=== PATIENT | female | born 1965 ===

== ENCOUNTER 2020-09-08 12:02 | Outpatient (REF) | payer OTHER, SELFPAY ==
[2020-09-08 13:57] LABS: MANUAL DIFF FLAG NO
[2020-09-08 14:14] LABS: Basophils Percent Auto 0.4 % (0-2); Eosinophils Absolute Auto 0.2 X10*3/uL (0.0-0.4); Eosinophils Percent Auto 2.6 % (0-4); Hematocrit 36.3 % (37-47); Hemoglobin 11.7 g/dl (12.0-16.0); Imm Gran Abs Auto 0.02 X10*3/uL (0.00-0.03); Imm Gran Pct Auto 0.2 % (0.0-0.4); Lymphocytes Absolute Auto 2.7 X10*3/uL (1.2-4.9); Mean Corpuscular HGB Conc 32.2 g/dl (31.0-35.0); Mean Corpuscular Hemoglobin 29.8 pg (27.0-33.0); Mean Corpuscular Volume 92.6 fL (80-98); Mean Platelet Volume 11.4 fL (9.4-12.3); Monocytes Absolute Auto 0.7 X10*3/uL (0.1-1.2); Neutrophils Absolute Auto 4.8 X10*3/uL (2.0-8.3); Neutrophils Percent Auto 56.8 % (45-73); Platelet Count 230 X10*3/uL (160-400); Red Blood Count 3.92 X10*6/uL (4.20-5.50); Red Cell Distribution Width 13.6 % (11.0-16.0); White Blood Count 8.5 X10*3/uL (4.8-10.8)
[2020-09-08 14:25] LABS: Alanine Aminotransferase 12 U/L (0-31); Albumin Level 3.9 g/dL (3.5-5.0); Alkaline Phosphatase 77 U/L (39-117); Anion Gap 10 (12-20); Aspartate Amino Transferase 12 U/L (5-31); Bilirubin Total 0.5 mg/dL (0.0-1.0); Blood Urea Nitrogen 15 mg/dL (9-16); Calcium 8.7 mg/dL (8.4-10.2); Carbon Dioxide 26 mmol/L (22-29); Chloride 110 mmol/L (96-108); Cholesterol 152 mg/dL; Estimated Glomerular Filt Rate > 60; Glucose Fasting 95 mg/dL (60-99); HDL Cholesterol 56 mg/dL; LDL Cholesterol Calculated 78 mg/dl; Potassium 4.5 mmol/L (3.3-5.1); Sodium 141 mmol/L (135-145); Total Protein 6.6 g/dL (6.5-8.0); Triglycerides 94 mg/dL
== END 2020-09-08 12:03 | disposition home or self-care (01) ==
LOC: HO.HMGCLDS 12:02
PROVIDERS: PCP Internal Medicine; Visit Provider Nurse Practitioner Family
DX: N39.0 Urinary tract infection, site not specified (principal); Z83.42 Family history of familial hypercholesterolemia
CPT/HCPCS: 36415; 80053; 80061; 85025

== ENCOUNTER 2020-09-13 13:07 | Outpatient (REF) | payer OTHER, SELFPAY ==
[2020-09-13 14:19] LABS: Glucose Urine UA NEG (NEG); Leukocyte Esterase Urine 2+ (NEG); Nitrite Urine POS (NEG); PH 5.5 (5.0-8.0); Specific Gravity - Urine >= 1.030 (1.005-1.025); UACC Culture Trigger YES; Urine Blood 1+ (NEG); Urine Ketones NEG (NEG); Urine Protein NEG (NEG-TRACE)
[2020-09-13 14:24] LABS: Appearance Urine CLOUDY; Color Urine YELLOW
[2020-09-13 14:54] LABS: Bacteria Urine 2+ /LPF; RBC Urine 0-2 /HPF (0); Squamous Epithelial Cell Urine TRACE /LPF; WBC Urine TNTC /HPF (0-4)
== END 2020-09-13 13:08 | disposition home or self-care (01) ==
LOC: HO.LAB 13:07
PROVIDERS: PCP Internal Medicine; Visit Provider Internal Medicine
DX: R30.0 Dysuria (principal)
CPT/HCPCS: 81001; 81003; 87086; 87088; 87186

== ENCOUNTER 2020-10-22 14:00 | Outpatient (REF) | payer OTHER, SELFPAY | END 2020-10-22 14:01 | disposition home or self-care (01) | LOC: HO.LNP 14:00 | PROVIDERS: Visit Provider Hospitalist | DX: R30.0 Dysuria (principal) | CPT/HCPCS: 87086; 87088; 87186 ==

== ENCOUNTER 2020-12-13 10:17 | Outpatient (REF) | payer OTHER, SELFPAY ==
--- NOTE | ~2020-12-13 | MM_ITS ---
EXAMINATION: MM SCREENING DIGITAL BREAST TOMOSYNTHESIS, BILATERAL CLINICAL INFORMATION: Screening. Asymptomatic. The lifetime risk of breast cancer based on the Tyrer-Cuzick Model is 7%. COMPARISON: Mammography: 11/22/2019, 06/15/2017, 10/20/2015 TECHNIQUE: Digital breast tomosynthesis is performed in both the craniocaudal and mediolateral oblique views along with computer-aided detection (CAD). Synthesized 2D images are generated from the tomosynthesis. FINDINGS: There are scattered areas of fibroglandular density (ACR BI-RADS breast composition Category b). There are no significant masses, abnormal calcifications, or other abnormalities. There is intramammary node mid outer left breast again noted as incidental finding. No developing density. The bilateral axilla and skin contours are unremarkable. MM/MM tomosynthesis screening BI IMPRESSION: No mammographic evidence of malignancy. ASSESSMENT: BI-RADS 2: Benign RECOMMENDATION: Routine annual mammography screening. This patient's information was entered into a reminder system with a target due date for their next mammogram.
== END 2020-12-13 10:18 | disposition home or self-care (01) ==
LOC: HO.MAMMO 10:17
PROVIDERS: Visit Provider Internal Medicine
DX: Z12.31 Encounter for screening mammogram for malignant neoplasm of breast (principal)
CPT/HCPCS: 77063; 77067

== ENCOUNTER 2020-12-28 13:49 | Emergency (ER) | payer OTHER, SELFPAY ==
[2020-12-28 15:02] VITALS: PULSE 74; RESP 18; TEMP 36.7; O2SAT 95; BMI 56.9
[2020-12-28 15:34] LABS: Glucose Urine UA NEG (NEG); Leukocyte Esterase Urine 1+ (NEG); Nitrite Urine POS (NEG); Specific Gravity - Urine >= 1.030 (1.005-1.025); UACC Culture Trigger YES; Urine Blood TRACE (NEG); Urine Ketones NEG (NEG); Urine Protein NEG (NEG-TRACE)
[2020-12-28 15:36] LABS: Appearance Urine HAZY; Color Urine YELLOW
[2020-12-28 15:49] LABS: Bacteria Urine 4+ /LPF; RBC Urine 0-2 /HPF (0); Squamous Epithelial Cell Urine 1+ /LPF
--- NOTE | 2020-12-28 18:01 | ED_ITS ---
HPI - Female Genitourinary General Chief complaint: Urogenital-Female Stated complaint: kidney stones Time Seen by Provider: 12/28/20 16:24 Source: patient Mode of arrival: ambulatory Limitations: no limitations History of Present Illness HPI Narrative: 55-year-old female came in for evaluation of possible UTI. Patient has a complain of frequency urination, dysuria, suprapubic pain, odor in the urine, patient had similar symptoms in the past and was diagnosed with UTI. Patient otherwise declined fever, chills, nausea, or vomiting. Related Data Previous Rx's Medication Instructions Recorded nitrofurantoin macrocrystal 100 mg 100 mg PO BID 7 Days #14 cap 09/13/20 capsule clotrimazole-betamethasone 1 1 appl TOPICAL BID 14 Days #15 g 09/20/20 %-0.05 % topical cream pantoprazole 40 mg tablet,delayed 40 mg PO DAILY 90 Days #90 tab 09/20/20 release ciprofloxacin HCl 500 mg tablet 500 mg PO BID #14 tab 10/22/20 (Cipro) ciprofloxacin HCl 500 mg tablet 500 mg PO BID #14 tab 12/28/20 (Cipro) Allergies Allergy/AdvReac Type Severity Reaction Status Date / Time No Known Allergies Allergy Verified 10/22/20 12:38 [No Known Allergies*] Review of Systems Review of Systems: All other systems are reviewed and are negative Constitutional: Reports as per HPI and Reports no additional constitutional complaints Eyes: Reports as per HPI and Reports no additional eye complaints Reports system reviewed and no additional complaints, except as documented Cardiovascular: Reports as per HPI and Reports no additional cardiovascular complaints Respiratory: Reports as per HPI and Reports no additional respiratory complaints Gastrointestinal: Reports as per HPI and Reports no additional gastrointestinal complaints Genitourinary: Reports no additional female genitourinary complaints Musculoskeletal: Reports no additional musculoskeletal complaints Skin/Breast: Reports system reviewed and no additional complaints, except as docu Psychiatric: Reports no additional psychiatric complaints Endocrine: Reports no additional endocrine complaints Hematologic/Lymphatic: Reports no additional hematologic/lymphatic complaints Allergic/Immunologic: Reports no additional allergic/immunologic complaints Reports system reviewed and no additional complaints, except as documented and Reports Abnormal speech present [facility] Past Medical History Medical History Depression Family history of high cholesterol GERD with apnea Morbid obesity UTI (urinary tract infection) Surgical History History of appendectomy History of bladder suspension procedure History of esophagogastroduodenoscopy (EGD) Hx of colonoscopy Family History Family History Mother Pulmonary edema Social History Social History Alcohol intake: never Advance Directives: No Advance Directives Information Provided: No Patient : No Physical Exam Vital Signs: Vital Signs: Last Vital Signs Temp 98.0 F 12/28/20 15:02 Pulse 74 12/28/20 15:02 Resp 18 12/28/20 15:02 Pulse Ox 95 12/28/20 15:02 Body Mass Index 56.9 Vital signs have been reviewed as appeared to be correct. Blood pressure normal. Heart rate normal. Respiration rate normal. Temperature normal. Oxygen saturation normal. Appearance: Alert. Oriented X3. No acute distress. Head: Normal external exam. Normocephalic. Atraumatic. No Lowe signs noted. No raccoon eyes noted Eyes: PERRLA. EOMI. Conjunctiva and sclera normal. Eyelids normal. ENT: TM's Normal. Pharynx normal. Uvula midline. Moist mucous membranes. No trismus noted. No drooling noted. No muffled voice noted. Neck: Normal inspection. Neck supple. FROM. No adenopathy. Thyroid Normal. No meningeal signs. No neck mass noted. CVS: Normal heart rate and rhythm. Heart sound normal. No murmurs noted. Pulses normal throughout. Respiratory: No respiratory distress. Painless inspiration. Breath sounds normal. No wheezes/rales/rhonchi noted. Chest nontender. No accessory muscle usage noted or decreased air movement noted. Abdomen: Soft and nontender. Bowel sounds normal in all 4 quadrants. No distention noted. No organomegaly noted. No visible injury noted. Back: No CVA tenderness. Full range of motion noted. Skin: Skin warm and dry. Normal skin color. Normal skin turgor. No rashes/lesions/lacerations noted. Extremities: No lower extremity edema. Extremities exhibit normal range of motion. Extremities nontender. Neuro: Oriented X 3. No motor deficit. No sensory deficit. Reflexes normal. Course Course Course Narrative: Assessment and plan. Symptoms for UTI, with history of UTI, no criteria for SIRS. Will treat empirically for UTI with Cipro (patient responded well to Cipro), culture not available now. MDM - Female Genitourinary Medical Records Attestation: I reviewed the patient's medical records. Lab Data Attestation: I reviewed the patient's lab results. Labs: Lab Results 12/28/20 Range/Units 15:22 Urine Color YELLOW Urine Appearance HAZY Urine pH 6.0 (5.0-8.0) Ur Specific Yoder >= 1.030 H (1.005-1.025) Urine Protein NEG (NEG-TRACE) MG/DL Urine Glucose (UA) NEG (NEG) MG/DL Urine Ketones NEG (NEG) MG/DL Urine Blood TRACE (NEG) Urine Nitrite POS H (NEG) Ur Leukocyte Esterase 1+ H (NEG) Urine RBC 0-2 (0) /HPF Urine WBC 15-29 H (0-4) /HPF Ur Squamous Epith Cells 1+ /LPF Urine Bacteria 4+ /LPF Discharge Plan Discharge Clinical Impression: UTI (urinary tract infection) Patient Disposition: Home, Self-Care Instructions: Urinary Tract Infection in Women (ED) Prescriptions: New ciprofloxacin HCl [Cipro] 500 mg tablet 500 mg PO BID Qty: 14 RF: 0 No Action nitrofurantoin macrocrystal 100 mg capsule 100 mg PO BID 7 Days Qty: 14 RF: 0 ciprofloxacin HCl [Cipro] 500 mg tablet 500 mg PO BID Qty: 14 RF: 0 pantoprazole 40 mg tablet,delayed release (DR/EC) 40 mg PO DAILY 90 Days Qty: 90 RF: 1 clotrimazole-betamethasone 1-0.05 % cream 1 appl topical BID 14 Days Qty: 15 RF: 1 Referrals: Maria Luisa Henderson MD [Primary Care Provider] - 2 days
== END 2020-12-28 18:19 | disposition home or self-care (01) ==
PROVIDERS: Emergency Provider Emergency Medicine; PCP Internal Medicine
DX: N39.0 Urinary tract infection, site not specified (principal); R35.0 Frequency of micturition; Z79.899 Other long term (current) drug therapy
CPT/HCPCS: 81001; 87086; 87088; 87186; 99283

== ENCOUNTER 2021-08-18 10:55 | Outpatient (REF) | payer OTHER, SELFPAY ==
[2021-08-18 13:12] LABS: Appearance Urine HAZY; Color Urine YELLOW; Glucose Urine UA NEG (NEG); Leukocyte Esterase Urine 1+ (NEG); Nitrite Urine POS (NEG); Specific Gravity - Urine >= 1.030 (1.005-1.025); UACC Culture Trigger YES; Urine Blood 1+ (NEG); Urine Ketones NEG (NEG); Urine Protein NEG (NEG-TRACE)
[2021-08-18 13:48] LABS: WBC Urine 30-49 /HPF (0-4)
[2021-08-18 13:49] LABS: Bacteria Urine 3+ /LPF; Squamous Epithelial Cell Urine 2+ /LPF
== END 2021-08-18 10:56 | disposition home or self-care (01) ==
LOC: HO.LAB 10:55
PROVIDERS: PCP Internal Medicine; Visit Provider Nurse Practitioner Family
DX: R82.90 Unspecified abnormal findings in urine (principal)
CPT/HCPCS: 81001; 81003; 87086; 87088; 87186

== ENCOUNTER 2021-09-16 14:08 | Outpatient (REF) | payer OTHER, SELFPAY ==
[2021-09-16 16:47] LABS: Appearance Urine CLOUDY; Color Urine YELLOW; Glucose Urine UA NEG (NEG); Leukocyte Esterase Urine NEG (NEG); Nitrite Urine POS (NEG); Specific Gravity - Urine 1.025 (1.005-1.025); UACC Culture Trigger YES; Urine Blood TRACE (NEG); Urine Ketones NEG (NEG); Urine Protein NEG (NEG-TRACE)
[2021-09-16 17:00] LABS: Bacteria Urine 4+ /LPF; Squamous Epithelial Cell Urine 1+ /LPF
== END 2021-09-16 14:09 | disposition home or self-care (01) ==
LOC: HO.LAB 14:08
PROVIDERS: PCP Internal Medicine; Visit Provider Internal Medicine
DX: R30.0 Dysuria (principal)
CPT/HCPCS: 81001; 87086; 87088; 87186

== ENCOUNTER 2022-01-11 13:50 | Outpatient (REF) | payer OTHER, SELFPAY ==
[2022-01-11 15:18] LABS: Appearance Urine Cloudy; Color Urine Yellow; Glucose Urine UA Negative (Negative); Leukocyte Esterase Urine Large (3+) (Negative); Nitrite Urine Positive (Negative); Urine Blood Trace (Negative); Urine Ketones Trace mg/dL (Negative); Urine Protein Negative (Neg-Trace)
[2022-01-11 16:18] LABS: Hyaline Casts Urine 0-2 /LPF (0-2); RBC Urine 0-2 /HPF (0-2); UACC Culture Trigger YES; WBC Urine >50 /HPF (0-5)
[2022-01-11 16:36] LABS: Bacteria Urine 4+ (None Seen)
== END 2022-01-11 13:51 | disposition home or self-care (01) ==
LOC: HO.LAB 13:50
PROVIDERS: PCP Internal Medicine; Visit Provider Physician Assistant
DX: R30.0 Dysuria (principal)
CPT/HCPCS: 81001; 87086; 87088; 87186

== ENCOUNTER 2022-03-02 12:11 | Outpatient (REF) | payer OTHER, SELFPAY ==
[2022-03-02 13:27] LABS: Appearance Urine Cloudy; Color Urine Yellow; Glucose Urine UA Negative (Negative); Leukocyte Esterase Urine Moderate (2+) (Negative); Nitrite Urine Positive (Negative); UMIC TRIGGER UACC YES; Urine Blood Negative (Negative); Urine Ketones Negative (Negative); Urine Protein Negative (Neg-Trace)
[2022-03-02 13:30] LABS: Bacteria Urine 4+ (None Seen); Hyaline Casts Urine 0-2 /LPF (0-2); RBC Urine 0-2 /HPF (0-2); Squamous Epithelial Cell Urine 0-2 /HPF (0-2); UACC Culture Trigger YES; WBC Urine >50 /HPF (0-5)
== END 2022-03-02 12:12 | disposition home or self-care (01) ==
LOC: HO.LAB 12:11
PROVIDERS: PCP Internal Medicine; Visit Provider Internal Medicine
DX: R30.0 Dysuria (principal); R82.90 Unspecified abnormal findings in urine
CPT/HCPCS: 81001; 87086; 87088; 87186

== ENCOUNTER 2022-05-30 09:11 | Outpatient (REF) | payer OTHER, SELFPAY ==
[2022-05-30 09:37] LABS: MANUAL DIFF FLAG NO
[2022-05-30 10:07] LABS: Basophils Percent Auto 0.4 % (0-2); Eosinophils Absolute Auto 0.2 X10*3/uL (0.0-0.4); Eosinophils Percent Auto 2.3 % (0-4); Hematocrit 37.5 % (37.0-47.0); Hemoglobin 12.2 g/dl (12.0-16.0); Imm Gran Abs Auto 0.03 X10*3/uL (0.00-0.03); Imm Gran Pct Auto 0.4 % (0.0-0.4); Lymphocytes Absolute Auto 2.2 X10*3/uL (1.2-4.9); Lymphocytes Percent Auto 26.7 % (20-40); Mean Corpuscular HGB Conc 32.5 g/dl (31.0-35.0); Mean Corpuscular Hemoglobin 30.1 pg (27.0-33.0); Mean Corpuscular Volume 92.6 fL (80.0-98.0); Monocytes Absolute Auto 0.6 X10*3/uL (0.1-1.2); Monocytes Percent Auto 7.2 % (2-11); Neutrophils Absolute Auto 5.2 x10*3/uL (2.0-8.3); Platelet Count 223 X10*3/uL (160-400); Red Blood Count 4.05 X10*6/uL (4.20-5.50); Red Cell Distribution Width 13.3 % (11.0-16.0); White Blood Count 8.3 X10*3/uL (4.8-10.8)
[2022-05-30 11:27] LABS: Alanine Aminotransferase 8 U/L (0-31); Alkaline Phosphatase 81 U/L (39-117); Anion Gap 9 (12-20); Aspartate Amino Transferase 12 U/L (5-31); Bilirubin Total 0.8 mg/dL (0.0-1.0); Blood Urea Nitrogen 14 mg/dL (9-16); Carbon Dioxide 28 mmol/L (22-29); Chloride 108 mmol/L (96-108); Cholesterol 175 mg/dL; Estimated Glomerular Filt Rate > 60; Glucose Fasting 89 mg/dL (60-99); HDL Cholesterol 59 mg/dL; LDL Cholesterol Calculated 103 mg/dl; Potassium 4.8 mmol/L (3.3-5.1); Sodium 140 mmol/L (135-145); Total Protein 6.9 g/dL (6.5-8.0); Triglycerides 69 mg/dL
[2022-05-30 11:46] LABS: Thyroid Stimulating Hormone 2.15 uIU/mL (0.32-4.0); Vitamin D 25-OH Total 14.3 ng/mL (>30)
[2022-05-30 12:02] LABS: Folate 14.4 ng/mL (> or = 4.0); Vitamin B12 339 pg/mL (200-900)
== END 2022-05-30 09:12 | disposition home or self-care (01) ==
LOC: HO.LAB 09:11
PROVIDERS: PCP Internal Medicine; Visit Provider Internal Medicine
DX: E66.01 Morbid (severe) obesity due to excess calories (principal); E53.8 Deficiency of other specified B group vitamins; E78.5 Hyperlipidemia, unspecified; E55.9 Vitamin D deficiency, unspecified; D64.9 Anemia, unspecified
CPT/HCPCS: 36415; 80053; 80061; 82306; 82607; 82746; 84443; 85025

== ENCOUNTER 2022-06-09 09:09 | Outpatient (REF) | payer OTHER, SELFPAY ==
--- NOTE | ~2022-06-09 | MM_ITS ---
EXAMINATION: BONE DENSITOMETRY CLINICAL INDICATION: Menopause. COMPARISON: This is the patient's baseline examination. TECHNIQUE: Using a [employer] DXA System (software version: 13.1) manufactured by [employer], dual-energy x-ray absorptiometry was performed of the lumbar spine and left hip. The images are of good technical quality. Summary results are attached. FINDINGS: AP SPINE L1-L4: BMD 0.984 g/cm2, Z-score -1.7, T-score -1.6, osteopenia. LEFT FEMUR, NECK: BMD 0.818 g/cm2, Z-score -1.1, T-score -1.6, osteopenia. LEFT FEMUR, TOTAL: BMD 1.084 g/cm2, Z-score 0.7, T-score 0.6, normal. IDENTIFIED RISK FACTORS: Menopause. HISTORY OF FRACTURE: None listed. MEDICATIONS: Vitamin D. MM/XR DEXA axial skeleton IMPRESSION: 1. DIAGNOSIS: Osteopenia based on the lowest T-score value of -1.6 in the lumbar spine and femur neck applying World Health Organization criteria. 2. 10-YEAR FRACTURE RISK PREDICTION, FRAX: Major osteoporotic fracture (clinical spine, forearm, hip or shoulder) 3.4%. Hip fracture 0.3%. 3. Treatment Recommendations: NOF guidelines recommend consideration for treatment in postmenopausal women and men age 50 and older presenting with the following: -A hip or vertebral (clinical or morphometric) fracture. -T-score less than or equal to -2.5 at the femoral neck or spine after appropriate evaluation to exclude secondary causes. -Low bone mass at the hip or spine and a 10-year fracture probability by FRAX of greater than or equal to 3% for hip fracture or greater than or equal to 20% for major osteoporotic fracture based on the [place] adapted WHO algorithm. 4. Other Recommendations: All treatment decisions require clinical judgment and consideration of individual patient factors, including patient preferences, comorbidities, previous drug use, risk factors not captured in the FRAX model (e.g. frailty, falls, vitamin D deficiency, increased bone turnover, interval significant decline in bone density) and possible under or overestimation of fracture risk by FRAX. Additional medical evaluation for secondary cause of low bone mineral density may be appropriate. FUTURE SCAN RECOMMENDATION: People with diagnosed cases of osteoporosis or at high risk for fracture should have regular bone mineral density tests. For patients eligible for Medicare, routine testing is allowed once every 2 years. The testing frequency can be increased to one year for patients who have rapidly progressing disease, those who are receiving or discontinuing medical therapy to restore bone mass, or have additional risk factors.
== END 2022-06-09 09:10 | disposition home or self-care (01) ==
LOC: HO.MAMMO 09:09
PROVIDERS: PCP Internal Medicine; Visit Provider Internal Medicine
DX: Z13.820 Encounter for screening for osteoporosis (principal); Z78.0 Asymptomatic menopausal state
CPT/HCPCS: 77080

== ENCOUNTER → 2022-06-20 08:58 | Outpatient (BNVA) | payer OTHER, SELFPAY | PROVIDERS: PCP Internal Medicine; Visit Provider Physician Assistant | DX: Z13.89 Encounter for screening for other disorder (principal) ==

== ENCOUNTER → 2022-06-29 10:37 | Outpatient (BNVA) | payer OTHER, SELFPAY | PROVIDERS: PCP Internal Medicine; Visit Provider Physician Assistant | DX: E66.01 Morbid (severe) obesity due to excess calories (principal) ==

== ENCOUNTER → 2022-07-03 13:39 | Outpatient (BNVA) | payer OTHER, SELFPAY | PROVIDERS: PCP Internal Medicine; Referring Provider Internal Medicine; Visit Provider Nurse Practitioner Family | DX: Z13.89 Encounter for screening for other disorder (principal) ==

== ENCOUNTER 2022-07-10 10:03 | Outpatient (REF) | payer OTHER, SELFPAY ==
--- NOTE | ~2022-07-10 | XR_ITS ---
EXAMINATION: XR CHEST CLINICAL INFORMATION: Morbid obesity COMPARISON: August 29, 2014 TECHNIQUE: 2 views of the chest were obtained. FINDINGS: No significant abnormality is noted involving the heart, lungs, mediastinum, bony thorax or soft tissues. XR/XR chest 2V IMPRESSION: No acute disease.
--- NOTE | 2022-07-10 10:09 | ECG_ITS ---
Test Reason : morbid obesity Blood Pressure : / mmHG Vent. Rate : 076 BPM Atrial Rate : 076 BPM P-R Int : 136 ms QRS Dur : 090 ms QT Int : 390 ms P-R-T Axes : 057 027 031 degrees QTc Int : 438 ms Normal sinus rhythm Normal ECG When compared to the previous EKG of No significant changes seen Referred By: Radha Vasquez Electronically Signed By:Андрей Baez
[2022-07-10 10:33] LABS: MANUAL DIFF FLAG NO
[2022-07-10 11:02] LABS: Basophils Percent Auto 0.2 % (0-2); Eosinophils Absolute Auto 0.3 X10*3/uL (0.0-0.4); Eosinophils Percent Auto 3.6 % (0-4); Hematocrit 38.7 % (37.0-47.0); Hemoglobin 12.9 g/dl (12.0-16.0); Imm Gran Abs Auto 0.02 X10*3/uL (0.00-0.03); Imm Gran Pct Auto 0.2 % (0.0-0.4); Lymphocytes Percent Auto 23.4 % (20-40); Mean Corpuscular HGB Conc 33.3 g/dl (31.0-35.0); Mean Corpuscular Hemoglobin 30.1 pg (27.0-33.0); Mean Corpuscular Volume 90.2 fL (80.0-98.0); Mean Platelet Volume 11.2 fL (9.4-12.3); Monocytes Absolute Auto 0.5 X10*3/uL (0.1-1.2); Monocytes Percent Auto 6.2 % (2-11); Neutrophils Absolute Auto 5.8 x10*3/uL (2.0-8.3); Neutrophils Percent Auto 66.4 % (45-73); Platelet Count 230 X10*3/uL (160-400); Red Blood Count 4.29 X10*6/uL (4.20-5.50); Red Cell Distribution Width 12.7 % (11.0-16.0); White Blood Count 8.7 X10*3/uL (4.8-10.8)
[2022-07-10 11:07] LABS: Estimated Average Glucose 88 mg/dL; Hemoglobin A1c % 4.7 %
[2022-07-10 11:43] LABS: Alanine Aminotransferase 12 U/L (0-31); Albumin Level 4.1 g/dL (3.5-5.0); Alkaline Phosphatase 63 U/L (39-117); Anion Gap 13 (12-20); Aspartate Amino Transferase 13 U/L (5-31); Bilirubin Total 0.9 mg/dL (0.0-1.0); Blood Urea Nitrogen 13 mg/dL (9-16); C Reactive Protein 0.64 mg/dL (< or = 0.50); Carbon Dioxide 23 mmol/L (22-29); Chloride 109 mmol/L (96-108); Cholesterol 158 mg/dL; Estimated Glomerular Filt Rate > 60; Glucose Random 90 mg/dL (60-115); HDL Cholesterol 52 mg/dL; Iron 78 mcg/dL (30-160); LDL Cholesterol Calculated 94 mg/dl; Percent Iron Saturation 25 % (15-50); Potassium 4.3 mmol/L (3.3-5.1); Sodium 141 mmol/L (135-145); Total Iron Binding Capacity 306 mcg/dL (228-428); Total Protein 6.8 g/dL (6.5-8.0); Triglycerides 60 mg/dL; Unsaturated Iron Binding 228 ug/dL
[2022-07-10 12:14] LABS: Appearance Urine Cloudy; Color Urine Yellow; Glucose Urine UA Negative (Negative); Leukocyte Esterase Urine Negative (Negative); Nitrite Urine Negative (Negative); PH 5.5 (5.0-9.0); Specific Gravity - Urine 1.025 (1.005-1.025); Urine Blood Negative (Negative); Urine Ketones Negative (Negative); Urine Protein Negative (Neg-Trace)
[2022-07-10 12:14] LABS: Ferritin 159 ng/mL (10-250); Folate 16.1 ng/mL (> or = 4.0); Insulin 5 uU/mL (2-29); TSH reflex Free T4 1.46 uIU/mL (0.32-4.0); Vitamin B12 289 pg/mL (200-900); Vitamin D 25-OH Total 18.7 ng/mL (>30)
[2022-07-11 13:39] LABS: Calcium (PTHI) 9.1 mg/dL (8.6-10.4); PTHI 95 pg/mL (16-77)
[2022-07-13 05:49] LABS: Zinc 64 mcg/dL (60-130)
[2022-07-13 17:29] LABS: Vitamin A 28 mcg/dL (38-98)
[2022-07-16 12:18] LABS: Vitamin B1 <6 nmol/L (8-30)
== END 2022-07-10 10:04 | disposition home or self-care (01) ==
LOC: HO.LAB 10:03
PROVIDERS: PCP Internal Medicine; Visit Provider Physician Assistant
DX: Z01.818 Encounter for other preprocedural examination (principal); E66.01 Morbid (severe) obesity due to excess calories; K21.9 Gastro-esophageal reflux disease without esophagitis; R06.81 Apnea, not elsewhere classified; I10 Essential (primary) hypertension; R30.0 Dysuria
CPT/HCPCS: 36415; 71046; 80053; 80061; 81003; 82306; 82607; 82728; 82746; 83036; 83525; 83540; 83970; 84425; 84443; 84590; 84630; 85025; 86140; 93005

== ENCOUNTER → 2022-07-24 15:21 | Outpatient (BNVA) | payer OTHER, SELFPAY | PROVIDERS: PCP Internal Medicine; Visit Provider Physician Assistant | DX: Z13.89 Encounter for screening for other disorder (principal) ==

== ENCOUNTER → 2022-07-27 13:49 | Outpatient (BNVA) | payer OTHER, SELFPAY | PROVIDERS: PCP Internal Medicine; Visit Provider Physician Assistant | DX: Z11.0 Encounter for screening for intestinal infectious diseases (principal); E66.01 Morbid (severe) obesity due to excess calories | CPT/HCPCS: 97802 ==

== ENCOUNTER 2022-07-27 17:41 | Outpatient (REF) | payer OTHER, SELFPAY ==
[2022-07-29 15:02] LABS: H Pylori Breath Test Negative (Negative)
== END 2022-07-27 17:42 | disposition home or self-care (01) ==
LOC: HO.LNP 17:41
PROVIDERS: Visit Provider Physician Assistant
DX: Z01.818 Encounter for other preprocedural examination (principal); E66.01 Morbid (severe) obesity due to excess calories; I10 Essential (primary) hypertension; K21.9 Gastro-esophageal reflux disease without esophagitis; R06.81 Apnea, not elsewhere classified; Z11.0 Encounter for screening for intestinal infectious diseases
CPT/HCPCS: 83013

== ENCOUNTER 2022-08-10 09:55 | Outpatient (REF) | payer OTHER, SELFPAY ==
[2022-08-10 18:39] LABS: CT PCR NOT DETECTED (Not Detect.); NG PCR NOT DETECTED (Not Detect.)
[2022-08-12 10:19] LABS: HPV mRNA E6/E7 rflx Not Detected (Not Detected)
== END 2022-08-10 09:56 | disposition home or self-care (01) ==
LOC: HO.LNP 09:55
PROVIDERS: PCP Internal Medicine; Visit Provider Advanced Practice Midwife
DX: Z01.419 Encounter for gynecological examination (general) (routine) without abnormal findings (principal); Z20.2 Contact with and (suspected) exposure to infections with a predominantly sexual mode of transmission
CPT/HCPCS: 0353U; 87624; 88142

== ENCOUNTER → 2022-08-15 13:21 | Outpatient (BNVA) | payer OTHER, SELFPAY | PROVIDERS: PCP Internal Medicine; Visit Provider Physician Assistant | DX: Z13.89 Encounter for screening for other disorder (principal) ==

== ENCOUNTER 2022-08-23 08:10 | Outpatient (REF) | payer OTHER, SELFPAY ==
--- NOTE | ~2022-08-23 | FL_ITS ---
EXAMINATION: FL UPPER GI SERIES CLINICAL INFORMATION: Bariatric service evaluation. E66.01. Patient notes history heartburn. No dysphagia. COMPARISON: None TECHNIQUE: Upper GI series is performed using fluoroscopic evaluation in addition to multiple fluoroscopic spot views. The patient is imaged both upright and prone and using both thick and thin barium sulfate along with effervescent granules. Barium pill challenge also performed. Fluoroscopy time: 1.9 minutes DAP: 28.01 Gycm2 Fluoroscopic spot images: 19 FINDINGS: There is normal esophageal motility. There is no obstruction, stricture, ulceration, or hernia. No gastroesophageal reflux is demonstrated. There is prompt passage of the barium pill from mouth to stomach without delay. The stomach shows no thickened folds or ulcer crater or outlet obstruction. The duodenal bulb is pliable and without ulcer crater or scarring. The post bulbar duodenum the jejunal mucosal pattern are unremarkable. FL/FL upper GI w air IMPRESSION: Normal study.
--- NOTE | ~2022-08-23 | US_ITS ---
EXAMINATION: US COMPLETE ABDOMEN WITH LIVER ELASTOGRAPHY CLINICAL INFORMATION: Obesity COMPARISON: None available. TECHNIQUE: Real-time imaging of the abdominal viscera. Noninvasive ultrasound liver fibrosis assessment is performed using Kg [employer]ast[employer] point quantification shear wave elastography (2D-SWE) with a C5-2 MHz transducer. Multiple elastography samples are obtained. FINDINGS: PANCREAS: Normal. ABDOMINAL AORTA: The proximal, middle, and distal aortic segments are normal in caliber. INFERIOR VENA CAVA: Visualized portions are normal. LIVER: The liver is slightly enlarged. The liver is normal in echotexture and contour. No focal lesion or intrahepatic biliary duct dilatation. The right lobe measures 18 cm in length. The left lobe measures 12 cm in length. Portal flow is normal/hepatopedal Shear wave liver elastography median stiffness is 2.7 m/s (reference: normal median stiffness is 1.3 m/s or less). IQR/median stiffness to assess sampling precision is 0.08 (reference: good quality data set is IQR/median stiffness of 0.15 or less). GALLBLADDER: Normal. The gallbladder is physiologically distended without evidence of stones, sludge, polyps, wall thickening or pericholecystic fluid. COMMON BILE DUCT: Normal in caliber measuring 0.4 cm in diameter. RIGHT KIDNEY: Normal. No hydronephrosis. No renal calculi or focal parenchymal lesions. The kidney measures 12.7 cm in maximum dimension. LEFT KIDNEY: Normal. No hydronephrosis. No renal calculi or focal parenchymal lesions. The kidney measures 11 cm in maximum dimension. SPLEEN: Normal. The spleen measures 10 cm in maximum dimension. FREE FLUID: None. US/US abdomen comp w elastography IMPRESSION: 1. Impression: Slightly enlarged liver. 2. Liver elastography: Adequate liver sampling. Increased liver stiffness suggestive of compensated advanced chronic liver disease but need further test for confirmation. REFERENCE: Society of Radiologists in Ultrasound Liver Stiffness Thresholds (2020): LIVER STIFFNESS THRESHOLDS: *Liver Stiffness equal or less than 1.3 m/s: High probability of being normal. *Liver Stiffness less than 1.7 m/s: In the absence of other known clinical signs, rules out compensated advanced chronic liver disease. *Liver Stiffness 1.7-2.1 m/s: Suggestive of compensated advanced chronic liver disease but need further test for confirmation. *Liver Stiffness over 2.1 m/s: Rules in compensated advanced chronic liver disease. *Liver Stiffness over 2.4 m/s: Suggestive of clinically significant portal hypertension. QUALITY OF DATA SET: *IQR/Median value equal or less than 0.15 implies a quality data set. *IQR/Median value over 0.15 implies a poor quality data set. SIGNIFICANT CHANGE FROM PRIOR EXAM: Significant change if liver stiffness measurement is 10% or greater from prior exam. OTHER CONSIDERATIONS: The stage of liver fibrosis may be overestimated in the setting of acute hepatitis, liver inflammation, elevated liver function tests, hepatic vascular congestion, obstructive cholestasis, non-fasting state, and infiltrative diseases such as amyloidosis and lymphoma. In some patients with NAFLD, the liver stiffness thresholds for compensated advanced chronic liver disease may be lower. In causes other than viral hepatitis and NAFLD, liver stiffness thresholds are not well established.
== END 2022-08-23 08:11 | disposition home or self-care (01) ==
LOC: HO.US 08:10
PROVIDERS: PCP Internal Medicine; Visit Provider Physician Assistant
DX: Z01.818 Encounter for other preprocedural examination (principal); E66.01 Morbid (severe) obesity due to excess calories; I10 Essential (primary) hypertension; K21.9 Gastro-esophageal reflux disease without esophagitis; R06.81 Apnea, not elsewhere classified
CPT/HCPCS: 74246; 76705; 76981

== ENCOUNTER → 2022-08-28 14:37 | Outpatient (BNVA) | payer OTHER, SELFPAY | PROVIDERS: PCP Internal Medicine; Visit Provider Dietitian, Registered | DX: E66.01 Morbid (severe) obesity due to excess calories (principal); Z71.3 Dietary counseling and surveillance | CPT/HCPCS: 97803 ==

== ENCOUNTER → 2022-09-06 15:00 | Outpatient (BNVA) | payer OTHER, SELFPAY | PROVIDERS: PCP Internal Medicine; Visit Provider Physician Assistant | DX: Z13.89 Encounter for screening for other disorder (principal) ==

== ENCOUNTER → 2022-09-08 14:53 | Outpatient (BNVA) | payer OTHER, SELFPAY | PROVIDERS: PCP Internal Medicine; Visit Provider Counselor Mental Health | DX: Z13.89 Encounter for screening for other disorder (principal) ==

== ENCOUNTER 2022-09-12 11:21 | Inpatient (IN) | payer OTHER, SELFPAY ==
--- NOTE | ~2022-09-12 | XR_ITS ---
Examination: Right ankle and right foot. CLINICAL INDICATION: Pain and swelling. COMPARISON: None. TECHNIQUE: 3 views right foot and 3 views right ankle. FINDINGS: Right ankle: There is bimalleolar soft tissue swelling. The ankle mortise and subtalar joints are normal. There is a small calcaneal heel and retrocalcaneal enthesophyte. The soft tissues are normal. Right foot: There is no visible acute fracture, dislocation or subluxation. The intertarsal, tarsometatarsal and interphalangeal joints are normal. The soft tissues are normal. XR/XR ankle RT min 3V IMPRESSION: Bimalleolar soft tissue swelling likely ligamentous contusion. No acute fracture or dislocation seen. There is a small calcaneal heal and retrocalcaneal enthesophytes.
--- NOTE | ~2022-09-12 | XR_ITS ---
Examination: Right ankle and right foot. CLINICAL INDICATION: Pain and swelling. COMPARISON: None. TECHNIQUE: 3 views right foot and 3 views right ankle. FINDINGS: Right ankle: There is bimalleolar soft tissue swelling. The ankle mortise and subtalar joints are normal. There is a small calcaneal heel and retrocalcaneal enthesophyte. The soft tissues are normal. Right foot: There is no visible acute fracture, dislocation or subluxation. The intertarsal, tarsometatarsal and interphalangeal joints are normal. The soft tissues are normal. XR/XR foot RT min 3V IMPRESSION: Bimalleolar soft tissue swelling likely ligamentous contusion. No acute fracture or dislocation seen. There is a small calcaneal heal and retrocalcaneal enthesophytes.
--- NOTE | ~2022-09-12 | US_ITS ---
EXAMINATION: US VENOUS ULTRASOUND WITH DOPPLER LOWER EXTREMITY, RIGHT CLINICAL INFORMATION: Right lower extremity swelling. COMPARISON: None available. TECHNIQUE: Ultrasound of the deep veins is performed from the hip to the calf with compression sonography and color and pulse Doppler assessment. Spectral analysis with color-flow imaging is performed. FINDINGS: There is normal venous compression and respiratory variation and augmented flow. The visualized common femoral vein, superficial femoral vein, profunda femoral vein, popliteal vein, and the trifurcation region shows no evidence of deep venous thrombosis. The peroneal vein is not seen. There is no significant popliteal fossa cyst. There are a few scattered lymph nodes seen in the right groin and proximal 5. The largest lymph node measures 5.0 x 1.5 x 4.9 cm. If the patient's symptoms persist, followup ultrasound in 5 days 7 days might be of value to exclude proximal propagation from a non-visualized calf vein. US/US venous duplex LE RT IMPRESSION: No DVT demonstrated in the right lower extremity. Small lymph nodes right groin.
--- NOTE | ~2022-09-12 | XR_ITS ---
EXAMINATION: XR CHEST CLINICAL INFORMATION: Question pulmonary edema COMPARISON: 07/10/2022 TECHNIQUE: Frontal view of the chest was obtained. FINDINGS: The lungs are well expanded. There is no focal consolidation, edema, or effusion. No pneumothorax. The cardiomediastinal silhouette is within normal limits. No acute osseous abnormality. XR/XR chest 1V IMPRESSION: No acute pulmonary disease.
--- NOTE | 2022-09-12 11:59 | ED_ITS ---
HPI - General Adult General Chief complaint: Extremity Problem <JEFF Estrada - Last Filed: 09/12/22 12:06> Stated complaint: Swollen R Foot No Injury Sore Throat <JEFF Estrada - Last Filed: 09/12/22 12:06> Time Seen by Provider: 09/12/22 16:24 <JEFF Estrada - Last Filed: 09/12/22 12:06> Source: patient <Kathleen Henry MD - Last Filed: 09/12/22 18:30> Mode of arrival: ambulatory <Kathleen Henry MD - Last Filed: 09/12/22 18:30> Limitations: no limitations <Kathleen Henry MD - Last Filed: 09/12/22 18:30> History of Present Illness HPI narrative: Patient comes to the emergency room complaining of right foot swelling and pain secondary to an injury. Patient states that approximately 4 days ago, patient was getting on the car, and while she was trying to get on, she injured the posterior aspect of her ankle. Since then, the right lower distal extremity has been becoming more painful, swollen, erythematous and warm to touch. Patient states that occasionally she sees post drainage from the back of her ankle . Also, patient has been complaining of a sore throat for last 4 days. Patient complaining of chills and subjective fever. <Kathleen Henry MD - Last Filed: 09/12/22 18:30> Related Data Home medications: Previous Rx's Medication Instructions Recorded clotrimazole-betamethasone 1 1 appl topical BID 2 weeks #15 05/13/ %-0.05 % topical cream grams calcium carbonate 600 mg calcium 600 mg PO BID 90 days #180 tabs 06/10/22 (1,500 mg) tablet cholecalciferol (vitamin D3) 50 50 mcg PO DAILY 90 days #90 caps 06/10/22 mcg (2,000 unit) capsule simethicone 125 mg capsule (Gas 125 mg PO TID-QID PRN abdominal 07/03/22 Relief (simethicone)) distention #120 caps cyanocobalamin (vitamin B-12) 250 250 mcg PO DAILY #30 tabs 07/10/22 mcg tablet thiamine HCl (vitamin B1) 100 mg 100 mg PO DAILY #30 tabs 07/18/22 tablet lisinopril 20 mg tablet 20 mg PO DAILY 90 days #90 tabs 07/24/22 <JEFF Estrada - Last Filed: 09/12/22 12:06> Allergies/adverse reactions: Allergies Allergy/AdvReac Type Severity Reaction Status Date / Time No Known Allergies Allergy Verified 09/06/22 15:04 [No Known Allergies*] <JEFF Estrada - Last Filed: 09/12/22 12:06> Review of Systems Review of Systems: Constitutional : No Weight loss, No Fever, No Chills, No Night Sweats, No Fatigue, No Malaise ENT/Mouth : No Hearing loss, No Ear Pain, No Nasal Congestion, No Sinus Pain, No Hoarseness, complaining of sore throat, No Rhinorrhea, No Swallowing Difficulty Eyes: No Eye Pain, No Swelling, No Redness, No Foreign Body, No Discharge, No Vision Changes Cardiovascular : No Chest Pain, No SOB, No Dyspnea on Exertion, No Orthopnea, No Edema, No Palpitations Respiratory : No Cough, No Sputum, No Wheezing, No Smoke Exposure, No Dyspnea Gastrointestinal : No Nausea, No Vomiting, No Diarrhea, No Constipation, No abdominal Pain, No Hematochezia, No Melena Genitourinary : no irregular bleeding, No Dysuria, No Urinary Frequency, No Hematuria, No Urinary Incontinence, No Urgency, No Flank Pain, No Urinary Flow Changes, No Hesitancy Musculoskeletal : No joint pain, No Myalgias, complaining of lower extremity edema warm and pain on the right side Skin : No Skin Lesions, No rash Neuro : No Weakness, No Numbness, No Paresthesias, No Loss of Consciousness, No Dizziness, No Headache Psych : No Anxiety/Panic, No Depression, No SI/HI/AH/VH, No Social Issues, Heme/Lymph: No Bruising, No Bleeding,No Lymphadenopathy Endocrine : No Polyuria, No Polydipsia, No Temperature Intolerance <Kathleen Henry MD - Last Filed: 09/12/22 18:30> [facility] Past Medical History Medical History: Medical History Depression Family history of high cholesterol GERD with apnea Morbid obesity Physical exam UTI (urinary tract infection) <JEFF Estrada - Last Filed: 09/12/22 12:06> Surgical History: Surgical History History of appendectomy History of bladder suspension procedure History of esophagogastroduodenoscopy (EGD) Hx of colonoscopy <JEFF Estrada - Last Filed: 09/12/22 12:06> Family History Family History: Family History Mother Pulmonary edema Father Diabetes HTN (hypertension) Heart disease <JEFF Estrada - Last Filed: 09/12/22 12:06> Social History Social History: Social History Household Members: Spouse Housing: House Alcohol intake: never Patient Tobacco Use Status: Never used Tobacco Smoked in Last 30 Days: No e-Cigarette/Vaping Use: Never Used Second Hand Smoke Exposure: No Use of substances other than those prescribed or required for medical reasons: No Advance Directives: No service: No Current occupational status: employed 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 Sexual orientation: Straight/Heterosexual Gender identity: Female Cognitive needs: No Hearing needs: No Vision needs: No <JEFF Estrada - Last Filed: 09/12/22 12:06> Physical Exam ED Vital Signs: Vital Signs - 24 hr 09/12/22 12:03 09/12/22 17:35 Temperature 103.1 F H Pulse Rate 104 H 100 Respiratory Rate 20 16 Blood Pressure 145/62 H 127/68 Pulse Oximetry 95 96 Oxygen Delivery Method Room Air Room Air BMI result Body Mass Index 51.7 <JEFF Estrada - Last Filed: 09/12/22 12:06> Vital Signs - 24 hr 09/12/22 12:03 09/12/22 17:35 Temperature 103.1 F H Pulse Rate 104 H 100 Respiratory Rate 20 16 Blood Pressure 145/62 H 127/68 Pulse Oximetry 95 96 Oxygen Delivery Method Room Air Room Air BMI result Body Mass Index 51.7 <Kathleen Henry MD - Last Filed: 09/12/22 18:30> Const Other: Appearance: Alert. Oriented X3. No acute distress. Eyes: Pupils equal, round and reactive to light. ENT: Pharynx erythematous, no visualized abscess that could be drained Neck: Normal inspection. Neck supple. No lymph nodes noted. No crepitus CVS: Normal heart rate and rhythm. Pulses normal. Normal S1 and S2 Respiratory: No respiratory distress. Breath sounds normal. No Wheezing. No rales Abdomen: Soft and nontender. No rigidity. No distention. Skin: Skin warm and dry. Normal skin color. Normal skin turgor. Extremities: Patient has bilaterally lower extremity edema, on the right ankle posteriorly, there are some small abrasions, small amount crusty secretions present. Scant amount of blood. Very tender to palpation, warm, swollen Neuro: Oriented X 3. No motor deficit. No sensory deficit. Moving all extremities. No slurred speech. CN 2 through 12 grossly intact Psych: calm, cooperative, normal affect <Kathleen Henry MD - Last Filed: 09/12/22 18:30> Course Course Course Narrative: This is an RME: Additional HPI, ROS, PE not included below will be deferred to primary provider. 57-year-old female history of depression, GERD, anxiety, venous insufficiency, osteopenia presenting to the emergency department complaints of atraumatic right-sided lower extremity swelling worse around the ankle since Sunday, patient also reports associated dizziness, shortness of breath and sore throat. Also started around the same time. This is never happened to her before. Not on anticoagulation. Physical exam with significantly swollen right lower extremity particularly around the ankle 2+ pitting edema with overlying warmth and painful range of motion. Normal sensation. Palpable pulses. Temp 103.1 F oral Plan at this time basic labs, x-ray, venous duplex of right lower extremity, blood cultures and lactic due to fever <JEFF Estrada - Last Filed: 09/12/22 12:06> Medications Administered Generic Name Dose Route Start Last Admin Trade Name Freq PRN Reason Stop Dose Admin Vancomycin HCl 2,000 mg in 500 mls @ 250 mls/hr 09/12/22 16:42 09/12/22 18:05 Vancomycin/Ns IV 09/12/22 18:41 250 mls/hr ONCE ONE Administration Discontinued Medications Generic Name Dose Route Start Last Admin Trade Name Freq PRN Reason Stop Dose Admin Acetaminophen 975 mg 09/12/22 12:06 09/12/22 12:11 Acetaminophen 325 Mg Tablet PO 09/12/22 12:07 975 mg ONCE ONE Administration Piperacillin Sod/Tazobactam 50 mls @ 100 mls/hr 09/12/22 16:42 09/12/22 17:57 Sod 3.375 gm/ Sodium Chloride IV 09/12/22 17:11 Infused ONCE ONE Infusion <JEFF Estrada - Last Filed: 09/12/22 12:06> Medications Administered Generic Name Dose Route Start Last Admin Trade Name Freq PRN Reason Stop Dose Admin Vancomycin HCl 2,000 mg in 500 mls @ 250 mls/hr 09/12/22 16:42 09/12/22 18:05 Vancomycin/Ns IV 09/12/22 18:41 250 mls/hr ONCE ONE Administration Discontinued Medications Generic Name Dose Route Start Last Admin Trade Name Freq PRN Reason Stop Dose Admin Acetaminophen 975 mg 09/12/22 12:06 09/12/22 12:11 Acetaminophen 325 Mg Tablet PO 09/12/22 12:07 975 mg ONCE ONE Administration Piperacillin Sod/Tazobactam 50 mls @ 100 mls/hr 09/12/22 16:42 09/12/22 17:57 Sod 3.375 gm/ Sodium Chloride IV 09/12/22 17:11 Infused ONCE ONE Infusion <Kathleen Henry MD - Last Filed: 09/12/22 18:30> Medical Decision Making Medical Decision Making MDM Narrative: -patient has lower extremity cellulitis in strep throat. -white blood cell count is 22.9, lactic acid within normal limits. Patient receiving IV fluids, vancomycin and Zosyn. Patient also given Tylenol and ibuprofen for the fever. Patient's blood pressure stable, sepsis not suspected -ultrasound of lower extremity negative for DVT -patient agrees with plan for admission. -I discussed the patient with Dr. Mccord, patient being admitted. <Kathleen Henry MD - Last Filed: 09/12/22 18:30> Differential Diagnosis Differential Diagnoses: The differential diagnosis associated with the presentation includes (Cellulitis, DVT, CHF) <Kathleen Henry MD - Last Filed: 09/12/22 18:30> Admission/Observation Consideration of admission/observation: Escalation of care including admission/observation considered <Kathleen Henry MD - Last Filed: 09/12/22 18:30> Consult Healthcare Provider Management of the patient was discussed with: Hospitalist <Kathleen Henry MD - Last Filed: 09/12/22 18:30> Lab Data MDM Lab Attestation statement: I reviewed the patient's lab results. <Kathleen Henry MD - Last Filed: 09/12/22 18:30> Result Diagrams: 09/12/22 14:30 09/12/22 14:30 <JEFF Estrada - Last Filed: 09/12/22 12:06> Labs: Lab Results 09/12/22 09/12/22 09/12/22 Range/Units 14:30 14:30 14:30 WBC (4.8-10.8) X10*3/uL RBC (4.20-5.50) X10*6/uL Hgb (12.0-16.0) g/dl Hct (37.0-47.0) % MCV (80.0-98.0) fL MCH (27.0-33.0) pg MCHC (31.0-35.0) g/dl RDW (11.0-16.0) % Plt Count (160-400) X10*3/uL MPV (9.4-12.3) fL Immature Gran % (Auto) (0.0-0.4) % Neut % (Auto) (45-73) % Lymph % (Auto) (20-40) % Robertson % (Auto) (2-11) % Eos % (Auto) (0-4) % Baso % (Auto) (0-2) % Lymph # (Auto) (1.2-4.9) X10*3/uL Robertson # (Auto) (0.1-1.2) X10*3/uL Eos # (Auto) (0.0-0.4) X10*3/uL Baso # (Auto) (0.0-0.2) X10*3/uL Abs Immat Gran (auto) (0.00-0.03) X10*3/uL Absolute Neuts (auto) (2.0-8.3) x10*3/uL Absolute Nucleated RBC (0.0-0.012) X10*3/uL Nucleated RBC % (auto) (0.0-0.2) /100WBC Smear Tech's Comments ESR (0-20) MM/HR PT 14.5 H (10.0-13.1) SEC INR 1.3 H (0.9-1.1) Sodium (135-145) mmol/L Potassium (3.3-5.1) mmol/L Chloride (96-108) mmol/L Carbon Dioxide (22-29) mmol/L Anion Gap (12-20) BUN (9-16) mg/dL Creatinine (0.5-1.4) mg/dL Estim Creat Clear Calc Estimated GFR Random Glucose (60-115) mg/dL Lactic Acid (0.5-2.0) mmol/L Calcium (8.4-10.2) mg/dL Magnesium (1.6-2.6) mg/dL Total Bilirubin (0.0-1.0) mg/dL AST (5-31) U/L ALT (0-31) U/L Alkaline Phosphatase (39-117) U/L Troponin I High Sens 12.0 (<3.5-17.0) ng/L C-Reactive Protein (< or = 0.50) mg/dL B-Natriuretic Peptide 187 H (<100) pg/mL Total Protein (6.5-8.0) g/dL Albumin (3.5-5.0) g/dL S. pyogenes GrpA JEFFERY (Negative) 09/12/22 09/12/22 09/12/22 Range/Units 14:30 14:30 14:30 WBC 22.9 H (4.8-10.8) X10*3/uL RBC 4.20 (4.20-5.50) X10*6/uL Hgb 12.8 (12.0-16.0) g/dl Hct 38.1 (37.0-47.0) % MCV 90.7 (80.0-98.0) fL MCH 30.5 (27.0-33.0) pg MCHC 33.6 (31.0-35.0) g/dl RDW 13.5 (11.0-16.0) % Plt Count 225 (160-400) X10*3/uL MPV 11.0 (9.4-12.3) fL Immature Gran % (Auto) 1.7 H (0.0-0.4) % Neut % (Auto) 90.2 H (45-73) % Lymph % (Auto) 4.2 L (20-40) % Robertson % (Auto) 3.8 (2-11) % Eos % (Auto) 0.0 (0-4) % Baso % (Auto) 0.1 (0-2) % Lymph # (Auto) 1.0 L (1.2-4.9) X10*3/uL Robertson # (Auto) 0.9 (0.1-1.2) X10*3/uL Eos # (Auto) 0.0 (0.0-0.4) X10*3/uL Baso # (Auto) 0.0 (0.0-0.2) X10*3/uL Abs Immat Gran (auto) 0.38 H (0.00-0.03) X10*3/uL Absolute Neuts (auto) 20.6 H (2.0-8.3) x10*3/uL Absolute Nucleated RBC 0.000 (0.0-0.012) X10*3/uL Nucleated RBC % (auto) 0.0 (0.0-0.2) /100WBC Smear Tech's Comments VERIFIED ESR (0-20) MM/HR PT (10.0-13.1) SEC INR (0.9-1.1) Sodium 137 (135-145) mmol/L Potassium 3.5 (3.3-5.1) mmol/L Chloride 106 (96-108) mmol/L Carbon Dioxide 21 L (22-29) mmol/L Anion Gap 14 (12-20) BUN 16 (9-16) mg/dL Creatinine 0.79 (0.5-1.4) mg/dL Estim Creat Clear Calc 109.7 Estimated GFR > 60 Random Glucose 111 (60-115) mg/dL Lactic Acid 1.0 (0.5-2.0) mmol/L Calcium 8.7 (8.4-10.2) mg/dL Magnesium 1.6 (1.6-2.6) mg/dL Total Bilirubin 1.0 (0.0-1.0) mg/dL AST 13 (5-31) U/L ALT 9 (0-31) U/L Alkaline Phosphatase 70 (39-117) U/L Troponin I High Sens (<3.5-17.0) ng/L C-Reactive Protein 6.49 H (< or = 0.50) mg/dL B-Natriuretic Peptide (<100) pg/mL Total Protein 6.7 (6.5-8.0) g/dL Albumin 4.0 (3.5-5.0) g/dL S. pyogenes GrpA JEFFERY (Negative) 09/12/22 09/12/22 Range/Units 14:30 Unknown WBC (4.8-10.8) X10*3/uL RBC (4.20-5.50) X10*6/uL Hgb (12.0-16.0) g/dl Hct (37.0-47.0) % MCV (80.0-98.0) fL MCH (27.0-33.0) pg MCHC (31.0-35.0) g/dl RDW (11.0-16.0) % Plt Count (160-400) X10*3/uL MPV (9.4-12.3) fL Immature Gran % (Auto) (0.0-0.4) % Neut % (Auto) (45-73) % Lymph % (Auto) (20-40) % Robertson % (Auto) (2-11) % Eos % (Auto) (0-4) % Baso % (Auto) (0-2) % Lymph # (Auto) (1.2-4.9) X10*3/uL Robertson # (Auto) (0.1-1.2) X10*3/uL Eos # (Auto) (0.0-0.4) X10*3/uL Baso # (Auto) (0.0-0.2) X10*3/uL Abs Immat Gran (auto) (0.00-0.03) X10*3/uL Absolute Neuts (auto) (2.0-8.3) x10*3/uL Absolute Nucleated RBC (0.0-0.012) X10*3/uL Nucleated RBC % (auto) (0.0-0.2) /100WBC Smear Tech's Comments ESR 23 H (0-20) MM/HR PT (10.0-13.1) SEC INR (0.9-1.1) Sodium (135-145) mmol/L Potassium (3.3-5.1) mmol/L Chloride (96-108) mmol/L Carbon Dioxide (22-29) mmol/L Anion Gap (12-20) BUN (9-16) mg/dL Creatinine (0.5-1.4) mg/dL Estim Creat Clear Calc Estimated GFR Random Glucose (60-115) mg/dL Lactic Acid (0.5-2.0) mmol/L Calcium (8.4-10.2) mg/dL Magnesium (1.6-2.6) mg/dL Total Bilirubin (0.0-1.0) mg/dL AST (5-31) U/L ALT (0-31) U/L Alkaline Phosphatase (39-117) U/L Troponin I High Sens (<3.5-17.0) ng/L C-Reactive Protein (< or = 0.50) mg/dL B-Natriuretic Peptide (<100) pg/mL Total Protein (6.5-8.0) g/dL Albumin (3.5-5.0) g/dL S. pyogenes GrpA JEFFERY Positive A (Negative) <JEFF Estrada - Last Filed: 09/12/22 12:06> Lab Results 09/12/22 09/12/22 09/12/22 Range/Units 14:30 14:30 14:30 WBC (4.8-10.8) X10*3/uL RBC (4.20-5.50) X10*6/uL Hgb (12.0-16.0) g/dl Hct (37.0-47.0) % MCV (80.0-98.0) fL MCH (27.0-33.0) pg MCHC (31.0-35.0) g/dl RDW (11.0-16.0) % Plt Count (160-400) X10*3/uL MPV (9.4-12.3) fL Immature Gran % (Auto) (0.0-0.4) % Neut % (Auto) (45-73) % Lymph % (Auto) (20-40) % Robertson % (Auto) (2-11) % Eos % (Auto) (0-4) % Baso % (Auto) (0-2) % Lymph # (Auto) (1.2-4.9) X10*3/uL Robertson # (Auto) (0.1-1.2) X10*3/uL Eos # (Auto) (0.0-0.4) X10*3/uL Baso # (Auto) (0.0-0.2) X10*3/uL Abs Immat Gran (auto) (0.00-0.03) X10*3/uL Absolute Neuts (auto) (2.0-8.3) x10*3/uL Absolute Nucleated RBC (0.0-0.012) X10*3/uL Nucleated RBC % (auto) (0.0-0.2) /100WBC Smear Tech's Comments ESR (0-20) MM/HR PT 14.5 H (10.0-13.1) SEC INR 1.3 H (0.9-1.1) Sodium (135-145) mmol/L Potassium (3.3-5.1) mmol/L Chloride (96-108) mmol/L Carbon Dioxide (22-29) mmol/L Anion Gap (12-20) BUN (9-16) mg/dL Creatinine (0.5-1.4) mg/dL Estim Creat Clear Calc Estimated GFR Random Glucose (60-115) mg/dL Lactic Acid (0.5-2.0) mmol/L Calcium (8.4-10.2) mg/dL Magnesium (1.6-2.6) mg/dL Total Bilirubin (0.0-1.0) mg/dL AST (5-31) U/L ALT (0-31) U/L Alkaline Phosphatase (39-117) U/L Troponin I High Sens 12.0 (<3.5-17.0) ng/L C-Reactive Protein (< or = 0.50) mg/dL B-Natriuretic Peptide 187 H (<100) pg/mL Total Protein (6.5-8.0) g/dL Albumin (3.5-5.0) g/dL S. pyogenes GrpA JEFFERY (Negative) 04/18/23 04/18/23 04/18/23 Range/Units 14:30 14:30 14:30 WBC 22.9 H (4.8-10.8) X10*3/uL RBC 4.20 (4.20-5.50) X10*6/uL Hgb 12.8 (12.0-16.0) g/dl Hct 38.1 (37.0-47.0) % MCV 90.7 (80.0-98.0) fL MCH 30.5 (27.0-33.0) pg MCHC 33.6 (31.0-35.0) g/dl RDW 13.5 (11.0-16.0) % Plt Count 225 (160-400) X10*3/uL MPV 11.0 (9.4-12.3) fL Immature Gran % (Auto) 1.7 H (0.0-0.4) % Neut % (Auto) 90.2 H (45-73) % Lymph % (Auto) 4.2 L (20-40) % Robertson % (Auto) 3.8 (2-11) % Eos % (Auto) 0.0 (0-4) % Baso % (Auto) 0.1 (0-2) % Lymph # (Auto) 1.0 L (1.2-4.9) X10*3/uL Robertson # (Auto) 0.9 (0.1-1.2) X10*3/uL Eos # (Auto) 0.0 (0.0-0.4) X10*3/uL Baso # (Auto) 0.0 (0.0-0.2) X10*3/uL Abs Immat Gran (auto) 0.38 H (0.00-0.03) X10*3/uL Absolute Neuts (auto) 20.6 H (2.0-8.3) x10*3/uL Absolute Nucleated RBC 0.000 (0.0-0.012) X10*3/uL Nucleated RBC % (auto) 0.0 (0.0-0.2) /100WBC Smear Tech's Comments VERIFIED ESR (0-20) MM/HR PT (10.0-13.1) SEC INR (0.9-1.1) Sodium 137 (135-145) mmol/L Potassium 3.5 (3.3-5.1) mmol/L Chloride 106 (96-108) mmol/L Carbon Dioxide 21 L (22-29) mmol/L Anion Gap 14 (12-20) BUN 16 (9-16) mg/dL Creatinine 0.79 (0.5-1.4) mg/dL Estim Creat Clear Calc 109.7 Estimated GFR > 60 Random Glucose 111 (60-115) mg/dL Lactic Acid 1.0 (0.5-2.0) mmol/L Calcium 8.7 (8.4-10.2) mg/dL Magnesium 1.6 (1.6-2.6) mg/dL Total Bilirubin 1.0 (0.0-1.0) mg/dL AST 13 (5-31) U/L ALT 9 (0-31) U/L Alkaline Phosphatase 70 (39-117) U/L Troponin I High Sens (<3.5-17.0) ng/L C-Reactive Protein 6.49 H (< or = 0.50) mg/dL B-Natriuretic Peptide (<100) pg/mL Total Protein 6.7 (6.5-8.0) g/dL Albumin 4.0 (3.5-5.0) g/dL S. pyogenes GrpA JEFFERY (Negative) 09/12/22 09/12/22 Range/Units 14:30 Unknown WBC (4.8-10.8) X10*3/uL RBC (4.20-5.50) X10*6/uL Hgb (12.0-16.0) g/dl Hct (37.0-47.0) % MCV (80.0-98.0) fL MCH (27.0-33.0) pg MCHC (31.0-35.0) g/dl RDW (11.0-16.0) % Plt Count (160-400) X10*3/uL MPV (9.4-12.3) fL Immature Gran % (Auto) (0.0-0.4) % Neut % (Auto) (45-73) % Lymph % (Auto) (20-40) % Robertson % (Auto) (2-11) % Eos % (Auto) (0-4) % Baso % (Auto) (0-2) % Lymph # (Auto) (1.2-4.9) X10*3/uL Robertson # (Auto) (0.1-1.2) X10*3/uL Eos # (Auto) (0.0-0.4) X10*3/uL Baso # (Auto) (0.0-0.2) X10*3/uL Abs Immat Gran (auto) (0.00-0.03) X10*3/uL Absolute Neuts (auto) (2.0-8.3) x10*3/uL Absolute Nucleated RBC (0.0-0.012) X10*3/uL Nucleated RBC % (auto) (0.0-0.2) /100WBC Smear Tech's Comments ESR 23 H (0-20) MM/HR PT (10.0-13.1) SEC INR (0.9-1.1) Sodium (135-145) mmol/L Potassium (3.3-5.1) mmol/L Chloride (96-108) mmol/L Carbon Dioxide (22-29) mmol/L Anion Gap (12-20) BUN (9-16) mg/dL Creatinine (0.5-1.4) mg/dL Estim Creat Clear Calc Estimated GFR Random Glucose (60-115) mg/dL Lactic Acid (0.5-2.0) mmol/L Calcium (8.4-10.2) mg/dL Magnesium (1.6-2.6) mg/dL Total Bilirubin (0.0-1.0) mg/dL AST (5-31) U/L ALT (0-31) U/L Alkaline Phosphatase (39-117) U/L Troponin I High Sens (<3.5-17.0) ng/L C-Reactive Protein (< or = 0.50) mg/dL B-Natriuretic Peptide (<100) pg/mL Total Protein (6.5-8.0) g/dL Albumin (3.5-5.0) g/dL S. pyogenes GrpA JEFFERY Positive A (Negative) <Kathleen Henry MD - Last Filed: 09/12/22 18:30> Radiology Impression Discussion of test interpretation with radiology: I have reviewed the radiologist's reading. <Kathleen Henry MD - Last F iled: 09/12/22 18:30> Radiologist Impression: FINDINGS: The lungs are well expanded. There is no focal consolidation, edema, or effusion. No pneumothorax. The cardiomediastinal silhouette is within normal limits. No acute osseous abnormality. XR/XR chest 1V IMPRESSION: No acute pulmonary disease. US/US venous duplex LE RT IMPRESSION: No DVT demonstrated in the right lower extremity. ? Small lymph nodes right groin. Right ankle: There is bimalleolar soft tissue swelling. The ankle mortise and subtalar joints are normal. There is a small calcaneal heel and retrocalcaneal enthesophyte. The soft tissues are normal. Right foot: There is no visible acute fracture, dislocation or subluxation. The intertarsal, tarsometatarsal and interphalangeal joints are normal. The soft tissues are normal. XR/XR foot RT min 3V IMPRESSION: Bimalleolar soft tissue swelling likely ligamentous contusion. No acute fracture or dislocation seen. ? There is a small calcaneal heal and retrocalcaneal enthesophytes. <Kathleen Henry MD - Last Filed: 09/12/22 18:30> Critical Care Time Critical Care Time Critical Care Time: Yes <Kathleen Henry MD - Last Filed: 09/12/22 18:30> Total Critical Care Time: 60 <Kathleen Henry MD - Last Filed: 09/12/22 18:30> Attestation: I have personally provided critical care time. Time includes review of lab data, radiology results, discussion with consultants, and monitoring for potential decompensation. Intervention performed as documented. <Kathleen Henry MD - Last Filed: 09/12/22 18:30> Discharge Plan Discharge Clinical Impression: Cellulitis, Acute streptococcal pharyngitis <JEFF Estrada - Last Filed: 09/12/22 12:06> Patient Disposition: Admitted As Inpatient <JEFF Estrada - Last Filed: 09/12/22 12:06> Prescriptions: No Action pantoprazole 40 mg tablet,delayed release (DR/EC) 40 mg PO DAILY 90 Days Qty: 90 1RF clotrimazole-betamethasone 1-0.05 % cream 1 appl topical BID 14 Days Qty: 15 1RF calcium carbonate 600 mg calcium (1,500 mg) tablet 600 mg PO BID 90 Days Qty: 180 1RF cholecalciferol (vitamin D3) 50 mcg (2,000 unit) capsule 50 mcg PO DAILY 90 Days Qty: 90 1RF cyanocobalamin (vitamin B-12) 250 mcg tablet 250 mcg PO DAILY Qty: 30 5RF vitamin A palmitate 10,000 unit tablet 20,000 unit PO DAILY 21 Days Qty: 42 0RF thiamine HCl (vitamin B1) 100 mg tablet 100 mg PO DAILY Qty: 30 5RF lisinopril 20 mg tablet 20 mg PO DAILY 90 Days Qty: 90 0RF simethicone [Gas Relief (simethicone)] 125 mg capsule 125 mg PO TID-QID PRN (Reason: abdominal distention) Qty: 120 2RF <JEFF Estrada - Last Filed: 09/12/22 12:06>
[2022-09-12 12:03] VITALS: BP 145/62; PULSE 104; RESP 20; TEMP 39.5; O2SAT 95; BMI 51.7
--- NOTE | 2022-09-12 12:03 | ECG_ITS ---
Test Reason : DIZZINESS Blood Pressure : / mmHG Vent. Rate : 087 BPM Atrial Rate : 087 BPM P-R Int : 142 ms QRS Dur : 084 ms QT Int : 386 ms P-R-T Axes : 043 003 021 degrees QTc Int : 464 ms Normal sinus rhythm Minimal voltage criteria for LVH, may be normal variant ( R in aVL ) Borderline ECG When compared with ECG of 10-JUL-2022 10:13, T wave amplitude has decreased in Anterior leads Referred By: Gladys Fernández Electronically Signed By:SUE WALLACE
[2022-09-12] MEDS: Acetaminophen 325 MG TABLET 975 MG PO (12:11)
[2022-09-12 14:44] LABS: Basophils Percent Auto 0.1 % (0-2); Hematocrit 38.1 % (37.0-47.0); Hemoglobin 12.8 g/dl (12.0-16.0); Imm Gran Abs Auto 0.38 X10*3/uL (0.00-0.03); Imm Gran Pct Auto 1.7 % (0.0-0.4); Lymphocytes Percent Auto 4.2 % (20-40); MANUAL DIFF FLAG SCAN; Mean Corpuscular HGB Conc 33.6 g/dl (31.0-35.0); Mean Corpuscular Hemoglobin 30.5 pg (27.0-33.0); Mean Corpuscular Volume 90.7 fL (80.0-98.0); Monocytes Absolute Auto 0.9 X10*3/uL (0.1-1.2); Monocytes Percent Auto 3.8 % (2-11); Neutrophils Absolute Auto 20.6 x10*3/uL (2.0-8.3); Neutrophils Percent Auto 90.2 % (45-73); Platelet Count 225 X10*3/uL (160-400); Red Cell Distribution Width 13.5 % (11.0-16.0); SCAN SMEAR FLAG 1; White Blood Count 22.9 X10*3/uL (4.8-10.8)
[2022-09-12 14:48] LABS: IDNOW Serial# 08D9AD1C; Strep A Nucleic Acid Positive (Negative)
[2022-09-12 14:49] LABS: INTERNATIONAL NORM RATIO 1.3 (0.9-1.1); Prothrombin Time 14.5 SEC (10.0-13.1)
[2022-09-12 15:02] LABS: Alanine Aminotransferase 9 U/L (0-31); Alkaline Phosphatase 70 U/L (39-117); Anion Gap 14 (12-20); Aspartate Amino Transferase 13 U/L (5-31); Blood Urea Nitrogen 16 mg/dL (9-16); C Reactive Protein 6.49 mg/dL (< or = 0.50); Calcium 8.7 mg/dL (8.4-10.2); Carbon Dioxide 21 mmol/L (22-29); Chloride 106 mmol/L (96-108); Creatinine Clr Calc Pharmacy 109.7; Estimated Glomerular Filt Rate > 60; Glucose Random 111 mg/dL (60-115); Magnesium 1.6 mg/dL (1.6-2.6); Potassium 3.5 mmol/L (3.3-5.1); Sodium 137 mmol/L (135-145); Total Protein 6.7 g/dL (6.5-8.0)
[2022-09-12 15:22] LABS: Erythrocyte Sedimentation Rate 23 MM/HR (0-20)
[2022-09-12 15:26] LABS: B Type Natriuretic Peptide 187 pg/mL (<100)
[2022-09-12 15:43] LABS: SLIDE REVIEW VERIFIED
[2022-09-12] MEDS: Piperacillin Sodium/Tazobactam 3.375 GM in 0.9 % Sodium Chloride 50 ML IV (17:26)
[2022-09-12 17:35] VITALS: BP 127/68; PULSE 100; RESP 16; O2SAT 96
--- NOTE | 2022-09-12 17:57 | PC.NURSE ---
20g IV inserted RAC. antibiotic started.
[2022-09-12] MEDS: vancomycin/NS 2,000 MG/500 ML PLAST..BAG 250 MG IV (18:05)
--- NOTE | 2022-09-12 18:08 | PC.NURSE ---
pt AOx3, right foot swelling noted. vanco started per JUL. cardiac montitor applied - NSR on monitor. DBP low 124/39. pt febrile 102.1 will cont to monitor
[2022-09-12] MEDS: Ibuprofen 600 MG TABLET PO (18:30)
[2022-09-12] MEDS: Enoxaparin Sodium 40 MG/0.4 ML SYRINGE SUBCUT (19:10)
--- NOTE | 2022-09-12 19:11 | PHA.MEDREC ---
Pharmacy Consult ? Medication Reconciliation Pharmacy has completed the medication reconciliation.
--- NOTE | 2022-09-12 19:19 | PM.IMHP ---
History of Present Illness Date of Service: 09/12/22 Attending physician on admission: Christal Mccord Chief Complaint: swelling RLE 57-year-old female with history of GERD, obstructive sleep apnea compliant with CPAP, and hypertension presents to the ED earlier today for evaluation of pain and swelling of the right foot/ankle. She states approximately 4 days ago while getting into a car, she lost her footing and injured the posterior aspect of the ankle. She sustained lacerations over the Achilles tendon and states since then has developed increased swelling, erythema, warmth, and pain. There is occasionally purulent drainage from the skin breaks. She has also had a sore throat for the last 4 days. Denies any fevers, chills, congestion, abdominal pain, cough, headache, lightheadedness, shortness of breath, or chest pain. She also endorses a single episode of vomiting earlier today but denies ongoing nausea. She denies any known sick contacts. On arrival, patient febrile to 103.1 with coinciding tachycardia to 104. There is a leukocytosis of 22.9 with left shift. ESR 23, CRP 6.45. Renal function and electrolyte levels normal positive for strep pyogenes group A. X-ray of the right foot and ankle showing by malleolar soft tissue swelling likely ligamentous contusion but no acute fracture dislocation. Venous duplex the right lower extremity negative for DVT. CXR negative for acute pulmonary disease. In the ED, treated with IV Zosyn and vancomycin as well as Tylenol for fever. Review of Systems Review of Systems: General: No fevers, malaise, unintentional weight loss HEENT: +sore throat. No blurred vision, diplopia. No nasal congestion, rhinorrhea, sinus pain, ear pain Cardiovascular: No chest pain, palpitations, or leg edema Respiratory: No shortness of breath, wheezing, cough GI: +vomiting. No abdominal pain, nausea, diarrhea, constipation, melena, hematochezia : No dysuria, hematuria, increased urinary frequency, decreased urinary output MSK: No myalgia, back pain Neuro: No headaches, weakness, paresthesias Skin: +pain, redness, warmth RLE [facility] Medical History Depression Essential hypertension Family history of high cholesterol GERD with apnea Morbid obesity Obstructive sleep apnea Physical exam UTI (urinary tract infection) Family History Mother Pulmonary edema Father Diabetes HTN (hypertension) Heart disease Surgical History History of appendectomy History of bladder suspension procedure History of esophagogastroduodenoscopy (EGD) Hx of colonoscopy Social History Household Members: Spouse Housing: House Alcohol intake: never Patient Tobacco Use Status: Never used Tobacco Smoked in Last 30 Days: No e-Cigarette/Vaping Use: Never Used Second Hand Smoke Exposure: No Use of substances other than those prescribed or required for medical reasons: No Advance Directives: No service: No Current occupational status: employed 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 Sexual orientation: Straight/Heterosexual Gender identity: Female Cognitive needs: No Hearing needs: No Vision needs: No Meds Allergies Allergy/AdvReac Type Severity Reaction Status Date / Time No Known Allergies Allergy Verified 09/06/22 15:04 [No Known Allergies*] Active Medications: Current Medications Acetaminophen (Acetaminophen 325 Mg Tablet) 650 mg PO Q6H PRN PRN Reason: Pain, Mild, fever Docusate Sodium (Docusate Sodium 100 Mg Capsule) 100 mg PO DAILY PRN PRN Reason: Constipation Enoxaparin Sodium (Enoxaparin Sodium 40 Mg/0.4 Ml Syringe) 40 mg SUBCUT Q24H [facility] Last Admin: 09/12/22 19:10 Dose: 40 mg Cefazolin Sodium/Dextrose (Ancef) 2 gm in 50 mls @ 100 mls/hr IV Q8H [facility] Ketorolac Tromethamine (Ketorolac Tromethamine 30 Mg/Ml Vial) 15 mg IVPUSH Q6H PRN PRN Reason: throat pain Stop: 09/17/22 18:49 Nystatin (Nystatin Oral Susp 500,000 Unit/5 Ml Oral.Susp) 400,000 unit BUCCAL QID [facility]; Protocol Ondansetron HCl (Ondansetron Hcl 4 Mg/2 Ml Vial) 4 mg IVPUSH Q8H PRN PRN Reason: Nausea and Vomiting Pharmacy Consult (Consult Rx Perform Med Rec) 1 each MISCELLANE ONCE PRN PRN Reason: Consult order Sodium Chloride (0.9 % Sodium Chloride Flush 3 Ml Syringe) 3 ml IVFLUSH QSHIFT [facility] Home Medications Medication Instructions Recorded Confirmed Last Taken Type pantoprazole 40 mg tablet,delayed 40 mg PO DAILY 09/12/22 09/12/22 Unknown History release vitamin A palmitate 3,000 mcg 20,000 unit PO DAILY 09/12/22 09/12/22 Unknown History (10,000 unit) capsule Physical Exam Vital Signs and Narrative: Vital Signs: Last Vital Signs Temp 103.1 F H 09/12/22 12:03 Pulse 100 09/12/22 17:35 Resp 16 09/12/22 17:35 BP 127/68 09/12/22 17:35 Pulse Ox 96 09/12/22 17:35 O2 Del Method Room Air 09/12/22 17:35 BMI result Body Mass Index 51.7 Constitutional - Awake and Alert, No apparent distress Eyes - PERRLA, EOMI Mouth/throat-tongue with thick white coating, 2+ tonsillar edema without appreciable abscess but with erythema and scattered exudates of the posterior oropharynx Neck-positive anterior cervical adenopathy Cardiovascular - S1S2, RRR, No edema Respiratory - Normal lung expansion, Normal respiratory effort, No respiratory distress, CTA bilaterally Gastrointestinal - NT / ND; +BS; No rebound or guarding - No CVA tenderness Extremities - no calf tenderness bilaterally. erythema, warmth, and swelling of the distal half of the right lower leg with small lacerations to the Achilles tendon without purulent drainage but with scabbing Skin - Warm/Dry Neurological - Alert & oriented x3 Psychological - Appropriate affect. Results Labs 09/12/22 14:30 09/12/22 14:30 Labs: Laboratory Results - last 24 hr 09/12/22 09/12/22 09/12/22 14:30 14:30 14:30 MCV MCH MCHC RDW Plt Count MPV Immature Gran % (Auto) Neut % (Auto) Lymph % (Auto) [place] % (Auto) Eos % (Auto) Baso % (Auto) Lymph # (Auto) [place] # (Auto) Eos # (Auto) Baso # (Auto) Abs Immat Gran (auto) Absolute Neuts (auto) Absolute Nucleated RBC Nucleated RBC % (auto) Smear Tech's Comments ESR PT 14.5 H INR 1.3 H Anion Gap Estim Creat Clear Calc Estimated GFR Random Glucose Lactic Acid Calcium Magnesium Total Bilirubin AST ALT Alkaline Phosphatase Troponin I High Sens 12.0 C-Reactive Protein B-Natriuretic Peptide 187 H Total Protein Albumin S. pyogenes GrpA JEFFERY 09/12/22 09/12/22 09/12/22 14:30 14:30 14:30 MCV 90.7 MCH 30.5 MCHC 33.6 RDW 13.5 Plt Count 225 MPV 11.0 Immature Gran % (Auto) 1.7 H Neut % (Auto) 90.2 H Lymph % (Auto) 4.2 L [place] % (Auto) 3.8 Eos % (Auto) 0.0 Baso % (Auto) 0.1 Lymph # (Auto) 1.0 L [place] # (Auto) 0.9 Eos # (Auto) 0.0 Baso # (Auto) 0.0 Abs Immat Gran (auto) 0.38 H Absolute Neuts (auto) 20.6 H Absolute Nucleated RBC 0.000 Nucleated RBC % (auto) 0.0 Smear Tech's Comments VERIFIED ESR PT INR Anion Gap 14 Estim Creat Clear Calc 109.7 Estimated GFR > 60 Random Glucose 111 Lactic Acid 1.0 Calcium 8.7 Magnesium 1.6 Total Bilirubin 1.0 AST 13 ALT 9 Alkaline Phosphatase 70 Troponin I High Sens C-Reactive Protein 6.49 H B-Natriuretic Peptide Total Protein 6.7 Albumin 4.0 S. pyogenes GrpA JEFFERY 09/12/22 09/12/22 14:30 Unknown MCV MCH MCHC RDW Plt Count MPV Immature Gran % (Auto) Neut % (Auto) Lymph % (Auto) [place] % (Auto) Eos % (Auto) Baso % (Auto) Lymph # (Auto) [place] # (Auto) Eos # (Auto) Baso # (Auto) Abs Immat Gran (auto) Absolute Neuts (auto) Absolute Nucleated RBC Nucleated RBC % (auto) Smear Tech's Comments ESR 23 H PT INR Anion Gap Estim Creat Clear Calc Estimated GFR Random Glucose Lactic Acid Calcium Magnesium Total Bilirubin AST ALT Alkaline Phosphatase Troponin I High Sens C-Reactive Protein B-Natriuretic Peptide Total Protein Albumin S. pyogenes GrpA JEFFERY Positive A Imaging Radiologist's Impressions: Impressions Ankle X-Ray 09/12/22 12:33 IMPRESSION: Bimalleolar soft tissue swelling likely ligamentous contusion. No acute fracture or dislocation seen. There is a small calcaneal heal and retrocalcaneal enthesophytes. Foot X-Ray 09/12/22 12:33 IMPRESSION: Bimalleolar soft tissue swelling likely ligamentous contusion. No acute fracture or dislocation seen. There is a small calcaneal heal and retrocalcaneal enthesophytes. Venous Duplex 09/12/22 13:13 IMPRESSION: No DVT demonstrated in the right lower extremity. Small lymph nodes right groin. Chest X-Ray 09/12/22 16:47 IMPRESSION: No acute pulmonary disease. Assessment and Plan (1) Cellulitis: Status: Acute (2) Acute streptococcal pharyngitis: Status: Acute Plan 57-year-old female with history of GERD, obstructive sleep apnea compliant with CPAP, and hypertension admitted for acute cellulitis RLE. #Acute cellulitis RLE -Leukocytosis 23 with left shift. Fever is more likely related to strep pharyngitis and tachycardia is related to fever. No sepsis -IV cefazolin 2 g q.8h (initiated 09/12) -ESR 23, CRP 6, x-rays of ankle/foot negative for any focal consolidation or osteomyelitis -pain management -follow CBC and cultures # acute strep pharyngitis -will be effectively treated by cefazolin as above -ketorolac p.r.n. for pain/inflammation -Tylenol for fever -saltwater gargles # oral candidiasis -nystatin swish and swallow # hypertension-reasonably controlled -continue home meds # GERD -continue PPI and simethicone # obstructive sleep apnea -CPAP at bedtime DVT prophylaxis-Lovenox Full code Patient requires inpatient stay of at least 2 midnights for management of acute cellulitis of the right lower extremity with left shift with significant swelling and pain limiting ambulation requiring IV antibiotic therapy Time Spent With Patient Time: Total time managing care of this patient today ____ minutes. Quality Stroke Does the patient have a stroke diagnosis?: No VTE Prior VTE?: No VTE Risk Level:: Medical - moderate - high VTE Device Contraindication: Treatment Not Indicated VTE Drug Contraindication: N/A - Med Ordered
--- NOTE | 2022-09-12 19:47 | PC.NURSE ---
Report to Jaida RASMUSSEN.
[2022-09-12 20:27] VITALS: BP 113/62; PULSE 82; RESP 18; TEMP 36.7; O2SAT 94
[2022-09-12] MEDS: ceFAZolin Sodium/Dextrose,Iso 2 GM/50 ML PIGGYBACK IV (21:17)
[2022-09-12] MEDS: Nystatin Oral Susp 500,000 UNIT/5 ML ORAL.SUSP 400000 UNIT BUCCAL (21:17)
--- NOTE | 2022-09-12 22:11 | PC.NURSE ---
pt stated she uses cpap[ at home and her family is brining tomorrow am, she refused hospital one tonight
--- NOTE | 2022-09-12 22:53 | PC.RT ---
Spoke with patient about CPAP. Patient does not like hospital units, unwilling to attempt ours. She has arranged for her home unit to be brought in tomorrow and will call if she decides she wishes to use hospital unit.Spoke with RN, she is aware and will call if patient has any respiratory issues or concerns overnight. Will continue to monitor.
[2022-09-13] MEDS: ceFAZolin Sodium/Dextrose,Iso 2 GM/50 ML PIGGYBACK IV ×3 (02:58→18:13)
[2022-09-13] MEDS: 0.9 % Sodium Chloride Flush 3 ML SYRINGE IVFLUSH ×2 (02:58→09:53)
[2022-09-13 03:21] VITALS: BP 109/58; PULSE 78; RESP 18; TEMP 36.6; O2SAT 96
[2022-09-13] MEDS: Omeprazole 20 MG CAPSULE.DR PO (05:33)
[2022-09-13 07:05] LABS: MANUAL DIFF FLAG NO
[2022-09-13 07:08] LABS: Basophils Percent Auto 0.2 % (0-2); Eosinophils Percent Auto 0.1 % (0-4); Hematocrit 36.2 % (37.0-47.0); Hemoglobin 12.1 g/dl (12.0-16.0); Imm Gran Abs Auto 0.14 X10*3/uL (0.00-0.03); Imm Gran Pct Auto 0.9 % (0.0-0.4); Lymphocytes Absolute Auto 0.9 X10*3/uL (1.2-4.9); Lymphocytes Percent Auto 5.9 % (20-40); Mean Corpuscular HGB Conc 33.4 g/dl (31.0-35.0); Mean Corpuscular Hemoglobin 30.6 pg (27.0-33.0); Mean Corpuscular Volume 91.4 fL (80.0-98.0); Mean Platelet Volume 11.3 fL (9.4-12.3); Monocytes Absolute Auto 0.9 X10*3/uL (0.1-1.2); Monocytes Percent Auto 5.9 % (2-11); Neutrophils Absolute Auto 13.9 x10*3/uL (2.0-8.3); Platelet Count 191 X10*3/uL (160-400); Red Blood Count 3.96 X10*6/uL (4.20-5.50); Red Cell Distribution Width 13.7 % (11.0-16.0)
[2022-09-13 07:21] VITALS: BP 128/60; PULSE 76; RESP 20; TEMP 36.7; O2SAT 95
[2022-09-13 07:29] LABS: Anion Gap 16 (12-20); Blood Urea Nitrogen 24 mg/dL (9-16); Calcium 8.6 mg/dL (8.4-10.2); Carbon Dioxide 24 mmol/L (22-29); Chloride 105 mmol/L (96-108); Glucose Random 109 mg/dL (60-115); Potassium 3.8 mmol/L (3.3-5.1); Sodium 141 mmol/L (135-145)
[2022-09-13 07:42] LABS: Creatinine Clr Calc Pharmacy 39.4; Estimated Glomerular Filt Rate 23
--- NOTE | 2022-09-13 09:19 | MHC.CM.PN ---
CM met with Patient and her Sister at bedside with the assist of a Bronze Chaser. 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 Home/self care is the goal and CM has initiated and will follow for dc planning; Patient's Daughter will provide transportation to home. Patient has received Moderna/Covid vax x2 and her PCP is Dr. Maria Luisa Perez.
[2022-09-13] MEDS: Lactated Ringers 1,000 ML 125 ML IVCONT ×2 (09:53→17:06)
[2022-09-13] MEDS: Nystatin Oral Susp 500,000 UNIT/5 ML ORAL.SUSP 400000 UNIT BUCCAL ×4 (09:53→21:19)
[2022-09-13] MEDS: Cholecalciferol (Vitamin D3) 25 MCG TABLET 50 MCG PO (09:53)
[2022-09-13] MEDS: lisinopriL 20 MG TABLET PO (09:53)
[2022-09-13] MEDS: Thiamine HCL 100 MG TABLET PO (09:53)
[2022-09-13] MEDS: Cyanocobalamin (Vitamin B-12) 500 MCG TABLET 250 MCG PO (09:54)
[2022-09-13] MEDS: Acetaminophen 325 MG TABLET 650 MG PO (09:57)
[2022-09-13 15:28] VITALS: BP 111/60; PULSE 89; RESP 18; TEMP 37; O2SAT 98
--- NOTE | 2022-09-13 17:35 | HO.PM.IMPN ---
Subjective Subjective Date of Service: 09/13/22 Interval History: Seen in follow up for cellulitis RLE, strep pharyngitis interval history: Reports improvement in sore throat. Improvement in pain, swelling, erythema right lower extremity. New ALYSSA Review of Systems Review of Systems: Yes all other systems are reviewed and are negative Physical Exam Vital Signs: Vital Signs: Last Vital Signs Temp 98.6 F 09/13/22 15:28 Pulse 89 09/13/22 15:28 Resp 18 09/13/22 15:28 BP 111/60 09/13/22 15:28 Pulse Ox 98 09/13/22 15:28 O2 Del Method Room Air 09/13/22 15:28 BMI result Body Mass Index 51.7 Constitutional - Awake and Alert, No apparent distress Eyes - PERRLA, EOMI Neck-positive anterior cervical adenopathy Cardiovascular - S1S2, RRR, No edema Respiratory - Normal lung expansion, Normal respiratory effort, No respiratory distress, CTA bilaterally Extremities - no calf tenderness bilaterally.? Improvement in erythema, warmth, and swelling of the distal half of the right lower leg with small lacerations to the Achilles tendon without purulent drainage but with scabbing Skin - Warm/Dry Neurological - Alert & oriented x3 Psychological - Appropriate affect. Objective Data Active Medications Acetaminophen (Acetaminophen 325 Mg Tablet) 650 mg PO Q6H PRN PRN Reason: Pain, Mild, fever Last Admin: 09/13/22 09:57 Dose: 650 mg Documented By: JOHNSON Calcium Carbonate (Calcium Carbonate 500 Mg Tablet) 500 mg PO BID [facility] Last Admin: 09/13/22 09:53 Dose: 500 mg Documented By: JOHNSON Cyanocobalamin (Cyanocobalamin (Vitamin B-12) 500 Mcg Tablet) 250 mcg PO DAILY [facility] Last Admin: 09/13/22 09:54 Dose: 250 mcg Documented By: JOHNSON Docusate Sodium (Docusate Sodium 100 Mg Capsule) 100 mg PO DAILY PRN PRN Reason: Constipation Enoxaparin Sodium (Enoxaparin Sodium 40 Mg/0.4 Ml Syringe) 40 mg SUBCUT Q24H [facility] Last Admin: 09/12/22 19:10 Dose: 40 mg Documented By: PRADIP Cefazolin Sodium/Dextrose (Ancef) 2 gm in 50 mls @ 100 mls/hr IV Q8H [facility] Last Infusion: 09/13/22 11:15 Dose: 0 mls/hr Documented By: JOHNSON Lactated Ringer's (Lr) 1,000 mls @ 125 mls/hr IVCONT .Q8H [facility] Last Admin: 09/13/22 17:06 Dose: 125 mls/hr Documented By: JOHNSON Nystatin (Nystatin Oral Susp 500,000 Unit/5 Ml Oral.Susp) 400,000 unit BUCCAL QID [facility]; Protocol Last Admin: 09/13/22 17:05 Dose: 400,000 unit Documented By: JOHNSON Omeprazole (Omeprazole 20 Mg Capsule.Dr) 20 mg PO DAILY@0630 [facility] Last Admin: 09/13/22 05:33 Dose: 20 mg Documented By: ASUNCION Ondansetron HCl (Ondansetron Hcl 4 Mg/2 Ml Vial) 4 mg IVPUSH Q8H PRN PRN Reason: Nausea and Vomiting Pharmacy Consult (Consult Rx Perform Med Rec) 1 each MISCELLANE ONCE PRN PRN Reason: Consult order Simethicone (Simethicone 80 Mg Tab.Chew) 80 mg PO QID PRN PRN Reason: abdominal distention Sodium Chloride (0.9 % Sodium Chloride Flush 3 Ml Syringe) 3 ml IVFLUSH QSHIFT [facility] Last Admin: 09/13/22 15:54 Dose: Not Given Documented By: JOHNSON Non-Admin Reason: IV Running Thiamine HCl (Thiamine Hcl 100 Mg Tablet) 100 mg PO DAILY [facility] Last Admin: 09/13/22 09:53 Dose: 100 mg Documented By: JOHNSON Vitamin D (Cholecalciferol (Vitamin D3) 25 Mcg Tablet) 50 mcg PO DAILY [facility] Last Admin: 09/13/22 09:53 Dose: 50 mcg Documented By: JOHNSON Labs 09/13/22 06:26 09/13/22 06:26 Labs: Laboratory Results - last 24 hr 09/13/22 09/13/22 09/13/22 06:26 06:26 08:45 MCV 91.4 MCH 30.6 MCHC 33.4 RDW 13.7 Plt Count 191 MPV 11.3 Immature Gran % (Auto) 0.9 H Neut % (Auto) 87.0 H Lymph % (Auto) 5.9 L [place] % (Auto) 5.9 Eos % (Auto) 0.1 Baso % (Auto) 0.2 Lymph # (Auto) 0.9 L [place] # (Auto) 0.9 Eos # (Auto) 0.0 Baso # (Auto) 0.0 Abs Immat Gran (auto) 0.14 H Absolute Neuts (auto) 13.9 H Absolute Nucleated RBC 0.000 Nucleated RBC % (auto) 0.0 Anion Gap 16 Estim Creat Clear Calc 39.4 Estimated GFR 23 Random Glucose 109 Calcium 8.6 Ur Random Sodium 62.0 Urine Creatinine 101.20 Microbiology Microbiology Results: Microbiology 09/12/22 14:48 Blood Culture - Preliminary Blood - Venous No growth after 24 hours. 09/12/22 14:30 Blood Culture - Preliminary Blood - Venous No growth after 24 hours. Assessment and Plan (1) Cellulitis: Status: Acute (2) Acute streptococcal pharyngitis: Status: Acute (3) ALYSSA (acute kidney injury): Status: Acute Plan 57-year-old female with history of GERD, obstructive sleep apnea compliant with CPAP, and hypertension admitted for acute cellulitis RLE. #Acute cellulitis RLE- improving -Leukocytosis 23 with left shift. Fever is more likely related to strep pharyngitis and tachycardia is related to fever. No sepsis -IV cefazolin 2 g q.8h (initiated 09/12) -ESR 23, CRP 6, x-rays of ankle/foot negative for any focal consolidation or osteomyelitis -pain management -follow CBC and cultures # acute kidney injury- FeNa 1.0 suggesting prerenal etiology, however question iatrogenic etiology from vancomycin and Zosyn use - continue IVF - follow BMP -Avoid nephrotoxins # acute strep pharyngitis -will be effectively treated by cefazolin as above -Avoid NSAIDS given ALYSSA -Tylenol for fever -saltwater gargles # oral candidiasis -nystatin swish and swallow # hypertension-reasonably controlled - hold lisinopril in the setting of ALYSSA # GERD -continue PPI and simethicone # obstructive sleep apnea -CPAP at bedtime DVT prophylaxis-Lovenox Full code Patient requires ongoing inpt stay for management of acute cellulitis of the right lower extremity requiring IV antibiotics, now with acute kidney injury requiring IVF and close monitoring of renal function Time Spent With Patient Time: Total time managing care of this patient today ____ minutes. Quality Stroke Does the patient have a stroke diagnosis?: No VTE Prior VTE?: No VTE Risk Level:: Medical - moderate - high VTE Device Contraindication: Treatment Not Indicated VTE Drug Contraindication: N/A - Med Ordered
[2022-09-13] MEDS: Enoxaparin Sodium 40 MG/0.4 ML SYRINGE SUBCUT (18:10)
[2022-09-13 19:32] VITALS: BP 110/52; PULSE 89; RESP 18; TEMP 37; O2SAT 98
[2022-09-14] MEDS: Lactated Ringers 1,000 ML 125 ML IVCONT (01:18)
[2022-09-14] MEDS: Acetaminophen 325 MG TABLET 650 MG PO (01:51)
[2022-09-14] MEDS: ceFAZolin Sodium/Dextrose,Iso 2 GM/50 ML PIGGYBACK IV ×3 (02:32→19:08)
[2022-09-14 03:56] VITALS: BP 135/62; PULSE 82; RESP 18; TEMP 37.1; O2SAT 96
[2022-09-14] MEDS: Omeprazole 20 MG CAPSULE.DR PO (05:12)
[2022-09-14 07:25] VITALS: BP 131/61; PULSE 62; RESP 20; TEMP 36.5; O2SAT 95
[2022-09-14] MEDS: Cholecalciferol (Vitamin D3) 25 MCG TABLET 50 MCG PO (09:21)
[2022-09-14] MEDS: ondansetron HCL 4 MG/2 ML VIAL IVPUSH (09:21)
[2022-09-14] MEDS: Nystatin Oral Susp 500,000 UNIT/5 ML ORAL.SUSP 400000 UNIT BUCCAL ×4 (09:21→19:55)
[2022-09-14] MEDS: Thiamine HCL 100 MG TABLET PO (09:21)
[2022-09-14] MEDS: Cyanocobalamin (Vitamin B-12) 500 MCG TABLET 250 MCG PO (09:21)
[2022-09-14 09:22] LABS: Anion Gap 15 (12-20); Blood Urea Nitrogen 38 mg/dL (9-16); Calcium 8.5 mg/dL (8.4-10.2); Carbon Dioxide 23 mmol/L (22-29); Chloride 106 mmol/L (96-108); Glucose Random 111 mg/dL (60-115); Potassium 3.5 mmol/L (3.3-5.1); Sodium 140 mmol/L (135-145)
[2022-09-14 09:44] LABS: Creatinine Clr Calc Pharmacy 22.9; Estimated Glomerular Filt Rate 12
--- NOTE | 2022-09-14 11:07 | PM.CNNEP ---
History of Present Illness Reason for Consult Consult date: 09/14/22 Reason for consult: ALYSSA Chief Complaint Chief complaint: cellulitis RLE History of Present Illness Narrative: 57-year-old female with history of GERD, obstructive sleep apnea compliant with CPAP, and hypertension presents to the ED earlier today for evaluation of pain and swelling of the right foot/ankle.? She states approximately 4 days ago while getting into a car, she lost her footing and injured the posterior aspect of the ankle.? She sustained lacerations over the Achilles tendon and states since then has developed increased swelling, erythema, warmth, and pain.? There is occasionally purulent drainage from the skin breaks.? She has also had a sore throat for the last 4 days.? Denies any fevers, chills, congestion, abdominal pain, cough, headache, lightheadedness, shortness of breath, or chest pain.? She also endorses a single episode of vomiting earlier today but denies ongoing nausea.? She denies any known sick contacts.? On arrival, patient febrile to 103.1 with coinciding tachycardia to 104.? There is a leukocytosis of 22.9 with left shift.? ESR 23, CRP 6.45.? Renal function and electrolyte levels normal positive for strep pyogenes group A.? X-ray of the right foot and ankle showing by malleolar soft tissue swelling likely ligamentous contusion but no acute fracture dislocation.? Venous duplex the right lower extremity negative for DVT.? CXR negative for acute pulmonary disease.? In the ED, treated with IV Zosyn and vancomycin as well as Tylenol for fever. Baseline creatinine was 0.8 on admission Bumped to 2.2 on 09/13 and 3.7 on 09/14 IV Vanco was ordered on admission but unclear if she received it. Currently not on Vanco Imaging shows no obstruction Documented drop in BP during admission Review of Systems Review of Systems General: No fevers, malaise, unintentional weight loss HEENT: +sore throat. No blurred vision, diplopia. No nasal congestion, rhinorrhea, sinus pain, ear pain Cardiovascular: No chest pain, palpitations, or leg edema Respiratory: No shortness of breath, wheezing, cough GI: +vomiting. No abdominal pain, nausea, diarrhea, constipation, melena, hematochezia : No dysuria, hematuria, increased urinary frequency, decreased urinary output MSK: No myalgia, back pain Neuro: No headaches, weakness, paresthesias Skin: +pain, redness, warmth RLE [facility] Past Medical History Medical History Depression Essential hypertension Family history of high cholesterol GERD with apnea Morbid obesity Obstructive sleep apnea Physical exam UTI (urinary tract infection) Family History Family History Mother Pulmonary edema Father Diabetes HTN (hypertension) Heart disease Surgical History Surgical History History of appendectomy History of bladder suspension procedure History of esophagogastroduodenoscopy (EGD) Hx of colonoscopy Social History Social History Household Members: Spouse Housing: Apartment Do you presently have visiting nurse or other home services: No Alcohol intake: never Patient Tobacco Use Status: Never used Tobacco Smoked in Last 30 Days: No e-Cigarette/Vaping Use: Never Used Second Hand Smoke Exposure: No Use of substances other than those prescribed or required for medical reasons: No Currently Displaying Signs/Symptoms of Drug Intoxication Withdrawal: No Have you been hit, kicked, punched, or otherwise hurt by someone within the past year? If so, by whom?: No Do you feel safe in your current relationship?: Yes Is there a partner from a previous relationship who is making you feel unsafe now?: No Are you made to feel afraid or neglected: No Advance Directives: No Do you have thoughts of harming others: None Do you have a plan to hurt others: No Plan Recently lost weight without trying: No Eating poorly because of decreased appetite: No Nutrition Risks: No Nutritional Risk Patient : No : No Poor oral hygiene: No service: No Current occupational status: employed Current occupation: [employer] Sexual orientation: Straight/Heterosexual Gender identity: Female Cognitive needs: No Hearing needs: No Vision needs: No Meds Allergies Allergy/AdvReac Type Severity Reaction Status Date / Time No Known Allergies Allergy Verified 09/06/22 15:04 [No Known Allergies*] Active Medications: Current Medications Acetaminophen (Acetaminophen 325 Mg Tablet) 650 mg PO Q6H PRN PRN Reason: Pain, Mild, fever Last Admin: 09/14/22 01:51 Dose: 650 mg Calcium Carbonate (Calcium Carbonate 500 Mg Tablet) 500 mg PO BID [facility] Last Admin: 09/14/22 09:21 Dose: 500 mg Cyanocobalamin (Cyanocobalamin (Vitamin B-12) 500 Mcg Tablet) 250 mcg PO DAILY [facility] Last Admin: 09/14/22 09:21 Dose: 250 mcg Docusate Sodium (Docusate Sodium 100 Mg Capsule) 100 mg PO DAILY PRN PRN Reason: Constipation Enoxaparin Sodium (Enoxaparin Sodium 40 Mg/0.4 Ml Syringe) 40 mg SUBCUT Q24H [facility] Last Admin: 09/13/22 18:10 Dose: 40 mg Cefazolin Sodium/Dextrose (Ancef) 2 gm in 50 mls @ 100 mls/hr IV Q8H [facility] Last Admin: 09/14/22 10:49 Dose: 100 mls/hr Lactated Ringer's (Lr) 1,000 mls @ 125 mls/hr IVCONT .Q8H [facility] Last Admin: 09/14/22 01:18 Dose: 125 mls/hr Nystatin (Nystatin Oral Susp 500,000 Unit/5 Ml Oral.Susp) 400,000 unit BUCCAL QID [facility]; Protocol Last Admin: 09/14/22 09:21 Dose: 400,000 unit Omeprazole (Omeprazole 20 Mg Capsule.Dr) 20 mg PO DAILY@0630 [facility] Last Admin: 09/14/22 05:12 Dose: 20 mg Ondansetron HCl (Ondansetron Hcl 4 Mg/2 Ml Vial) 4 mg IVPUSH Q8H PRN PRN Reason: Nausea and Vomiting Last Admin: 09/14/22 09:21 Dose: 4 mg Pharmacy Consult (Consult Rx Perform Med Rec) 1 each MISCELLANE ONCE PRN PRN Reason: Consult order Simethicone (Simethicone 80 Mg Tab.Chew) 80 mg PO QID PRN PRN Reason: abdominal distention Sodium Chloride (0.9 % Sodium Chloride Flush 3 Ml Syringe) 3 ml IVFLUSH QSHIFT [facility] Last Admin: 09/14/22 08:56 Dose: Not Given Thiamine HCl (Thiamine Hcl 100 Mg Tablet) 100 mg PO DAILY [facility] Last Admin: 09/14/22 09:21 Dose: 100 mg Vitamin D (Cholecalciferol (Vitamin D3) 25 Mcg Tablet) 50 mcg PO DAILY [facility] Last Admin: 09/14/22 09:21 Dose: 50 mcg Home Medications Medication Instructions Recorded Confirmed Last Taken Type pantoprazole 40 mg tablet,delayed 40 mg PO DAILY 09/12/22 09/12/22 Unknown History release vitamin A palmitate 3,000 mcg 20,000 unit PO DAILY 09/12/22 09/12/22 Unknown History (10,000 unit) capsule Physical Exam Vital Signs: Last Vital Signs Temp 97.7 F 09/14/22 07:25 Pulse 62 09/14/22 07:25 Resp 20 09/14/22 07:25 BP 131/61 09/14/22 07:25 Pulse Ox 95 09/14/22 07:25 O2 Del Method Room Air 09/14/22 07:25 BMI result Body Mass Index 51.7 Constitutional - Awake and Alert, No apparent distress Eyes - PERRLA, EOMI Mouth/throat-tongue with thick white coating, 2+ tonsillar edema without appreciable abscess but with erythema and scattered exudates of the posterior oropharynx Neck-positive anterior cervical adenopathy Cardiovascular - S1S2, RRR, No edema Respiratory - Normal lung expansion, Normal respiratory effort, No respiratory distress, CTA bilaterally Gastrointestinal - NT / ND; +BS; No rebound or guarding - No CVA tenderness Extremities - no calf tenderness bilaterally.? erythema, warmth, and swelling of the distal half of the right lower leg with small lacerations to the Achilles tendon without purulent drainage but with scabbing Skin - Warm/Dry Neurological - Alert & oriented x3 Skin General skin exam: no petechiae and no purpura Nails: no clubbing and no splinter hemorrhages Results Lab Results 09/13/22 06:26 09/14/22 08:46 Lab results: Chemistry 09/12/22 09/13/22 09/14/22 14:30 06:26 08:46 Sodium 137 141 140 Potassium 3.5 3.8 3.5 Carbon Dioxide 21 L 24 23 BUN 16 24 H 38 H Creatinine 0.79 2.20 H 3.78 H Calcium 8.7 8.6 8.5 Hematology 09/12/22 09/13/22 14:30 06:26 WBC 22.9 H 16.0 H Hgb 12.8 12.1 Plt Count 225 191 Urine Studies 09/13/22 08:45 Urine Creatinine 101.20 No anemia No thrombocytopenia Assessment and Plan (1) ALYSSA (acute kidney injury): Status: Acute Plan AI DDx: ATN from ISchemia/Hypoperfusion /infectious process No obstruction by imaging Need to r/o AGN / AiN Suggest Urine Na/Cr and Protein UA Capps Avoid Hypotension Agree with stopping Lisinopril Change LR to Ns at 100 cc/hr Avoid nephrotoxins including Vanco/NSAIDs/Ketoralac etc Watch UO No indication for dialysis Further work up based on above results and clinical progress Time Spent With Patient Time: Total time managing care of this patient today ____ minutes. Procedures Date of Service Date of Service: 09/14/22
--- NOTE | 2022-09-14 11:27 | P.PNIM_ITS ---
Subjective Subjective Date of Service: 09/14/22 Interval History: seen and examined this morning follow up for RLE cellulitis, strep pharyngitis, ALYSSA patient denies sore throat, fever, chills Review of Systems Review of Systems: Yes all other systems are reviewed and are negative Constitutional Constitutional: Denies chills and Denies fever(s) ENT Ears, Nose, Mouth, and Throat: Denies sore throat Physical Exam Vital Signs: Vital Signs: Last Vital Signs Temp 97.7 F 09/14/22 07:25 Pulse 62 09/14/22 07:25 Resp 20 09/14/22 07:25 BP 131/61 09/14/22 07:25 Pulse Ox 95 09/14/22 07:25 O2 Del Method Room Air 09/14/22 07:25 BMI result Body Mass Index 51.7 Const: General: cooperative, comfortable, alert and awake Nutritional Appearance: obese Orientation/consciousness: patient oriented x3 Resp: Effort & Inspection: normal respiratory effort and able to speak in complete sentences Cardio: Rate: regular rate Heart sounds: S1 normal heart sound present and S2 normal heart sound present GI: Inspection: No distended Palpation (GI): Soft to palpation and nontender Skin: Other: b/l legs with chronic skin changes; right leg with erythema as above. dry skin at ankle Neuro: General: patient oriented x3 and CN's II-XI intact bilaterally Extrem: Other: able to move all 4 extremities spontaneously Objective Data Active Medications Acetaminophen (Acetaminophen 325 Mg Tablet) 650 mg PO Q6H PRN PRN Reason: Pain, Mild, fever Last Admin: 09/14/22 01:51 Dose: 650 mg Documented By: DEONDRE Calcium Carbonate (Calcium Carbonate 500 Mg Tablet) 500 mg PO BID [facility] Last Admin: 09/14/22 09:21 Dose: 500 mg Documented By: SHITAL Cyanocobalamin (Cyanocobalamin (Vitamin B-12) 500 Mcg Tablet) 250 mcg PO DAILY [facility] Last Admin: 09/14/22 09:21 Dose: 250 mcg Documented By: SHITAL Docusate Sodium (Docusate Sodium 100 Mg Capsule) 100 mg PO DAILY PRN PRN Reason: Constipation Enoxaparin Sodium (Enoxaparin Sodium 40 Mg/0.4 Ml Syringe) 40 mg SUBCUT Q24H [facility] Last Admin: 09/13/22 18:10 Dose: 40 mg Documented By: JOHNSON Cefazolin Sodium/Dextrose (Ancef) 2 gm in 50 mls @ 100 mls/hr IV Q8H [facility] Last Admin: 09/14/22 10:49 Dose: 100 mls/hr Documented By: SHITAL Lactated Ringer's (Lr) 1,000 mls @ 125 mls/hr IVCONT .Q8H [facility] Last Admin: 09/14/22 01:18 Dose: 125 mls/hr Documented By: DEONDRE Nystatin (Nystatin Oral Susp 500,000 Unit/5 Ml Oral.Susp) 400,000 unit BUCCAL QID [facility]; Protocol Last Admin: 09/14/22 09:21 Dose: 400,000 unit Documented By: SHITAL Omeprazole (Omeprazole 20 Mg Capsule.Dr) 20 mg PO DAILY@0630 [facility] Last Admin: 09/14/22 05:12 Dose: 20 mg Documented By: DEONDRE Ondansetron HCl (Ondansetron Hcl 4 Mg/2 Ml Vial) 4 mg IVPUSH Q8H PRN PRN Reason: Nausea and Vomiting Last Admin: 09/14/22 09:21 Dose: 4 mg Documented By: SHITAL Pharmacy Consult (Consult Rx Perform Med Rec) 1 each MISCELLANE ONCE PRN PRN Reason: Consult order Simethicone (Simethicone 80 Mg Tab.Chew) 80 mg PO QID PRN PRN Reason: abdominal distention Sodium Chloride (0.9 % Sodium Chloride Flush 3 Ml Syringe) 3 ml IVFLUSH QSHIFT [facility] Last Admin: 09/14/22 08:56 Dose: Not Given Documented By: SHITAL Non-Admin Reason: IV Running Thiamine HCl (Thiamine Hcl 100 Mg Tablet) 100 mg PO DAILY [facility] Last Admin: 09/14/22 09:21 Dose: 100 mg Documented By: SHITAL Vitamin D (Cholecalciferol (Vitamin D3) 25 Mcg Tablet) 50 mcg PO DAILY [facility] Last Admin: 09/14/22 09:21 Dose: 50 mcg Documented By: SHITAL Labs 09/13/22 06:26 09/14/22 08:46 Labs: Laboratory Results - last 24 hr 09/14/22 08:46 Anion Gap 15 Estim Creat Clear Calc 22.9 Estimated GFR 12 Random Glucose 111 Calcium 8.5 Microbiology Microbiology Results: Microbiology 09/12/22 14:48 Blood Culture - Preliminary Blood - Venous No growth after 24 hours. 09/12/22 14:30 Blood Culture - Preliminary Blood - Venous No growth after 24 hours. Assessment and Plan (1) ALYSSA (acute kidney injury): Status: Acute (2) Cellulitis: Status: Acute (3) Acute streptococcal pharyngitis: Status: Acute Plan This is a 57-year-old female with history of GERD, obstructive sleep apnea compliant with CPAP, and hypertension admitted for acute cellulitis RLE. #Acute cellulitis RLE- improving -Leukocytosis trending down. Fever is more likely related to strep pharyngitis and tachycardia is related to fever. No sepsis. no fever since 09/12 -continue IV cefazolin 2 g q.8h (initiated 09/12) -ESR 23, CRP 6, x-rays of ankle/foot negative for any focal consolidation or osteomyelitis -blood cultures negative to date # acute kidney injury- FeNa 1.0 suggesting prerenal etiology, however question iatrogenic etiology from vancomycin and Zosyn use SCr continues to trend up - nephrology consultation - continue IVF - follow BMP daily - Avoid nephrotoxins - lisinopril on hold # acute strep pharyngitis -will be effectively treated by cefazolin as above -Avoid NSAIDS given ALYSSA -Tylenol for fever -saltwater gargles # oral candidiasis -nystatin swish and swallow # hypertension-reasonably controlled - hold lisinopril in the setting of ALYSSA # GERD -continue PPI and simethicone # obstructive sleep apnea -CPAP at bedtime DVT prophylaxis-Lovenox - will change to renal dose Full code Attending - Dr. Cedillo Patient requires ongoing inpt stay for management of acute cellulitis of the right lower extremity requiring IV antibiotics, now with acute kidney injury requiring IVF and close monitoring of renal function Time Spent With Patient Time: Total time managing care of this patient today ____ minutes. Quality Stroke Does the patient have a stroke diagnosis?: No VTE Prior VTE?: No VTE Risk Level:: Medical - moderate - high VTE Device Contraindication: Treatment Not Indicated VTE Drug Contraindication: N/A - Med Ordered
[2022-09-14 12:23] LABS: Appearance Urine Hazy; Color Urine Yellow; Glucose Urine UA Negative (Negative); Leukocyte Esterase Urine Small (1+) (Negative); Nitrite Urine Negative (Negative); PH 5.5 (5.0-9.0); Specific Gravity - Urine <= 1.005 (1.005-1.025); UMIC TRIGGER UA YES; Urine Blood Large (3+) (Negative); Urine Ketones Negative (Negative); Urine Protein Trace mg/dL (Neg-Trace)
[2022-09-14] MEDS: 0.9 % Sodium Chloride 1,000 ML 100 ML IVCONT ×2 (12:26→22:14)
[2022-09-14 12:27] LABS: Bacteria Urine None Seen (None Seen); Hyaline Casts Urine 0-2 /LPF (0-2); Squamous Epithelial Cell Urine 0-2 /HPF (0-2)
[2022-09-14] MEDS: Enoxaparin Sodium 30 MG/0.3 ML SYRINGE SUBCUT (12:27)
--- NOTE | 2022-09-14 12:32 | PC.NURSE ---
harden placed ; 16 Stateless at 11:30 for fluid management per JEFF Vasquez. pt tolerated well. output of 400ml, clear pale yellow.
[2022-09-14 12:37] LABS: Sodium Urine Random < 20.0 mmol/L; Total Protein Urine Random 37 mg/dL (<12)
[2022-09-14 15:12] VITALS: BP 133/62; PULSE 63; RESP 17; TEMP 36.8; O2SAT 99
[2022-09-14 19:25] VITALS: BP 114/57; PULSE 63; RESP 18; TEMP 37.1; O2SAT 99
--- NOTE | 2022-09-14 21:00 | PC.RT ---
Patient refuses hospital CPAP unit. This therapist, again, urged patient to have home CPAP unit brought in while she is inpatient as reason cited for refusal is discomfort of hospital unit.
[2022-09-15] MEDS: ceFAZolin Sodium/Dextrose,Iso 2 GM/50 ML PIGGYBACK IV (03:17)
[2022-09-15 03:56] VITALS: BP 124/60; PULSE 66; RESP 20; TEMP 36.6; O2SAT 96
[2022-09-15] MEDS: Omeprazole 20 MG CAPSULE.DR PO (05:48)
[2022-09-15 07:18] VITALS: BP 141/67; PULSE 60; RESP 20; TEMP 36.4; O2SAT 99
[2022-09-15 07:40] LABS: Anion Gap 13 (12-20); Blood Urea Nitrogen 42 mg/dL (9-16); Calcium 8.1 mg/dL (8.4-10.2); Carbon Dioxide 23 mmol/L (22-29); Chloride 110 mmol/L (96-108); Creatinine Clr Calc Pharmacy 21.2; Estimated Glomerular Filt Rate 11; Glucose Random 92 mg/dL (60-115); Potassium 3.8 mmol/L (3.3-5.1); Sodium 142 mmol/L (135-145)
[2022-09-15] MEDS: Thiamine HCL 100 MG TABLET PO (08:24)
[2022-09-15] MEDS: Nystatin Oral Susp 500,000 UNIT/5 ML ORAL.SUSP 400000 UNIT BUCCAL ×4 (08:24→20:53)
[2022-09-15] MEDS: Cholecalciferol (Vitamin D3) 25 MCG TABLET 50 MCG PO (08:24)
[2022-09-15] MEDS: Cyanocobalamin (Vitamin B-12) 500 MCG TABLET 250 MCG PO (08:24)
--- NOTE | 2022-09-15 10:25 | MHC.CM.PN ---
PER MD ROUNDS, PT WILL NOT BE READY TO DC TODAY DC PLAN REMAINS HOME WITH NO SERVICES FAMILY TO TRANSPORT
[2022-09-15] MEDS: 0.9 % Sodium Chloride 1,000 ML 100 ML IVCONT ×2 (11:19→21:28)
[2022-09-15] MEDS: Enoxaparin Sodium 30 MG/0.3 ML SYRINGE SUBCUT (11:19)
--- NOTE | 2022-09-15 14:09 | P.PNIM_ITS ---
Subjective Subjective Date of Service: 09/15/22 Interval History: seen and examined this morning follow up for RLE cellulitis, strep throat, ALYSSA pain improving right leg, no sore throat. no fever, chills Review of Systems Review of Systems: Yes all other systems are reviewed and are negative Constitutional Constitutional: Denies chills and Denies fever(s) Cardiovascular Cardiovascular: Denies chest pain, Denies palpitations and Denies dyspnea Respiratory Respiratory: Denies cough and Denies dyspnea Gastrointestinal Gastrointestinal: Denies abdominal pain, Denies nausea and Denies vomiting Endocrine Endocrine: Denies palpitations Physical Exam Vital Signs: Vital Signs: Last Vital Signs Temp 97.6 F 09/15/22 07:18 Pulse 60 09/15/22 07:18 Resp 20 09/15/22 07:18 BP 141/67 H 09/15/22 07:18 Pulse Ox 99 09/15/22 07:18 O2 Del Method Room Air 09/15/22 07:18 BMI result Body Mass Index 51.7 Const: General: cooperative and comfortable Nutritional Appearance: obese Orientation/consciousness: patient oriented x3 Resp: Effort & Inspection: normal respiratory effort and able to speak in complete sentences Cardio: Rate: regular rate Heart sounds: S1 normal heart sound present and S2 normal heart sound present GI: Inspection: No distended Palpation (GI): Soft to palpation and nontender Neuro: General: patient oriented x3 and CN's II-XI intact bilaterally Extrem: Other: able to move all 4 extremities spontaneously Objective Data Active Medications Acetaminophen (Acetaminophen 325 Mg Tablet) 650 mg PO Q6H PRN PRN Reason: Pain, Mild, fever Last Admin: 09/14/22 01:51 Dose: 650 mg Documented By: DEONDRE Calcium Carbonate (Calcium Carbonate 500 Mg Tablet) 500 mg PO BID [facility] Last Admin: 09/15/22 08:25 Dose: 500 mg Documented By: SHITAL Cyanocobalamin (Cyanocobalamin (Vitamin B-12) 500 Mcg Tablet) 250 mcg PO DAILY [facility] Last Admin: 09/15/22 08:24 Dose: 250 mcg Documented By: SHITAL Docusate Sodium (Docusate Sodium 100 Mg Capsule) 100 mg PO DAILY PRN PRN Reason: Constipation Enoxaparin Sodium (Enoxaparin Sodium 30 Mg/0.3 Ml Syringe) 30 mg SUBCUT Q24H [facility] Last Admin: 09/15/22 11:19 Dose: 30 mg Documented By: SHITAL Cefazolin Sodium/Dextrose (Ancef) 2 gm in 50 mls @ 100 mls/hr IV Q8H [facility] Last Infusion: 09/15/22 03:52 Dose: 0 mls/hr Documented By: MANDO Sodium Chloride (Ns) 1,000 mls @ 100 mls/hr IVCONT .Q10H [facility] Last Admin: 09/15/22 11:19 Dose: 100 mls/hr Documented By: SHITAL Nystatin (Nystatin Oral Susp 500,000 Unit/5 Ml Oral.Susp) 400,000 unit BUCCAL QID [facility]; Protocol Last Admin: 09/15/22 13:19 Dose: 400,000 unit Documented By: SHITAL Omeprazole (Omeprazole 20 Mg Capsule.Dr) 20 mg PO DAILY@0630 [facility] Last Admin: 09/15/22 05:48 Dose: 20 mg Documented By: MANDO Ondansetron HCl (Ondansetron Hcl 4 Mg/2 Ml Vial) 4 mg IVPUSH Q8H PRN PRN Reason: Nausea and Vomiting Last Admin: 09/14/22 09:21 Dose: 4 mg Documented By: SHITAL Pharmacy Consult (Consult Rx Perform Med Rec) 1 each MISCELLANE ONCE PRN PRN Reason: Consult order Simethicone (Simethicone 80 Mg Tab.Chew) 80 mg PO QID PRN PRN Reason: abdominal distention Sodium Chloride (0.9 % Sodium Chloride Flush 3 Ml Syringe) 3 ml IVFLUSH QSHIFT [facility] Last Admin: 09/15/22 08:21 Dose: Not Given Documented By: SHITAL Non-Admin Reason: IV Running Thiamine HCl (Thiamine Hcl 100 Mg Tablet) 100 mg PO DAILY [facility] Last Admin: 09/15/22 08:24 Dose: 100 mg Documented By: SHITAL Vitamin D (Cholecalciferol (Vitamin D3) 25 Mcg Tablet) 50 mcg PO DAILY [facility] Last Admin: 09/15/22 08:24 Dose: 50 mcg Documented By: SHITAL Labs 09/13/22 06:26 09/15/22 06:22 Labs: Laboratory Results - last 24 hr 09/15/22 06:22 Anion Gap 13 Estim Creat Clear Calc 21.2 Estimated GFR 11 Random Glucose 92 Calcium 8.1 L Microbiology Microbiology Results: Microbiology 09/12/22 14:30 Blood Culture - Preliminary Blood - Venous No growth after 48 hours. 09/12/22 14:48 Blood Culture - Preliminary Blood - Venous No growth after 48 hours. Assessment and Plan (1) ALYSSA (acute kidney injury): Status: Acute (2) Cellulitis: Status: Acute (3) Acute streptococcal pharyngitis: Status: Acute Plan This is a 57-year-old female with history of GERD, obstructive sleep apnea compliant with CPAP, and hypertension admitted for acute cellulitis RLE. #Acute cellulitis RLE- improving Leukocytosis trending down. Fever is more likely related to strep pharyngitis and tachycardia is related to fever. No sepsis. no fever since 09/12 ESR 23, CRP 6, x-rays of ankle/foot negative for any focal consolidation or osteomyelitis blood cultures negative to date initially treated with cefazlin, but given ALYSSA, will change to clindamycin # acute kidney injury SCr continues to trend up to 4.08 nephrology following - continue IVF - follow BMP daily - Avoid nephrotoxins - lisinopril on hold # acute strep pharyngitis continue abx, initially treated with IV cefazolin, will transition to clindamycin as above -Avoid NSAIDS given ALYSSA -Tylenol for fever -saltwater gargles # oral candidiasis -nystatin swish and swallow # hypertension- BP under adequate control - hold lisinopril in the setting of ALYSSA # GERD -continue PPI and simethicone # obstructive sleep apnea -CPAP at bedtime # morbid obesity bmi 21.8 weight loss encouraged DVT prophylaxis-Lovenox - will change to renal dose Full code Attending - Dr. Cedillo Patient requires ongoing inpt stay for management of acute cellulitis of the right lower extremity requiring IV antibiotics, now with acute kidney injury requiring IVF and close monitoring of renal function Time Spent With Patient Time: Total time managing care of this patient today ____ minutes. Quality Stroke Does the patient have a stroke diagnosis?: No VTE Prior VTE?: No VTE Risk Level:: Medical - moderate - high VTE Device Contraindication: Treatment Not Indicated VTE Drug Contraindication: N/A - Med Ordered
--- NOTE | 2022-09-15 14:40 | P.PNNP_ITS ---
Subjective Subjective Date of Service: 09/15/22 Interval history: seen and examined; All recent data reviewed; UO good pain improving right leg, no sore throat. no fever, chills Physical Exam Vital Signs: Vital Signs: Last Vital Signs Temp 97.6 F 09/15/22 07:18 Pulse 60 09/15/22 07:18 Resp 20 09/15/22 07:18 BP 141/67 H 09/15/22 07:18 Pulse Ox 99 09/15/22 07:18 O2 Del Method Room Air 09/15/22 07:18 BMI result Body Mass Index 51.7 Const: General: no acute distress Orientation/consciousness: patient orien stevie x3 Eyes: EOM: EOMs intact bilaterally Resp: Auscultation: diminished lung sounds Cardio: Rate: regular rate GI: Palpation (GI): Soft to palpation Neuro: General: patient oriented x3 and moves all extremities Objective Data Labs 09/13/22 06:26 09/15/22 06:22 Labs: Laboratory Results - last 24 hr 09/15/22 06:22 Sodium 142 Potassium 3.8 Chloride 110 H Carbon Dioxide 23 Anion Gap 13 BUN 42 H Creatinine 4.08 H* Estim Creat Clear Calc 21.2 Estimated GFR 11 Random Glucose 92 Calcium 8.1 L Microbiology Microbiology Results: Microbiology 09/12/22 14:30 Blood - Venous Blood Culture - Preliminary No growth after 48 hours. 09/12/22 14:48 Blood - Venous Blood Culture - Preliminary No growth after 48 hours. Procedures Date of Service Date of Service: 09/15/22 Assessment & Plan Assessment and plan (1) ALYSSA (acute kidney injury): Status: Acute Assessment and Plan: ALYSSA likely due to tubular injury UO good; Serum creatinine worse Complement levels pending No indication for renal biopsy/HD yet Antibiotics changed to Clindamycin Continue with rest of current management Labs AM. Zane cody follow up Progress Note: Quality Stroke Does the patient have a stroke diagnosis?: No
[2022-09-15] MEDS: Clindamycin HCL 300 MG CAPSULE PO ×2 (15:31→20:54)
--- NOTE | 2022-09-15 15:32 | P.CNID_ITS ---
History of Present Illness Data of Consult Service Date: 09/15/22 Requesting physician: Berna Zabala Primary Care Provider: Maria Luisa Perez MD HPI Reason for consult: cellulitis right leg,strep throat She presents with sore throat as well as right ankle swelling for two days. Throat was positive for strep. She also has GERD and sleep apnea. She had no fever or chills Review of Systems Review of Systems: Yes all other systems are reviewed and are negative [facility] Past Medical History Medical History Depression Essential hypertension Family history of high cholesterol GERD with apnea Morbid obesity Obstructive sleep apnea Physical exam UTI (urinary tract infection) Family History Family History Mother Pulmonary edema Father Diabetes HTN (hypertension) Heart disease Surgical History Surgical History History of appendectomy History of bladder suspension procedure History of esophagogastroduodenoscopy (EGD) Hx of colonoscopy Social History Social History Household Members: Spouse Housing: Apartment Do you presently have visiting nurse or other home services: No Alcohol intake: never Patient Tobacco Use Status: Never used Tobacco Smoked in Last 30 Days: No e-Cigarette/Vaping Use: Never Used Second Hand Smoke Exposure: No Use of substances other than those prescribed or required for medical reasons: No Currently Displaying Signs/Symptoms of Drug Intoxication Withdrawal: No Have you been hit, kicked, punched, or otherwise hurt by someone within the past year? If so, by whom?: No Do you feel safe in your current relationship?: Yes Is there a partner from a previous relationship who is making you feel unsafe now?: No Are you made to feel afraid or neglected: No Advance Directives: No Do you have thoughts of harming others: None Do you have a plan to hurt others: No Plan Recently lost weight without trying: No Eating poorly because of decreased appetite: No Nutrition Risks: No Nutritional Risk Patient : No : No Poor oral hygiene: No service: No Current occupational status: employed Current occupation: [employer] Sexual orientation: Straight/Heterosexual Gender identity: Female Cognitive needs: No Hearing needs: No Vision needs: No Meds Allergies Allergy/AdvReac Type Severity Reaction Status Date / Time No Known Allergies Allergy Verified 09/06/22 15:04 [No Known Allergies*] Active Medications: Current Medications Acetaminophen (Acetaminophen 325 Mg Tablet) 650 mg PO Q6H PRN PRN Reason: Pain, Mild, fever Last Admin: 09/14/22 01:51 Dose: 650 mg Calcium Carbonate (Calcium Carbonate 500 Mg Tablet) 500 mg PO BID [facility] Last Admin: 09/15/22 08:25 Dose: 500 mg Clindamycin HCl (Clindamycin Hcl 300 Mg Capsule) 300 mg PO QID [facility] Last Admin: 09/15/22 15:31 Dose: 300 mg Cyanocobalamin (Cyanocobalamin (Vitamin B-12) 500 Mcg Tablet) 250 mcg PO DAILY [facility] Last Admin: 09/15/22 08:24 Dose: 250 mcg Docusate Sodium (Docusate Sodium 100 Mg Capsule) 100 mg PO DAILY PRN PRN Reason: Constipation Enoxaparin Sodium (Enoxaparin Sodium 30 Mg/0.3 Ml Syringe) 30 mg SUBCUT Q24H [facility] Last Admin: 09/15/22 11:19 Dose: 30 mg Sodium Chloride (Ns) 1,000 mls @ 100 mls/hr IVCONT .Q10H [facility] Last Admin: 09/15/22 11:19 Dose: 100 mls/hr Nystatin (Nystatin Oral Susp 500,000 Unit/5 Ml Oral.Susp) 400,000 unit BUCCAL QID [facility]; Protocol Last Admin: 09/15/22 13:19 Dose: 400,000 unit Omeprazole (Omeprazole 20 Mg Capsule.Dr) 20 mg PO DAILY@0630 [facility] Last Admin: 09/15/22 05:48 Dose: 20 mg Ondansetron HCl (Ondansetron Hcl 4 Mg/2 Ml Vial) 4 mg IVPUSH Q8H PRN PRN Reason: Nausea and Vomiting Last Admin: 09/14/22 09:21 Dose: 4 mg Pharmacy Consult (Consult Rx Perform Med Rec) 1 each MISCELLANE ONCE PRN PRN Reason: Consult order Simethicone (Simethicone 80 Mg Tab.Chew) 80 mg PO QID PRN PRN Reason: abdominal distention Sodium Chloride (0.9 % Sodium Chloride Flush 3 Ml Syringe) 3 ml IVFLUSH QSHIFT [facility] Last Admin: 09/15/22 08:21 Dose: Not Given Thiamine HCl (Thiamine Hcl 100 Mg Tablet) 100 mg PO DAILY [facility] Last Admin: 09/15/22 08:24 Dose: 100 mg Vitamin D (Cholecalciferol (Vitamin D3) 25 Mcg Tablet) 50 mcg PO DAILY [facility] Last Admin: 09/15/22 08:24 Dose: 50 mcg Home Medications Medication Instructions Recorded Confirmed Last Taken Type pantoprazole 40 mg tablet,delayed 40 mg PO DAILY 09/12/22 09/12/22 Unknown History release vitamin A palmitate 3,000 mcg 20,000 unit PO DAILY 09/12/22 09/12/22 Unknown History (10,000 unit) capsule Physical Exam Vital Signs: Vital Signs: Last Vital Signs Temp 97.6 F 09/15/22 07:18 Pulse 60 09/15/22 07:18 Resp 20 09/15/22 07:18 BP 141/67 H 09/15/22 07:18 Pulse Ox 99 09/15/22 07:18 O2 Del Method Room Air 09/15/22 07:18 BMI result Body Mass Index 51.7 Const: General: cooperative HEENT: Head: Yes normal to inspection Face and sinus: Yes normal facial exam Mouth: Normal oral and palatal mucosa present Teeth and gingiva: dentition normal Eyes: General: appearance normal, both eyes and all related structures Pupils: Equal, round and reactive pupils present Resp: Effort & Inspection: normal respiratory effort Cardio: Rate: regular rate Rhythm: regular rhythm GI: Palpation (GI): Soft to palpation and nontender : General: Yes no CVA tenderness Back/Spine/Pelvis: Back: no CVA tenderness Skin: General skin exam: no rashes or lesions noted Neuro: General: moves all extremities Cranial nerves: Yes Equal, round and reactive pupils present Extrem: Other: hot red RLE Psych: Appearance: grossly normal Results Labs 09/13/22 06:26 09/15/22 06:22 Labs: BMP 09/15/22 06:22 Sodium 142 Potassium 3.8 Chloride 110 H Carbon Dioxide 23 BUN 42 H Creatinine 4.08 H* Calcium 8.1 L Microbiology Microbiology Results: Microbiology 09/12/22 14:30 Blood - Venous Blood Culture - Preliminary No growth after 48 hours. 09/12/22 14:48 Blood - Venous Blood Culture - Preliminary No growth after 48 hours. Assessment and Plan (1) ALYSSA (acute kidney injury): Status: Acute (2) Cellulitis: Status: Acute She has strep likely leg and throat ,Group A but doesnt seem to have bacteremia unless it wasnt captured. She may have strep toxin production and renal failure with this. It seems early for post strep GN. She also may have renal failure from cefazolin?acute allergic interstitial nephritis. Plan Switch to Clindamycin 600 mg IV every 8 hours to help with reduction of toxin and bacterial burden via [place] effect. She may need 3-5 days IV and continue until improving and then po 300 mg tid po one week likely Continue follow renal function per Renal consult. Azithromycin 500 mg strep prophylaxis for household members. Time Spent With Patient Time: Total time managing care of this patient today ____ minutes.
--- NOTE | 2022-09-15 15:41 | PM.EVENT ---
Event Note Date of Service: 09/15/22 Event Note: could also start po now Time Spent With Patient Time: Total time managing care of this patient today ____ minutes.
[2022-09-15 16:00] VITALS: BP 134/59; PULSE 59; RESP 18; TEMP 36.6; O2SAT 95
[2022-09-15 19:23] VITALS: BP 170/71; PULSE 68; RESP 20; TEMP 37.6; O2SAT 99
[2022-09-15] MEDS: Acetaminophen 325 MG TABLET 650 MG PO (19:38)
[2022-09-15 19:42] VITALS: BP 144/63; PULSE 75; O2SAT 100
[2022-09-15] MEDS: 0.9 % Sodium Chloride Flush 3 ML SYRINGE IVFLUSH (21:27)
[2022-09-16 03:24] VITALS: BP 146/68; PULSE 66; RESP 18; TEMP 37; O2SAT 97
[2022-09-16] MEDS: 0.9 % Sodium Chloride 1,000 ML 100 ML IVCONT (05:31)
[2022-09-16] MEDS: Omeprazole 20 MG CAPSULE.DR PO (05:31)
[2022-09-16 05:52] LABS: Anion Gap 13 (12-20); Blood Urea Nitrogen 43 mg/dL (9-16); Calcium 7.8 mg/dL (8.4-10.2); Carbon Dioxide 21 mmol/L (22-29); Chloride 114 mmol/L (96-108); Creatinine Clr Calc Pharmacy 23.3; Estimated Glomerular Filt Rate 12; Glucose Random 97 mg/dL (60-115); Potassium 3.7 mmol/L (3.3-5.1); Sodium 144 mmol/L (135-145)
[2022-09-16 07:40] VITALS: BP 140/62; PULSE 63; RESP 20; TEMP 37.2; O2SAT 100
[2022-09-16] MEDS: Cholecalciferol (Vitamin D3) 25 MCG TABLET 50 MCG PO (08:46)
[2022-09-16] MEDS: Clindamycin HCL 300 MG CAPSULE PO ×3 (08:46→21:36)
[2022-09-16] MEDS: Cyanocobalamin (Vitamin B-12) 500 MCG TABLET 250 MCG PO (08:47)
[2022-09-16] MEDS: Thiamine HCL 100 MG TABLET PO (08:47)
[2022-09-16] MEDS: Nystatin Oral Susp 500,000 UNIT/5 ML ORAL.SUSP 400000 UNIT BUCCAL ×4 (08:48→21:36)
[2022-09-16] MEDS: 0.9 % Sodium Chloride Flush 3 ML SYRINGE IVFLUSH ×3 (08:49→21:37)
[2022-09-16] MEDS: Lactated Ringers 1,000 ML 100 ML IVCONT ×2 (08:49→17:39)
--- NOTE | 2022-09-16 11:30 | P.PNIM_ITS ---
Subjective Subjective Date of Service: 09/16/22 Interval History: seen and examined this morning Follow-up for right lower extremity cellulitis, strep pharyngitis, AYLSSA Patient denies any shortness of breath, abdominal pain, fever, chills. Sore throat resolved Review of Systems Review of Systems: Yes all other systems are reviewed and are negative Constitutional Constitutional: Denies chills and Denies fever(s) Cardiovascular Cardiovascular: Denies chest pain, Denies palpitations and Denies dyspnea Respiratory Respiratory: Denies cough and Denies dyspnea Gastrointestinal Gastrointestinal: Denies abdominal pain Endocrine Endocrine: Denies palpitations Physical Exam Vital Signs: Vital Signs: Last Vital Signs Temp 99.0 F 09/16/22 07:40 Pulse 63 09/16/22 07:40 Resp 20 09/16/22 07:40 BP 140/62 H 09/16/22 07:40 Pulse Ox 100 09/16/22 07:40 O2 Del Method Room Air 09/16/22 07:40 BMI result Body Mass Index 51.7 Const: General: cooperative, comfortable, alert and awake Nutritional Appearance: obese Orientation/consciousness: patient oriented x3 Resp: Effort & Inspection: normal respiratory effort and able to speak in complete sentences Cardio: Rate: regular rate Heart sounds: S1 normal heart sound present and S2 normal heart sound present GI: Inspection: No distended Palpation (GI): Soft to palpation and nontender Skin: Other: right lower extremity with erythema, swelling, similar to yesterday. No significant tenderness for Neuro: General: patient oriented x3 and CN's II-XI intact bilaterally Extrem: Other: able to move all 4 extremities spontaneously Objective Data Active Medications Acetaminophen (Acetaminophen 325 Mg Tablet) 650 mg PO Q6H PRN PRN Reason: Pain, Mild, fever Last Admin: 09/15/22 19:38 Dose: 650 mg Documented By: CRUZ Calcium Carbonate (Calcium Carbonate 500 Mg Tablet) 500 mg PO BID [facility] Last Admin: 09/16/22 08:48 Dose: 500 mg Documented By: JOAQUIN Clindamycin HCl (Clindamycin Hcl 300 Mg Capsule) 300 mg PO TID [facility] Last Admin: 09/16/22 08:46 Dose: 300 mg Documented By: JOAQUIN Cyanocobalamin (Cyanocobalamin (Vitamin B-12) 500 Mcg Tablet) 250 mcg PO DAILY [facility] Last Admin: 09/16/22 08:47 Dose: 250 mcg Documented By: JOAQUIN Docusate Sodium (Docusate Sodium 100 Mg Capsule) 100 mg PO DAILY PRN PRN Reason: Constipation Enoxaparin Sodium (Enoxaparin Sodium 30 Mg/0.3 Ml Syringe) 30 mg SUBCUT Q24H [facility] Last Admin: 09/15/22 11:19 Dose: 30 mg Documented By: SHITAL Lactated Ringer's (Lr) 1,000 mls @ 100 mls/hr IVCONT .Q10H [facility] Last Admin: 09/16/22 08:49 Dose: 100 mls/hr Documented By: JOAQUIN Nystatin (Nystatin Oral Susp 500,000 Unit/5 Ml Oral.Susp) 400,000 unit BUCCAL QID [facility]; Protocol Last Admin: 09/16/22 08:48 Dose: 400,000 unit Documented By: JOAQUIN Omeprazole (Omeprazole 20 Mg Capsule.Dr) 20 mg PO DAILY@0630 [facility] Last Admin: 09/16/22 05:31 Dose: 20 mg Documented By: CRUZ Ondansetron HCl (Ondansetron Hcl 4 Mg/2 Ml Vial) 4 mg IVPUSH Q8H PRN PRN Reason: Nausea and Vomiting Last Admin: 09/14/22 09:21 Dose: 4 mg Documented By: SHITAL Pharmacy Consult (Consult Rx Perform Med Rec) 1 each MISCELLANE ONCE PRN PRN Reason: Consult order Simethicone (Simethicone 80 Mg Tab.Chew) 80 mg PO QID PRN PRN Reason: abdominal distention Sodium Chloride (0.9 % Sodium Chloride Flush 3 Ml Syringe) 3 ml IVFLUSH QSHIFT [facility] Last Admin: 09/16/22 08:49 Dose: 3 ml Documented By: JOAQUIN Thiamine HCl (Thiamine Hcl 100 Mg Tablet) 100 mg PO DAILY [facility] Last Admin: 09/16/22 08:47 Dose: 100 mg Documented By: JOAQUIN Vitamin D (Cholecalciferol (Vitamin D3) 25 Mcg Tablet) 50 mcg PO DAILY [facility] Last Admin: 09/16/22 08:46 Dose: 50 mcg Documented By: JOAQUIN Labs 09/13/22 06:26 09/16/22 05:21 Labs: Laboratory Results - last 24 hr 09/16/22 05:21 Anion Gap 13 Estim Creat Clear Calc 23.3 Estimated GFR 12 Random Glucose 97 Calcium 7.8 L Assessment and Plan (1) ALYSSA (acute kidney injury): Status: Acute (2) Cellulitis: Status: Acute Plan This is a 57-year-old female with history of GERD, obstructive sleep apnea compliant with CPAP, and hypertension admitted for acute cellulitis RLE. #Acute cellulitis RLE- improving Leukocytosis trending down. Fever is more likely related to strep pharyngitis an d tachycardia is related to fever. No sepsis. no fever since 09/12 ESR 23, CRP 6, x-rays of ankle/foot negative for any focal consolidation or osteomyelitis blood cultures negative to date initially treated with cefazlin, but given ALYSSA, will change to clindamycin. seen by ID rec 7 days po abx # acute kidney injury SCr beginning to trend down this morning nephrology following - continue IVF - follow BMP daily - Avoid nephrotoxins - lisinopril on hold # acute strep pharyngitis continue abx, initially treated with IV cefazolin, will transition to clindamycin as above -Avoid NSAIDS given ALYSSA -Tylenol for fever -saltwater gargles # oral candidiasis -nystatin swish and swallow # hypertension- BP under adequate control - hold lisinopril in the setting of ALYSSA # GERD -continue PPI and simethicone # obstructive sleep apnea -CPAP at bedtime # morbid obesity bmi 51.8 weight loss encouraged DVT prophylaxis-Lovenox - will change to renal dose Full code Attending - Dr. Caro Patient requires ongoing inpt stay for management of acute cellulitis of the right lower extremity requiring IV antibiotics, now with acute kidney injury requiring IVF and close monitoring of renal function Time Spent With Patient Time: Total time managing care of this patient today ____ minutes. Quality Stroke Does the patient have a stroke diagnosis?: No VTE Prior VTE?: No VTE Risk Level:: Medical - moderate - high VTE Device Contraindication: Treatment Not Indicated VTE Drug Contraindication: N/A - Med Ordered
[2022-09-16] MEDS: ondansetron HCL 4 MG/2 ML VIAL IVPUSH (12:03)
[2022-09-16] MEDS: Enoxaparin Sodium 30 MG/0.3 ML SYRINGE SUBCUT (13:24)
--- NOTE | 2022-09-16 13:32 | PM.PNNEP ---
Subjective Subjective Date of Service: 09/16/22 Interval history: seen and examined this morning Feels better. Renal function improved Physical Exam Vital Signs: Vital Signs: Last Vital Signs Temp 99.0 F 09/16/22 07:40 Pulse 63 09/16/22 07:40 Resp 20 09/16/22 07:40 BP 140/62 H 09/16/22 07:40 Pulse Ox 100 09/16/22 07:40 O2 Del Method Room Air 09/16/22 07:40 BMI result Body Mass Index 51.7 Const: General: no acute distress Eyes: EOM: EOMs intact bilaterally Neck: Neck: Yes supple Resp: Auscultation: diminished lung sounds Cardio: Rate: regular rate GI: Palpation (GI): Soft to palpation Neuro: General: moves all extremities Objective Data Labs 09/13/22 06:26 09/16/22 05:21 Labs: Laboratory Results - last 24 hr 09/16/22 05:21 Sodium 144 Potassium 3.7 Chloride 114 H Carbon Dioxide 21 L Anion Gap 13 BUN 43 H Creatinine 3.71 H Estim Creat Clear Calc 23.3 Estimated GFR 12 Random Glucose 97 Calcium 7.8 L Microbiology Microbiology Results: Microbiology 09/12/22 14:30 Blood - Venous Blood Culture - Preliminary No growth after 48 hours. 09/12/22 14:48 Blood - Venous Blood Culture - Preliminary No growth after 48 hours. Procedures Date of Service Date of Service: 09/16/22 Assessment & Plan Assessment and plan (1) ALYSSA (acute kidney injury): Status: Acute Assessment and Plan: ALYSSA likely due to tubular injury UO good; Serum creatinine improving Complement levels pending No indication for renal biopsy/HD Antibiotics changed to Clindamycin Continue with rest of current management Labs AM. Shall closely follow up Progress Note: Quality Stroke Does the patient have a stroke diagnosis?: No
[2022-09-16 16:00] VITALS: BP 151/77; PULSE 89; RESP 18; TEMP 36.8; O2SAT 98
[2022-09-16] MEDS: Mineral Oil/Petrolatum,White 106 GM Tube 1 APPL TOPICAL (17:00)
[2022-09-16 19:44] VITALS: BP 136/72; PULSE 66; RESP 17; TEMP 36.7; O2SAT 98
[2022-09-17 03:21] VITALS: BP 137/64; PULSE 64; RESP 12; TEMP 36.7; O2SAT 96
[2022-09-17] MEDS: Lactated Ringers 1,000 ML 100 ML IVCONT ×2 (05:00→12:58)
[2022-09-17] MEDS: Omeprazole 20 MG CAPSULE.DR PO (06:14)
[2022-09-17 06:47] LABS: Anion Gap 15 (12-20); Blood Urea Nitrogen 39 mg/dL (9-16); Calcium 8.1 mg/dL (8.4-10.2); Carbon Dioxide 20 mmol/L (22-29); Chloride 113 mmol/L (96-108); Creatinine Clr Calc Pharmacy 25.2; Estimated Glomerular Filt Rate 14; Glucose Random 92 mg/dL (60-115); Potassium 3.8 mmol/L (3.3-5.1); Sodium 144 mmol/L (135-145)
[2022-09-17 07:15] VITALS: BP 148/64; PULSE 65; RESP 20; TEMP 36.1; O2SAT 97
[2022-09-17] MEDS: Cholecalciferol (Vitamin D3) 25 MCG TABLET 50 MCG PO (08:10)
[2022-09-17] MEDS: Clindamycin HCL 300 MG CAPSULE PO ×3 (08:11→20:46)
[2022-09-17] MEDS: Cyanocobalamin (Vitamin B-12) 500 MCG TABLET 250 MCG PO (08:11)
[2022-09-17] MEDS: Thiamine HCL 100 MG TABLET PO (08:11)
[2022-09-17] MEDS: Nystatin Oral Susp 500,000 UNIT/5 ML ORAL.SUSP 400000 UNIT BUCCAL ×4 (08:12→20:46)
[2022-09-17] MEDS: Mineral Oil/Petrolatum,White 106 GM Tube 1 APPL TOPICAL (08:14)
--- NOTE | 2022-09-17 11:18 | P.PNIM_ITS ---
Subjective Subjective Date of Service: 09/17/22 Interval History: seen and examined this morning follow up for cellulitis, strep throat, ALYSSA no overnight events feeling well, no throat pain, fever, chills, shortness of breath Review of Systems Review of Systems: Yes all other systems are reviewed and are negative Constitutional Constitutional: Denies chills and Denies fever(s) Cardiovascular Cardiovascular: Denies chest pain, Denies palpitations and Denies dyspnea Respiratory Respiratory: Denies cough and Denies dyspnea Gastrointestinal Gastrointestinal: Denies abdominal pain, Denies nausea and Denies vomiting Endocrine Endocrine: Denies palpitations Physical Exam Vital Signs: Vital Signs: Last Vital Signs Temp 96.9 F 09/17/22 07:15 Pulse 65 09/17/22 07:15 Resp 20 09/17/22 07:15 BP 148/64 H 09/17/22 07:15 Pulse Ox 97 09/17/22 07:15 O2 Del Method Room Air 09/17/22 07:15 BMI result Body Mass Index 51.7 Const: General: cooperative, comfortable, alert and awake Nutritional Appearance: obese Orientation/consciousness: patient oriented x3 Resp: Effort & Inspection: normal respiratory effort and able to speak in complete sentences Cardio: Rate: regular rate Heart sounds: S1 normal heart sound present and S2 normal heart sound present GI: Inspection: No distended Palpation (GI): Soft to palpation and nontender Skin: Other: b/l LE edema R>L, improving. b/l chronic venous stasis changes. right lower extremity with mild erythema compared to left, no warmth/tenderness Neuro: General: patient oriented x3 and CN's II-XI intact bilaterally Extrem: Other: able to move all 4 extremities spontaneously Objective Data Active Medications Acetaminophen (Acetaminophen 325 Mg Tablet) 650 mg PO Q6H PRN PRN Reason: Pain, Mild, fever Last Admin: 09/15/22 19:38 Dose: 650 mg Documented By: CRUZ Calcium Carbonate (Calcium Carbonate 500 Mg Tablet) 500 mg PO BID [facility] Last Admin: 09/17/22 08:14 Dose: 500 mg Documented By: JOAQUIN Clindamycin HCl (Clindamycin Hcl 300 Mg Capsule) 300 mg PO TID [facility] Last Admin: 09/17/22 08:11 Dose: 300 mg Documented By: JOAQUIN Cyanocobalamin (Cyanocobalamin (Vitamin B-12) 500 Mcg Tablet) 250 mcg PO DAILY [facility] Last Admin: 09/17/22 08:11 Dose: 250 mcg Documented By: JOAQUIN Docusate Sodium (Docusate Sodium 100 Mg Capsule) 100 mg PO DAILY PRN PRN Reason: Constipation Enoxaparin Sodium (Enoxaparin Sodium 30 Mg/0.3 Ml Syringe) 30 mg SUBCUT Q24H [facility] Last Admin: 09/16/22 13:24 Dose: 30 mg Documented By: JOAQUIN Lactated Ringer's (Lr) 1,000 mls @ 100 mls/hr IVCONT .Q10H [facility] Last Admin: 09/17/22 05:00 Dose: 100 mls/hr Documented By: KACY Multi-Ingred Cream/Lotion/Oil/Oint (Mineral Oil/Petrolatum,White 106 Gm Tube) 1 appl TOPICAL DAILY [facility]; Protocol Last Admin: 09/17/22 08:14 Dose: 1 appl Documented By: JOAQUIN Nystatin (Nystatin Oral Susp 500,000 Unit/5 Ml Oral.Susp) 400,000 unit BUCCAL QID [facility]; Protocol Last Admin: 09/17/22 08:12 Dose: 400,000 unit Documented By: JOAQUIN Omeprazole (Omeprazole 20 Mg Capsule.Dr) 20 mg PO DAILY@0630 [facility] Last Admin: 09/17/22 06:14 Dose: 20 mg Documented By: KACY Ondansetron HCl (Ondansetron Hcl 4 Mg/2 Ml Vial) 4 mg IVPUSH Q8H PRN PRN Reason: Nausea and Vomiting Last Admin: 09/16/22 12:03 Dose: 4 mg Documented By: JOAQUIN Pharmacy Consult (Consult Rx Perform Med Rec) 1 each MISCELLANE ONCE PRN PRN Reason: Consult order Simethicone (Simethicone 80 Mg Tab.Chew) 80 mg PO QID PRN PRN Reason: abdominal distention Sodium Chloride (0.9 % Sodium Chloride Flush 3 Ml Syringe) 3 ml IVFLUSH QSHIFT [facility] Last Admin: 09/17/22 08:12 Dose: Not Given Documented By: JOAQUIN Non-Admin Reason: IV Running Thiamine HCl (Thiamine Hcl 100 Mg Tablet) 100 mg PO DAILY [facility] Last Admin: 09/17/22 08:11 Dose: 100 mg Documented By: JOAQUIN Vitamin D (Cholecalciferol (Vitamin D3) 25 Mcg Tablet) 50 mcg PO DAILY [facility] Last Admin: 09/17/22 08:10 Dose: 50 mcg Documented By: JOAQUIN Labs 09/13/22 06:26 09/17/22 06:07 Labs: Laboratory Results - last 24 hr 09/17/22 06:07 Anion Gap 15 Estim Creat Clear Calc 25.2 Estimated GFR 14 Random Glucose 92 Calcium 8.1 L Assessment and Plan (1) ALYSSA (acute kidney injury): Status: Acute Plan This is a 57-year-old female with history of GERD, obstructive sleep apnea compliant with CPAP, and hypertension admitted for acute cellulitis RLE. #Acute cellulitis RLE- improving Leukocytosis trending down. Fever is more likely related to strep pharyngitis and tachycardia is related to fever. No sepsis. no fever since 09/12 ESR 23, CRP 6, x-rays of ankle/foot negative for any focal consolidation or osteomyelitis blood cultures negative to date initially treated with cefazlin, but given ALYSSA, will change to clindamycin per ID rec # acute kidney injury SCr continues to trend down nephrology following - continue IVF - follow BMP daily - Avoid nephrotoxins - lisinopril on hold # acute strep pharyngitis continue abx, initially treated with IV cefazolin, will transition to clindamycin as above -Avoid NSAIDS given ALYSSA -Tylenol for fever -saltwater gargles # oral candidiasis -nystatin swish and swallow # hypertension- BP under adequate control - hold lisinopril in the setting of ALYSSA # GERD -continue PPI and simethicone # obstructive sleep apnea -CPAP at bedtime # morbid obesity bmi 51.8 weight loss encouraged DVT prophylaxis-Lovenox - renally dosed Full code Attending - Dr. Reyes Patient requires ongoing inpt stay for management of acute kidney injury requiring IVF and close monitoring of renal function Time Spent With Patient Time: Total time managing care of this patient today ____ minutes. Quality Stroke Does the patient have a stroke diagnosis?: No VTE Prior VTE?: No VTE Risk Level:: Medical - moderate - high VTE Device Contraindication: Treatment Not Indicated VTE Drug Contraindication: N/A - Med Ordered
[2022-09-17 11:27] VITALS: BP 138/65; PULSE 67; RESP 20; TEMP 37.2; O2SAT 97
[2022-09-17] MEDS: Enoxaparin Sodium 30 MG/0.3 ML SYRINGE SUBCUT (12:56)
--- NOTE | 2022-09-17 15:23 | PM.PNNEP ---
Subjective Subjective Date of Service: 09/17/22 Interval history: seen and examined this morning; No overnight events; feeling well Physical Exam Vital Signs: Vital Signs: Last Vital Signs Temp 98.9 F 09/17/22 11:27 Pulse 67 09/17/22 11:27 Resp 20 09/17/22 11:27 BP 138/65 09/17/22 11:27 Pulse Ox 97 09/17/22 11:27 O2 Del Method Room Air 09/17/22 11:27 BMI result Body Mass Index 51.7 Const: General: no acute distress Orientation/consciousness: patient oriented x3 Eyes: EOM: EOMs intact bilaterally Neck: Neck: Yes supple Resp: Auscultation: diminished lung sounds Cardio: Rate: regular rate GI: Palpation (GI): Soft to palpation Neuro: General: patient oriented x3 and moves all extremities Objective Data Labs 09/13/22 06:26 09/17/22 06:07 Labs: Laboratory Results - last 24 hr 09/17/22 06:07 Sodium 144 Potassium 3.8 Chloride 113 H Carbon Dioxide 20 L Anion Gap 15 BUN 39 H Creatinine 3.43 H Estim Creat Clear Calc 25.2 Estimated GFR 14 Random Glucose 92 Calcium 8.1 L Microbiology Microbiology Results: Microbiology 09/12/22 14:30 Blood - Venous Blood Culture - Preliminary No growth after 48 hours. 09/12/22 14:48 Blood - Venous Blood Culture - Preliminary No growth after 48 hours. Procedures Date of Service Date of Service: 09/17/22 Assessment & Plan Assessment and plan (1) ALYSSA (acute kidney injury): Status: Acute Assessment and Plan: ALYSSA likely due to tubular injury UO good; Serum creatinine improving No indication for renal biopsy/HD Antibiotics changed to Clindamycin Continue with rest of current management Labs AM. Shall closely follow up Progress Note: Quality Stroke Does the patient have a stroke diagnosis?: No
[2022-09-17 15:58] VITALS: BP 146/65; PULSE 63; RESP 18; TEMP 36.7; O2SAT 98
[2022-09-17] MEDS: 0.9 % Sodium Chloride Flush 3 ML SYRINGE IVFLUSH ×2 (16:25→20:50)
[2022-09-17 19:45] VITALS: BP 152/72; PULSE 75; RESP 18; TEMP 36.8; O2SAT 98
[2022-09-18 03:53] VITALS: BP 140/65; PULSE 68; RESP 20; TEMP 37.1; O2SAT 97
[2022-09-18] MEDS: Omeprazole 20 MG CAPSULE.DR PO (05:17)
[2022-09-18 07:26] LABS: Anion Gap 13 (12-20); Blood Urea Nitrogen 35 mg/dL (9-16); Calcium 8.4 mg/dL (8.4-10.2); Carbon Dioxide 22 mmol/L (22-29); Chloride 115 mmol/L (96-108); Creatinine Clr Calc Pharmacy 29.7; Estimated Glomerular Filt Rate 16; Glucose Random 89 mg/dL (60-115); Potassium 4.3 mmol/L (3.3-5.1); Sodium 146 mmol/L (135-145)
[2022-09-18 07:37] VITALS: BP 163/74; PULSE 62; RESP 18; TEMP 36.3; O2SAT 96
[2022-09-18] MEDS: Thiamine HCL 100 MG TABLET PO (08:17)
[2022-09-18] MEDS: Clindamycin HCL 300 MG CAPSULE PO ×2 (08:17→14:24)
[2022-09-18] MEDS: Cyanocobalamin (Vitamin B-12) 500 MCG TABLET 250 MCG PO (08:17)
[2022-09-18] MEDS: Nystatin Oral Susp 500,000 UNIT/5 ML ORAL.SUSP 400000 UNIT BUCCAL ×2 (08:17→12:13)
[2022-09-18] MEDS: Cholecalciferol (Vitamin D3) 25 MCG TABLET 50 MCG PO (08:17)
[2022-09-18] MEDS: 0.9 % Sodium Chloride Flush 3 ML SYRINGE IVFLUSH (08:17)
[2022-09-18] MEDS: Mineral Oil/Petrolatum,White 106 GM Tube 1 APPL TOPICAL (08:20)
--- NOTE | 2022-09-18 09:51 | PC.NURSE ---
Addendum entered by Jennifer Campbell RN 09/18/22 12:16: pt has voided twice since harden removal in the bathroom. no issues. Original Note: Harden removed today (09/18/22) @ 0940am. Pt tolerated well. Pt due to void between 1540 -1740. Pt out of bed to chair. Will continue to monitor.
--- NOTE | 2022-09-18 11:05 | P.PNNP_ITS ---
Subjective Subjective Date of Service: 09/18/22 Interval history: seen and examined this morning; No overnight events; feeling well; wants to go home Physical Exam Vital Signs: Vital Signs: Last Vital Signs Temp 97.4 F 09/18/22 07:37 Pulse 62 09/18/22 07:37 Resp 18 09/18/22 07:37 BP 163/74 H 09/18/22 07:37 Pulse Ox 96 09/18/22 07:37 O2 Del Method Room Air 09/18/22 07:37 BMI result Body Mass Index 51.7 Const: General: no acute distress Orientation/consciousness: patient oriented x3 Eyes: EOM: EOMs intact bilaterally Neck: Neck: Yes supple Resp: Auscultation: diminished lung sounds Cardio: Rate: regular rate GI: Palpation (GI): Soft to palpation Skin: General skin exam: no rashes or lesions noted Neuro: General: patient oriented x3 and moves all extremities Objective Data Labs 09/13/22 06:26 09/18/22 06:33 Labs: Laboratory Results - last 24 hr 09/18/22 06:33 Sodium 146 H Potassium 4.3 Chloride 115 H Carbon Dioxide 22 Anion Gap 13 BUN 35 H Creatinine 2.92 H Estim Creat Clear Calc 29.7 Estimated GFR 16 Random Glucose 89 Calcium 8.4 Microbiology Microbiology Results: Microbiology 09/12/22 14:30 Blood - Venous Blood Culture - Final No growth after 5 days. 09/12/22 14:48 Blood - Venous Blood Culture - Final No growth after 5 days. Procedures Date of Service Date of Service: 09/18/22 Assessment & Plan Assessment and plan (1) ALYSSA (acute kidney injury): Status: Acute Assessment and Plan: ALYSSA likely due to tubular injury UO good; Serum creatinine improving No indication for renal biopsy/HD Antibiotics changed to Clindamycin Continue with rest of current management Needs close follow up with me in [place] office in 3-4 weeks if D/Oscar Progress Note: Quality Stroke Does the patient have a stroke diagnosis?: No
[2022-09-18] MEDS: Enoxaparin Sodium 30 MG/0.3 ML SYRINGE SUBCUT (12:13)
[2022-09-18 12:59] LABS: Myeloperoxidase Antibody <1.0 AI; Proteinase 3 PR3 Antibodies <1.0 AI
--- NOTE | 2022-09-18 13:14 | P.DS_ITS ---
DS: Providers Provider Date of Service: 09/18/22 Date of admission: 09/12/22 18:50 Primary care physician: Maria Luisa Perez MD Consults: 09/14/22 11:03 Consult to Nephrology Routine Consulting Provider: Deonte Ding Reason for consultation: alyssa Has provider been notified: Yes 09/15/22 07:55 Consult to Infectious Diseases Routine Consulting Provider: [facility] [place] Infectious Disease Reason for consultation: cellulitis, strep pharyngitis; renal failure Has provider been notified: No DS: Diagnosis Discharge Diagnosis (1) ALYSSA (acute kidney injury): Status: Acute DS: Summary Hospital Course Hospital Course: 57-year-old female with history of GERD, obstructive sleep apnea compliant with CPAP, and hypertension presents to the ED earlier today for evaluation of pain and swelling of the right foot/ankle.? She states approximately 4 days ago while getting into a car, she lost her footing and injured the posterior aspect of the ankle.? She sustained lacerations over the Achilles tendon and states since then has developed increased swelling, erythema, warmth, and pain.? There is oc casionally purulent drainage from the skin breaks.? She has also had a sore throat for the last 4 days.? Denies any fevers, chills, congestion, abdominal pain, cough, headache, lightheadedness, shortness of breath, or chest pain.? She also endorses a single episode of vomiting earlier today but denies ongoing nausea.? She denies any known sick contacts.? On arrival, patient febrile to 103.1 with coinciding tachycardia to 104.? There is a leukocytosis of 22.9 with left shift.? ESR 23, CRP 6.45.? Renal function and electrolyte levels normal positive for strep pyogenes group A.? X-ray of the right foot and ankle showing by malleolar soft tissue swelling likely ligamentous contusion but no acute fracture dislocation.? Venous duplex the right lower extremity negative for DVT.? CXR negative for acute pulmonary disease.? In the ED, treated with IV Zosyn and vancomycin as well as Tylenol for fever. #Acute cellulitis RLE- improving, along with stasis dermatitis. Negative blood cultures. Initially treated with IV cefazolin, plan to discharge with 7 days of clindamycin t.i.d. # acute kidney injury. Seen evaluated by Nephrology, creatinine trended down significantly with IV fluids. Follow up with Nephrology outpatient # oral candidiasis. One more day of nystatin # hypertension- BP under adequate control hold lisinopril in the setting of ALYSSA # GERD continue PPI and simethicone # obstructive sleep apnea CPAP at bedtime # morbid obesity bmi 51.8 weight loss encouraged Time Spent with Patient Time attestation: Total time managing care of this patient today ____ minutes. Discharge coordination time: Greater than 30 minutes Quality: Safe Use of Opioids Does Pt have an Active Cancer Diagnosis on the Problem List?: No Quality: Stroke Does the patient have a stroke diagnosis?: No Physical Exam Vital Signs: Vital Signs: Last Vital Signs Temp 97.4 F 09/18/22 07:37 Pulse 62 09/18/22 07:37 Resp 18 09/18/22 07:37 BP 163/74 H 09/18/22 07:37 Pulse Ox 96 09/18/22 07:37 O2 Del Method Room Air 09/18/22 07:37 BMI result Body Mass Index 51.7 Appearing in no acute distress head is normocephalic atraumatic eyes pupils are PERRLA sclera is anicteric mouth throat mucous membranes are intact and moist neck is supple no lymphadenopathy, no JVD noted lung sounds are clear to auscultation heart regular rate rhythm, clear S1, S2 positive bowel sounds, abdomen is soft, nontender neuro patient is alert x3, no focal deficits DS: Data Data Completed and Pending Labs on day of discharge: Laboratory Results - last 24 hr 09/14/22 09/18/22 12:06 06:33 Sodium 146 H Potassium 4.3 Chloride 115 H Carbon Dioxide 22 Anion Gap 13 BUN 35 H Creatinine 2.92 H Estim Creat Clear Calc 29.7 Estimated GFR 16 Random Glucose 89 Calcium 8.4 Proteinase 3 (PR3) Ab <1.0 Myeloperoxidase Ab <1.0 Discharge Plan Discharge Anticipated Discharge Date/Time: 09/18/22 13:05 Patient Disposition: Home, Self-Care Discharge Diagnosis: ALYSSA Cellulitis Strep pharyngitis Oral candidiasis Referrals: Maria Luisa Henderson MD [Primary Care Provider] - 1 Week Discharge Medications: New nystatin 100,000 unit/mL Suspension 400,000 unit buccal QID 2 Days Qty: 32 0RF clindamycin HCl 300 mg Capsule 300 mg PO TID Qty: 21 0RF Continued clotrimazole-betamethasone 1-0.05 % cream 1 appl topical BID 14 Days Qty: 15 1RF calcium carbonate 600 mg calcium (1,500 mg) tablet 600 mg PO BID 90 Days Qty: 180 1RF cholecalciferol (vitamin D3) 50 mcg (2,000 unit) capsule 50 mcg PO DAILY 90 Days Qty: 90 1RF cyanocobalamin (vitamin B-12) 250 mcg tablet 250 mcg PO DAILY Qty: 30 5RF thiamine HCl (vitamin B1) 100 mg tablet 100 mg PO DAILY Qty: 30 5RF lisinopril 20 mg tablet 20 mg PO DAILY 90 Days Qty: 90 0RF pantoprazole 40 mg Tablet,Delayed Release (Dr/Ec) 40 mg PO DAILY vitamin A palmitate 3,000 mcg (10,000 unit) Capsule 20,000 unit PO DAILY simethicone [Gas Relief (simethicone)] 125 mg capsule 125 mg PO TID-QID PRN (Reason: abdominal distention) Qty: 120 2RF Discharge Orders: Discharge Order (Routine); Ordered 09/18/22 Ordered By: Anna Marie Sharp Diet: Advance to usual diet Activity on Discharge: As tolerated Stand Alone Forms: Patient Portal Discharge page Care Plan Goals: Elevate right lower extremity swelling Health Concerns: ALYSSA Cellulitis Strep pharyngitis Oral candidiasis Plan of Treatment: Follow-up with primary care provider as needed Take all medications as prescribed Assessment: see discharge summary
--- NOTE | 2022-09-18 13:44 | MHC.CM.PN ---
PT WILL DC HOME TODAY WITH NO SERVICES PT TO ARRANGE TRANSPORT
[2022-09-18 22:48] LABS: Complement C3 127 mg/dL (83-193)
== END 2022-09-18 15:24 | disposition home or self-care (01) | DRG 383 ==
LOC: HO.ED 18:30 → HO.EDOVER 19:17 → HO.IMC 19:21
PROVIDERS: Internal Medicine Hypertension Specialist; Physician Assistant; Physician Assistant Medical; Admitting Provider Physician Assistant; Emergency Provider Emergency Medicine; PCP Internal Medicine; Visit Provider Nurse Practitioner Acute Care
DX: L03.115 Cellulitis of right lower limb (principal); N17.0 Acute kidney failure with tubular necrosis; Z68.43 Body mass index [BMI] 50.0-59.9, adult; B37.0 Candidal stomatitis; J02.0 Streptococcal pharyngitis; E66.01 Morbid (severe) obesity due to excess calories; G47.33 Obstructive sleep apnea (adult) (pediatric); I10 Essential (primary) hypertension; K21.9 Gastro-esophageal reflux disease without esophagitis; Z79.899 Other long term (current) drug therapy
CPT/HCPCS: 36415; 71045; 73610; 73630; 80048; 80053; 81001; 83605; 83735; 83880; 84156; 84300; 84484; 85025; 85610; 85652; 86021; 86140; 86160; 87040; 87651; 93005; 93971; 99285; C1758; J0690; J1650; J2405; J2543; J3370

== ENCOUNTER 2022-09-21 09:05 | Outpatient (REF) | payer OTHER, SELFPAY ==
--- NOTE | ~2022-09-21 | MM_ITS ---
EXAMINATION: MM SCREENING DIGITAL BREAST TOMOSYNTHESIS, BILATERAL CLINICAL INFORMATION: Screening. Asymptomatic. The lifetime risk of breast cancer based on the Tyrer-Cuzick Model is 9%. COMPARISON: Mammography: December 13, 2020 and studies dating back to October 20, 2015 TECHNIQUE: Digital breast tomosynthesis is performed in both the craniocaudal and mediolateral oblique views along with computer-aided detection (CAD). Synthesized 2D images are generated from the tomosynthesis. FINDINGS: There are scattered areas of fibroglandular density (ACR BI-RADS breast composition Category b). There are no significant masses, abnormal calcifications, or other abnormalities. MM/MM tomosynthesis screening BI IMPRESSION: No significant changes ASSESSMENT: BI-RADS 1: Negative RECOMMENDATION: Routine annual mammography screening. This patient's information was entered into a reminder system with a target due date for their next mammogram.
== END 2022-09-21 09:06 | disposition home or self-care (01) ==
LOC: HO.MAMMO 09:05
PROVIDERS: PCP Internal Medicine; Visit Provider Advanced Practice Midwife
DX: Z12.31 Encounter for screening mammogram for malignant neoplasm of breast (principal)
CPT/HCPCS: 77063; 77067

== ENCOUNTER 2022-09-25 10:40 | Outpatient (REF) | payer OTHER, SELFPAY ==
[2022-09-25 11:01] LABS: MANUAL DIFF FLAG NO
[2022-09-25 12:29] LABS: Basophils Percent Auto 0.3 % (0-2); Eosinophils Absolute Auto 0.2 X10*3/uL (0.0-0.4); Eosinophils Percent Auto 2.2 % (0-4); Hemoglobin 10.5 g/dl (12.0-16.0); Imm Gran Abs Auto 0.04 X10*3/uL (0.00-0.03); Imm Gran Pct Auto 0.4 % (0.0-0.4); Lymphocytes Absolute Auto 2.6 X10*3/uL (1.2-4.9); Lymphocytes Percent Auto 24.3 % (20-40); Mean Corpuscular HGB Conc 31.8 g/dl (31.0-35.0); Mean Corpuscular Hemoglobin 30.4 pg (27.0-33.0); Mean Corpuscular Volume 95.7 fL (80.0-98.0); Mean Platelet Volume 11.7 fL (9.4-12.3); Monocytes Absolute Auto 0.7 X10*3/uL (0.1-1.2); Monocytes Percent Auto 6.8 % (2-11); Neutrophils Absolute Auto 7.1 x10*3/uL (2.0-8.3); Platelet Count 344 X10*3/uL (160-400); Red Blood Count 3.45 X10*6/uL (4.20-5.50); Red Cell Distribution Width 13.8 % (11.0-16.0); White Blood Count 10.8 X10*3/uL (4.8-10.8)
[2022-09-25 13:16] LABS: Alanine Aminotransferase 13 U/L (0-31); Albumin Level 3.7 g/dL (3.5-5.0); Alkaline Phosphatase 71 U/L (39-117); Anion Gap 15 (12-20); Aspartate Amino Transferase 15 U/L (5-31); Bilirubin Total 0.7 mg/dL (0.0-1.0); Blood Urea Nitrogen 19 mg/dL (9-16); Calcium 8.7 mg/dL (8.4-10.2); Carbon Dioxide 26 mmol/L (22-29); Chloride 110 mmol/L (96-108); Estimated Glomerular Filt Rate > 60; Glucose Random 82 mg/dL (60-115); Potassium 4.2 mmol/L (3.3-5.1); Sodium 147 mmol/L (135-145); Total Protein 7.2 g/dL (6.5-8.0)
== END 2022-09-25 10:41 | disposition home or self-care (01) ==
LOC: HO.LAB 10:40
PROVIDERS: PCP Internal Medicine; Visit Provider Nurse Practitioner Family
DX: L03.90 Cellulitis, unspecified (principal); N17.9 Acute kidney failure, unspecified
CPT/HCPCS: 36415; 80053; 85025

== ENCOUNTER → 2022-09-27 15:01 | Outpatient (BNVA) | payer OTHER, SELFPAY | PROVIDERS: PCP Internal Medicine; Visit Provider Physician Assistant | DX: Z13.89 Encounter for screening for other disorder (principal) ==

== ENCOUNTER 2022-09-27 15:20 | Emergency (ER) | payer OTHER, SELFPAY ==
[2022-09-27 15:28] VITALS: BP 185/60; PULSE 75; RESP 18; TEMP 36.6; O2SAT 98; BMI 51.4
--- NOTE | 2022-09-27 15:32 | ECG_ITS ---
Test Reason : HTN Blood Pressure : / mmHG Vent. Rate : 066 BPM Atrial Rate : 066 BPM P-R Int : 156 ms QRS Dur : 078 ms QT Int : 448 ms P-R-T Axes : 039 009 019 degrees QTc Int : 469 ms Normal sinus rhythm Normal ECG When compared with ECG of 12-SEP-2022 14:10, No significant change was found Referred By: Generic ED Physician Electronically Signed By:ALCIRA FROST MD
[2022-09-27 16:24] LABS: MANUAL DIFF FLAG NO
--- NOTE | 2022-09-27 16:24 | ED.GENADULT ---
HPI - General Adult General Chief complaint: General Medical <JEFF Estrada - Last Filed: 09/27/22 16:26> Stated complaint: dizzy,high bp,blurry vision ,unsteady gait <JEFF Estrada - Last Filed: 09/27/22 16:26> Time Seen by Provider: 09/27/22 20:41 <JEFF Estrada - Last Filed: 09/27/22 16:26> Source: patient, RN notes reviewed and old records reviewed <Lyle Bey - Last Filed: 09/27/22 21:11> Mode of arrival: ambulatory <Lyle Bey - Last Filed: 09/27/22 21:11> Limitations: language barrier <Lyle Bey - Last Filed: 09/27/22 21:11> History of Present Illness HPI narrative: 57-year-old female with past medical history significant for hypertension, obesity, anxiety, GERD, depression presents for evaluation of dizziness and high blood pressure. Patient had a recent lengthy hospital stay for cellulitis and ALYSSA where her creatinine was over 4. She states that due to this her primary doctor stopped her lisinopril ?until my kidneys were back to normal. ? Patient states that she had dizziness earlier today when she was told her blood pressure was high She was at a weight loss program at the time referred to the ED due to her elevated blood pressure Currently she denies any headaches, blurry vision, dizziness and feels back to her baseline No other complaints or concerns at this time. <Lyle Bey - Last Filed: 09/27/22 21:11> Related Data Home medications: Home Medications Medication Instructions Recorded Confirmed pantoprazole 40 mg tablet,delayed 40 mg PO DAILY 09/12/22 09/21/22 release vitamin A palmitate 3,000 mcg 20,000 unit PO DAILY 09/12/22 09/21/22 (10,000 unit) capsule Previous Rx's Medication Instructions Recorded clotrimazole-betamethasone 1 1 appl topical BID 2 weeks #15 05/13/ %-0.05 % topical cream grams calcium carbonate 600 mg calcium 600 mg PO BID 90 days #180 tabs 06/10/22 (1,500 mg) tablet cholecalciferol (vitamin D3) 50 50 mcg PO DAILY 90 days #90 caps 06/10/22 mcg (2,000 unit) capsule simethicone 125 mg capsule (Gas 125 mg PO TID-QID PRN abdominal 07/03/22 Relief (simethicone)) distention #120 caps cyanocobalamin (vitamin B-12) 250 250 mcg PO DAILY #30 tabs 07/10/22 mcg tablet thiamine HCl (vitamin B1) 100 mg 100 mg PO DAILY #30 tabs 07/18/22 tablet lisinopril 20 mg tablet 20 mg PO DAILY 90 days #90 tabs 07/24/22 clindamycin HCl 300 mg capsule 300 mg PO TID #21 caps 09/18/22 nystatin 100,000 unit/mL oral 400,000 unit (4 mL) buccal QID 2 09/18/22 suspension days #32 mL blood pressure kit-extra large #1 ea 09/21/22 <JEFF Estrada - Last Filed: 09/27/22 16:26> Allergies/adverse reactions: Allergies Allergy/AdvReac Type Severity Reaction Status Date / Time No Known Allergies Allergy Verified 09/27/22 15:08 [No Known Allergies*] <JEFF Estrada - Last Filed: 09/27/22 16:26> Review of Systems Constitutional: Constitutional: Reports as per HPI, Denies chills, Denies fatigue, Denies fever(s) and Denies headache(s) <Lyle Bey - Last Filed: 09/27/22 21:11> ENT: Denies headache(s) <Lyle Bey - Last Filed: 09/27/22 21:11> Cardiovascular: Cardiovascular: Denies chest pain and Denies dyspnea <Lyle Bey - Last Filed: 09/27/22 21:11> Respiratory: Respiratory: Denies cough and Denies dyspnea <Lyle Bey - Last Filed: 09/27/22 21:11> Gastrointestinal: Gastrointestinal: Denies abdominal pain, Denies constipation and Denies vomiting <Lyle Bey - Last Filed: 09/27/22 21:11> Genitourinary: Genitourinary: Denies dysuria <Lyle Bey - Last Filed: 09/27/22 21:11> Neurologic: Denies headache(s) and Denies focal weakness <Lyle Bey - Last Filed: 09/27/22 21:11> Endocrine: Endocrine: Denies fatigue <Lyle Bey - Last Filed: 09/27/22 21:11> [facility] Past Medical History Medical History: Medical History Depression Essential hypertension Family history of high cholesterol GERD with apnea Morbid obesity Obstructive sleep apnea Physical exam UTI (urinary tract infection) <JEFF Estrada - Last Filed: 09/27/22 16:26> Surgical History: Surgical History History of appendectomy History of bladder suspension procedure History of esophagogastroduodenoscopy (EGD) Hx of colonoscopy <JEFF Estrada - Last Filed: 09/27/22 16:26> Family History Family History: Family History Mother Pulmonary edema Father Diabetes HTN (hypertension) Heart disease <JEFF Estrada - Last Filed: 09/27/22 16:26> Social History Social History: Social History Household Members: Spouse Housing: Apartment Do you presently have visiting nurse or other home services: No Alcohol intake: never Patient Tobacco Use Status: Never used Tobacco Smoked in Last 30 Days: No e-Cigarette/Vaping Use: Never Used Second Hand Smoke Exposure: No Use of substances other than those prescribed or required for medical reasons: No Advance Directives: No Advance Directives Information Provided: Yes Patient : No service: No Current occupational status: employed Current occupation: [employer] Sexual orientation: Straight/Heterosexual Gender identity: Female Cognitive needs: No Hearing needs: No Vision needs: No <JEFF Estrada - Last Filed: 09/27/22 16:26> Physical Exam ED Vital Signs: Vital Signs - 24 hr 09/27/22 15:28 09/27/22 20:55 Temperature 98 F 98.7 F Pulse Rate 75 71 Respiratory Rate 18 18 Blood Pressure 185/60 H 180/71 H Pulse Oximetry 98 97 Oxygen Delivery Method Room Air Room Air BMI result Body Mass Index 51.4 <JEFF Estrada - Last Filed: 09/27/22 16:26> Vital Signs - 24 hr 09/27/22 15:28 09/27/22 20:55 Temperature 98 F 98.7 F Pulse Rate 75 71 Respiratory Rate 18 18 Blood Pressure 185/60 H 180/71 H Pulse Oximetry 98 97 Oxygen Delivery Method Room Air Room Air BMI result Body Mass Index 51.4 <Lyle Bey - Last Filed: 09/27/22 21:11> Const General: healthy appearing, comfortable, no acute distress, alert and awake <Lyle GuadalupeRapides - Last Filed: 09/27/22 21:11> Nutritional Appearance: well nourished <Lyle ORapides - Last Filed: 09/27/22 21:11> Orientation/consciousness: patient oriented x3 <Lyle GuadalupeRah - Last Filed: 09/27/22 21:11> HENMT Head: Yes normocephalic and Yes atraumatic <Lyle ORapides - Last Filed: 09/27/22 21:11> Eyes Eyelids: Yes eyelids normal <Lyle ORapides - Last Filed: 09/27/22 21:11> Conjunctivae: conjunctivae normal <Lyle Rah - Last Filed: 09/27/22 21:11> Sclerae: sclerae normal <Lyle Guadalupe Last Filed: 09/27/22 21:11> Corneas: corneas normal <Lyle GuadalupeRapides - Last Filed: 09/27/22 21:11> Pupils: Equal, round and reactive pupils present <Lylerene Rhodes Last Filed: 09/27/22 21:11> EOM: EOMs intact bilaterally <Lyle ORah - Last Filed: 09/27/22 21:11> Neck Neck: Yes full ROM <Lyle ORapides - Last Filed: 09/27/22 21:11> Resp Effort & Inspection: normal respiratory effort, able to speak in complete sentences, no audible wheezes and not labored <Lyle Rhodes Last Filed: 09/27/22 21:11> Auscultation: clear to auscultation bilaterally <Lyle Bey Last Filed: 09/27/22 21:11> Cardio Rate: regular rate <Lyle Bey Last Filed: 09/27/22 21:11> Rhythm: regular rhythm <Lylerene Rhodes Last Filed: 09/27/22 21:11> Skin General skin exam: no rashes or lesions noted and elasticity normal <Lylerene Rhodesy - Last Filed: 09/27/22 21:11> Neuro General: patient oriented x3 <Lylerene Rhodes Last Filed: 09/27/22 21:11> Cranial nerves: Yes CN's II-XII intact bilaterally, Yes Equal, round and reactive pupils present and Yes Bilaterally intact EOM present <Lylerene Rhodes Last Filed: 09/27/22 21:11> Cognition (Neuro): normal cognition <Lyle Rhodes Last Filed: 09/27/22 21:11> Motor exam (neuro): 5/5 motor strength present throughout <Lylerene Bey Last Filed: 09/27/22 21:11> Coordination: [id number] test normal and Romberg test negative <Lyle Bey Last Filed: 09/27/22 21:11> Extrem Other: Moving all extremities well without any obvious deformities <Lyle Bey Last Filed: 09/27/22 21:11> Course Course Course Narrative: This is an RME: Additional HPI, ROS, PE not included below will be deferred to primary provider. 57-year-old female history of hypertension, obesity presents with high blood pressure, dizziness and blurred vision that started this morning, patient reports uncontrolled blood pressures at however reports her doctors recently stopped her blood pressure medications. She reports the room spinning. Physical exam benign. NIH stroke scale 0. Normal cerebellar intact. Neuro nonfocal. Ambulating with steady gait normal coordination plan basic labs , EKG <JEFF Estrada - Last Filed: 09/27/22 16:26> Medications Administered Discontinued Medications Generic Name Dose Route Start Last Admin Trade Name Freq PRN Reason Stop Dose Admin Lisinopril 10 mg 09/27/22 20:50 09/27/22 20:58 Lisinopril 10 Mg Tablet PO 09/27/22 20:51 10 mg ONCE ONE Administration Protocol <JEFF Estrada - Last Filed: 09/27/22 16:26> Medications Administered Discontinued Medications Generic Name Dose Route Start Last Admin Trade Name Donavon PRN Reason Stop Dose Admin Lisinopril 10 mg 09/27/22 20:50 09/27/22 20:58 Lisinopril 10 Mg Tablet PO 09/27/22 20:51 10 mg ONCE ONE Administration Protocol <Lyle Bey - Last Filed: 09/27/22 21:11> Medical Decision Making Medical Decision Making [facility] Narrative: 57-year-old female presents for evaluation of dizziness and high blood pressure. Her blood pressure is elevated to 180/71. She has not had her lisinopril due to recent kidney issues. Her kidney function is back to baseline. Will give her dose of her lisinopril and she reports that she has a bottle at home to continue taking her medication. Her neuro exam is reassuring, she is currently asymptomatic with a negative workup. <Lyle Bey - Last Filed: 09/27/22 21:11> Differential Diagnosis Hypertension Vertigo Dizziness Orthostasis ALYSSA <Lyle Bey - Last Filed: 09/27/22 21:11> Lab Data [facility] Lab Attestation statement: I reviewed the patient's lab results. <Lyle Bey - Last Filed: 09/27/22 21:11> Result Diagrams: 09/27/22 16:14 09/27/22 16:14 <JEFF Estrada - Last Filed: 09/27/22 16:26> Labs: Lab Results 09/27/22 09/27/22 09/27/22 Range/Units 16:14 16:14 16:18 WBC 9.6 (4.8-10.8) X10*3/uL RBC 3.43 L (4.20-5.50) X10*6/uL Hgb 10.5 L (12.0-16.0) g/dl Hct 31.9 L (37.0-47.0) % MCV 93.0 (80.0-98.0) fL MCH 30.6 (27.0-33.0) pg MCHC 32.9 (31.0-35.0) g/dl RDW 13.5 (11.0-16.0) % Plt Count 349 (160-400) X10*3/uL MPV 10.9 (9.4-12.3) fL Immature Gran % (Auto) 0.3 (0.0-0.4) % Neut % (Auto) 57.5 (45-73) % Lymph % (Auto) 31.0 (20-40) % [place] % (Auto) 8.0 (2-11) % Eos % (Auto) 2.9 (0-4) % Baso % (Auto) 0.3 (0-2) % Lymph # (Auto) 3.0 (1.2-4.9) X10*3/uL [place] # (Auto) 0.8 (0.1-1.2) X10*3/uL Eos # (Auto) 0.3 (0.0-0.4) X10*3/uL Baso # (Auto) 0.0 (0.0-0.2) X10*3/uL Abs Immat Gran (auto) 0.03 (0.00-0.03) X10*3/uL Absolute Neuts (auto) 5.5 (2.0-8.3) x10*3/uL Absolute Nucleated RBC 0.000 (0.0-0.012) X10*3/uL Nucleated RBC % (auto) 0.0 (0.0-0.2) /100WBC Sodium 146 H (135-145) mmol/L Potassium 4.3 (3.3-5.1) mmol/L Chloride 110 H (96-108) mmol/L Carbon Dioxide 27 (22-29) mmol/L Anion Gap 13 (12-20) BUN 20 H (9-16) mg/dL Creatinine 0.89 (0.5-1.4) mg/dL Estim Creat Clear Calc 96.9 Estimated GFR > 60 Random Glucose 91 (60-115) mg/dL Calcium 9.0 (8.4-10.2) mg/dL Urine Color Yellow Urine Appearance Clear Urine pH 5.5 (5.0-9.0) Ur Specific [place] 1.010 (1.005-1.025) Urine Protein Negative (Neg-Trace) mg/dL Urine Glucose (UA) Negative (Negative) mg/dL Urine Ketones Negative (Negative) mg/dL Urine Blood Negative (Negative) Urine Nitrite Negative (Negative) Ur Leukocyte Esterase Negative (Negative) <JEFF Estrada - Last Filed: 09/27/22 16:26> Lab Results 09/27/22 09/27/22 09/27/22 Range/Units 16:14 16:14 16:18 WBC 9.6 (4.8-10.8) X10*3/uL RBC 3.43 L (4.20-5.50) X10*6/uL Hgb 10.5 L (12.0-16.0) g/dl Hct 31.9 L (37.0-47.0) % MCV 93.0 (80.0-98.0) fL MCH 30.6 (27.0-33.0) pg MCHC 32.9 (31.0-35.0) g/dl RDW 13.5 (11.0-16.0) % Plt Count 349 (160-400) X10*3/uL MPV 10.9 (9.4-12.3) fL Immature Gran % (Auto) 0.3 (0.0-0.4) % Neut % (Auto) 57.5 (45-73) % Lymph % (Auto) 31.0 (20-40) % [place] % (Auto) 8.0 (2-11) % Eos % (Auto) 2.9 (0-4) % Baso % (Auto) 0.3 (0-2) % Lymph # (Auto) 3.0 (1.2-4.9) X10*3/uL [place] # (Auto) 0.8 (0.1-1.2) X10*3/uL Eos # (Auto) 0.3 (0.0-0.4) X10*3/uL Baso # (Auto) 0.0 (0.0-0.2) X10*3/uL Abs Immat Gran (auto) 0.03 (0.00-0.03) X10*3/uL Absolute Neuts (auto) 5.5 (2.0-8.3) x10*3/uL Absolute Nucleated RBC 0.000 (0.0-0.012) X10*3/uL Nucleated RBC % (auto) 0.0 (0.0-0.2) /100WBC Sodium 146 H (135-145) mmol/L Potassium 4.3 (3.3-5.1) mmol/L Chloride 110 H (96-108) mmol/L Carbon Dioxide 27 (22-29) mmol/L Anion Gap 13 (12-20) BUN 20 H (9-16) mg/dL Creatinine 0.89 (0.5-1.4) mg/dL Estim Creat Clear Calc 96.9 Estimated GFR > 60 Random Glucose 91 (60-115) mg/dL Calcium 9.0 (8.4-10.2) mg/dL Urine Color Yellow Urine Appearance Clear Urine pH 5.5 (5.0-9.0) Ur Specific [place] 1.010 (1.005-1.025) Urine Protein Negative (Neg-Trace) mg/dL Urine Glucose (UA) Negative (Negative) mg/dL Urine Ketones Negative (Negative) mg/dL Urine Blood Negative (Negative) Urine Nitrite Negative (Negative) Ur Leukocyte Esterase Negative (Negative) <Lyle Bey - Last Filed: 09/27/22 21:11> Independent Interpretation I performed an independent interpretation of an: EKG (Sinus rhythm with a rate of 66 beats per minute. No ectopy or ischemia) <Lyle Bey - Last Filed: 09/27/22 21:11> Discharge Plan Discharge Clinical Impression: Hypertension <JEFF Estrada - Last Filed: 09/27/22 16:26> Patient Disposition: Home, Self-Care <JEFF Estrada - Last Filed: 09/27/22 16:26> Instructions: Hypertension (ED) <JEFF Estrada Last Filed: 09/27/22 16:26> Additional Instructions: Your workup in the emergency room today was reassuring. Your kidney function is back to her baseline You were given a dose of lisinopril in the emergency department tonight. Continue your home dose as scheduled tomorrow morning Follow-up with your primary doctor <JEFF Estrada - Last Filed: 09/27/22 16:26> Prescriptions: No Action clotrimazole-betamethasone 1-0.05 % cream 1 appl topical BID 14 Days Qty: 15 1RF calcium carbonate 600 mg calcium (1,500 mg) tablet 600 mg PO BID 90 Days Qty: 180 1RF cholecalciferol (vitamin D3) 50 mcg (2,000 unit) capsule 50 mcg PO DAILY 90 Days Qty: 90 1RF cyanocobalamin (vitamin B-12) 250 mcg tablet 250 mcg PO DAILY Qty: 30 5RF thiamine HCl (vitamin B1) 100 mg tablet 100 mg PO DAILY Qty: 30 5RF lisinopril 20 mg tablet 20 mg PO DAILY 90 Days Qty: 90 0RF pantoprazole 40 mg Tablet,Delayed Release (Dr/Ec) 40 mg PO DAILY vitamin A palmitate 3,000 mcg (10,000 unit) Capsule 20,000 unit PO DAILY nystatin 100,000 unit/mL Suspension 400,000 unit buccal QID 2 Days Qty: 32 0RF clindamycin HCl 300 mg Capsule 300 mg PO TID Qty: 21 0RF (DME) blood pressure kit-extra large Kit See Rx Instructions .Route Qty: 1 0RF Rx Instructions: As directed simethicone [Gas Relief (simethicone)] 125 mg capsule 125 mg PO TID-QID PRN (Reason: abdominal distention) Qty: 120 2RF <JEFF Estrada - Last Filed: 09/27/22 16:26>
[2022-09-27 16:25] LABS: Basophils Percent Auto 0.3 % (0-2); Eosinophils Absolute Auto 0.3 X10*3/uL (0.0-0.4); Eosinophils Percent Auto 2.9 % (0-4); Hematocrit 31.9 % (37.0-47.0); Hemoglobin 10.5 g/dl (12.0-16.0); Imm Gran Abs Auto 0.03 X10*3/uL (0.00-0.03); Imm Gran Pct Auto 0.3 % (0.0-0.4); Mean Corpuscular HGB Conc 32.9 g/dl (31.0-35.0); Mean Corpuscular Hemoglobin 30.6 pg (27.0-33.0); Mean Platelet Volume 10.9 fL (9.4-12.3); Monocytes Absolute Auto 0.8 X10*3/uL (0.1-1.2); Neutrophils Absolute Auto 5.5 x10*3/uL (2.0-8.3); Neutrophils Percent Auto 57.5 % (45-73); Platelet Count 349 X10*3/uL (160-400); Red Blood Count 3.43 X10*6/uL (4.20-5.50); Red Cell Distribution Width 13.5 % (11.0-16.0); White Blood Count 9.6 X10*3/uL (4.8-10.8)
[2022-09-27 16:26] LABS: Appearance Urine Clear; Color Urine Yellow; Glucose Urine UA Negative (Negative); Leukocyte Esterase Urine Negative (Negative); Nitrite Urine Negative (Negative); PH 5.5 (5.0-9.0); Urine Blood Negative (Negative); Urine Ketones Negative (Negative); Urine Protein Negative (Neg-Trace)
[2022-09-27 16:38] LABS: Anion Gap 13 (12-20); Blood Urea Nitrogen 20 mg/dL (9-16); Carbon Dioxide 27 mmol/L (22-29); Chloride 110 mmol/L (96-108); Creatinine Clr Calc Pharmacy 96.9; Estimated Glomerular Filt Rate > 60; Glucose Random 91 mg/dL (60-115); Potassium 4.3 mmol/L (3.3-5.1); Sodium 146 mmol/L (135-145)
[2022-09-27 20:55] VITALS: BP 180/71; PULSE 71; RESP 18; TEMP 37.1; O2SAT 97
[2022-09-27] MEDS: lisinopriL 10 MG TABLET PO (20:58)
--- NOTE | 2022-09-27 21:00 | MHC.EDTECH ---
Troponin ordered at 1626 this selling underwriter indra labs at 2040. Charge nurse aware.
[2022-09-27 21:11] LABS: Troponin-I High Sensitivity 3.2 ng/L (<3.5-17.0)
== END 2022-09-27 21:22 | disposition home or self-care (01) ==
PROVIDERS: Physician Assistant; Emergency Provider Internal Medicine; PCP Internal Medicine
DX: I10 Essential (primary) hypertension (principal); R42 Dizziness and giddiness
CPT/HCPCS: 36415; 80048; 81003; 84484; 85025; 93005; 99283; 99284

== ENCOUNTER → 2022-10-16 12:43 | Outpatient (REF) | payer OTHER, SELFPAY ==
--- NOTE | 2022-10-16 12:48 | HM_ITS ---
* Total monitoring time 2 days. * Underlying rhythm is sinus. Average ventricular rate 80/Min. Range 53 to 128/Min. * Rare supraventricular ectopy. Minimal burden. * Rare ventricular ectopy. Minimal burden. One triplet. One run of 3 beats. Another short run of possible idioventricular rhythm but could also be artifactual. * No significant pauses or AV blocks. * No patient markers. No events in diary. MTDD
[2022-10-16 12:51] LABS: MANUAL DIFF FLAG NO
[2022-10-16 13:18] LABS: Basophils Percent Auto 0.2 % (0-2); Eosinophils Absolute Auto 0.3 X10*3/uL (0.0-0.4); Eosinophils Percent Auto 2.5 % (0-4); Hematocrit 31.9 % (37.0-47.0); Hemoglobin 10.5 g/dl (12.0-16.0); Imm Gran Abs Auto 0.07 X10*3/uL (0.00-0.03); Imm Gran Pct Auto 0.7 % (0.0-0.4); Lymphocytes Absolute Auto 3.4 X10*3/uL (1.2-4.9); Lymphocytes Percent Auto 32.4 % (20-40); Mean Corpuscular HGB Conc 32.9 g/dl (31.0-35.0); Mean Corpuscular Hemoglobin 30.5 pg (27.0-33.0); Mean Corpuscular Volume 92.7 fL (80.0-98.0); Mean Platelet Volume 10.8 fL (9.4-12.3); Monocytes Absolute Auto 0.6 X10*3/uL (0.1-1.2); Monocytes Percent Auto 5.3 % (2-11); Neutrophils Absolute Auto 6.1 x10*3/uL (2.0-8.3); Neutrophils Percent Auto 58.9 % (45-73); Platelet Count 212 X10*3/uL (160-400); Red Blood Count 3.44 X10*6/uL (4.20-5.50); White Blood Count 10.4 X10*3/uL (4.8-10.8)
[2022-10-16 13:46] LABS: Alanine Aminotransferase 5 U/L (0-31); Albumin Level 3.7 g/dL (3.5-5.0); Alkaline Phosphatase 76 U/L (39-117); Anion Gap 11 (12-20); Aspartate Amino Transferase 10 U/L (5-31); Bilirubin Total 0.5 mg/dL (0.0-1.0); Blood Urea Nitrogen 16 mg/dL (9-16); Calcium 8.8 mg/dL (8.4-10.2); Carbon Dioxide 28 mmol/L (22-29); Chloride 108 mmol/L (96-108); Estimated Glomerular Filt Rate > 60; Glucose Random 90 mg/dL (60-115); Iron 69 mcg/dL (30-160); Percent Iron Saturation 24 % (15-50); Sodium 143 mmol/L (135-145); Total Iron Binding Capacity 284 mcg/dL (228-428); Total Protein 6.9 g/dL (6.5-8.0); Unsaturated Iron Binding 215 ug/dL
[2022-10-16 14:17] LABS: Folate 11.7 ng/mL (> or = 4.0); Thyroid Stimulating Hormone 2.15 uIU/mL (0.32-4.0); Vitamin B12 483 pg/mL (200-900); Vitamin D 25-OH Total 25.3 ng/mL (>30)
== END ==
LOC: HO.CARD 12:43
PROVIDERS: PCP Internal Medicine; Visit Provider Internal Medicine
DX: R00.0 Tachycardia, unspecified (principal); E55.9 Vitamin D deficiency, unspecified; E53.8 Deficiency of other specified B group vitamins; D64.9 Anemia, unspecified; E87.0 Hyperosmolality and hypernatremia; I49.3 Ventricular premature depolarization
CPT/HCPCS: 36415; 80053; 82306; 82607; 82746; 83540; 84443; 85025; 85027; 93225

== ENCOUNTER → 2022-10-19 15:57 | Outpatient (BNVA) | payer OTHER, SELFPAY | PROVIDERS: PCP Internal Medicine; Visit Provider Physician Assistant ==

== ENCOUNTER → 2022-11-16 15:51 | Outpatient (BNVA) | payer OTHER, SELFPAY | PROVIDERS: Visit Provider Physician Assistant ==

== ENCOUNTER 2022-12-09 17:56 | Emergency (ER) | payer OTHER, SELFPAY ==
--- NOTE | ~2022-12-09 | US_ITS ---
EXAMINATION: US VENOUS ULTRASOUND WITH DOPPLER LOWER EXTREMITY, BILATERAL CLINICAL INFORMATION: Swelling, redness and pain COMPARISON: Left DVT study 09/12/2012, right DVT study 01/12/2020 TECHNIQUE: Ultrasound of the deep veins is performed from the hip to the calf with compression sonography and color and pulse Doppler assessment. Spectral analysis with color-flow imaging is performed. FINDINGS: RIGHT: There is normal venous compression and respiratory variation and augmented flow. The visualized common femoral vein, superficial femoral vein, profunda femoral vein, popliteal vein, and the trifurcation region shows no evidence of deep venous thrombosis. There is no significant popliteal fossa cyst. A 3.5 cm x 1.1 right inguinal lymph node is present LEFT: There is normal venous compression and respiratory variation and augmented flow. The visualized common femoral vein, superficial femoral vein, profunda femoral vein, popliteal vein, and the trifurcation region shows no evidence of deep venous thrombosis. There is a 3.9 x 0.6 x 2.3 cm Vergara's cyst present If the patient's symptoms persist, followup ultrasound in 5 days 7 days might be of value to exclude proximal propagation from a non-visualized calf vein. US/US venous duplex LE BI IMPRESSION: No DVT demonstrated in either lower extremity.
--- NOTE | ~2022-12-09 | XR_ITS ---
EXAMINATION: XR ANKLE, RIGHT CLINICAL INFORMATION: Ankle pain COMPARISON: None available. TECHNIQUE: AP, lateral, and mortise views of the right ankle. FINDINGS: Marked bilateral soft tissue swelling. No fractures or dislocations. A plantar calcaneal spur is present. XR/XR ankle RT 2V IMPRESSION: Soft tissue swelling without fracture.
--- NOTE | ~2022-12-09 | XR_ITS ---
EXAMINATION: XR ANKLE, LEFT CLINICAL INFORMATION: Pain COMPARISON: None available. TECHNIQUE: AP, lateral, and mortise views of the left ankle. FINDINGS: Osseous alignment is anatomic. No acute fracture is seen. There is mild degenerative change at the ankle. Diffuse soft tissue swelling is noted. Plantar calcaneal spur is present, and degenerative changes with spurring are noted in the midfoot. XR/XR ankle LT 2V IMPRESSION: No acute fracture identified. Diffuse soft tissue swelling.
--- NOTE | 2022-12-09 18:24 | ED_ITS ---
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 Exam with bilateral weeping wounds, erythema and warmth to the lower legs, left worse than right. No SOB, chest pain or fevers. Related Data Home Medications Medication Instructions Recorded Confirmed pantoprazole 40 mg tablet,delayed 40 mg PO DAILY 09/12/22 11/16/22 release vitamin A palmitate 3,000 mcg 20,000 unit PO DAILY 09/12/22 11/16/22 (10,000 unit) capsule Previous Rx's Medication Instructions Recorded clotrimazole-betamethasone 1 1 appl topical BID 2 weeks #15 05/13/22 %-0.05 % topical cream grams calcium carbonate 600 mg calcium 600 mg PO BID 90 days #180 tabs 06/10/22 (1,500 mg) tablet simethicone 125 mg capsule (Gas 125 mg PO TID-QID PRN abdominal 07/03/22 Relief (simethicone)) distention #120 caps cyanocobalamin (vitamin B-12) 250 250 mcg PO DAILY #30 tabs 07/10/22 mcg tablet thiamine HCl (vitamin B1) 100 mg 100 mg PO DAILY #30 tabs 07/18/22 tablet blood pressure kit-extra large #1 ea 09/21/22 cholecalciferol (vitamin D3) 50 50 mcg PO DAILY 90 days #90 caps 10/17/22 mcg (2,000 unit) capsule iron,carbonyl 65 mg-vitamin C 125 1 tab PO BEDTIME #30 tabs 10/19/22 mg tablet,delayed release (Vitron-C) lisinopril 20 mg tablet 20 mg PO DAILY 90 days #90 tabs 10/24/22 doxycycline hyclate 100 mg tablet 100 mg PO BID #14 tabs 12/10/22 furosemide 20 mg tablet (Lasix) 20 mg PO DAILY #7 tabs 12/10/22 oxycodone 5 mg tablet 5 mg PO BID PRN pain #5 tabs 12/10/22 Allergies Allergy/AdvReac Type Severity Reaction Status Date / Time No Known Allergies Allergy Verified 12/09/22 18:27 [No Known Allergies*] Review of Systems Review of Systems: All other systems are reviewed and are negative Constitutional: Reports as per HPI and Reports no additional constitutional complaints Eyes: Reports as per HPI and Reports no additional eye complaints Reports system reviewed and no additional complaints, except as documented Cardiovascular: Reports as per HPI and Reports no additional cardiovascular complaints Respiratory: Reports as per HPI and Reports no additional respiratory complaints Gastrointestinal: Reports as per HPI and Reports no additional gastrointestinal complaints Genitourinary: Reports no additional female genitourinary complaints Musculoskeletal: Reports no additional musculoskeletal complaints Skin/Breast: Reports system reviewed and no additional complaints, except as docu Psychiatric: Reports no additional psychiatric complaints Endocrine: Reports no additional endocrine complaints Hematologic/Lymphatic: Reports no additional hematologic/lymphatic complaints Allergic/Immunologic: Reports no additional allergic/immunologic complaints Reports system reviewed and no additional complaints, except as documented and Reports Abnormal speech present FOR[facility]LY [facility] Past Medical History Medical History Depression Essential hypertension Family history of high cholesterol GERD with apnea Morbid exogenous obesity Morbid obesity Obstructive sleep apnea Physical exam UTI (urinary tract infection) Surgical History History of appendectomy History of bladder suspension procedure History of esophagogastroduodenoscopy (EGD) Hx of colonoscopy Family History Family History Mother Pulmonary edema Father Diabetes HTN (hypertension) Heart disease Social History Social History Household Members: Spouse Housing: Apartment Do you presently have visiting nurse or other home services: No Alcohol intake: never Patient Tobacco Use Status: Never used Tobacco e-Cigarette/Vaping Use: Never Used Second Hand Smoke Exposure: No Advance Directives: No Advance Directives Information Provided: No service: No Current occupational status: employed 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 Blood pressure normal. Heart rate normal. Respiration rate normal. Temperature normal. O xygen saturation normal. Appearance: Alert. Oriented X3. No acute distress. Head: Normal external exam. Normocephalic. Atraumatic. No Lowe signs noted. No raccoon eyes noted Eyes: PERRLA. EOMI. Conjunctiva and sclera normal. Eyelids normal. ENT: TM's Normal. Pharynx normal. Uvula midline. Moist mucous membranes. No trismus noted. No drooling noted. No muffled voice noted. Neck: Normal inspection. Neck supple. FROM. No adenopathy. Thyroid Normal. No meningeal signs. No neck mass noted. CVS: Normal heart rate and rhythm. Heart sound normal. No murmurs noted. Pulses normal throughout. Respiratory: No respiratory distress. Painless inspiration. Breath sounds normal. No wheezes/rales/rhonchi noted. Chest nontender. No accessory muscle usage noted or decreased air movement noted. Abdomen: Soft and nontender. Bowel sounds normal in all 4 quadrants. No d istention noted. No organomegaly noted. No visible injury noted. Back: No CVA tenderness. Full range of motion noted. Skin: Skin warm and dry. Normal skin color. Normal skin turgor. No rashes/l esions/lacerations noted. Extremities:+2 bilateral lower extremity edema. bilateral weeping wounds, erythema and warmth to the lower legs, left worse than right, neurovascularly intact with no ischemic change in either foot. Neuro: Oriented X 3. Cranial nerve exam: II-XII are grossly intact No motor deficit. No sensory deficit. Reflexes normal. Course Course Course Narrative: RME - 57 yo Thai speaking female with history of morbid obesity, anemia, HTN, venous insufficiency, anxiety, GERD, hx LE cellulitis & ALYSSA requiring admission in August who presents to the ER for evaluation of 3 days of worsening bilateral LE edema redness and wounds to the insides of her ankles which are new. Exam with bilateral weeping wounds, erythema and warmth to the lower legs, left worse than right. No SOB, chest pain or fevers. Plan: US LE r/o DVT, lab workup Reevaluation(s) Reevaluation #1: Bilateral ankle edema with pain, no trauma or injury to the ankle, exam is not consistent with CHF, questionable subtle infection will start the patient on oxycodone to control pain/1 week of doxycycline/1 week of diuresis for the s welling and edema and follow-up with PCP. Time: 01:13 Medications Administered Discontinued Medications Generic Name Dose Route Start Last Admin Trade Name Freq PRN Reason Stop Dose Admin Doxycycline Monohydrate 100 mg 12/09/22 21:37 12/09/22 22:17 Doxycycline Monohydrate 100 Mg Capsule PO 12/09/22 21:38 100 mg ONCE ONE Administration Furosemide 40 mg 12/09/22 21:37 12/09/22 22:17 Furosemide 40 Mg Tablet PO 12/09/22 21:38 40 mg ONCE ONE Administration Protocol Oxycodone HCl 5 mg 12/09/22 21:37 12/09/22 22:16 Oxycodone Hcl Immed Release 5 Mg Tablet PO 12/09/22 21:38 5 mg ONCE ONE Administration Medical Decision Making Differential Diagnosis Differential Diagnoses: The differential diagnosis associated with the presentation includes (CHF, DVT, cellulitis, bilateral ankle injuries, electrolyte abnormality, severe anemia.) Admission/Observation Consideration of admission/observation: Escalation of care including admission/observation considered Lab Data MDM Lab Attestation statement: I reviewed the patient's lab results. 12/09/22 19:33 12/09/22 19:33 Labs: Lab Results 12/09/22 12/09/22 12/09/22 Range/Units 19:33 19:33 19:33 WBC 9.1 (4.8-10.8) X10*3/uL RBC 3.62 L (4.20-5.50) X10*6/uL Hgb 11.3 L (12.0-16.0) g/dl Hct 34.4 L (37.0-47.0) % MCV 95.0 (80.0-98.0) fL MCH 31.2 (27.0-33.0) pg MCHC 32.8 (31.0-35.0) g/dl RDW 13.4 (11.0-16.0) % Plt Count 222 (160-400) X10*3/uL MPV 10.3 (9.4-12.3) fL Immature Gran % (Auto) 0.7 H (0.0-0.4) % Neut % (Auto) 60.3 (45-73) % Lymph % (Auto) 28.4 (20-40) % [place] % (Auto) 6.6 (2-11) % Eos % (Auto) 3.7 (0-4) % Baso % (Auto) 0.3 (0-2) % Lymph # (Auto) 2.6 (1.2-4.9) X10*3/uL [place] # (Auto) 0.6 (0.1-1.2) X10*3/uL Eos # (Auto) 0.3 (0.0-0.4) X10*3/uL Baso # (Auto) 0.0 (0.0-0.2) X10*3/uL Abs Immat Gran (auto) 0.06 H (0.00-0.03) X10*3/uL Absolute Neuts (auto) 5.5 (2.0-8.3) x10*3/uL Absolute Nucleated RBC 0.000 (0.0-0.012) X10*3/uL Nucleated RBC % (auto) 0.0 (0.0-0.2) /100WBC ESR 17 (0-20) MM/HR Sodium 143 (135-145) mmol/L Potassium 4.0 (3.3-5.1) mmol/L Chloride 112 H (96-108) mmol/L Carbon Dioxide 25 (22-29) mmol/L Anion Gap 10 L (12-20) BUN 15 (9-16) mg/dL Creatinine 0.94 (0.5-1.4) mg/dL Estim Creat Clear Calc 94.0 Estimated GFR > 60 Random Glucose 95 (60-115) mg/dL Calcium 9.4 D (8.4-10.2) mg/dL Magnesium 1.8 (1.6-2.6) mg/dL Total Bilirubin 0.3 (0.0-1.0) mg/dL Direct Bilirubin 0.1 (0.0-0.5) mg/dL AST 11 (5-31) U/L ALT 6 (0-31) U/L Alkaline Phosphatase 66 (39-117) U/L C-Reactive Protein 0.63 H (< or = 0.50) mg/dL B-Natriuretic Peptide (<100) pg/mL Total Protein 6.9 (6.5-8.0) g/dL Albumin 3.8 (3.5-5.0) g/dL 12/09/22 Range/Units 19:33 WBC (4.8-10.8) X10*3/uL RBC (4.20-5.50) X10*6/uL Hgb (12.0-16.0) g/dl Hct (37.0-47.0) % MCV (80.0-98.0) fL MCH (27.0-33.0) pg MCHC (31.0-35.0) g/dl RDW (11.0-16.0) % Plt Count (160-400) X10*3/uL MPV (9.4-12.3) fL Immature Gran % (Auto) (0.0-0.4) % Neut % (Auto) (45-73) % Lymph % (Auto) (20-40) % [place] % (Auto) (2-11) % Eos % (Auto) (0-4) % Baso % (Auto) (0-2) % Lymph # (Auto) (1.2-4.9) X10*3/uL [place] # (Auto) (0.1-1.2) X10*3/uL Eos # (Auto) (0.0-0.4) X10*3/uL Baso # (Auto) (0.0-0.2) X10*3/uL Abs Immat Gran (auto) (0.00-0.03) X10*3/uL Absolute Neuts (auto) (2.0-8.3) x10*3/uL Absolute Nucleated RBC (0.0-0.012) X10*3/uL Nucleated RBC % (auto) (0.0-0.2) /100WBC ESR (0-20) MM/HR Sodium (135-145) mmol/L Potassium (3.3-5.1) mmol/L Chloride (96-108) mmol/L Carbon Dioxide (22-29) mmol/L Anion Gap (12-20) BUN (9-16) mg/dL Creatinine (0.5-1.4) mg/dL Estim Creat Clear Calc Estimated GFR Random Glucose (60-115) mg/dL Calcium (8.4-10.2) mg/dL Magnesium (1.6-2.6) mg/dL Total Bilirubin (0.0-1.0) mg/dL Direct Bilirubin (0.0-0.5) mg/dL AST (5-31) U/L ALT (0-31) U/L Alkaline Phosphatase (39-117) U/L C-Reactive Protein (< or = 0.50) mg/dL B-Natriuretic Peptide 54 (<100) pg/mL Total Protein (6.5-8.0) g/dL Albumin (3.5-5.0) g/dL Independent Interpretation I performed an independent interpretation of an: Plain X-Ray (Bilateral ankle x- ray: no acute fracture or dislocation.) and Ultrasound (Venous: No DVT in either lower extremity.) Radiology Impression Discussion of test interpretation with radiology: I have reviewed the radiologist's reading. Discharge Plan Discharge Clinical Impression: Cellulitis, Edema Patient Disposition: Home, Self-Care Instructions: Cellulitis (ED), Edema (ED) Additional Instructions: Please follow-up with your primary care physician tomorrow. If you have any worsening or new symptoms, please return to the emergency room or call 911 Prescriptions: New oxycodone 5 mg tablet 5 mg PO BID PRN (Reason: pain) Qty: 5 0RF Rx Instructions: Partial Fill upon patient request. doxycycline hyclate 100 mg tablet 100 mg PO BID Qty: 14 0RF furosemide [Lasix] 20 mg tablet 20 mg PO DAILY Qty: 7 0RF No Action clotrimazole-betamethasone 1-0.05 % cream 1 appl topical BID 14 Days Qty: 15 1RF calcium carbonate 600 mg calcium (1,500 mg) tablet 600 mg PO BID 90 Days Qty: 180 1RF cyanocobalamin (vitamin B-12) 250 mcg tablet 250 mcg PO DAILY Qty: 30 5RF thiamine HCl (vitamin B1) 100 mg tablet 100 mg PO DAILY Qty: 30 5RF cholecalciferol (vitamin D3) 50 mcg (2,000 unit) capsule 50 mcg PO DAILY 90 Days Qty: 90 1RF lisinopril 20 mg tablet 20 mg PO DAILY 90 Days Qty: 90 0RF pantoprazole 40 mg Tablet,Delayed Release (Dr/Ec) 40 mg PO DAILY vitamin A palmitate 3,000 mcg (10,000 unit) Capsule 20,000 unit PO DAILY (DME) blood pressure kit-extra large Kit See Rx Instructions .Route Qty: 1 0RF Rx Instructions: As directed simethicone [Gas Relief (simethicone)] 125 mg capsule 125 mg PO TID-QID PRN (Reason: abdominal distention) Qty: 120 2RF Vitron-C 65 mg iron- 125 mg tablet,delayed release (DR/EC) 1 tab PO BEDTIME Qty: 30 5RF Referrals: Maria Luisa Henderson MD [Primary Care Provider] -
[2022-12-09 18:27] VITALS: BP 188/74; PULSE 89; RESP 20; TEMP 36.6; O2SAT 97; BMI 53.1
[2022-12-09 19:38] LABS: MANUAL DIFF FLAG NO
[2022-12-09 19:43] LABS: Basophils Percent Auto 0.3 % (0-2); Eosinophils Absolute Auto 0.3 X10*3/uL (0.0-0.4); Eosinophils Percent Auto 3.7 % (0-4); Hematocrit 34.4 % (37.0-47.0); Hemoglobin 11.3 g/dl (12.0-16.0); Imm Gran Abs Auto 0.06 X10*3/uL (0.00-0.03); Imm Gran Pct Auto 0.7 % (0.0-0.4); Lymphocytes Absolute Auto 2.6 X10*3/uL (1.2-4.9); Lymphocytes Percent Auto 28.4 % (20-40); Mean Corpuscular HGB Conc 32.8 g/dl (31.0-35.0); Mean Corpuscular Hemoglobin 31.2 pg (27.0-33.0); Mean Platelet Volume 10.3 fL (9.4-12.3); Monocytes Absolute Auto 0.6 X10*3/uL (0.1-1.2); Monocytes Percent Auto 6.6 % (2-11); Neutrophils Absolute Auto 5.5 x10*3/uL (2.0-8.3); Neutrophils Percent Auto 60.3 % (45-73); Platelet Count 222 X10*3/uL (160-400); Red Blood Count 3.62 X10*6/uL (4.20-5.50); Red Cell Distribution Width 13.4 % (11.0-16.0); White Blood Count 9.1 X10*3/uL (4.8-10.8)
[2022-12-09 19:58] LABS: Alanine Aminotransferase 6 U/L (0-31); Albumin Level 3.8 g/dL (3.5-5.0); Alkaline Phosphatase 66 U/L (39-117); Anion Gap 10 (12-20); Aspartate Amino Transferase 11 U/L (5-31); Bilirubin Direct 0.1 mg/dL (0.0-0.5); Bilirubin Total 0.3 mg/dL (0.0-1.0); Blood Urea Nitrogen 15 mg/dL (9-16); C Reactive Protein 0.63 mg/dL (< or = 0.50); Calcium 9.4 mg/dL (8.4-10.2); Carbon Dioxide 25 mmol/L (22-29); Chloride 112 mmol/L (96-108); Estimated Glomerular Filt Rate > 60; Glucose Random 95 mg/dL (60-115); Magnesium 1.8 mg/dL (1.6-2.6); Sodium 143 mmol/L (135-145); Total Protein 6.9 g/dL (6.5-8.0)
[2022-12-09 20:04] LABS: B Type Natriuretic Peptide 54 pg/mL (<100)
[2022-12-09 20:43] LABS: Erythrocyte Sedimentation Rate 17 MM/HR (0-20)
[2022-12-09 20:57] VITALS: BP 148/66; PULSE 65; RESP 18; TEMP 36.7; O2SAT 99
[2022-12-09] MEDS: oxyCODONE HCl Immed Release 5 MG TABLET PO (22:16)
[2022-12-09] MEDS: Furosemide 40 MG TABLET PO (22:17)
[2022-12-09] MEDS: Doxycycline Monohydrate 100 MG CAPSULE PO (22:17)
[2022-12-09 22:19] VITALS: BP 149/64; PULSE 61; RESP 18; TEMP 36.5; O2SAT 100
[2022-12-10 00:44] VITALS: BP 140/60; PULSE 58; RESP 16; TEMP 36.5; O2SAT 96
[2022-12-10 03:14] VITALS: BP 134/43; PULSE 67; RESP 16; O2SAT 98
== END 2022-12-10 03:20 | disposition home or self-care (01) ==
PROVIDERS: Physician Assistant; Emergency Provider Emergency Medicine; PCP Internal Medicine
DX: R60.0 Localized edema (principal); L03.116 Cellulitis of left lower limb; L03.115 Cellulitis of right lower limb; M79.605 Pain in left leg; M79.604 Pain in right leg; I10 Essential (primary) hypertension; E66.01 Morbid (severe) obesity due to excess calories; Z68.43 Body mass index [BMI] 50.0-59.9, adult; Z79.899 Other long term (current) drug therapy
CPT/HCPCS: 36415; 73600; 80048; 80076; 83735; 83880; 85025; 85652; 86140; 93970; 99284

== ENCOUNTER 2022-12-13 11:56 | Outpatient (AMB) | payer OTHER, SELFPAY ==
--- NOTE | 2022-12-13 13:00 | AM.OFFWIN_ITS ---
Intake Vital Signs 12/13/22 13:04 BP 124/70 Blood Pressure Location Rt brachial Position Sitting Pulse 61 Pulse Source Pulse Oximeter Temp 97.7 F Temp Source Temporal Artery Scan Pulse Oximetry (%) 95 Oxygen Delivery Method Room Air Intake Visit Reasons: EP rash on face, feet infected? (conrad) Intake Note: Patient here because she was seen at the ED over the weekend for infection of the lower legs and a small rash on the face was present at the time of that visit she was treated with meds but she has noticed any difference and has more of a rash all over body. Patient Tobacco Use Status: Never used Tobacco Allergies No Known Allergies [No Known Allergies*] Allergy (Verified 12/13/22 13:03) Do you need a note to return to daycare/school/sports/work: Yes HPI EP rash on face, feet infected? (conrad) HPI Details 57 yo [place] speaking female with history of morbid obesity, anemia, HTN, venous insufficiency, anxiety, GERD, hx LE cellulitis & ALYSSA. She presented to the ED several days ago with worsening bilateral LE edema, redness and wounds to the insides of her ankles. She was given furosemide and 7 day rx of doxycycline. She reports wounds do not seem to be improving. She still has 4 days of abx remaining. She also reports using a new body lotion and developing a new/itchy rash. [facility] Medical History Depression Essential hypertension Family history of high cholesterol GERD with apnea Morbid exogenous obesity Morbid obesity Obstructive sleep apnea Physical exam UTI (urinary tract infection) Surgical History History of appendectomy History of bladder suspension procedure History of esophagogastroduodenoscopy (EGD) Hx of colonoscopy Family History Mother Pulmonary edema Father Diabetes HTN (hypertension) Heart disease Social History Household Members: Spouse Housing: Apartment Do you presently have visiting nurse or other home services: No Alcohol intake: never Patient Tobacco Use Status: Never used Tobacco e-Cigarette/Vaping Use: Never Used Second Hand Smoke Exposure: No service: No Current occupational status: employed 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 Sexual orientation: Straight/Heterosexual Gender identity: Female Cognitive needs: No Hearing needs: No Vision needs: No Review of Systems Const All systems reviewed & are unremarkable except as noted in HPI and below Physical Exam Vital Signs: Last Vital Signs Temp 97.7 F 12/13/22 13:04 Pulse 61 12/13/22 13:04 BP 124/70 12/13/22 13:04 Pulse Ox 95 12/13/22 13:04 Oxygen Delivery Method Room Air 12/13/22 13:04 Const General: cooperative, healthy appearing, comfortable and no acute distress Nutritional Appearance: obese HEENT Head: Yes normal to inspection Ears: hearing grossly normal bilaterally Neck Neck: Yes no lymphadenopathy Resp Effort & Inspection: normal respiratory effort and able to speak in complete sentences Auscultation: clear to auscultation bilaterally Cardio Jugular venous distension: no JVD Palpation: normal PMI Rate: regular rate Rhythm: regular rhythm Skin Other: Generalized erythematous rash, most predominantly over patient's chest and back, mild erythema and small vesicles - consistent with contact dermatitis Extrem Other: 2+ bilateral lower extremity edema, medial aspect of bilateral ankles with weeping wounds, erythema, and mild warmth, left greater than right. Neurovascular exam intact. No ischemic changes. Positive pedal pulses bilaterally General: Yes capillary refill normal Psych Appearance: grossly normal Mental Status: mental status grossly normal Speech and movement: Normal speech and movement present Assessment & Plan Assessment & Plan (1) Cellulitis: Code(s): L03.90 - Cellulitis, unspecified Qualifiers: Site of cellulitis: other site Qualified Code(s): L03.818 - Cellulitis of other sites Plan: Patient was seen for this in the emergency department several days ago, and still has 4 days left of doxycycline course to take. I advised she continue to take this as well as furosemide, for the ongoing infection and edema in her bilateral lower extremities. I would like her to follow-up with her PCP as soon as possible. She has an appointment coming up in December, however will call for a sooner appointment if possible. In the meantime, should her infection not improve with treatment, or if it worsens, or new symptoms develop such as fever, or chills, she should return to the emergency department for further evaluation. She is going to discuss with Dr. Arizmendi, her PCP, possible referral to wound clinic if needed. (2) Contact dermatitis: Code(s): L25.9 - Unspecified contact dermatitis, unspecified cause Qualifiers: Contact dermatitis type: allergic Contact dermatitis trigger: cosmetics Qualified Code(s): L23.2 - Allergic contact dermatitis due to cosmetics Plan: I planned to start patient on a short course of prednisone for contact derm. Upon ordering, I can see that her PCP Dr. Arizmendi prescribed a prednisone taper on 12/11. Patient should take this regimen as prescribed. I advised she stop using the new lotion. We reviewed indications, use, possible side effects of medication. If this worsens, she should return to clinic or go to ED. patient and her daughter present at visit both agree to this plan. Coding Level of Care Code Est Pt Level 3 (25522) Diagnoses Cellulitis L03.818 Site of cellulitis: other site Contact dermatitis L23.2 Contact dermatitis type: allergic Contact dermatitis trigger: cosmetics
[2022-12-13 13:04] VITALS: BP 124/70; PULSE 61; TEMP 36.5; O2SAT 95
== END 2022-12-13 13:51 | disposition home or self-care (01) ==
PROVIDERS: PCP Internal Medicine; Visit Provider Nurse Practitioner Family
DX: L03.818 Cellulitis of other sites (principal); L23.2 Allergic contact dermatitis due to cosmetics
CPT/HCPCS: 99213

== ENCOUNTER 2022-12-14 10:04 | Emergency (ER) | payer OTHER, SELFPAY ==
[2022-12-14 10:08] VITALS: BP 158/89; PULSE 94; RESP 18; TEMP 36.4; O2SAT 97; BMI 52.7
--- NOTE | 2022-12-14 10:50 | ED_ITS ---
HPI - General Adult General Chief complaint: General Medical Stated complaint: SOB, swollen face Time Seen by Provider: 12/14/22 10:38 Source: patient Mode of arrival: ambulatory Limitations: no limitations History of Present Illness HPI narrative: This is a pedro luis 57 years old female with history of chronic venous disease, hypertension, she was seen on December 09 in the ED and she was given a prescription for doxycycline for possible cellulitis of the lower extremity. She returned today because she has a rash in the face a chest. Denies any fever chills vomiting. Onset (ago): day(s) (3) Location: face Radiation: non-radiation Severity: moderate Quality: burning Pain Consistency: constant Relieving factors: none Exacerbating factors: none Related Data Home Medications Medication Instructions Recorded Confirmed pantoprazole 40 mg tablet,delayed 40 mg PO DAILY 09/12/22 11/16/22 release vitamin A palmitate 3,000 mcg 20,000 unit PO DAILY 09/12/22 11/16/22 (10,000 unit) capsule Previous Rx's Medication Instructions Recorded clotrimazole-betamethasone 1 1 appl topical BID 2 weeks #15 05/13/22 %-0.05 % topical cream grams calcium carbonate 600 mg calcium 600 mg PO BID 90 days #180 tabs 06/10/22 (1,500 mg) tablet simethicone 125 mg capsule (Gas 125 mg PO TID-QID PRN abdominal 07/03/22 Relief (simethicone)) distention #120 caps cyanocobalamin (vitamin B-12) 250 250 mcg PO DAILY #30 tabs 07/10/22 mcg tablet thiamine HCl (vitamin B1) 100 mg 100 mg PO DAILY #30 tabs 07/18/22 tablet blood pressure kit-extra large #1 ea 09/21/22 cholecalciferol (vitamin D3) 50 50 mcg PO DAILY 90 days #90 caps 10/17/22 mcg (2,000 unit) capsule iron,carbonyl 65 mg-vitamin C 125 1 tab PO BEDTIME #30 tabs 10/19/22 mg tablet,delayed release (Vitron-C) lisinopril 20 mg tablet 20 mg PO DAILY 90 days #90 tabs 10/24/22 doxycycline hyclate 100 mg tablet 100 mg PO BID #14 tabs 12/10/22 furosemide 20 mg tablet (Lasix) 20 mg PO DAILY #7 tabs 12/10/22 oxycodone 5 mg tablet 5 mg PO BID PRN pain #5 tabs 12/10/22 prednisone 10 mg tablet 10 mg PO DIRECTED 6 days #12 12/11/22 tabs cephalexin 500 mg tablet 500 mg PO BID 7 days #14 tabs 12/14/22 loratadine 10 mg tablet (Claritin) 10 mg PO DAILY #10 tabs 12/14/22 Allergies Allergy/AdvReac Type Severity Reaction Status Date / Time No Known Allergies Allergy Verified 12/14/22 10:08 [No Known Allergies*] Review of Systems Constitutional: Constitutional: Reports no additional constitutional complaints ENT: Reports system reviewed and no additional complaints, except as documented Cardiovascular: Cardiovascular: Reports no additional cardiovascular complaints Respiratory: Respiratory: Reports no additional respiratory complaints Gastrointestinal: Gastrointestinal: Reports no additional gastrointestinal complaints [facility] Past Medical History Medical History Depression Essential hypertension Family history of high cholesterol GERD with apnea Morbid exogenous obesity Morbid obesity Obstructive sleep apnea Physical exam UTI (urinary tract infection) Surgical History History of appendectomy History of bladder suspension procedure History of esophagogastroduodenoscopy (EGD) Hx of colonoscopy Family History Family History Mother Pulmonary edema Father Diabetes HTN (hypertension) Heart disease Social History Social History Household Members: Spouse Housing: Apartment Do you presently have visiting nurse or other home services: No Alcohol intake: never Patient Tobacco Use Status: Never used Tobacco Smoked in Last 30 Days: No e-Cigarette/Vaping Use: Never Used Second Hand Smoke Exposure: No Use of substances other than those prescribed or required for medical reasons: No Advance Directives: No Advance Directives Information Provided: Yes service: No Current occupational status: employed Current occupation: [employer] Sexual orientation: Straight/Heterosexual Gender identity: Female Cognitive needs: No Hearing needs: No Vision needs: No Physical Exam ED Vital Signs: Vital Signs - 24 hr 12/14/22 10:08 12/14/22 12:47 12/14/22 15:15 Temperature 97.6 F 98.1 F 97.5 F Pulse Rate 94 66 70 Respiratory Rate 18 16 16 Blood Pressure 158/89 H 140/62 H 140/65 H Pulse Oximetry 97 95 95 Oxygen Delivery Method Room Air Room Air Room Air BMI result Body Mass Index 52.7 Const General: cooperative Nutritional Appearance: well nourished Orientation/consciousness: patient oriented x3 Limitations: no limitations HENMT Head: Yes normal to inspection General nose exam: Normal external nose present Face and sinus: Yes other (There is a facial rash) Mouth: Normal oral and palatal mucosa present Teeth and gingiva: dentition normal Throat: Yes posterior oropharynx normal Neck Neck: Yes normal visual inspection and Yes full ROM Chest Chest palpation & inspection: normal inspection of the chest Resp Effort & Inspection: normal respiratory effort Auscultation: clear to auscultation bilaterally Cardio Jugular venous distension: no JVD Rate: regular rate Rhythm: regular rhythm GI Inspection: Yes normal to inspection Palpation (GI): Soft to palpation Auscultation: normal bowel sounds Skin General skin exam: other (Facial rash present macular no hives noted no petechiae no bullae) Neuro General: patient oriented x3 Extrem Other: Chronic venous stasis present Course Reevaluation(s) Reevaluation #1: Re-examination 15:20 she is feeling much better, facial rash is gone, plan dis charge Time: 15:20 Medications Administered Discontinued Medications Generic Name Dose Route Start Last Admin Trade Name Freq PRN Reason Stop Dose Admin Dexamethasone Sodium Phosphate 10 mg 12/14/22 10:50 12/14/22 11:22 Dexamethasone Sod Phosphate 10 Mg/Ml Vial IVPUSH 12/14/22 10:51 10 mg ONCE ONE Administration Diphenhydramine HCl 50 mg 12/14/22 10:49 12/14/22 11:22 Diphenhydramine Hcl 50 Mg/Ml Vial IVPUSH 12/14/22 10:50 50 mg ONCE ONE Administration Medical Decision Making Medical Decision Making MDM Narrative: Patient was likely has an reaction to doxycycline, we will give her some IV Benadryl and Decadron will probably recommend to discontinue the doxycycline. 15:20 she is feeling much better plan discharge on claritine , I do not think this patient need antibiotic for the lower extremity I think this is a chronic venous stasis, she has no fever she has a normal white count I will tell her to discontinue the doxycycline prescribed to her 12/09. Patient is very comfortable with the plan of care Differential Diagnosis Differential Diagnoses: The differential diagnosis associated with the pre sentation includes Allergic reaction/photosensitivity/cellulitis face Admission/Observation Consideration of admission/observation: Escalation of care including admission/observation considered Lab Data 12/14/22 11:46 12/14/22 11:21 Labs: Lab Results 12/14/22 12/14/22 Range/Units 11:21 11:46 WBC 9.8 (4.8-10.8) X10*3/uL RBC 4.02 L (4.20-5.50) X10*6/uL Hgb 12.3 (12.0-16.0) g/dl Hct 37.6 (37.0-47.0) % MCV 93.5 (80.0-98.0) fL MCH 30.6 (27.0-33.0) pg MCHC 32.7 (31.0-35.0) g/dl RDW 13.2 (11.0-16.0) % Plt Count 224 (160-400) X10*3/uL MPV 10.8 (9.4-12.3) fL Immature Gran % (Auto) 0.3 (0.0-0.4) % Neut % (Auto) 66.1 (45-73) % Lymph % (Auto) 22.2 (20-40) % Lyman % (Auto) 6.5 (2-11) % Eos % (Auto) 4.6 H (0-4) % Baso % (Auto) 0.3 (0-2) % Lymph # (Auto) 2.2 (1.2-4.9) X10*3/uL Lyman # (Auto) 0.6 (0.1-1.2) X10*3/uL Eos # (Auto) 0.5 H (0.0-0.4) X10*3/uL Baso # (Auto) 0.0 (0.0-0.2) X10*3/uL Abs Immat Gran (auto) 0.03 (0.00-0.03) X10*3/uL Absolute Neuts (auto) 6.5 (2.0-8.3) x10*3/uL Absolute Nucleated RBC 0.000 (0.0-0.012) X10*3/uL Nucleated RBC % (auto) 0.0 (0.0-0.2) /100WBC Sodium 140 (135-145) mmol/L Potassium 4.2 (3.3-5.1) mmol/L Chloride 108 (96-108) mmol/L Carbon Dioxide 24 (22-29) mmol/L Anion Gap 12 (12-20) BUN 22 H (9-16) mg/dL Creatinine 0.77 (0.5-1.4) mg/dL Estim Creat Clear Calc 113.7 Estimated GFR > 60 Random Glucose 87 (60-115) mg/dL Calcium 9.7 (8.4-10.2) mg/dL Total Bilirubin 0.4 (0.0-1.0) mg/dL AST 12 (5-31) U/L ALT 7 (0-31) U/L Alkaline Phosphatase 67 (39-117) U/L Total Protein 7.5 (6.5-8.0) g/dL Albumin 4.0 (3.5-5.0) g/dL External Record Review External record reviewed: Inpatient record Prescription Management I considered prescription management with: Antibiotic Discharge Plan Discharge Clinical Impression: Medication adverse effect, Venous stasis dermatitis Patient Disposition: Home, Self-Care Instructions: Anaphylaxis (ED) Additional Instructions: Follow-up with your primary care physician return to emergency department if you are worse any concern. Stop the doxycicline Prescriptions: New loratadine [Claritin] 10 mg tablet 10 mg PO DAILY Qty: 10 0RF No Action clotrimazole-betamethasone 1-0.05 % cream 1 appl topical BID 14 Days Qty: 15 1RF calcium carbonate 600 mg calcium (1,500 mg) tablet 600 mg PO BID 90 Days Qty: 180 1RF cyanocobalamin (vitamin B-12) 250 mcg tablet 250 mcg PO DAILY Qty: 30 5RF thiamine HCl (vitamin B1) 100 mg tablet 100 mg PO DAILY Qty: 30 5RF cholecalciferol (vitamin D3) 50 mcg (2,000 unit) capsule 50 mcg PO DAILY 90 Days Qty: 90 1RF lisinopril 20 mg tablet 20 mg PO DAILY 90 Days Qty: 90 0RF prednisone 10 mg tablet 10 mg PO DIRECTED 6 Days Qty: 12 0RF Rx Instructions: Take 3 tabs the first 2 days, then 2 tabs for 2 days, then 1 tab for 2 days cephalexin 500 mg tablet 500 mg PO BID 7 Days Qty: 14 0RF pantoprazole 40 mg Tablet,Delayed Release (Dr/Ec) 40 mg PO DAILY vitamin A palmitate 3,000 mcg (10,000 unit) Capsule 20,000 unit PO DAILY oxycodone 5 mg tablet 5 mg PO BID PRN (Reason: pain) Qty: 5 0RF Rx Instructions: Partial Fill upon patient request. doxycycline hyclate 100 mg tablet 100 mg PO BID Qty: 14 0RF furosemide [Lasix] 20 mg tablet 20 mg PO DAILY Qty: 7 0RF (DME) blood pressure kit-extra large Kit See Rx Instructions .Route Qty: 1 0RF Rx Instructions: As directed simethicone [Gas Relief (simethicone)] 125 mg capsule 125 mg PO TID-QID PRN (Reason: abdominal distention) Qty: 120 2RF Vitron-C 65 mg iron- 125 mg tablet,delayed release (DR/EC) 1 tab PO BEDTIME Qty: 30 5RF Referrals: Maria Luisa Henderson MD [Primary Care Provider] - 1 day
[2022-12-14] MEDS: dexAMETHasone sod phosphate 10 MG/ML VIAL IVPUSH (11:22)
[2022-12-14] MEDS: diphenhydrAMINE HCL 50 MG/ML VIAL IVPUSH (11:22)
--- NOTE | 2022-12-14 11:37 | PC.NURSE ---
meds given per order. pt reports no pain at this time.
[2022-12-14 11:56] LABS: Basophils Percent Auto 0.3 % (0-2); Eosinophils Absolute Auto 0.5 X10*3/uL (0.0-0.4); Eosinophils Percent Auto 4.6 % (0-4); Hematocrit 37.6 % (37.0-47.0); Hemoglobin 12.3 g/dl (12.0-16.0); Imm Gran Abs Auto 0.03 X10*3/uL (0.00-0.03); Imm Gran Pct Auto 0.3 % (0.0-0.4); Lymphocytes Absolute Auto 2.2 X10*3/uL (1.2-4.9); Lymphocytes Percent Auto 22.2 % (20-40); Mean Corpuscular HGB Conc 32.7 g/dl (31.0-35.0); Mean Corpuscular Hemoglobin 30.6 pg (27.0-33.0); Mean Corpuscular Volume 93.5 fL (80.0-98.0); Mean Platelet Volume 10.8 fL (9.4-12.3); Monocytes Absolute Auto 0.6 X10*3/uL (0.1-1.2); Monocytes Percent Auto 6.5 % (2-11); Neutrophils Absolute Auto 6.5 x10*3/uL (2.0-8.3); Neutrophils Percent Auto 66.1 % (45-73); Platelet Count 224 X10*3/uL (160-400); Red Blood Count 4.02 X10*6/uL (4.20-5.50); Red Cell Distribution Width 13.2 % (11.0-16.0); White Blood Count 9.8 X10*3/uL (4.8-10.8)
[2022-12-14 12:47] VITALS: BP 140/62; PULSE 66; RESP 16; TEMP 36.7; O2SAT 95
[2022-12-14 13:49] LABS: Alanine Aminotransferase 7 U/L (0-31); Alkaline Phosphatase 67 U/L (39-117); Anion Gap 12 (12-20); Aspartate Amino Transferase 12 U/L (5-31); Bilirubin Total 0.4 mg/dL (0.0-1.0); Blood Urea Nitrogen 22 mg/dL (9-16); Calcium 9.7 mg/dL (8.4-10.2); Carbon Dioxide 24 mmol/L (22-29); Chloride 108 mmol/L (96-108); Creatinine Clr Calc Pharmacy 113.7; Estimated Glomerular Filt Rate > 60; Glucose Random 87 mg/dL (60-115); Potassium 4.2 mmol/L (3.3-5.1); Sodium 140 mmol/L (135-145); Total Protein 7.5 g/dL (6.5-8.0)
[2022-12-14 15:15] VITALS: BP 140/65; PULSE 70; RESP 16; TEMP 36.4; O2SAT 95
--- NOTE | 2022-12-14 15:34 | PC.NURSE ---
reviewed discharge instructions with pt. pt had no questions. removed IV.
== END 2022-12-14 15:36 | disposition home or self-care (01) ==
PROVIDERS: Emergency Provider Emergency Medicine; PCP Internal Medicine
DX: L27.0 Generalized skin eruption due to drugs and medicaments taken internally (principal); T36.4X5A Adverse effect of tetracyclines, initial encounter; Y92.9 Unspecified place or not applicable; I87.8 Other specified disorders of veins; I10 Essential (primary) hypertension; Z79.899 Other long term (current) drug therapy
CPT/HCPCS: 36415; 80053; 85025; 96374; 96375; 99284; J1100; J1200

== ENCOUNTER 2022-12-26 08:30 | Outpatient (AMB) | payer OTHER, SELFPAY ==
--- NOTE | 2022-12-26 08:39 | MHC.OFFVISWM ---
Intake VS Expanded 12/26/22 08:51 Height 5 ft 5 in Weight 314 lb 4 oz BMI 52.3 Intake Visit Reasons: VIDEO F/U SWL Allergies No Known Allergies [No Known Allergies*] Allergy (Verified 12/14/22 10:08) HPI HPI Comments History of Present Illness Details SWL follow up. 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 All pre operative work up has been completed, and progress has slowed due to acute exacerbations of lower leg cellulitis and BP control. took antibiotics and then had subsequent allergic reaction to doxycline. Exercise - unable to walk much and not exercising due to cellulitis. States she is doing home sitting videos 5 d/week - not sure which ones. Meal plan - 2 shakes, 1 meal (chicken and vegetables) and 1 yogurt or bar per day. Pre op work up completed as follows: SWL classes - 01/02 BH appts? - Tanja appt 08/14, saw Sona on 09/08 and [address] RD appts - follow up on 08/28, cleared H pylori - negative Labs -done CXR and ECG - both normal ULS -slightly enlarged liver UGI - normal study PFSH Medical History Depression Essential hypertension Family history of high cholesterol GERD with apnea Morbid exogenous obesity Morbid obesity Obstructive sleep apnea Physical exam UTI (urinary tract infection) Surgical History History of appendectomy History of bladder suspension procedure History of esophagogastroduodenoscopy (EGD) Hx of colonoscopy Family History Mother Pulmonary edema Father Diabetes HTN (hypertension) Heart disease Social History Household Members: Spouse Housing: Apartment Do you presently have visiting nurse or other home services: No Alcohol intake: never Patient Tobacco Use Status: Never used Tobacco e-Cigarette/Vaping Use: Never Used Second Hand Smoke Exposure: No service: No Current occupational status: employed Current occupation: [employer] Sexual orientation: Straight/Heterosexual Gender identity: Female Cognitive needs: No Hearing needs: No Vision needs: No Assessment & Plan Assessment & Plan (1) Morbid obesity: Code(s): E66.01 - Morbid (severe) obesity due to excess calories Plan: Pt started our program in Jun 2022 at 338.4 lbs and has 7% TBWL so far, all pre operative work up completed. Her LE cellulitis is resolving and hopefully she can restart adequate exercise for further wegiht loss. She does not need any changes to her meal plan. Exercise - daily - ISAAC or Dragan Carlson sitting exercises until she can stand to exercise LS again. I have encouraged her to send me weekly texts with her weight so we can make these changes when she is ready. Next appt with me in 3 weeks. Patient is still morbidly obese and is not considered stable at this time. I spent 23 minutes in total speaking with the patient via teelephone counseling , reviewing records and charting in patients chart. . Quality Reporting (2019) Adult ([facility] 138/07/19/68) Smoking risk assessment performed?: Yes Patient Tobacco Use Status: Never used Tobacco Telehealth Telehealth Location of provider rendering services: practice address Location of patient: address on file Patient Identification confirmed using: Name, : Yes Telehealth method: voice only Patient verbally consented to treatment: Yes Patient verbally consented to billing insurance company: Yes Patient informed of any privacy concerns related to visit: Yes Coding Level of Care Code Tele Est Pt Level 4 (06229) Diagnoses Morbid obesity E66.01
[2022-12-26 08:51] VITALS: BMI 52.3
== END 2022-12-26 09:00 | disposition home or self-care (01) ==
LOC: HO.HBS 09:17
PROVIDERS: PCP Internal Medicine; Visit Provider Physician Assistant
DX: E66.01 Morbid (severe) obesity due to excess calories (principal); Z68.43 Body mass index [BMI] 50.0-59.9, adult
CPT/HCPCS: 99213

== ENCOUNTER → 2022-12-26 08:30 | Outpatient (BNVA) | payer OTHER, SELFPAY | PROVIDERS: PCP Internal Medicine; Visit Provider Physician Assistant | DX: E66.01 Morbid (severe) obesity due to excess calories (principal) ==

== ENCOUNTER 2022-12-26 14:13 | Outpatient (AMB) | payer OTHER, SELFPAY ==
--- NOTE | 2022-12-26 14:18 | MHC.PC.OV ---
Vital Signs 12/26/22 14:19 Height 5 ft 5 in Weight 316 lb 2 oz BMI 52.6 BP 126/78 Blood Pressure Location Lt brachial Position Sitting Pulse 77 Pulse Source Pulse Oximeter Pulse Oximetry (%) 98 Oxygen Delivery Method Room Air Intake Visit Reasons: Ear complaints Intake Note: Patient is here today for possible outer ear infection, and bilateral leg infection. Clinical Social Work Aide Required: No Clinical Social Work Aide Name: [id number] Naga Information Interpreted: non-clinical & clinical Parts Counterman: Not Required per policy Accompanied by: Self / Same As Patient Allergies doxycycline Allergy (Intermediate, Verified 12/26/22 14:42) Rash Medication List - Last Reconciled 12/26/22 by JAI Young blood pressure kit-extra large As directed calcium carbonate 600 mg PO BID 90 days cholecalciferol (vitamin D3) 50 mcg PO DAILY 90 days clotrimazole-betamethasone 1-0.05 % 1 appl topical BID 2 weeks cyanocobalamin (vitamin B-12) 250 mcg PO DAILY iron,carbonyl-vitamin C 65 mg iron- 125 mg (Vitron-C) 1 tab PO BEDTIME lisinopril 20 mg PO DAILY 90 days pantoprazole 40 mg PO DAILY thiamine HCl (vitamin B1) 100 mg PO DAILY vitamin A palmitate 20,000 units PO DAILY Tobacco use date assessed: 12/26/22 Dental Screening Dental Screen Date: 12/26/22 Did you have a dental visit in the last 12 months?: Yes Did you have a dental problem in the last 6 months where you did not have access to dental care?: No Was dental information given to patient?: Patient has dentist HPI HPI Comments History of Present Illness Details 57-year-old female past medical history significant for anemia, hypertension, osteopenia, venous insufficiency, generalized anxiety disorder, depression, GERD. Patient of Dr. Arizmendi presents today bilateral ear pain x 3 days. Denies any fever, chills, cough. Bilateral earlobe skin dry and flaking with right ear lobe erythema. Review of the notes patient was in the ER for lower extremity cellulitis and was treated with doxycycline however patient reports that this did not help and she ended up having a reaction to this medication resulting in full body rash. Bilateral venous dopplers negative for DVT, bilateral ankle xrays showed soft tissue swelling. Dry flaking skin likely related to reaction. Patient reports it is itchy, will send hydroxyzine as needed for itchiness. Bilateral extremities remain swollen with erythema and weeping serous drainage. Will start patient on cephalexin for treatment of cellulitis and patient advised to apply unscented lotion to dry skin. [facility] Medical History Depression Essential hypertension Family history of high cholesterol GERD with apnea Morbid exogenous obesity Morbid obesity Obstructive sleep apnea Physical exam UTI (urinary tract infection) Surgical History History of appendectomy History of bladder suspension procedure History of esophagogastroduodenoscopy (EGD) Hx of colonoscopy Family History Mother Pulmonary edema Father Diabetes HTN (hypertension) Heart disease Social History Household Members: Spouse Housing: Apartment Do you presently have visiting nurse or other home services: No Alcohol intake: never Patient Tobacco Use Status: Never used Tobacco e-Cigarette/Vaping Use: Never Used Second Hand Smoke Exposure: No service: No Current occupational status: employed Current occupation: [employer] Sexual orientation: Straight/Heterosexual Gender identity: Female Cognitive needs: No Hearing needs: No Vision needs: Yes (glasses) Questionnaire Thrive Questionnaire Date Thrive assessed: 05/30/22 LOBITO-7 AMB Questionnaire LOBITO-7 Date LOBITO - 7 assessed: 05/30/22 Source: Developed by Drs. Agus Herbert, Mera Loving, Vernon Carmona and colleagues, with an educational santino from [employer]. Review of Systems Const Denies chills, Denies fatigue, Denies fever(s) and Denies poor appetite Eyes Denies no additional complaints ENT Reports Normal hearing present and Reports otalgia Card Denies chest pain, Denies syncope, Denies rapid heart rate and Denies dyspnea Resp Denies cough and Denies dyspnea GI Denies change in stool character, Denies constipation, Denies diarrhea, Denies nausea and Denies vomiting Denies urinary frequency, Denies dysuria and Denies urinary urgency Skin/Breast Details: dry flaking skin all over body and bilateral ear lobes. Neuro Reports Normal hearing present, Denies confusion and Denies syncope Psych Denies confusion Endo Denies fatigue Physical exam (Primary Care) Vital Signs: Last Vital Signs Pulse 77 12/26/22 14:19 BP 126/78 12/26/22 14:19 Pulse Ox 98 12/26/22 14:19 Oxygen Delivery Method Room Air 12/26/22 14:19 BMI result Body Mass Index 52.6 Tobacco/Smoking Status: Tobacco use Status Tobacco use date assessed 12/26/22 12/26/22 14:26 Patient Tobacco Use Status Never used Tobacco 12/26/22 14:26 Tobacco use type 05/30/22 08:59 e-Cigarette/Vaping Use Never Used 12/26/22 14:26 Thrive Assessment: Date of Thrive Assessment Date Thrive assessed 05/30/22 12/26/22 14:26 Const General: No confusion Orientation/consciousness: No confusion HENMT Head: Yes normocephalic and Yes atraumatic Ears: external ears normal and TM's normal bilaterally Eyes Conjunctivae: conjunctivae normal Chest Chest palpation & inspection: normal inspection of the chest Resp Effort & Inspection: normal respiratory effort Auscultation: clear to auscultation bilaterally, no crackles, no rhonchi and no wheezes Cardio Rate: regular rate Rhythm: regular rhythm Heart sounds: S1 normal heart sound present and S2 normal heart sound present GI Inspection: Yes normal to inspection Skin General skin exam: dry skin Neuro General: No confusion Cranial nerves: Yes Normal hearing present Extrem General: No no calf tenderness, Yes edema (bilateral SIMEON, wheaping serous drainage ) and Yes venous stasis dermatitis Assessment and Plan Assessment & Plan (1) Cellulitis: Code(s): L03.90 - Cellulitis, unspecified Qualifiers: Site of cellulitis: other site Qualified Code(s): L03.818 - Cellulitis of other sites Plan: Given patient had reaction to doxycycline and is on JULIA-inhibitor so cannot treat with Bactrim will send cephalexin b.i.d. x7 days. Plan Patient advised to keep scheduled follow-up with PCP in 2 weeks Medications: New cephalexin 500 mg PO BID 14 caps 0RF L03.90 - Cellulitis, unspecified hydroxyzine HCl 25 mg PO BID PRN 7 tabs 0RF itching Coding Level of Care Code Est Pt Level 3 (16977) Diagnoses Cellulitis L03.818 Site of cellulitis: other site
[2022-12-26 14:19] VITALS: BP 126/78; PULSE 77; O2SAT 98; BMI 52.6
== END 2022-12-26 14:46 | disposition home or self-care (01) ==
PROVIDERS: PCP Internal Medicine; Visit Provider Nurse Practitioner Family
DX: L03.818 Cellulitis of other sites (principal)
CPT/HCPCS: 99213

== ENCOUNTER 2023-01-08 10:35 | Outpatient (AMB) | payer OTHER, SELFPAY ==
[2023-01-08 10:39] VITALS: BP 148/90; PULSE 78; O2SAT 96; BMI 51.7
--- NOTE | 2023-01-08 10:39 | MHC.PC.OV ---
Vital Signs 01/08/23 10:39 01/08/23 11:08 Height 5 ft 5 in Weight 311 lb BMI 51.7 BP 148/90 H 150/90 H Blood Pressure Location Lt brachial Lt brachial Position Sitting Sitting Pulse 78 Pulse Source Pulse Oximeter Pulse Oximetry (%) 96 Oxygen Delivery Method Room Air Intake Visit Reasons: infection on legs Intake Note: Pt is here for B/L leg infection for 2 Month. Radio Station Manager Required: No Accompanied by: Self / Same As Patient Allergies doxycycline Allergy (Intermediate, Verified 01/08/23 10:49) Rash Medication List - Last Reconciled 01/08/23 by Maria Luisa Perez MD blood pressure kit-extra large As directed calcium carbonate 600 mg PO BID 90 days cholecalciferol (vitamin D3) 50 mcg PO DAILY 90 days clotrimazole-betamethasone 1-0.05 % 1 appl topical BID 2 weeks cyanocobalamin (vitamin B-12) 250 mcg PO DAILY hydroxyzine HCl 25 mg PO BID PRN iron,carbonyl-vitamin C 65 mg iron- 125 mg (Vitron-C) 1 tab PO BEDTIME lisinopril 20 mg PO DAILY 90 days pantoprazole 40 mg PO DAILY thiamine HCl (vitamin B1) 100 mg PO DAILY vitamin A palmitate 20,000 units PO DAILY Tobacco use date assessed: 12/26/22 Dental Screening Dental Screen Date: 01/08/23 Did you have a dental visit in the last 12 months?: No Did you have a dental problem in the last 6 months where you did not have access to dental care?: No Was dental information given to patient?: Yes HPI HPI Comments History of Present Illness Details This is a 58-year-old female with hypertension and super super obesity that complains of hyperpigmentation associated with crusting, weeping and oozing liquid from both lower legs that started few months ago but aggravated about a month ago in which she had to go to ER. Ultrasound duplex rule out DVT. Compression stockings were advised as well as exercise and to lose weight. She has super super obese with a BMI of 51.8 and declines weight loss surgery. Blood pressure slightly elevated today. She also has psoriasis and acanthosis nigricans most likely due to weight and will be referred to dermatology. I order arterial ultrasound to rule out any arterial abnormality. The legs are so swollen I cannot detect a pulse. [facility] Medical History Depression Essential hypertension Family history of high cholesterol GERD with apnea Morbid exogenous obesity Morbid obesity Obstructive sleep apnea Physical exam UTI (urinary tract infection) Surgical History History of appendectomy History of bladder suspension procedure History of esophagogastroduodenoscopy (EGD) Hx of colonoscopy Family History Mother Pulmonary edema Father Diabetes HTN (hypertension) Heart disease Social History Household Members: Spouse Housing: Apartment Do you presently have visiting nurse or other home services: No Alcohol intake: never Patient Tobacco Use Status: Never used Tobacco e-Cigarette/Vaping Use: Never Used Second Hand Smoke Exposure: No service: No Current occupational status: employed 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 Agus Herbert, Mera Loving, Vernon Carmona and colleagues, with an educational santino from [employer] (now [employer]). Review of Systems Const All systems reviewed & are unremarkable except as noted in HPI and below Eyes Reports no additional complaints, Denies change in vision and Denies other visual disturbances Card Denies chest pain at rest, Denies chest pain with activity, Denies edema, Denies irregular heart rhythm, Denies claudication, Denies dyspnea, Denies dyspnea on exertion, Denies orthopnea, Denies paroxysmal nocturnal dyspnea and Denies slow heart rate Resp Denies cough, Denies dyspnea and Denies dyspnea on exertion GI Denies abdominal pain, Denies change in bowel habits, Denies excessive flatus, Denies nausea and Denies vomiting Denies urinary incontinence, Denies urinary hesitancy and Denies urinary urgency Musc Denies abnormal gait, Denies atrophy, Denies deformity and Denies limited range of motion Skin/Breast Denies bleeding lesions, Reports lesions, Reports erythema and Denies rash Neuro Denies abnormal gait and Denies lack of coordination Physical exam (Primary Care) Vital Signs: Last Vital Signs Pulse 78 01/08/23 10:39 BP 148/90 H 01/08/23 10:39 Pulse Ox 96 01/08/23 10:39 Oxygen Delivery Method Room Air 01/08/23 10:39 BMI result Body Mass Index 51.7 Tobacco/Smoking Status: Tobacco use Status Tobacco use date assessed 12/26/22 01/08/23 10:39 Patient Tobacco Use Status Never used Tobacco 01/08/23 10:39 Tobacco use type 05/30/22 08:59 e-Cigarette/Vaping Use Never Used 01/08/23 10:39 Thrive Assessment: Date of Thrive Assessment Date Thrive assessed 05/30/22 01/08/23 10:39 Const Limitations: ambulation with cane Eyes General: appearance normal, both eyes and all related structures Eyelids: Yes eyelids normal Conjunctivae: conjunctivae normal Neck Neck: Yes normal visual inspection and Yes supple Resp Effort & Inspection: normal respiratory effort Auscultation: clear to auscultation bilaterally Cardio Jugular venous distension: no JVD Rate: regular rate Rhythm: regular rhythm Heart sounds: S1 normal heart sound present and S2 normal heart sound present Skin Other: lower legs with hyperpigmentaion, crust, weeping and oozing, silvery scale patches and darker patches around elbows and behind the knees. Extrem General: Yes full ROM Assessment and Plan Assessment & Plan (1) Stasis dermatitis of both legs: Code(s): I87.2 - Venous insufficiency (chronic) (peripheral) Plan: Continue compressions. Start topical steroid. Referred to wound clinic. (2) Essential hypertension: Code(s): I10 - Essential (primary) hypertension Plan: Continue lisinopril. Blood pressure goal is equal or less than 130/80. Recheck blood pressure with nurse navigator in 3 weeks. (3) Super-super obese: Code(s): E66.01 - Morbid (severe) obesity due to excess calories Plan: Advised to do diet and exercise since she declines weight loss surgery. BMI goal is less than 30. (4) Psoriasis: Code(s): L40.9 - Psoriasis, unspecified Plan: Referred to dermatology. Start topical steroids. Orders: Orders US arterial duplex LE Today I73.9 - Peripheral vascular disease, unspecified, I87.2 - Venous insufficiency (chronic) (peripheral) Referrals Wound Care Referral I87.2 - Venous insufficiency (chronic) (peripheral) Dermatology Referral I87.2 - Venous insufficiency (chronic) (peripheral), L40.9 - Psoriasis, unspecified Medications: New furosemide 20 mg PO DAILY 30 days 30 tabs 1RF triamcinolone acetonide 0.5% 1 appl topical BID 2 weeks 15 grams 0RF I87.2 - Venous insufficiency (chronic) (peripheral) Discontinued clotrimazole-betamethasone 1-0.05 % Discontinued Reason: Patient Completed Course 1 appl topical BID 2 weeks 15 grams 1RF Coding Level of Care Code Est Pt Level 4 (90932) Diagnoses Stasis dermatitis of both legs I87.2 Essential hypertension I10 Super-super obese E66.01 Psoriasis L40.9 Time Spent (min) 24
[2023-01-08 11:08] VITALS: BP 150/90
== END 2023-01-08 11:01 | disposition home or self-care (01) ==
PROVIDERS: PCP Internal Medicine; Visit Provider Internal Medicine
DX: I10 Essential (primary) hypertension (principal); E66.01 Morbid (severe) obesity due to excess calories; Z68.43 Body mass index [BMI] 50.0-59.9, adult; I87.2 Venous insufficiency (chronic) (peripheral); L40.9 Psoriasis, unspecified
CPT/HCPCS: 99214

== ENCOUNTER 2023-01-25 09:19 | Outpatient (REF) | payer OTHER, SELFPAY ==
[2023-01-25 10:41] LABS: HBc Num1 0.09 S/CO (0.00-0.79); HIV AB/AG Nonreactive (Nonreactive); HIV Num 1 0.06 S/CO (0.00-0.99); Hepatitis B Core Antibody Nonreactive (Nonreactive); ~HepC Num1 0.09 S/CO (0.00-0.79); ~Hepatitis C Antibody Nonreactive (Nonreactive)
[2023-01-25 11:30] LABS: Appearance Urine Cloudy; Color Urine Yellow; Glucose Urine UA Negative (Negative); Leukocyte Esterase Urine Moderate (2+) (Negative); Nitrite Urine Positive (Negative); UMIC TRIGGER UACC YES; Urine Blood Trace (Negative); Urine Ketones Negative (Negative); Urine Protein Negative (Neg-Trace)
[2023-01-25 11:39] LABS: Bacteria Urine 4+ (None Seen); Hyaline Casts Urine 0-2 /LPF (0-2); RBC Urine 0-2 /HPF (0-2); UACC Culture Trigger YES; WBC Urine >50 /HPF (0-5)
[2023-01-26 08:29] LABS: Syphilis Screen Nonreactive (Nonreactive)
== END 2023-01-25 09:20 | disposition home or self-care (01) ==
LOC: HO.LAB 09:19
PROVIDERS: Advanced Practice Midwife; PCP Internal Medicine; Visit Provider Internal Medicine
DX: Z11.4 Encounter for screening for human immunodeficiency virus [HIV] (principal); Z20.2 Contact with and (suspected) exposure to infections with a predominantly sexual mode of transmission; R30.0 Dysuria
CPT/HCPCS: 36415; 81001; 81003; 86704; 86780; 86803; 87086; 87088; 87186; 87389

== ENCOUNTER 2023-02-08 11:58 | Outpatient (REF) | payer OTHER, SELFPAY ==
[2023-02-08 13:38] LABS: Appearance Urine Cloudy; Color Urine Yellow; Glucose Urine UA Negative (Negative); Leukocyte Esterase Urine Large (3+) (Negative); Nitrite Urine Positive (Negative); UMIC TRIGGER UACC YES; Urine Blood Trace (Negative); Urine Ketones Negative (Negative); Urine Protein Negative (Neg-Trace)
[2023-02-08 13:44] LABS: Bacteria Urine 4+ (None Seen); Hyaline Casts Urine 0-2 /LPF (0-2); RBC Urine 0-2 /HPF (0-2); UACC Culture Trigger YES; WBC Urine >50 /HPF (0-5)
== END 2023-02-08 11:59 | disposition home or self-care (01) ==
LOC: HO.LAB 11:58
PROVIDERS: PCP Internal Medicine; Visit Provider Internal Medicine
DX: R39.9 Unspecified symptoms and signs involving the genitourinary system (principal)
CPT/HCPCS: 81001; 87086; 87088; 87186

== ENCOUNTER 2023-02-12 09:00 | Outpatient (AMB) | payer OTHER, SELFPAY ==
--- NOTE | 2023-02-12 09:14 | MHC.OFFVISWM ---
Intake Intake Visit Reasons: VIDEO F/U SWL Allergies doxycycline Allergy (Intermediate, Verified 01/08/23 10:49) Rash Medication List - Last Reconciled 02/12/23 by Radha Vasquez PA-C blood pressure kit-extra large As directed calcium carbonate 600 mg PO BID 90 days cholecalciferol (vitamin D3) 50 mcg PO DAILY 90 days cyanocobalamin (vitamin B-12) 250 mcg PO DAILY furosemide 20 mg PO DAILY 30 days hydroxyzine HCl 25 mg PO BID PRN iron,carbonyl-vitamin C 65 mg iron- 125 mg (Vitron-C) 1 tab PO BEDTIME lisinopril 20 mg PO DAILY 90 days nitrofurantoin macrocrystal 100 mg PO BID 7 days pantoprazole 40 mg PO DAILY thiamine HCl (vitamin B1) 100 mg PO DAILY triamcinolone acetonide 0.5% 1 appl topical BID 2 weeks vitamin A palmitate 20,000 units PO DAILY HPI HPI Comments History of Present Illness Details SWL follow up, ADHESIVE PRIMER weight of 338.4 lbs, TBWL is 38.4 lbs or 11.3%. Exercise - leg is much better now and she can exercise. PE videos for up to 60 minutes 4 d/week. LS 2 miles videos 3 d/week. Meal plan - 9am - 2 eggs hb. Sometimes coffee, 1% milk 12 pm - shake 4pm - 6 forks broccoli/carrots and mostly 8 forks chicken in air fryer, not measuring. An apple 8pm - shake or yogurt Pre op work up completed as follows: SWL classes - 01/02 appts? - Tanja appt 08/14, saw Sona on 09/08 and was cleared[address] RD appts - follow up on 08/28, cleared H pylori - negative Labs -done CXR and ECG - both normal ULS -slightly enlarged liver UGI - normal study PFSH Medical History Obstructive sleep apnea Essential hypertension Morbid exogenous obesity Physical exam Morbid obesity GERD with apnea Depression Family history of high cholesterol UTI (urinary tract infection) Surgical History History of esophagogastroduodenoscopy (EGD) Hx of colonoscopy History of bladder suspension procedure History of appendectomy Family History Mother Pulmonary edema Father Diabetes HTN (hypertension) Heart disease Social History Household Members: Spouse Housing: Apartment Do you presently have visiting nurse or other home services: No Alcohol intake: never Patient Tobacco Use Status: Never used Tobacco e-Cigarette/Vaping Use: Never Used Second Hand Smoke Exposure: No service: No Current occupational status: employed 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 No changes made to meal or exercise plans. Will have next appt with Dr Esteban for surgical consultation. Patient is still morbidly obese and is not considered stable at this time. I spent 30 minutes in total speaking with the patient via video conference counseling , reviewing records and charting in patients chart. . (2) HTN (hypertension) with goal to be determined: Code(s): I10 - Essential (primary) hypertension (3) GERD with apnea: Code(s): K21.9 - Gastro-esophageal reflux disease without esophagitis; R06.81 - Apnea, not elsewhere classified Quality Reporting (2019) Adult ([facility] 138/07/19/68) Smoking risk assessment performed?: Yes Patient Tobacco Use Status: Never used Tobacco Telehealth Telehealth Location of provider rendering services: practice address Location of patient: address on file Patient Identification confirmed using: Name, : Yes Telehealth method: video Patient verbally consented to treatment: Yes Patient verbally consented to billing insurance company: Yes Patient informed of any privacy concerns related to visit: Yes Coding Level of Care Code Tele Est Pt Level 4 (33209) Diagnoses Morbid obesity E66.01 HTN (hypertension) with goal to be determined I10 GERD with apnea K21.9; R06.81
== END 2023-02-12 09:33 | disposition home or self-care (01) ==
LOC: HO.HBS 09:27
PROVIDERS: PCP Internal Medicine; Visit Provider Physician Assistant
DX: E66.01 Morbid (severe) obesity due to excess calories (principal); Z68.43 Body mass index [BMI] 50.0-59.9, adult; I10 Essential (primary) hypertension; K21.9 Gastro-esophageal reflux disease without esophagitis; R06.81 Apnea, not elsewhere classified
CPT/HCPCS: 99214

== ENCOUNTER → 2023-02-12 09:00 | Outpatient (BNVA) | payer OTHER, SELFPAY | PROVIDERS: PCP Internal Medicine; Visit Provider Physician Assistant ==

== ENCOUNTER 2023-02-19 12:58 | Outpatient (AMB) | payer OTHER, SELFPAY ==
--- NOTE | 2023-02-19 13:01 | A.OFFVIS_ITS ---
Intake VS Expanded 02/19/23 13:11 Height 5 ft 5 in Weight 310 lb BMI 51.6 BP 140/66 H Blood Pressure Location Rt brachial Blood Pressure Position Sitting Pulse 70 Pulse Source Pulse Oximeter Temp 97.3 F Temperature Source Tympanic Pulse Oximetry 98 Oxygen Delivery Method Room Air Body Fat 141.6 Body Fat Percentage 45.7 Free Fat Mass 168.4 Muscle Mass 160.0 Visceral Mass 18.0 Water Mass 119.8 BMR 2,388 Intake Visit Reasons: (OV) F/U SWL Billet Assembler Required: Yes Billet Assembler Language: Cath Laboratory Technician Name: kirstin CORONA Information Interpreted: non-clinical & clinical Communications Professional: Communications Professional Present Accompanied by: Self / Same As Patient Allergies doxycycline Allergy (Intermediate, Verified 01/08/23 10:49) Rash HPI HPI Comments History of Present Illness Details The patient is a 58-year-old Portuguese-speaking woman with a lifelong struggle with obesity who entered the surgical weight loss program 06/29/2022 with a weight of 338.4 lb/BMI 56.2. She has hypertension, lower extremity edema with venous insufficiency and obstructive sleep apnea. She has had issues with urinary incontinence all related to her obesity. She is seen in discussion of surgical weight loss options given her commitment to healthy lifestyle choices/changes and is congratulated on losing weight to today's weight of 310.0 lb/BMI 51.6. Patient reports a prior abdominal operation for an umbilical hernia but is not sure whether not mesh was used. She reports either an appendectomy or cholecystectomy and notes a bladder sling. Patient denies any personal or family history of deep vein thrombosis. She notes that her GERD has markedly improved with weight loss and has lost 28 lbs since entering the SWL program 06/29/22 at a weight of 338.4 lbs. Exercise - leg is much better now and she can exercise. PE videos for up to 60 minutes 4 d/week. LS 2 miles videos 3 d/week. JULIA 0 GERD 25 ESS 9 QOL 125 Meal plan - 9am - 2 eggs hb. Sometimes coffee, 1% mi lk 12 pm - shake 4pm - 6 forks broccoli/carrots and mostl y 8 forks chicken in air fryer, not measuring. An apple 8pm - shake or yogurt Pre op work up completed as follows: SWL classes - 01/02 BH appts? - Tanja appt 08/14, saw Sona on 09/08 and was cleared.? RD appts - follow up on 08/28, cleared H pylori - negative Labs -done CXR and ECG - both normal ULS -slightly enlarged liver UGI - normal study [facility] Medical History (Updated 02/19/23 @ 13:39 by Tommie Esteban MD) Obstructive sleep apnea Essential hypertension Morbid exogenous obesity Physical exam Morbid obesity GERD with apnea Depression Family history of high cholesterol UTI (urinary tract infection) Surgical History History of esophagogastroduodenoscopy (EGD) Hx of colonoscopy History of bladder suspension procedure History of appendectomy Family History Mother Pulmonary edema Father Diabetes HTN (hypertension) Heart disease Social History Household Members: Spouse Housing: Apartment Do you presently have visiting nurse or other home services: No Alcohol intake: never Patient Tobacco Use Status: Never used Tobacco e-Cigarette/Vaping Use: Never Used Second Hand Smoke Exposure: No service: No Current occupational status: employed 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 Sexual orientation: Straight/Heterosexual Gender identity: Female Cognitive needs: No Hearing needs: No Vision needs: Yes (glasses) Review of Systems Const All systems reviewed & are unremarkable except as noted in HPI and below Reports as per HPI Physical Exam Vital Signs: Last Vital Signs Temp 97.3 F 02/19/23 13:11 Pulse 70 02/19/23 13:11 BP 140/66 H 02/19/23 13:11 BMI result Body Mass Index 51.6 The patient is non-toxic & in good spirits NC/AT, PERRLA, EOMI Mood, affect & judgment all appear appropriate Sclera anicteric conjunctiva pink and moist Oropharynx is clear with no aphthous ulcers, Mallampati class 4, mucous membranes moist Neck is supple with no masses, adenopathy or bruits Thyroid is nontender and free of dominant masses Heart is regular, normal S1-S2 no rubs or murmurs Lungs are clear and equal anteriorly with no audible wheezing, rubs or dullness to percussion Abdomen is obese with no demonstrable hernias. No HSM, rebound, rigidity, guarding, masses or bruits are present. Rectal exam is deferred Skin has good turgor and is free of rashes Lower extremities have bilateral lower extremity psoriatic changes verses venous stasis changes. 1-2 +edema is noted. Results Reviewed Results Reviewed: Diagnostic imaging 09/12/22 CXR NAD Venous duplex imaging 12/09/2022 show no evidence of DVT 08/23/22 UGI No HH 08/23/22 Abd U/S liver elastography: stiff liver/fibrosis with shear of 2.3; NAFLD, hepatomegaly Labs 12/14/22 INR is elevated at 1.3 Hemoglobin 12.3 with normal indices, white blood cell count 9.8, platelet count 224 K BUN 22, Cr 0.77, lytes WNL LFTs WNL Lipids & MVI need to be done Assessment & Plan Assessment & Plan (1) Morbid obesity: Code(s): E66.01 - Morbid (severe) obesity due to excess calories (2) Elevated protime: Code(s): R79.1 - Abnormal coagulation profile (3) Hepatomegaly: Code(s): R16.0 - Hepatomegaly, not elsewhere classified (4) NAFLD (nonalcoholic fatty liver disease): Code(s): K76.0 - Fatty (change of) liver, not elsewhere classified (5) Stasis dermatitis of both legs: Code(s): I87.2 - Venous insufficiency (chronic) (peripheral) (6) HTN (hypertension) with goal to be determined: Code(s): I10 - Essential (primary) hypertension (7) Obstructive sleep apnea: Code(s): G47.33 - Obstructive sleep apnea (adult) (pediatric) Plan Using a teaching product representative, I explained normal anatomy and physiology/digestion and reviewed the importance of a high-protein/high-fiber, low-carbohydrate and low- fat diet to augment surgical weight loss. I also reviewed the options of laparoscopic gastric bypass and laparoscopic sleeve gastrectomy and recommended the patient consider laparoscopic sleeve gastrectomy. I also explained there is a possible need to repair a hiatal hernia if 1 is encountered intraoperatively, but her upper GI does not demonstrate a definite hiatal hernia. The patient is congratulated on her 28 lb weight loss, and I reviewed the need for 33 lb weight loss; given the patient's prior weight loss, I expect her to reach this goal by our follow-up visit at the end of February. She is encouraged to bring her or a family member to the next appointment and encouraged her to write down any questions. I reviewed the fact the patient has an enlarged fatty liver and her protime/INR was elevated for unclear reasons. Since this can be indicative of hepatocellular dysfunction, I have ordered a repeat abdominal ultrasound/elastography and nonfasting labs including PT/PTT. We briefly reviewed the inherent risks to surgery including bleeding, infection, weight regain, risk of DVT that can cause fatal PE. Typical overnight hospital course was reviewed in the patient's questions seemed to be satisfactorily answered. She is interested in proceeding with sleeve gastrectomy and will see me at the end of February. She will follow up with Radha Vasquez PA-C in the meantime and no changes were made to her diet. The importance of increased activity/exercise were reviewed. Orders: Orders Comprehensive Met. Panel Today G47.33 - Obstructive sleep apnea (adult) (pediatric), I10 - Essential (primary) hypertension, I87.2 - Venous insufficiency (chronic) (peripheral), K76.0 - Fatty (change of) liver, not elsewhere classified, R16.0 - Hepatomegaly, not elsewhere classified, R79.1 - Abnormal coagulation profile US abdomen comp w elastography Today G47.33 - Obstructive sleep apnea (adult) (pediatric), I10 - Essential (primary) hypertension, I87.2 - Venous insufficiency (chronic) (peripheral), K76.0 - Fatty (change of) liver, not elsewhere classified, R16.0 - Hepatomegaly, not elsewhere classified, R79.1 - Abnormal coagulation profile Prothrombin Time INR Today G47.33 - Obstructive sleep apnea (adult) (pediatric), I10 - Essential (primary) hypertension, I87.2 - Venous insufficiency (chronic) (peripheral), K76.0 - Fatty (change of) liver, not elsewhere classified, R16.0 - Hepatomegaly, not elsewhere classified, R79.1 - Abnormal coagulation profile Complete Blood Count Auto Diff Today G47.33 - Obstructive sleep apnea (adult) (pediatric), I10 - Essential (primary) hypertension, I87.2 - Venous insufficiency (chronic) (peripheral), K76.0 - Fatty (change of) liver, not elsewhere classified, R16.0 - Hepatomegaly, not elsewhere classified, R79.1 - Abnormal coagulation profile Partial Thromboplastin Time Today B20 - Human immunodeficiency virus [HIV] disease, G47.33 - Obstructive sleep apnea (adult) (pediatric), I10 - Essential (primary) hypertension, I87.2 - Venous insufficiency (chronic) (peripheral), K76.0 - Fatty (change of) liver, not elsewhere classified, R16.0 - Hepatomegaly, not elsewhere classified, R79.1 - Abnormal coagulation profile Quality Reporting (2019) Adult ([facility] 13807/19/68) Smoking risk assessment performed?: Yes Patient Tobacco Use Status: Never used Tobacco Coding Level of Care Code Est Pt Level 4 (72944) Diagnoses Morbid obesity E66.01 Elevated protime R79.1 Hepatomegaly R16.0 NAFLD (nonalcoholic fatty liver disease) K76.0 Stasis dermatitis of both legs I87.2 HTN (hypertension) with goal to be determined I10 Obstructive sleep apnea G47.33
[2023-02-19 13:11] VITALS: BP 140/66; PULSE 70; TEMP 36.3; O2SAT 98; BMI 51.6
== END 2023-02-19 13:43 | disposition home or self-care (01) ==
PROVIDERS: PCP Internal Medicine; Visit Provider Surgery
DX: E66.01 Morbid (severe) obesity due to excess calories (principal); Z68.43 Body mass index [BMI] 50.0-59.9, adult; R16.0 Hepatomegaly, not elsewhere classified; K76.0 Fatty (change of) liver, not elsewhere classified; I87.2 Venous insufficiency (chronic) (peripheral); I10 Essential (primary) hypertension; G47.33 Obstructive sleep apnea (adult) (pediatric)
CPT/HCPCS: 99214

== ENCOUNTER 2023-02-19 12:58 | Outpatient (REF) | payer OTHER, SELFPAY ==
[2023-02-19 14:05] LABS: MANUAL DIFF FLAG NO
[2023-02-19 14:21] LABS: Basophils Percent Auto 0.3 % (0-2); Eosinophils Absolute Auto 0.3 X10*3/uL (0.0-0.4); Eosinophils Percent Auto 3.1 % (0-4); Hematocrit 36.2 % (37.0-47.0); Hemoglobin 11.9 g/dl (12.0-16.0); Imm Gran Abs Auto 0.02 X10*3/uL (0.00-0.03); Imm Gran Pct Auto 0.2 % (0.0-0.4); Lymphocytes Absolute Auto 2.9 X10*3/uL (1.2-4.9); Lymphocytes Percent Auto 32.4 % (20-40); Mean Corpuscular HGB Conc 32.9 g/dl (31.0-35.0); Mean Corpuscular Hemoglobin 30.8 pg (27.0-33.0); Mean Corpuscular Volume 93.8 fL (80.0-98.0); Mean Platelet Volume 10.8 fL (9.4-12.3); Monocytes Absolute Auto 0.6 X10*3/uL (0.1-1.2); Monocytes Percent Auto 6.4 % (2-11); Neutrophils Absolute Auto 5.1 x10*3/uL (2.0-8.3); Neutrophils Percent Auto 57.6 % (45-73); Platelet Count 252 X10*3/uL (160-400); Red Blood Count 3.86 X10*6/uL (4.20-5.50); Red Cell Distribution Width 13.2 % (11.0-16.0); White Blood Count 8.8 X10*3/uL (4.8-10.8)
[2023-02-19 14:32] LABS: Prothrombin Time 12.2 SEC (11.1-13.3)
[2023-02-19 14:34] LABS: Partial Thromboplastin Time 29.7 SEC (26.0-36.4)
[2023-02-19 14:54] LABS: Alanine Aminotransferase 7 U/L (0-31); Alkaline Phosphatase 62 U/L (39-117); Anion Gap 10 (12-20); Aspartate Amino Transferase 13 U/L (5-31); Bilirubin Total 0.6 mg/dL (0.0-1.0); Blood Urea Nitrogen 14 mg/dL (9-16); Calcium 9.3 mg/dL (8.4-10.2); Carbon Dioxide 24 mmol/L (22-29); Chloride 110 mmol/L (96-108); Estimated Glomerular Filt Rate > 60; Glucose Random 85 mg/dL (60-115); Potassium 4.2 mmol/L (3.3-5.1); Sodium 140 mmol/L (135-145); Total Protein 7.6 g/dL (6.5-8.0)
== END 2023-02-19 12:59 | disposition home or self-care (01) ==
LOC: HO.LAB 12:58
PROVIDERS: PCP Internal Medicine; Visit Provider Surgery
DX: K76.0 Fatty (change of) liver, not elsewhere classified (principal); R16.0 Hepatomegaly, not elsewhere classified; R79.1 Abnormal coagulation profile; I87.2 Venous insufficiency (chronic) (peripheral); I10 Essential (primary) hypertension; G47.33 Obstructive sleep apnea (adult) (pediatric); B20 Human immunodeficiency virus [HIV] disease; K21.9 Gastro-esophageal reflux disease without esophagitis; E66.01 Morbid (severe) obesity due to excess calories; Z68.43 Body mass index [BMI] 50.0-59.9, adult
CPT/HCPCS: 36415; 80053; 85025; 85610; 85730

== ENCOUNTER 2023-02-28 16:12 | Outpatient (AMB) | payer OTHER, SELFPAY ==
[2023-02-28 16:15] VITALS: BP 170/98; PULSE 70; BMI 51.4
--- NOTE | 2023-02-28 16:15 | A.OFFPC_ITS ---
Vital Signs 02/28/23 16:15 Height 5 ft 5 in Weight 309 lb BMI 51.4 BP 170/98 H Blood Pressure Location Lt brachial Position Sitting Pulse 70 Pulse Source Auscultation Intake Visit Reasons: bp Intake Note: Patient here for a follow up BP Test Tech Required: No Accompanied by: Self / Same As Patient Allergies doxycycline Allergy (Intermediate, Verified 02/28/23 16:26) Rash Medication List - Last Reconciled 02/28/23 by Maria Luisa Perez MD blood pressure kit-extra large As directed calcium carbonate 600 mg PO BID 90 days cholecalciferol (vitamin D3) 50 mcg PO DAILY 90 days cyanocobalamin (vitamin B-12) 250 mcg PO DAILY furosemide 20 mg PO DAILY 30 days hydroxyzine HCl 25 mg PO BID PRN iron,carbonyl-vitamin C 65 mg iron- 125 mg (Vitron-C) 1 tab PO BEDTIME lisinopril 20 mg PO DAILY 90 days pantoprazole 40 mg PO DAILY thiamine HCl (vitamin B1) 100 mg PO DAILY triamcinolone acetonide 0.5% 1 appl topical BID 2 weeks vitamin A palmitate 20,000 units PO DAILY Tobacco use date assessed: 12/26/22 Dental Screening Dental Screen Date: 02/28/23 Did you have a dental visit in the last 12 months?: No Did you have a dental problem in the last 6 months where you did not have access to dental care?: No Was dental information given to patient?: Patient has dentist HPI HPI Comments History of Present Illness Details This is a 58-year-old female with hypertension, GERD, osteopenia, super super obese that complains of urinary urgency that has been present for about a week. Last urinalysis had nitrite positive but was on antibiotics. She cannot be today and I will restart her on neutral for entering. Walks with a cane for gait stability due to bilateral leg weakness. Blood pressure elevated today and will be recheck in 3 weeks by nurse navigator. GERD stable with PPIs. Has osteopenia and is on calcium with vitamin-D. Has a BMI of 51.4 and declines weight loss surgery but was advised to diet and exercise as tolerated. [facility] Medical History (Updated 02/28/23 @ 16:37 by Maria Luisa Perez MD) Obstructive sleep apnea Essential hypertension Morbid exogenous obesity Physical exam Morbid obesity GERD with apnea Depression Family history of high cholesterol UTI (urinary tract infection) Surgical History History of esophagogastroduodenoscopy (EGD) Hx of colonoscopy History of bladder suspension procedure History of appendectomy Family History Mother Pulmonary edema Father Diabetes HTN (hypertension) Heart disease Social History Household Members: Spouse Housing: Apartment Do you presently have visiting nurse or other home services: No Alcohol intake: never Patient Tobacco Use Status: Never used Tobacco e-Cigarette/Vaping Use: Never Used Second Hand Smoke Exposure: No service: No Current occupational status: employed 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 Agus Herbert, Mera Loving, Vernon Carmona and colleagues, with an educational santino from [employer]. Review of Systems Const All systems reviewed & are unremarkable except as noted in HPI and below Eyes Reports no additional complaints, Denies change in vision and Denies other visual disturbances Card Denies chest pain at rest, Denies chest pain with activity, Denies edema, Denies irregular heart rhythm, Denies claudication, Denies dyspnea, Denies dyspnea on exertion, Denies orthopnea, Denies paroxysmal nocturnal dyspnea and Denies slow heart rate Resp Denies cough, Denies dyspnea and Denies dyspnea on exertion GI Denies abdominal pain, Denies change in bowel habits, Denies excessive flatus, Denies nausea and Denies vomiting Denies urinary incontinence, Denies urinary hesitancy and Reports urinary urgency Musc Denies abnormal gait, Denies atrophy, Denies deformity and Denies limited range of motion Skin/Breast Denies bleeding lesions, Denies changing lesions and Denies rash Neuro Denies abnormal gait and Denies lack of coordination Physical exam (Primary Care) Vital Signs: Last Vital Signs BP 170/98 H 02/28/23 16:15 BMI result Body Mass Index 51.4 Tobacco/Smoking Status: Tobacco use Status Tobacco use date assessed 12/26/22 02/28/23 16:18 Patient Tobacco Use Status Never used Tobacco 02/28/23 16:18 Tobacco use type 05/30/22 08:59 e-Cigarette/Vaping Use Never Used 02/28/23 16:18 Thrive Assessment: Date of Thrive Assessment Date Thrive assessed 05/30/22 02/28/23 16:18 Const Limitations: ambulation with cane Eyes General: appearance normal, both eyes and all related structures Eyelids: Yes eyelids normal Conjunctivae: conjunctivae normal Neck Neck: Yes normal visual inspection and Yes supple Resp Effort & Inspection: normal respiratory effort Auscultation: clear to auscultation bilaterally Cardio Jugular venous distension: no JVD Rate: regular rate Rhythm: regular rhythm Heart sounds: S1 normal heart sound present and S2 normal heart sound present Extrem General: Yes full ROM Office Procedures Flu Questionnaire Does the patient have a severe egg allergy?: No Immunizations flu vacc [id number] 6mos up(PF) 60 mcg(15 mcgx4)/0.5 mL IM syringe Performing Provider: Maria Luisa Perez MD [facility] Documented (not given) by: CHLOE Dee on 02/28/23 16:28 Reason Not Given: Patient Refused Assessment and Plan Assessment & Plan (1) UTI (urinary tract infection): Code(s): N39.0 - Urinary tract infection, site not specified Plan: Restart nitrofurantoin. (2) Essential hypertension: Code(s): I10 - Essential (primary) hypertension Plan: Continue lisinopril. Recheck blood pressure with nurse navigator in 3 weeks. Blood pressure goal is equal or less than 130/80. (3) Super-super obese: Code(s): E66.01 - Morbid (severe) obesity due to excess calories Plan: Start diet and exercise. BMI goal is less than 30. Declines weight loss surgery. (4) Osteopenia: Code(s): M85.80 - Other specified disorders of bone density and structure, unspecified site Plan: Continue calcium with vitamin-D. (5) Chronic GERD: Code(s): K21.9 - Gastro-esophageal reflux disease without esophagitis Plan: Continue PPIs as needed. Orders: Orders Influenza [id number] Immunization Today Z23 - Encounter for immunization Medications: New nitrofurantoin macrocrystal must administer with a meal/food 100 mg PO BID 7 days 14 caps 0RF Coding Level of Care Code Est Pt Level 4 (66572) Diagnoses Urinary tract infection without hematuria, site unspecified N39.0 Essential hypertension I10 Super-super obese E66.01 Osteopenia M85.80 Chronic GERD K21.9 Time Spent (min) 23
== END 2023-02-28 16:32 | disposition home or self-care (01) ==
PROVIDERS: PCP Internal Medicine; Visit Provider Internal Medicine
DX: N39.0 Urinary tract infection, site not specified (principal); I10 Essential (primary) hypertension; E66.01 Morbid (severe) obesity due to excess calories; Z68.43 Body mass index [BMI] 50.0-59.9, adult; M85.80 Other specified disorders of bone density and structure, unspecified site; K21.9 Gastro-esophageal reflux disease without esophagitis
CPT/HCPCS: 99214

== ENCOUNTER 2023-03-19 13:40 | Outpatient (REF) | payer OTHER, SELFPAY ==
--- NOTE | ~2023-03-19 | US_ITS ---
EXAMINATION: BILATERAL LOWER EXTREMITY DUPLEX. CLINICAL INFORMATION: Peripheral vascular disease COMPARISON: None TECHNIQUE: Duplex Doppler techniques with wave form analysis and measurement of velocities in the common femoral, profunda femoral, superficial femoral, popliteal, tibial and peroneal arteries was performed at rest. FINDINGS: RIGHT LEG: DIRECT DUPLEX: Common femoral artery: 178 cm/s, Multiphasic Profunda femoris artery: 136 cm/s, Multiphasic Superficial femoral artery (proximal): 110 cm/s, Multiphasic Superficial femoral artery (mid): 122 cm/s, Multiphasic Superficial femoral artery (distal): 1:15 cm/s, Multiphasic Popliteal artery: 73 cm/s, Multiphasic Posterior tibial artery: 134 cm/s, biphasic LEFT LEG: DIRECT DUPLEX: Common femoral artery: 167 cm/s, Multiphasic Profunda femoris artery: 104 cm/s, biphasic Superficial femoral artery (proximal): 150 cm/s, biphasic Superficial femoral artery (mid): 148 cm/s, multiphasic Superficial femoral artery (distal): 140 cm/s, multiphasic Popliteal artery: 95 cm/s, multiphasic Posterior tibial artery: 133 cm/s, biphasic US/US arterial duplex LE BI IMPRESSION: 1. Mild left lower extremity peripheral vascular disease near the distal SFA, where there is a prominent intramuscular collateral. 2. No significant peripheral vascular disease of the right lower extremity.
== END 2023-03-19 13:41 | disposition home or self-care (01) ==
LOC: HO.US 13:40
PROVIDERS: Visit Provider Internal Medicine
DX: I87.2 Venous insufficiency (chronic) (peripheral) (principal); I73.9 Peripheral vascular disease, unspecified
CPT/HCPCS: 93925

== ENCOUNTER 2023-03-27 09:23 | Outpatient (REF) | payer OTHER, SELFPAY | END 2023-03-27 09:24 | disposition home or self-care (01) | LOC: HO.US 09:23 | PROVIDERS: Visit Provider Surgery | DX: Z13.89 Encounter for screening for other disorder (principal) ==

== ENCOUNTER 2023-04-04 15:25 | Outpatient (AMB) | payer OTHER, SELFPAY ==
--- NOTE | 2023-04-04 15:26 | A.OFFVIS_ITS ---
Intake VS Expanded 04/04/23 15:36 BP 148/67 H Blood Pressure Location Rt brachial Blood Pressure Position Sitting Pulse 69 Pulse Source Pulse Oximeter Temp 97.5 F Temperature Source Tympanic Pulse Oximetry 97 Oxygen Delivery Method Room Air Height 5 ft 5 in Weight 309 lb 12.8 oz BMI 51.5 Body Fat % 46.5 Body Fat Mass 144.0 Fat Free Mass 165.8 Visceral Fat Rating 19.0 Body Water % 38.1 Body Water Mass 118.0 Muscle Mass/Score 157.4 Basal Metabolic Rate/Score 2,355 Intake Visit Reasons: (OV) F/U SWL Plaster Applicator Required: Yes Plaster Applicator Name: Temitope Information Interpreted: clinical only Blood Bank Calendar Control Clerk: Blood Bank Calendar Control Clerk Present Allergies doxycycline Allergy (Intermediate, Verified 02/28/23 16:26) Rash Medication List - Last Reconciled 04/04/23 by Tommie Esteban MD, FACS, [facility] blood pressure kit-extra large As directed calcium carbonate 600 mg PO BID 90 days cholecalciferol (vitamin D3) 50 mcg PO DAILY 90 days cyanocobalamin (vitamin B-12) 250 mcg PO DAILY furosemide 20 mg PO DAILY 30 days hydroxyzine HCl 25 mg PO BID PRN iron,carbonyl-vitamin C 65 mg iron- 125 mg (Vitron-C) 1 tab PO BEDTIME lisinopril 20 mg PO DAILY 90 days pantoprazole 40 mg PO DAILY thiamine HCl (vitamin B1) 100 mg PO DAILY triamcinolone acetonide 0.5% 1 appl topical BID 2 weeks vitamin A palmitate 20,000 units PO DAILY HPI HPI Comments History of Present Illness Details The patient is a 58-year-old R[place]andan-speaking woman with a lifelong struggle with obesity who entered the surgical weight loss program 06/29/2022 with a weight of 338.4 lb/BMI 56.2. She has hypertension, lower extremity edema with venous insufficiency and obstructive sleep apnea. She has had issues with urinary incontinence all related to her obesity. She is seen in discussion of surgical weight loss options given her commitment to healthy lifestyle choices/changes and is congratulated on losing weight to today's weight of 309.80 lb/BMI 51.5. The patient notes that she return to [place] for the past week and was off of her meal plan. Patient reports a prior abdominal operation for an umbilical hernia but is not sure whether not mesh was used. She reports either an appendectomy or cholecystectomy and notes a bladder sling. Patient denies any personal or family history of deep vein thrombosis. She notes that her GERD has markedly improved with weight loss and has lost 28 lbs since entering the SWL program 06/29/22 at a weight of 338.4 lbs. Exercise - leg is much better now and she can exercise. PE videos for up to 60 minutes 4 d/week. LS 2 miles videos 3 d/week. JULIA 0 GERD 25 ESS 9 QOL 125 Meal plan - 9am - 2 eggs hb. Sometimes coffee, 1% mi lk 12 pm - Premier shake (using powder & pr emade) 4pm - 6 forks broccoli/carrots and mostl y 8 forks chicken in air fryer, not measuring. An apple 8pm - Premier shake (powdered & premade) or yogurt Pre op work up completed as follows: SWL classes - 01/02 BH appts? - Tanja appt 08/14, saw Sona on 09/08 and was cleared[address] RD appts - follow up on 08/28, cleared H pylori - negative Labs -done CXR and ECG - both normal ULS -slightly enlarged liver & shear elevated at 2.7, L 18cm/R 12cm UGI - normal study PFSH Medical History Obstructive sleep apnea Essential hypertension Morbid exogenous obesity Physical exam Morbid obesity GERD with apnea Depression Family history of high cholesterol UTI (urinary tract infection) Surgical History History of esophagogastroduodenoscopy (EGD) Hx of colonoscopy History of bladder suspension procedure History of appendectomy Family History Mother Pulmonary edema Father Diabetes HTN (hypertension) Heart disease Social History Household Members: Spouse Housing: Apartment Do you presently have visiting nurse or other home services: No Alcohol intake: never Patient Tobacco Use Status: Never used Tobacco e-Cigarette/Vaping Use: Never Used Second Hand Smoke Exposure: No service: No Current occupational status: employed 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 Sexual orientation: Straight/Heterosexual Gender identity: Female Cognitive needs: No Hearing needs: No Vision needs: Yes (glasses) Review of Systems Const All systems reviewed & are unremarkable except as noted in HPI and below Reports as per HPI Physical Exam On exam, the patient is anicteric and nontoxic She is having no respiratory difficulty Abdomen is obese Bilateral lower extremities had gaiter distribution dry skin but no ulcerations are present Results Reviewed Results Reviewed: Diagnostic imaging 09/12/22 CXR NAD Venous duplex imaging 12/09/2022 show no evidence of DVT 08/23/22 UGI No HH 08/23/22 Abd U/S liver elastography: stiff liver/fibrosis with shear of 2.3; NAFLD, hepatomegaly Labs 02/19/23 Hb 11.9, wbc 8.8, Plts 252K BUN 14, Cr 0.75 Labs 12/14/22 INR is elevated at 1.3 Hemoglobin 12.3 with normal indices, white blood cell count 9.8, platelet count 224 K BUN 22, Cr 0.77, lytes WNL LFTs WNL Vit D low (replaced) Assessment & Plan Assessment & Plan (1) BMI 50.0-59.9, adult: Code(s): Z68.43 - Body mass index [BMI] 50.0-59.9, adult (2) Hepatomegaly: Code(s): R16.0 - Hepatomegaly, not elsewhere classified (3) NAFLD (nonalcoholic fatty liver disease): Code(s): K76.0 - Fatty (change of) liver, not elsewhere classified (4) Chronic GERD: Code(s): K21.9 - Gastro-esophageal reflux disease without esophagitis (5) Obstructive sleep apnea: Code(s): G47.33 - Obstructive sleep apnea (adult) (pediatric) (6) Elevated protime: Code(s): R79.1 - Abnormal coagulation profile (7) Stasis dermatitis of both legs: Code(s): I87.2 - Venous insufficiency (chronic) (peripheral) (8) Essential hypertension: Code(s): I10 - Essential (primary) hypertension (9) Venous insufficiency: Code(s): I87.2 - Venous insufficiency (chronic) (peripheral) (10) LOBITO (generalized anxiety disorder): Code(s): F41.1 - Generalized anxiety disorder Plan The importance of diet and increased activity to augment surgical weight loss was reviewed and apparently understood. Patient notes she has resumed her meal plan affective yesterday and will follow-up with me in the beginning of April after a repeat abdominal ultrasound to assess her hepatomegaly and hepatic fibrosis is performed. Patient is in agreement for cancellation regarding abdominal ultrasound. No changes are made to her meal plan and she will continue to work on seated exercises. Quality Reporting (2019) Adult ([facility] 13807/19/68) Smoking risk assessment performed?: Yes Patient Tobacco Use Status: Never used Tobacco Coding Level of Care Code Est Pt Level 4 (98230) Diagnoses BMI 50.0-59.9, adult Z68.43 Hepatomegaly R16.0 NAFLD (nonalcoholic fatty liver disease) K76.0 Chronic GERD K21.9 Obstructive sleep apnea G47.33 Elevated protime R79.1 Stasis dermatitis of both legs I87.2 Essential hypertension I10 Venous insufficiency I87.2 LOBITO (generalized anxiety disorder) F41.1
[2023-04-04 15:36] VITALS: BP 148/67; PULSE 69; TEMP 36.4; O2SAT 97; BMI 51.5
== END 2023-04-04 15:54 | disposition home or self-care (01) ==
PROVIDERS: PCP Internal Medicine; Visit Provider Surgery
DX: E66.01 Morbid (severe) obesity due to excess calories (principal); Z68.43 Body mass index [BMI] 50.0-59.9, adult; R16.0 Hepatomegaly, not elsewhere classified; K76.0 Fatty (change of) liver, not elsewhere classified; K21.9 Gastro-esophageal reflux disease without esophagitis; G47.33 Obstructive sleep apnea (adult) (pediatric); R79.1 Abnormal coagulation profile; I87.2 Venous insufficiency (chronic) (peripheral); I10 Essential (primary) hypertension; F41.1 Generalized anxiety disorder
CPT/HCPCS: 99213

== ENCOUNTER → 2023-04-04 15:25 | Outpatient (BNVA) | payer OTHER, SELFPAY | PROVIDERS: PCP Internal Medicine; Visit Provider Surgery ==

== ENCOUNTER 2023-04-26 10:09 | Outpatient (REF) | payer OTHER, SELFPAY ==
--- NOTE | ~2023-04-26 | US_ITS ---
EXAMINATION: US COMPLETE ABDOMEN WITH LIVER ELASTOGRAPHY CLINICAL INFORMATION: Fatty change of liver. COMPARISON: Ultrasound abdomen 08/23/2022. TECHNIQUE: Real-time imaging of the abdominal viscera. Noninvasive ultrasound liver fibrosis assessment is performed using Kg ElastPQ point quantification shear wave elastography (2D-SWE) with a C5-2 MHz transducer. Multiple elastography samples are obtained. FINDINGS: PANCREAS: . The visualized pancreatic head and body are normal in appearance. The remainder of the pancreas is obscured from visualization by the overlying bowel gas. ABDOMINAL AORTA: The proximal, middle, and distal aortic segments are normal in caliber. INFERIOR VENA CAVA: Visualized portions are normal. LIVER: The liver demonstrates normal size and contour but demonstrates increased echogenicity consistent with hepatic steatosis. No focal lesion or intrahepatic biliary duct dilatation. The right lobe measures 17.3 cm in length. The left lobe measures 10.1 cm in length. Portal flow is towards the liver (hepatopetal). Shear wave liver elastography median stiffness is 2.6 m/s (reference: normal median stiffness is 1.3 m/s or less). IQR/median stiffness to assess sampling precision is 0.16 (reference: good quality data set is IQR/median stiffness of 0.15 or less). GALLBLADDER: Normal. The gallbladder is physiologically distended without evidence of stones, sludge, polyps, wall thickening or pericholecystic fluid. COMMON BILE DUCT: Normal in caliber measuring 0.3 cm in diameter. RIGHT KIDNEY: Normal. No hydronephrosis. No renal calculi or focal parenchymal lesions. The kidney measures 11.3 cm in maximum dimension. LEFT KIDNEY: Normal. No hydronephrosis. No renal calculi or focal parenchymal lesions. The kidney measures 10.1 cm in maximum dimension. SPLEEN: Normal. The spleen measures 8.6 cm in maximum dimension. FREE FLUID: None. US/US abdomen comp w elastography IMPRESSION: 1. Echogenic liver consistent with hepatic steatosis. 2. Liver elastography: Although measurements are suggestive of compensated advanced chronic liver disease, there is statistical variability of the sampling which decreases accuracy. 3. Liver stiffness measurement is without significant change from prior exam (change under 10%) although sampling on the current study was not adequate. REFERENCE: Society of Radiologists in Ultrasound Liver Stiffness Thresholds (2020): LIVER STIFFNESS THRESHOLDS: *Liver Stiffness equal or less than 1.3 m/s: High probability of being normal. *Liver Stiffness less than 1.7 m/s: In the absence of other known clinical signs, rules out compensated advanced chronic liver disease. *Liver Stiffness 1.7-2.1 m/s: Suggestive of compensated advanced chronic liver disease but need further test for confirmation. *Liver Stiffness over 2.1 m/s: Rules in compensated advanced chronic liver disease. *Liver Stiffness over 2.4 m/s: Suggestive of clinically significant portal hypertension. QUALITY OF DATA SET: *IQR/Median value equal or less than 0.15 implies a quality data set. *IQR/Median value over 0.15 implies a poor quality data set. SIGNIFICANT CHANGE FROM PRIOR EXAM: Significant change if liver stiffness measurement is 10% or greater from prior exam. OTHER CONSIDERATIONS: The stage of liver fibrosis may be overestimated in the setting of acute hepatitis, liver inflammation, elevated liver function tests, hepatic vascular congestion, obstructive cholestasis, non-fasting state, and infiltrative diseases such as amyloidosis and lymphoma. In some patients with NAFLD, the liver stiffness thresholds for compensated advanced chronic liver disease may be lower. In causes other than viral hepatitis and NAFLD, liver stiffness thresholds are not well established.
== END 2023-04-26 10:10 | disposition home or self-care (01) ==
LOC: HO.US 10:09
PROVIDERS: PCP Internal Medicine; Visit Provider Surgery
DX: K76.0 Fatty (change of) liver, not elsewhere classified (principal); R16.0 Hepatomegaly, not elsewhere classified; R79.1 Abnormal coagulation profile; I87.2 Venous insufficiency (chronic) (peripheral); I10 Essential (primary) hypertension
CPT/HCPCS: 76705; 76981

== ENCOUNTER 2023-04-30 14:41 | Outpatient (AMB) | payer OTHER, SELFPAY ==
--- NOTE | 2023-04-30 14:43 | MHC.OFFVISWM ---
Intake VS Expanded 04/30/23 14:51 BP 146/65 H Blood Pressure Location Rt brachial Blood Pressure Position Sitting Pulse 80 Pulse Source Pulse Oximeter Temp 97.3 F Temperature Source Tympanic Pulse Oximetry 96 Oxygen Delivery Method Room Air Height 5 ft 5 in Weight 309 lb 3.2 oz BMI 51.4 Body Fat % 47.8 Body Fat Mass 147.8 Fat Free Mass 161.4 Visceral Fat Rating 19.0 Body Water % 37.1 Body Water Mass 114.6 Muscle Mass/Score 153.2 Basal Metabolic Rate/Score 2,300 Intake Visit Reasons: (OV) F/U SWL Electric Motor Mechanic Required: Yes Electric Motor Mechanic Name: Olga Respiratory Therapist Assistant: Respiratory Therapist Assistant Present Allergies doxycycline Allergy (Intermediate, Verified 02/28/23 16:26) Rash Medication List - Last Reconciled 04/30/23 by Tommie Esteban MD, FACS, [facility] blood pressure kit-extra large As directed calcium carbonate 600 mg PO BID 90 days cholecalciferol (vitamin D3) 50 mcg PO DAILY 90 days cyanocobalamin (vitamin B-12) 250 mcg PO DAILY furosemide 20 mg PO DAILY 30 days hydroxyzine HCl 25 mg PO BID PRN iron,carbonyl-vitamin C 65 mg iron- 125 mg (Vitron-C) 1 tab PO BEDTIME lisinopril 20 mg PO DAILY 90 days pantoprazole 40 mg PO DAILY thiamine HCl (vitamin B1) 100 mg PO DAILY triamcinolone acetonide 0.5% 1 appl topical BID 2 weeks vitamin A palmitate 20,000 units PO DAILY HPI HPI Comments History of Present Illness Details The patient is a 58-year-old Ukrainian-speaking woman with a lifelong struggle with obesity who entered the surgical weight loss program 06/29/2022 with a weight of 338.4 lb/BMI 56.2. She has hypertension, lower extremity edema with venous insufficiency and obstructive sleep apnea. She has had issues with urinary incontinence all related to her obesity. She is seen in discussion of surgical weight loss options given her commitment to healthy lifestyle choices/changes and is congratulated on losing weight to today's weight of 309.2 lb/BMI 51.4. She notes that she is doing seated exercises slightly less and believes this is why her weight is unchanged since last visit. Patient reports a prior abdominal operation for an umbilical hernia but is not sure whether not mesh was used. She reports either an appendectomy or cholecystectomy and notes a bladder sling. Patient denies any personal or family history of deep vein thrombosis. She notes that her GERD has markedly improved with weight loss and has lost 28 lbs since entering the SWL program 06/29/22 at a weight of 338.4 lbs. Exercise - leg is much better now and she can exercise. PE videos for up to 60 minutes 4 d/week. LS 2 miles videos 3 d/week. JULIA 0 GERD 25 ESS 9 QOL 125 Meal plan - 9am - 2 eggs hb. Sometimes coffee, 1% milk 12 pm - Premier shake (using powder & premade) 4pm - 6 forks broccoli/carrots and mostly 8 forks chicken in air fryer, not measuring. An apple 8pm - Premier shake (powdered & premade) or yogurt Pre op work up completed as follows: SWL classes - 01/02 BH appts? - Tanja appt 08/14, saw Sona on 09/08 and was cleared[address] RD appts - follow up on 08/28, cleared H pylori - negative Labs -done CXR and ECG - both normal ULS -slightly enlarged liver & shear elevated at 2.7, L 18cm/R 12cm UGI - normal study PFSH Medical History Obstructive sleep apnea Essential hypertension Morbid exogenous obesity Physical exam Morbid obesity GERD with apnea Depression Family history of high cholesterol UTI (urinary tract infection) Surgical History History of esophagogastroduodenoscopy (EGD) Hx of colonoscopy History of bladder suspension procedure History of appendectomy Family History Mother Pulmonary edema Father Diabetes HTN (hypertension) Heart disease Social History Household Members: Spouse Housing: Apartment Do you presently have visiting nurse or other home services: No Alcohol intake: never Patient Tobacco Use Status: Never used Tobacco e-Cigarette/Vaping Use: Never Used Second Hand Smoke Exposure: No service: No Current occupational status: employed 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 Sexual orientation: Straight/Heterosexual Gender identity: Female Cognitive needs: No Hearing needs: No Vision needs: Yes (glasses) Review of Systems Const All systems reviewed & are unremarkable except as noted in HPI and below Reports as per HPI Physical Exam Vital Signs: Last Vital Signs Temp 97.3 F 04/30/23 14:51 Pulse 80 04/30/23 14:51 BP 146/65 H 04/30/23 14:51 Pulse Ox 96 04/30/23 14:51 Oxygen Delivery Method Room Air 04/30/23 14:51 BMI result Body Mass Index 51.4 On exam, the patient is anicteric and nontoxic She is having no respiratory difficulty Abdomen is obese Bilateral lower extremities had gaiter distribution dry skin but no ulcerations are present Results Reviewed Results Reviewed: Diagnostic imaging 09/12/22 CXR NAD Venous duplex imaging 12/09/2022 show no evidence of DVT 08/23/22 UGI No HH 08/23/22 Abd U/S liver elastography: stiff liver/fibrosis with shear of 2.3; NAFLD, hepatomegaly 04/26/23 repeat elastography, NAFLD, left lobe 10.1cm, right 17.3; shear wave unchanged at 2.3 Labs 02/19/23 Hb 11.9, wbc 8.8, Plts 252K BUN 14, Cr 0.75 Labs 12/14/22 INR is elevated at 1.3 Hemoglobin 12.3 with normal indices, white blood cell count 9.8, platelet count 224 K BUN 22, Cr 0.77, lytes WNL LFTs WNL Vit D low (replaced) Assessment & Plan Assessment & Plan (1) BMI 50.0-59.9, adult: Code(s): Z68.43 - Body mass index [BMI] 50.0-59.9, adult (2) PVD (peripheral vascular disease): Code(s): I73.9 - Peripheral vascular disease, unspecified (3) Chronic GERD: Code(s): K21.9 - Gastro-esophageal reflux disease without esophagitis (4) NAFLD (nonalcoholic fatty liver disease): Code(s): K76.0 - Fatty (change of) liver, not elsewhere classified (5) Hepatomegaly: Code(s): R16.0 - Hepatomegaly, not elsewhere classified (6) Obstructive sleep apnea: Code(s): G47.33 - Obstructive sleep apnea (adult) (pediatric) (7) Peripheral arterial disease: Code(s): I73.9 - Peripheral vascular disease, unspecified (8) Stasis dermatitis of both legs: Code(s): I87.2 - Venous insufficiency (chronic) (peripheral) (9) Essential hypertension: Code(s): I10 - Essential (primary) hypertension (10) Venous insufficiency: Code(s): I87.2 - Venous insufficiency (chronic) (peripheral) Plan No changes are made to the meal plan. The importance of working towards increasing her activity was reviewed and apparently understood. Will discuss follow-up and plan in my absence with Radha Vasquez and Dr. Lino Quality Reporting (2019) Adult ([facility] 138/07/19/68) Smoking risk assessment performed?: Yes Patient Tobacco Use Status: Never used Tobacco Coding Level of Care Code Est Pt Level 4 (69794) Diagnoses BMI 50.0-59.9, adult Z68.43 PVD (peripheral vascular disease) I73.9 Chronic GERD K21.9 NAFLD (nonalcoholic fatty liver disease) K76.0 Hepatomegaly R16.0 Obstructive sleep apnea G47.33 Peripheral arterial disease I73.9 Stasis dermatitis of both legs I87.2 Essential hypertension I10 Venous insufficiency I87.2
[2023-04-30 14:51] VITALS: BP 146/65; PULSE 80; TEMP 36.3; O2SAT 96; BMI 51.4
== END 2023-04-30 15:11 | disposition home or self-care (01) ==
PROVIDERS: PCP Internal Medicine; Visit Provider Surgery
DX: E66.01 Morbid (severe) obesity due to excess calories (principal); Z68.43 Body mass index [BMI] 50.0-59.9, adult; I73.9 Peripheral vascular disease, unspecified; K21.9 Gastro-esophageal reflux disease without esophagitis; K76.0 Fatty (change of) liver, not elsewhere classified; R16.0 Hepatomegaly, not elsewhere classified; G47.33 Obstructive sleep apnea (adult) (pediatric); I87.2 Venous insufficiency (chronic) (peripheral); I10 Essential (primary) hypertension
CPT/HCPCS: 99213

== ENCOUNTER → 2023-04-30 14:41 | Outpatient (BNVA) | payer OTHER, SELFPAY | PROVIDERS: PCP Internal Medicine; Visit Provider Surgery ==

== ENCOUNTER 2023-05-30 08:44 | Outpatient (AMB) | payer OTHER, SELFPAY ==
--- NOTE | 2023-05-30 08:47 | A.OFFPC_ITS ---
Vital Signs 05/30/23 08:48 Height 5 ft 5 in Weight 309 lb BMI 51.4 BP 136/82 Blood Pressure Location Lt brachial Position Sitting Intake Visit Reasons: PE Intake Note: Patient here for a physical exam Stock Worker Required: No Accompanied by: Self / Same As Patient Allergies doxycycline Allergy (Intermediate, Verified 05/30/23 09:07) Rash Medication List - Last Reconciled 05/30/23 by Maria Luisa Perez MD blood pressure kit-extra large As directed calcium carbonate 600 mg PO BID 90 days cholecalciferol (vitamin D3) 50 mcg PO DAILY 90 days cyanocobalamin (vitamin B-12) 250 mcg PO DAILY furosemide 20 mg PO DAILY 30 days hydroxyzine HCl 25 mg PO BID PRN iron,carbonyl-vitamin C 65 mg iron- 125 mg (Vitron-C) 1 tab PO BEDTIME lisinopril 20 mg PO DAILY 90 days pantoprazole 40 mg PO DAILY thiamine HCl (vitamin B1) 100 mg PO DAILY triamcinolone acetonide 0.5% 1 appl topical BID 2 weeks vitamin A palmitate 20,000 units PO DAILY Tobacco use date assessed: 05/30/23 Dental Screening Dental Screen Date: 05/30/23 Did you have a dental visit in the last 12 months?: No Did you have a dental problem in the last 6 months where you did not have access to dental care?: No Was dental information given to patient?: Patient has dentist HPI HPI Comments History of Present Illness Details This is a 58-year-old female with super super obesity and mild left peripheral vascular disease that comes for her physical exam. She has a BMI of 51.4 and is enroll in weight management. Her peripheral vascular disease has markedly improved and this was evaluated by vascular surgery. Last mammogram was August 2022 and was normal. Last Pap smear was 2022 and was normal. Last colonoscopy was 2017 and was normal. No chest pain or shortness of breath. Complains of some dysuria that started few days ago. [facility] Medical History Obstructive sleep apnea Essential hypertension Morbid exogenous obesity Physical exam Morbid obesity GERD with apnea Depression Family history of high cholesterol UTI (urinary tract infection) Surgical History History of esophagogastroduodenoscopy (EGD) Hx of colonoscopy History of bladder suspension procedure History of appendectomy Family History Mother Pulmonary edema Father Diabetes HTN (hypertension) Heart disease Social History Household Members: Spouse Housing: Apartment Do you presently have visiting nurse or other home services: No Alcohol intake: never Patient Tobacco Use Status: Never used Tobacco e-Cigarette/Vaping Use: Never Used Second Hand Smoke Exposure: No service: No Current occupational status: employed 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 1. Little interest or pleasure in doing things: not at all 2. Feeling down, depressed, or hopeless: not at all 3. Trouble falling or staying asleep, or sleeping too much: not at all 4. Feeling tired or having little energy: not at all 5. Poor appetite or overeating: not at all 6. Feeling bad about yourself - or that you are a failure or have let yourself or your family down: not at all 7. Trouble concentrating on things, such as reading the newspaper or watching television: not at all 8. Moving or speaking so slowly that other people could have noticed. Or the opposite - being so fidgety or restless that you have been moving around a lot more than usual: not at all 9. Thoughts that you would be better off or of hurting yourself in some way: not at all Total score: 0 Depression Screening Interpretation: Negative Depression Screening Done: Yes 64094 - PHQ-9 Billing: Yes Source: Developed by Drs. Agus Herbert, Mera Loving, Vernon Carmona and colleagues, with an educational santino from [employer]. Thrive Questionnaire Date Thrive assessed: 05/30/23 I am a: Patient What is your living situation today?: I have a steady place to live Within the past 12 months, did the food you bought not last and you didn't have the money to get more?: Never true Within the past 12 months, did you worry whether your food would run out before you got money to buy more?: Never true Do you have trouble paying for medicines?: No Do you have trouble getting transportation to medical appointments?: No Do you have trouble paying your heating and electricity bill?: No Do you have trouble taking care of your child, family member or friend?: No Do you have trouble with day-to-day activities such as bathing, preparing meals, shopping, managing finances, etc.?: No Are you currently unemployed and looking for a job?: No Are you interested in more education?: No Please select the resources that you would like help with: None Currently or been in a relationship where the following occur: no concerns reported AUDIT C Alcohol Use Questionnaire (AUDIT-C) 1. How often do you have a drink containing alcohol?: Never Total Score: 0 Score Reviewed/Action Taken: No LOBITO-7 AMB Questionnaire LOBITO-7 Date LOBITO - 7 assessed: 05/30/23 Feeling nervous, anxious, or on edge: 1 = Several days Not being able to stop or control worryin = Not at all Worrying too much about different things: 0 = Not at all Trouble relaxin = Not at all Being so restless that it is hard to sit still: 0 = Not at all Becoming easily annoyed or irritable: 1 = Several days Feeling afraid as if something awful might happen: 0 = Not at all Total LOBITO-7 score (0-4 normal; 5-9 mild; 10-14 moderate; 15-21 severe): 2 Source: Developed by Drs. Agus Herbert, Mera Loving, Vernon Carmona and colleagues, with an educational santino from [employer]. LOBITO-7 Assessment Billing LOBITO-7 Assessment Tool: LOBITO-7 Assessment 90646 Review of Systems Const All systems reviewed & are unremarkable except as noted in HPI and below Eyes Reports no additional complaints, Denies change in vision and Denies other visual disturbances Card Denies chest pain at rest, Denies chest pain with activity, Denies edema, Denies irregular heart rhythm, Denies claudication, Denies dyspnea, Denies dyspnea on exertion, Denies orthopnea, Denies paroxysmal nocturnal dyspnea and Denies slow heart rate Resp Denies cough, Denies dyspnea and Denies dyspnea on exertion GI Denies abdominal pain, Denies change in bowel habits, Denies excessive flatus, Denies nausea and Denies vomiting Denies urinary incontinence, Denies urinary hesitancy and Denies urinary urgency Musc Denies abnormal gait, Denies atrophy, Denies deformity and Denies limited range of motion Skin/Breast Denies bleeding lesions, Denies changing lesions and Denies rash Neuro Denies abnormal gait, Denies behavioral changes, Denies confusion and Denies lack of coordination Psych Denies behavioral changes and Denies confusion Physical exam (Primary Care) Vital Signs: Last Vital Signs BP 136/82 05/30/23 08:48 BMI result Body Mass Index 51.4 Tobacco/Smoking Status: Tobacco use Status Tobacco use date assessed 05/30/23 05/30/23 08:54 Patient Tobacco Use Status Never used Tobacco 05/30/23 08:54 Tobacco use type 05/30/22 08:59 e-Cigarette/Vaping Use Never Used 05/30/23 08:54 PHQ-9: PHQ-9 Score PHQ-9: Total score 0 05/30/23 09:11 Depression Screening Interpretation: Negative Thrive Assessment: Date of Thrive Assessment Date Thrive assessed 05/30/23 05/30/23 08:54 Currently or been in a relationship where the following occur: no concerns repo rted Const General: No confusion Orientation/consciousness: patient oriented x3 and No confusion HENMT Head: Yes normal to inspection, Yes normocephalic and Yes atraumatic Ears: external ears normal Eyes General: appearance normal, both eyes and all related structures Eyelids: Yes eyelids normal Conjunctivae: conjunctivae normal Neck Neck: Yes normal visual inspection and Yes supple Resp Effort & Inspection: normal respiratory effort Auscultation: clear to auscultation bilaterally Cardio Jugular venous distension: no JVD Rate: regular rate Rhythm: regular rhythm Heart sounds: S1 normal heart sound present and S2 normal heart sound present GI Inspection: Yes normal to inspection Palpation (GI): Soft to palpation and nontender Auscultation: normal bowel sounds Skin Other: Hyperpigmented dry lower limbs Neuro General: patient oriented x3, no focal motor deficits and No confusion Extrem General: Yes full ROM Psych Appearance: grossly normal Assessment and Plan Assessment & Plan (1) Physical exam: Code(s): Z00.00 - Encounter for general adult medical examination without abnormal findings Plan: Repeat in a year. (2) Super-super obese: Code(s): E66.01 - Morbid (severe) obesity due to excess calories Plan: Continue weight management. (3) PVD (peripheral vascular disease): Code(s): I73.9 - Peripheral vascular disease, unspecified Plan: Follow-up with vascular surgery as needed. Orders: Orders Lipid Panel Today E66.01 - Morbid (severe) obesity due to excess calories, E78.5 - Hyperlipidemia, unspecified Comprehensive [place]. Panel Fast Today E66.01 - Morbid (severe) obesity due to excess calories Vitamin D 25-OH Total Today E55.9 - Vitamin D deficiency, unspecified IRON PROFILE Today D64.9 - Anemia, unspecified UA CC w/rflx Micro + Cult Today R30.0 - Dysuria Complete Blood Count Auto Diff Today D64.9 - Anemia, unspecified Vitamin B12 and Folate Today E53.8 - Deficiency of other specified B group vitamins Coding Level of Care Code Est Pt Prev Care 40-64y(99097) Diagnoses Physical exam Z00.00 Super-super obese E66.01 PVD (peripheral vascular disease) I73.9 Additional Codes LOBITO-7 Assessment Billing - LOBITO-7 Assessment Tool: LOBITO-7 Assessment 70468 ([id number]) Time Spent (min) 32
[2023-05-30 08:48] VITALS: BP 136/82; BMI 51.4
== END 2023-05-30 09:17 | disposition home or self-care (01) ==
PROVIDERS: Visit Provider Internal Medicine
DX: Z00.00 Encounter for general adult medical examination without abnormal findings (principal); I73.9 Peripheral vascular disease, unspecified; E66.01 Morbid (severe) obesity due to excess calories; Z68.43 Body mass index [BMI] 50.0-59.9, adult
CPT/HCPCS: 99396

== ENCOUNTER → 2023-06-01 09:14 | Outpatient (BNVA) | payer OTHER, SELFPAY | PROVIDERS: PCP Internal Medicine; Visit Provider Physician Assistant ==

== ENCOUNTER 2023-06-28 10:38 | Outpatient (AMB) | payer OTHER, SELFPAY ==
[2023-06-28 10:44] VITALS: BMI 50.2
--- NOTE | 2023-06-28 10:44 | A.OFFVIS_ITS ---
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 Has Hx of Right GSV Venaseal 01/09/2020. has been to the ED multiple times for cellulitis. Has bilateral LE color changes and swelling w/ skin peeling for many months. Left LE is worse than Right LE, has pain when standing or when her feet are dangling, its better when she elevates such as during the night time. 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 Back in 2019 she had undergone right great saphenous vein ablation. She reports that she has done well with the right side. She has now significant swelling on the left lower extremity. She has had periods of open ulceration and cellulitis that has been treated repeatedly. She now presents to us for follow-up. Of note she has used compression on occasion with minimal relief. She is unable to get those on as her legs have become more swollen. She now presents to us for follow-up. [facility] Medical History Obstructive sleep apnea Essential hypertension Morbid exogenous obesity Physical exam Morbid obesity GERD with apnea Depression Family history of high cholesterol UTI (urinary tract infection) Surgical History History of esophagogastroduodenoscopy (EGD) Hx of colonoscopy History of bladder suspension procedure History of appendectomy Family History Mother Pulmonary edema Father Diabetes HTN (hypertension) Heart disease Social History Household Members: Spouse Housing: Apartment Do you presently have visiting nurse or other home services: No Alcohol intake: never Patient Tobacco Use Status: Never used Tobacco e-Cigarette/Vaping Use: Never Used Second Hand Smoke Exposure: No service: No Current occupational status: employed 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 Sexual orientation: Straight/Heterosexual Gender identity: Female Cognitive needs: No Hearing needs: No Vision needs: Yes (glasses) Review of Systems Const Reports as per HPI ENT Reports no additional complaints Card Denies chest pain, Denies chest pain at rest and Denies chest pain with activity Resp Denies chest congestion and Denies cough GI Reports no additional complaints Musc Details: pain over varicosities, aching of lower extremities, swelling, cramping, heaviness and tiredness, itching Denies abnormal gait Skin/Breast Reports pruritus and Denies wounds Neuro Reports no additional complaints and Denies abnormal gait Psych Denies no additional complaints Physical Exam Vital Signs: BMI result Body Mass Index 50.2 Const General: cooperative, healthy appearing and comfortable Orientation/consciousness: oriented to person, oriented to place and oriented to time Neck Carotids: no bruits Chest Chest palpation & inspection: normal inspection of the chest and normal palpation of entire chest wall Resp Effort & Inspection: normal respiratory effort and able to speak in complete sentences Cardio Rate: regular rate Heart sounds: S1 normal heart sound present and S2 normal heart sound present Peripheral pulses: Peripheral pulses 2+ throughout GI Inspection: Yes normal to inspection Skin Other: +2 edema, large rope-like varicosities greater than 4 mm CEAP Classification C6 - open ulceration Ep - Etiology Primary As - superficial veins P - reflux General skin exam: dry skin Neuro General: oriented to person, oriented to place and oriented to time Extrem Right lower extremity: full ROM, normal capillary refill and edema Left lower extremity: full ROM, normal capillary refill and edema Psych Mental Status: mental status grossly normal Assessment & Plan Assessment & Plan (1) Varicose veins of right lower extremity with inflammation: Comment: 01/09/2020 - right great saphenous vein Cyanoacralate ablation Code(s): I83.11 - Varicose veins of right lower extremity with inflammation Plan: Repeat venous insufficiency testing (2) Varicose veins of left lower extremity with inflammation: Code(s): I83.12 - Varicose veins of left lower extremity with inflammation Plan: In short patient has known history of venous disease. I will repeat her venous insufficiency testing to elucidate any additional reflux noted and the status her right lower extremity treatment. We did discuss routine conservative measures including compression elevation and exercise. In addition weight loss may benefit her as well as she does have a BMI of 50. We will get repeat venous insufficiency testing and she will follow up with us. Thank you for allowing us to assist in her care. Orders: Orders US venous insuf bilat 1 Week I83.12 - Varicose veins of left lower extremity with inflammation Quality Reporting (2019) Adult ([facility] ) Smoking risk assessment performed?: Yes Patient Tobacco Use Status: Never used Tobacco Coding Level of Care Code New Pt Level 4 (64356) Diagnoses Varicose veins of right lower extremity with inflammation I83.11 Varicose veins of left lower extremity with inflammation I83.12
== END 2023-06-28 10:57 | disposition home or self-care (01) ==
PROVIDERS: PCP Internal Medicine; Visit Provider Surgery Vascular Surgery
DX: I83.11 Varicose veins of right lower extremity with inflammation (principal); I83.12 Varicose veins of left lower extremity with inflammation
CPT/HCPCS: 99203

== ENCOUNTER → 2023-06-28 10:38 | Outpatient (BNVA) | payer OTHER, SELFPAY | PROVIDERS: PCP Internal Medicine; Visit Provider Surgery Vascular Surgery ==

== ENCOUNTER 2023-06-29 11:00 | Outpatient (AMB) | payer OTHER, SELFPAY ==
--- NOTE | 2023-06-29 11:01 | A.OFFVIS_ITS ---
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 Last s een by me in [place] - has had fol low up with Dr Mati lópez. She does not h ave her weight tod ay. Exercise - H as stationary bike but is not home f or last 2 weeks an d not doing anythi ng. Usually does 3 0 -60 minutes. unk nown calroies burn ed. LS 2 miles vid eos 3 d/week. Sosa l plan - wakes at 7am 8am - 2 eggs a nd coffee with 1% milk 3pm- shake - not sure which one 6pm - chicken raymon ast, salad and veg etable - not measu red well 9pm- bar or yogurt. Pre op work up completed as follows: SWL c lasses - 01/02 BH ap pts? - Tanja appt , saw Sona on 09/08 and was clear ed.? RD appts - fo llow up on 08/28, cl eared H pylori - n egative Labs -done CXR and ECG - bot h normal ULS -slig htly enlarged live r UGI - normal beny dy PFSH Medical History Obstructive sleep apnea Essential hypertension Morbid exogenous obesity Physical exam Morbid obesity GERD with apnea Depression Family history of high cholesterol UTI (urinary tract infection) Surgical History History of esophagogastroduodenoscopy (EGD) Hx of colonoscopy History of bladder suspension procedure History of appendectomy Family History Mother Pulmonary edema Father Diabetes HTN (hypertension) Heart disease Social History Household Members: Spouse Housing: Apartment Do you presently have visiting nurse or other home services: No Alcohol intake: never Patient Tobacco Use Status: Never used Tobacco e-Cigarette/Vaping Use: Never Used Second Hand Smoke Exposure: No service: No Current occupational status: employed 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 Also her rosalindbnad is in the midst of a mental health crisis presently. She understand she still must make lifestyle changes. meal plan changes: 9am - premeir shake - powder with water or UAM 12 pm- shake 3-4 pm - Premeir bar 7pm - 12 forks protein and vegetable Exercise - must do LS 2 miles or bike for 300 calories daily Will text me on 2/5 with her weight and exercise progress. MUST communicate with me weekly with her weights. Will have appt with Dr Edwards when ready. Next appt with me in 2 weeks. Patient is still morbidly obese and is not considered stable at this time. I spent 25 minutes in total speaking with the patient via video conference counseling , reviewing records and charting in patients chart. . Quality Reporting (2019) Adult ([facility] 138/07/19/68) Smoking risk assessment performed?: Yes Patient Tobacco Use Status: Never used Tobacco Telehealth Telehealth Location of provider rendering services: practice address Location of patient: address on file Patient Identification confirmed using: Name, : Yes Telehealth method: video Patient verbally consented to treatment: Yes Patient verbally consented to billing insurance company: Yes Patient informed of any privacy concerns related to visit: Yes Coding Level of Care Code Tele Est Pt Level 4 (63949) Diagnoses Morbid obesity E66.01
== END 2023-06-29 11:21 | disposition home or self-care (01) ==
LOC: HO.HBS 11:12
PROVIDERS: PCP Internal Medicine; Visit Provider Physician Assistant
DX: E66.01 Morbid (severe) obesity due to excess calories (principal)
CPT/HCPCS: 99214

== ENCOUNTER → 2023-06-29 11:00 | Outpatient (BNVA) | payer OTHER, SELFPAY | PROVIDERS: PCP Internal Medicine; Visit Provider Physician Assistant ==

== ENCOUNTER 2023-07-19 13:01 | Outpatient (REF) | payer OTHER, SELFPAY ==
--- NOTE | ~2023-07-19 | US_ITS ---
EXAMINATION: US LOWER EXTREMITY VENOUS (REFLUX EXAM), BILATERAL CLINICAL INFORMATION: Varicose veins of left lower extremity with inflammation COMPARISON: Venous duplex December 09, 2022 TECHNIQUE: Color flow triplex imaging and compression Doppler was performed to evaluate both the deep and the superficial systems bilaterally. To evaluate the superficial system, the examination was performed in the upright position. Color-flow Doppler ultrasound and compression ultrasound were utilized. In addition, maneuvers were utilized to demonstrate reflux. FINDINGS: 1. DEEP VENOUS ULTRASOUND OF THE RIGHT LOWER EXTREMITY: Common Femoral Vein: Compressible, normal respiratory variation and augmented flow. Femoral Vein: Compressible, normal color flow and augmentation. Popliteal Vein: Compressible, normal augmentation. Deep Reflux: There is no evidence of reflux in the deep system in either the common femoral vein, superficial femoral or the popliteal vein. There is no evidence of a Vergara's cyst. 2. SUPERFICIAL ULTRASOUND WITH DOPPLER OF RIGHT LOWER EXTREMITY: GREAT SAPHENOUS VEIN: Saphenofemoral Junction: 0.6 cm; Reflux: 0 ms Proximal Thigh: 0.2 cm; Reflux: 0 ms Mid Thigh: 0.2 cm; Reflux: 0 ms Distal Thigh: 0.2 cm; Reflux: 0 ms At Knee: 0.3 cm; Reflux: 0 ms Proximal Calf: 0.3 cm; Reflux: 448 ms Mid Calf: 0.3 cm; Reflux: 1276 ms Ankle: 0.4 cm; Reflux: 0 ms DUPLICATED MEDIAL GREAT SAPHENOUS VEIN: Diameter: None imaged Reflux: NA DUPLICATED LATERAL GREAT SAPHENOUS VEIN: Diameter: 0.4 cm Reflux: none SMALL SAPHENOUS VEIN: Saphenopopliteal Junction: 0.4 cm; Reflux: 1480 ms Proximal: 0.2 cm; Reflux: 0 ms Distal: 0.3 cm; Reflux: 0 ms VEIN OF GIACOMINI: Size: NA Reflux: NA PERFORATORS: Location: None imaged Size: NA Reflux: NA VARICOSITIES: Location: Right accessory saphenous vein proximal thigh Size: 1 cm Reflux: 1576 ms Location: Right great saphenous vein mid thigh Size: 0.3 cm Reflux: Greater than 2428 ms Location: Right great saphenous vein mid thigh Size: 0.3 cm Reflux: Greater than 2512 ms Location: Right great saphenous vein to proximal calf Size: 0.6 cm Reflux: 1924 ms Location: Right great saphenous vein proximal calf Size: 0.3 cm Reflux: Greater than 2160 ms Location: Right great saphenous vein proximal calf Size: 0.4 cm Reflux: 2404 ms Location: Right saphenous vein mid calf Size: 0.3 cm Reflux: 1180 ms 3. DEEP VENOUS ULTRASOUND OF THE LEFT LOWER EXTREMITY: Common Femoral Vein: Compressible, normal respiratory variation and augmented flow. Femoral Vein: Compressible, normal color flow and augmentation. Popliteal Vein: Compressible, normal augmentation. Deep Reflux: There is no evidence of reflux in the deep system in either the common femoral vein, superficial femoral or the popliteal vein. There is no evidence of a Vergara's cyst. 4. SUPERFICIAL ULTRASOUND WITH DOPPLER OF LEFT LOWER EXTREMITY: GREAT SAPHENOUS VEIN: Saphenofemoral Junction: 0.7 cm; Reflux: 0 ms Proximal Thigh: 0.5 cm; Reflux: 0 ms Mid Thigh: 0.4 cm; Reflux: 0 ms Distal Thigh: 0.3 cm; Reflux: Greater than 2352 ms At Knee: 0.3 cm; Reflux: 968 ms Proximal Calf: 0.4 cm; Reflux: 2496 ms Mid Calf: 0.5 cm; Reflux: 0 ms Distal Calf: 0.3 cm; Reflux: 0 ms DUPLICATED MEDIAL GREAT SAPHENOUS VEIN: Diameter: None imaged Reflux: NA DUPLICATED LATERAL GREAT SAPHENOUS VEIN: Diameter: 0.6 cm proximally and 0.3 cm at the mid thigh Reflux: none SMALL SAPHENOUS VEIN: Saphenopopliteal Junction: 0.5 cm; Reflux: 0 ms Proximal: 0.2 cm; Reflux: Greater than 2372 ms Distal: 0.2 cm; Reflux: Greater than 2364 ms VEIN OF GIACOMINI: Size: NA Reflux: NA PERFORATORS: Location: Left accessory saphenous vein, mid Size: 0.3 cm Reflux: 1288 ms Location: Left great saphenous vein proximal calf Size: 0.4 cm Reflux: 936 ms Location: Left great saphenous vein mid calf Size: 0.2 cm Reflux: 448 ms VARICOSITIES: Location: Left great saphenous vein proximal calf Size: 0.4 cm Reflux: 2180 ms Location: Left great saphenous vein proximal calf Size: 0.5 cm Reflux: Greater than 2660 ms Lymph node in the right proximal thigh measuring 4.9 x 1.8 x 4.8 cm. US/US venous insuf bilat IMPRESSION: 1. Right: there is 1276 ms of reflux in the right great saphenous vein. 2. Right small saphenous venous insufficiency of 1480 ms. 3. Left: Reflux in the left great saphenous vein measuring >2352 ms above the knee and 2496 ms below the knee. 4. Left small saphenous venous insufficiency beginning at the proximal calf measuring >2300 ms. 5. Multiple refluxing varicosities are seen bilaterally.
== END 2023-07-19 13:02 | disposition home or self-care (01) ==
LOC: HO.US 13:01
PROVIDERS: PCP Internal Medicine; Visit Provider Surgery Vascular Surgery
DX: I83.12 Varicose veins of left lower extremity with inflammation (principal)
CPT/HCPCS: 93970

== ENCOUNTER 2023-07-25 09:08 | Outpatient (REF) | payer OTHER, SELFPAY ==
[2023-07-25 09:26] LABS: MANUAL DIFF FLAG NO
[2023-07-25 10:27] LABS: Basophils Percent Auto 0.3 % (0-2); Eosinophils Absolute Auto 0.3 X10*3/uL (0.0-0.4); Eosinophils Percent Auto 3.1 % (0-4); Hemoglobin 12.5 g/dl (12.0-16.0); Imm Gran Abs Auto 0.02 X10*3/uL (0.00-0.03); Imm Gran Pct Auto 0.2 % (0.0-0.4); Lymphocytes Absolute Auto 2.8 X10*3/uL (1.2-4.9); Lymphocytes Percent Auto 31.5 % (20-40); Mean Corpuscular HGB Conc 33.8 g/dl (31.0-35.0); Mean Corpuscular Hemoglobin 30.6 pg (27.0-33.0); Mean Corpuscular Volume 90.5 fL (80.0-98.0); Mean Platelet Volume 10.9 fL (9.4-12.3); Monocytes Absolute Auto 0.6 X10*3/uL (0.1-1.2); Monocytes Percent Auto 6.9 % (2-11); Neutrophils Absolute Auto 5.1 x10*3/uL (2.0-8.3); Platelet Count 258 X10*3/uL (160-400); Red Blood Count 4.09 X10*6/uL (4.20-5.50); Red Cell Distribution Width 12.9 % (11.0-16.0); White Blood Count 8.8 X10*3/uL (4.8-10.8)
[2023-07-25 10:37] LABS: Appearance Urine Cloudy; Color Urine Yellow; Glucose Urine UA Negative (Negative); Leukocyte Esterase Urine Trace (Negative); Nitrite Urine Positive (Negative); UMIC TRIGGER UACC YES; Urine Blood Negative (Negative); Urine Ketones Negative (Negative); Urine Protein Negative (Neg-Trace)
[2023-07-25 10:43] LABS: Bacteria Urine 4+ (None Seen); Hyaline Casts Urine 0-2 /LPF (0-2); RBC Urine 0-2 /HPF (0-2); UACC Culture Trigger YES; WBC Urine 0-5 /HPF (0-5)
[2023-07-25 11:15] LABS: Alanine Aminotransferase 13 U/L (0-31); Albumin Level 3.9 g/dL (3.5-5.0); Alkaline Phosphatase 77 U/L (39-117); Anion Gap 10 (12-20); Aspartate Amino Transferase 15 U/L (5-31); Bilirubin Total 0.6 mg/dL (0.0-1.0); Blood Urea Nitrogen 15 mg/dL (9-16); Calcium 9.3 mg/dL (8.4-10.2); Carbon Dioxide 29 mmol/L (22-29); Chloride 106 mmol/L (96-108); Cholesterol 177 mg/dL (<200); Estimated Glomerular Filt Rate > 60; Glucose Fasting 82 mg/dL (60-99); HDL Cholesterol 58 mg/dL (>40); Iron 76 mcg/dL (30-160); LDL Cholesterol Calculated 106 mg/dL (<100); Percent Iron Saturation 26 % (15-50); Potassium 4.1 mmol/L (3.3-5.1); Sodium 141 mmol/L (135-145); Total Iron Binding Capacity 296 mcg/dL (228-428); Total Protein 7.2 g/dL (6.5-8.0); Triglycerides 67 mg/dL (<150); Unsaturated Iron Binding 220 ug/dL; Vitamin D 25-OH Total 20.5 ng/mL (>30)
[2023-07-25 15:05] LABS: Folate 6.2 ng/mL (> or = 4.0); Vitamin B12 382 pg/mL (200-900)
[2023-07-28 15:42] LABS: TS Negative Control Passed; TS Panel A 0; TS Panel B 0; TS Positive Control Passed; TSpotTB Negative (Negative)
== END 2023-07-25 09:09 | disposition home or self-care (01) ==
LOC: HO.LAB 09:08
PROVIDERS: PCP Internal Medicine; Visit Provider Internal Medicine
DX: Z11.1 Encounter for screening for respiratory tuberculosis (principal); E66.01 Morbid (severe) obesity due to excess calories; D64.9 Anemia, unspecified; E78.5 Hyperlipidemia, unspecified; E55.9 Vitamin D deficiency, unspecified; E53.8 Deficiency of other specified B group vitamins; R30.0 Dysuria
CPT/HCPCS: 36415; 80053; 80061; 81001; 82306; 82607; 82746; 83540; 85025; 86481; 87086; 87088; 87186

== ENCOUNTER 2023-10-02 09:59 | Outpatient (AMB) | payer OTHER, SELFPAY ==
--- NOTE | 2023-10-02 10:06 | AM.OFFWIN_ITS ---
Intake Vital Signs 3 10/02/23 10:07 Height 5 ft 5 in Weight 322 lb BMI 53.6 BP 138/76 Blood Pressure Location Rt brachial Position Sitting Pulse 69 Pulse Source Pulse Oximeter Temp 98.4 F Temp Source Oral Pulse Oximetry (%) 96 Oxygen Delivery Method Room Air Intake Visit Reasons: EP lip infection Intake Note: pt is here for lip infection, swelling and states it started yesterday Patient Tobacco Use Status: Never used Tobacco Allergies doxycycline Allergy (Intermediate, Verified 10/02/23 10:13) Rash Medication List - Last Reconciled 10/02/23 by Mustapha Acevedo MD blood pressure kit-extra large As directed cholecalciferol (vitamin D3) 50 mcg PO DAILY 90 days cyanocobalamin (vitamin B-12) 250 mcg PO DAILY furosemide 20 mg PO DAILY 30 days lisinopril 20 mg PO DAILY 90 days thiamine HCl (vitamin B1) 100 mg PO DAILY Do you need a note to return to daycare/school/sports/work: No HPI EP lip infection 2 HPI0 Details Patient is 58-year-old female came in today to be evaluated for possible infection around lips Patient says that it started yesterday and has gotten worse Feels sore and sensitive to touch She has not had similar problem before There is no fever no chills no sore throat no sores inside the mouth No nausea no vomiting On examination she has developed rash around her lips and her lips are swollen Lower lip is developing blister There is element of cellulitis around the lip as well I am treating her with prednisone 20 mg once a day for 5 days And Augmentin b.i.d. for 7 days Patient is to follow up with primary care [facility] Medical History Obstructive sleep apnea Essential hypertension Morbid exogenous obesity Physical exam Morbid obesity GERD with apnea Depression Family history of high cholesterol UTI (urinary tract infection) Surgical History History of esophagogastroduodenoscopy (EGD) Hx of colonoscopy History of bladder suspension procedure History of appendectomy Family History Mother Pulmonary edema Father Diabetes HTN (hypertension) Heart disease Social History Household Members: Spouse Housing: Apartment Do you presently have visiting nurse or other home services: No Alcohol intake: never Patient Tobacco Use Status: Never used Tobacco e-Cigarette/Vaping Use: Never Used Second Hand Smoke Exposure: No service: No Current occupational status: employed 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 Erythema with signs of cellulitis 2. Looks like a blister developing Eyes General: appearance normal, both eyes and all related structures Resp Effort & Inspection: normal respiratory effort and able to speak in complete sentences Auscultation: clear to auscultation bilaterally Neuro General: patient oriented x3 Psych Mental Status: mental status grossly normal Assessment & Plan Assessment & Plan (1) Blister of lip: Code(s): S00.521A - Blister (nonthermal) of lip, initial encounter (2) Cellulitis of face: Code(s): L03.211 - Cellulitis of face Plan Patient is 58-year-old female came in today to be evaluated for possible infection around lips Patient says that it started yesterday and has gotten worse Feels sore and sensitive to touch She has not had similar problem before There is no fever no chills no sore throat no sores inside the mouth No nausea no vomiting On examination she has developed rash around her lips and her lips are swollen Lower lip is developing blister There is element of cellulitis around the lip as well I am treating her with prednisone 20 mg once a day for 5 days And Augmentin b.i.d. for 7 days Patient is to follow up with primary care Medications: New 2 prednisone 20 mg PO DAILY 5 tabs 0RF 5 days amoxicillin-pot clavulanate 875-125 mg 1 tab PO BID 14 tabs 0RF 7 days Coding Level of Care Code Est Pt Level 4 (27225) Diagnoses Blister of lip S00.521A Cellulitis of face L03.211
[2023-10-02 10:07] VITALS: BP 138/76; PULSE 69; TEMP 36.9; O2SAT 96; BMI 53.6
== END 2023-10-02 11:21 | disposition home or self-care (01) ==
PROVIDERS: PCP Internal Medicine; Visit Provider Internal Medicine
DX: S00.521A Blister (nonthermal) of lip, initial encounter (principal); L03.211 Cellulitis of face
CPT/HCPCS: 99214

== ENCOUNTER 2023-11-28 09:45 | Outpatient (AMB) | payer OTHER, SELFPAY ==
[2023-11-28 09:48] VITALS: BP 132/70; PULSE 85; O2SAT 97; BMI 54.2
--- NOTE | 2023-11-28 09:48 | A.OFFPC_ITS ---
Vital Signs 11/28/23 09:48 Height 5 ft 5 in Weight 326 lb BMI 54.2 BP 132/70 Blood Pressure Location Lt brachial Position Sitting Pulse 85 Pulse Source Pulse Oximeter Pulse Oximetry (%) 97 Oxygen Delivery Method Room Air Intake Visit Reasons: gerd Curriculum Coordinator Required: No Accompanied by: Self / Same As Patient Allergies doxycycline Allergy (Intermediate, Verified 11/28/23 09:49) Rash Tobacco use date assessed: 05/30/23 Dental Screening Dental Screen Date: 05/30/23 HPI HPI Comments History of Present Illness Details This is a 58-year-old female with hypertension, super super obesity, peripheral vascular disease and chronic GERD that comes today complaining of recurrent urinary tract infections. Started to feel dysuria 2 days ago and urinalysis positive for UTI. Will be sent for urine culture. I will prescribe Bactrim and then she will start nitrofurantoin on a daily basis for prophylaxis. I will refer her to Urology due to recurrent UTIs. Blood pressure stable. She is super super obese with a BMI of 54.2 and is enroll in weight management for surgery. GERD stable with PPIs. She has also complains of mild recurrent major depression that has been present for over a month. I will start her on escitalopram at bedtime due to anxiety and insomnia also associated with depression. She also has psoriasis and will be referred to Dermatology. She has peripheral vascular disease follow by vascular surgeon that has improved. [facility] Medical History (Updated 11/28/23 @ 10:18 by Maria Luisa Perez MD) Obstructive sleep apnea Essential hypertension Morbid exogenous obesity Physical exam Morbid obesity GERD with apnea Depression Family history of high cholesterol UTI (urinary tract infection) Surgical History History of esophagogastroduodenoscopy (EGD) Hx of colonoscopy History of bladder suspension procedure History of appendectomy Family History Mother Pulmonary edema Father Diabetes HTN (hypertension) Heart disease Social History Household Members: Spouse Housing: Apartment Do you presently have visiting nurse or other home services: No Alcohol intake: never Patient Tobacco Use Status: Never used Tobacco e-Cigarette/Vaping Use: Never Used Second Hand Smoke Exposure: No service: No Current occupational status: employed 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 1. Little interest or pleasure in doing things: several days 2. Feeling down, depressed, or hopeless: several days 3. Trouble falling or staying asleep, or sleeping too much: more than half the days 4. Feeling tired or having little energy: not at all 5. Poor appetite or overeating: several days 6. Feeling bad about yourself - or that you are a failure or have let yourself or your family down: not at all 7. Trouble concentrating on things, such as reading the newspaper or watching television: not at all 8. Moving or speaking so slowly that other people could have noticed. Or the opposite - being so fidgety or restless that you have been moving around a lot more than usual: not at all 9. Thoughts that you would be better off or of hurting yourself in some way: not at all Total score: 5 Depression Screening Interpretation: Positive Depression Screening Follow-up: Existing condition, New Medication prescribed and Follow-up Visit Requested Depression Screening Done: Yes 35070 - PHQ-9 Billing: Yes Source: Developed by Drs. Agus Herbert, Vernon Middleton and colleagues, with an educational santino from [employer]. Thrive Questionnaire Date Thrive assessed: 05/30/23 AUDIT C Alcohol Use Questionnaire (AUDIT-C) 1. How often do you have a drink containing alcohol?: Never Total Score: 0 Score Reviewed/Action Taken: No LOBITO-7 AMB Questionnaire LOBITO-7 Date LOBITO - 7 assessed: 05/30/23 Source: Developed by Drs. Agus Herbert, Vernon Middleton and colleagues, with an educational santino from [employer]. Review of Systems Const All systems reviewed & are unremarkable except as noted in HPI and below Card Denies chest pain at rest, Denies chest pain with activity, Denies edema, Denies irregular heart rhythm, Denies claudication, Denies dyspnea, Denies dyspnea on exertion, Denies orthopnea, Denies paroxysmal nocturnal dyspnea and Denies slow heart rate Resp Denies cough, Denies dyspnea and Denies dyspnea on exertion Reports difficulty voiding Skin/Breast Reports lesions Physical exam (Primary Care) Vital Signs: Last Vital Signs Pulse 85 11/28/23 09:48 BP 132/70 11/28/23 09:48 Pulse Ox 97 11/28/23 09:48 Oxygen Delivery Method Room Air 11/28/23 09:48 BMI result Body Mass Index 54.2 BMI Assessment/Plan discussion: High BMI High, discussed plan: lifestyle, weight reduction, dietary and physical activity Tobacco/Smoking Status: Tobacco use Status Tobacco use date assessed 05/30/23 11/28/23 09:52 Patient Tobacco Use Status Never used Tobacco 11/28/23 09:52 Tobacco use type 05/30/22 08:59 e-Cigarette/Vaping Use Never Used 11/28/23 09:52 PHQ-9: PHQ-9 Score PHQ-9: Total score 5 11/28/23 10:16 Depression Screening Interpretation: Positive Depression Screening Follow-up: Existing condition, New Medication prescribed and Follow-up Visit Requested Thrive Assessment: Date of Thrive Assessment Date Thrive assessed 05/30/23 11/28/23 09:52 Resp Effort & Inspection: normal respiratory effort Auscultation: clear to auscultation bilaterally Cardio Jugular venous distension: no JVD Rate: regular rate Rhythm: regular rhythm Heart sounds: S1 normal heart sound present and S2 normal heart sound present Skin Other: Silvery scaly plaque in feet Extrem General: Yes full ROM Results AMB Urinalysis, Automated UA Leukoctes 0 Kirill/uL Last Edit by Berna Rebollar CMA on 11/28/23 10:18 UA Nitrite Positive Last Edit by Berna Rebollar CMA on 11/28/23 10:18 UA Urobilinogen 0.2 mg/dL Last Edit by Berna Rebollar CMA on 11/28/23 10:18 UA Protein 0 mg/dL Last Edit by Berna Rebollar CMA on 11/28/23 10:18 UA pH 0.2 Last Edit by Benra Rebollar CMA on 11/28/23 10:18 UA Blood 10 Wilber/uL Last Edit by Berna Rebollar CMA on 11/28/23 10:18 UA Specific [place] 1.020 Last Edit by Berna Rebollar CMA on 11/28/23 10:18 UA Ketone Negative Last Edit by Berna Rebollar CMA on 11/28/23 10:18 UA Bilirubin 0 mg/dL Last Edit by Berna Rebollar CMA on 11/28/23 10:18 UA Glucose 0 mg/dL Last Edit by Berna Rebollar CMA on 11/28/23 10:18 Assessment and Plan Assessment & Plan (1) Mild recurrent major depression: Code(s): F33.0 - Major depressive disorder, recurrent, mild Plan: Start escitalopram. Follow-up is requested. (2) Peripheral arterial disease: Code(s): I73.9 - Peripheral vascular disease, unspecified Plan: Follow-up with vascular surgeon. (3) Super-super obese: Code(s): E66.01 - Morbid (severe) obesity due to excess calories Plan: Continue follow-up with weight management. BMI goal is less than 30. (4) Essential hypertension: Code(s): I10 - Essential (primary) hypertension Plan: Continue lisinopril. Blood pressure goal is equal or less than 130/80. (5) Recurrent UTI: Code(s): N39.0 - Urinary tract infection, site not specified Plan: Start nitrofurantoin daily for prophylaxis. Referred to urology. (6) Psoriasis: Code(s): L40.9 - Psoriasis, unspecified Plan: Referred to dermatology. (7) Chronic GERD: Code(s): K21.9 - Gastro-esophageal reflux disease without esophagitis Plan: Continue PPIs. Orders: Orders Urine Culture Today N39.0 - Urinary tract infection, site not specified Referrals Dermatology Referral L40.9 - Psoriasis, unspecified Urology Referral N39.0 - Urinary tract infection, site not specified Medications: New escitalopram oxalate 10 mg PO BEDTIME 90 days 90 tabs 1RF F33.0 - Major depressive disorder, recurrent, mild sulfamethoxazole-trimethoprim 800-160 mg (Bactrim DS) 1 tab PO BID 5 days 10 tabs 0RF nitrofurantoin macrocrystal must administer with a meal/food 50 mg PO BEDTIME 90 days 90 caps 3RF Refilled cyanocobalamin (vitamin B-12) 250 mcg PO DAILY 30 tabs 5RF cholecalciferol (vitamin D3) 50 mcg PO DAILY 90 days 90 caps 1RF thiamine HCl (vitamin B1) 100 mg PO DAILY 30 tabs 5RF Discontinued prednisone Discontinued Reason: Patient Completed Course 20 mg PO DAILY 5 days 5 tabs 0RF Coding Level of Care Code Est Pt Level 4 (72505) Complex EM visit Add On G2211 Diagnoses Mild recurrent major depression F33.0 Peripheral arterial disease I73.9 Super-super obese E66.01 Essential hypertension I10 Recurrent UTI N39.0 Psoriasis L40.9 Chronic GERD K21.9 Time Spent (min) 25
== END 2023-11-28 10:19 | disposition home or self-care (01) ==
PROVIDERS: PCP Internal Medicine; Visit Provider Internal Medicine
DX: I73.9 Peripheral vascular disease, unspecified (principal); F33.0 Major depressive disorder, recurrent, mild; E66.01 Morbid (severe) obesity due to excess calories; Z68.43 Body mass index [BMI] 50.0-59.9, adult; I10 Essential (primary) hypertension; N39.0 Urinary tract infection, site not specified; L40.9 Psoriasis, unspecified; K21.9 Gastro-esophageal reflux disease without esophagitis
CPT/HCPCS: 81003; 99214

== ENCOUNTER 2023-11-28 10:16 | Outpatient (REF) | payer OTHER, SELFPAY ==
[2023-11-28 12:30] LABS: Appearance Urine Cloudy; Color Urine Yellow; Glucose Urine UA Negative (Negative); Leukocyte Esterase Urine Negative (Negative); Nitrite Urine Negative (Negative); PH 5.5 (5.0-9.0); UMIC TRIGGER UACC YES; Urine Blood Trace (Negative); Urine Ketones Negative (Negative); Urine Protein Negative (Neg-Trace)
[2023-11-28 12:36] LABS: Bacteria Urine 4+ (None Seen); Hyaline Casts Urine 0-2 /LPF (0-2); RBC Urine 0-2 /HPF (0-2); WBC Urine 0-5 /HPF (0-5)
== END 2023-11-28 10:17 | disposition home or self-care (01) ==
LOC: HO.LAB 10:16
PROVIDERS: PCP Internal Medicine; Visit Provider Internal Medicine
DX: N39.0 Urinary tract infection, site not specified (principal)
CPT/HCPCS: 81001; 87086; 87088; 87147; 87186

== ENCOUNTER 2023-12-27 13:25 | Outpatient (AMB) | payer OTHER, SELFPAY ==
--- NOTE | 2023-12-27 13:35 | A.OFFVIS_ITS ---
Intake Visit Reasons: overdue follow up s/p 07/19/23 Intake Note: Patient presents for follow up 07/19. Patient states both of her legs and feet swell. Both legs hurt when she walks. Experiences cramping. States her leg pain prevents her from standing up too long but also prevents her from sitting too long. She states it feels like someone is squeezing her legs. Even car rides are difficult as her cramping gets worse. Allergies doxycycline Allergy (Intermediate, Verified 12/27/23 13:38) Rash HPI HPI overdue follow up s/p 07/19/23: Details: Morbidly obese 58-year-old female presents for follow-up regarding venous insufficiency. She does continue to have significantly swollen lower extremities left more so than right. She does have skin changes which have been more concerning part. She now presents for routine follow-up with testing [facility] Medical History Obstructive sleep apnea Essential hypertension Morbid exogenous obesity Physical exam Morbid obesity GERD with apnea Depression Family history of high cholesterol UTI (urinary tract infection) Surgical History History of esophagogastroduodenoscopy (EGD) Hx of colonoscopy History of bladder suspension procedure History of appendectomy Family History Mother Pulmonary edema Father Diabetes HTN (hypertension) Heart disease Social History Household Members: Spouse Housing: Apartment Do you presently have visiting nurse or other home services: No Alcohol intake: never Patient Tobacco Use Status: Never used Tobacco e-Cigarette/Vaping Use: Never Used Second Hand Smoke Exposure: No service: No Current occupational status: employed 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 Sexual orientation: Straight/Heterosexual Gender identity: Female Cognitive needs: No Hearing needs: No Vision needs: Yes (glasses) Review of Systems Const Reports as per HPI ENT Reports no additional complaints Card Denies chest pain, Denies chest pain at rest and Denies chest pain with activity Resp Denies chest congestion and Denies cough GI Reports no additional complaints Musc Details: pain over varicosities, aching of lower extremities, swelling, cramping, heaviness and tiredness, itching Denies abnormal gait Skin/Breast Reports pruritus and Denies wounds Neuro Reports no additional complaints and Denies abnormal gait Psych Denies no additional complaints Physical Exam Const General: cooperative, healthy appearing and comfortable Orientation/consciousness: oriented to person, oriented to place and oriented to time Neck Carotids: no bruits Chest Chest palpation & inspection: normal inspection of the chest and normal palpation of entire chest wall Resp Effort & Inspection: normal respiratory effort and able to speak in complete sentences Cardio Rate: regular rate Heart sounds: S1 normal heart sound present and S2 normal heart sound present Peripheral pulses: Peripheral pulses 2+ throughout GI Inspection: Yes normal to inspection Skin Other: +2 edema, large rope-like varicosities greater than 4 mm CEAP Classification C4 - skin color changes Ep - Etiology Primary As - superficial veins P - reflux General skin exam: dry skin Neuro General: oriented to person, oriented to place and oriented to time Extrem Right lower extremity: full ROM, normal capillary refill and edema Left lower extremity: full ROM, normal capillary refill and edema Psych Mental Status: mental status grossly normal Quality Reporting (2019) Adult ([facility] ) Smoking risk assessment performed?: Yes Patient Tobacco Use Status: Never used Tobacco Results Reviewed Results Reviewed: Brief summary of venous insufficiency testing is as follows: right great saphenous vein: negative right small saphenous vein: negative right accessory vein: none present left great saphenous vein: Positive at knee left small saphenous vein: Positive left accessory vein: none present Please note there is no evidence of any venous aneurysms or significant tortuosity Assessment & Plan Assessment & Plan (1) Varicose veins of left lower extremity with inflammation: Code(s): I83.12 - Varicose veins of left lower extremity with inflammation Category: Medical Plan: This patient has varicose veins with inflammation. They continue to be a source of discomfort for the patient. The patient has tried conservative treatment with compression, leg elevation and exercise program for over 3 months time. They have been compliant with all treatment. This has provided minimal relief for the patient. I do not anticipate this course of treatment will alter the underlying etiology. The patient has been scheduled for lower extremity venous treatment inclusive of --- left small saphenous vein radiofrequency ablation. Risks, benefits, and complications of this procedure has been discussed in detail with the patient including but not limited to bleeding, infection, and the development of a DVT. The patient has demonstrated a clear understanding and has consented. We will schedule the patient as soon as possible. Thank you for allowing us to participate in this patient's care. If there are any questions or concerns please do not hesitate to contact us. Coding Level of Care Code Est Pt Level 4 (66463) Diagnoses Varicose veins of left lower extremity with inflammation I83.12
== END 2023-12-27 14:32 | disposition home or self-care (01) ==
PROVIDERS: PCP Internal Medicine; Visit Provider Surgery Vascular Surgery
DX: I83.12 Varicose veins of left lower extremity with inflammation (principal)
CPT/HCPCS: 99214

== ENCOUNTER → 2023-12-27 13:25 | Outpatient (BNVA) | payer OTHER, SELFPAY | PROVIDERS: PCP Internal Medicine; Visit Provider Surgery Vascular Surgery ==

== ENCOUNTER 2024-01-21 09:13 | Outpatient (AMB) | payer OTHER, SELFPAY ==
--- NOTE | 2024-01-21 09:16 | A.OFFVIS_ITS ---
Intake Visit Reasons: Urinary tract infection Intake Note: New Patient presents for initial visit for recurrent uti Urology Medications: none Blood Thinner: none Cap Lining Machine Operator Required: Yes Cap Lining Machine Operator Services: Cap Lining Machine Operator Present Cap Lining Machine Operator Name: JOSÉ ZHAOEVARISTO Accompanied by: Self / Same As Patient Allergies doxycycline Allergy (Intermediate, Verified 01/21/24 09:47) Rash Medication List - Last Reconciled 01/21/24 by KARINA Phelps blood pressure kit-extra large As directed cholecalciferol (vitamin D3) 50 mcg PO DAILY 90 days cyanocobalamin (vitamin B-12) 250 mcg PO DAILY escitalopram oxalate 10 mg PO BEDTIME 90 days furosemide 20 mg PO DAILY 30 days lisinopril 20 mg PO DAILY 90 days thiamine HCl (vitamin B1) 100 mg PO DAILY HPI Comments Details: Evon is a 59-year-old Turkish-speaking female patient of Dr. Ugo Perez. She has a past medical history of?obstructive sleep apnea, hypertension, morbid obesity, GERD, depression, and recurrent urinary tract infections. In discussion with the patient today she reports noting recurrent urinary tract infections started sometime last year and had been following up with her PCP however recommendations were made for urology referral for further assessment evaluation. In review of patient's chart it appears 01/17, 02/17, 07/21 urine cultures positive for E coli and 12/18 noted Klebsiella pneumoniae and group B. When asked she currently denies any UTI like symptoms. However she does report ongoing issues with nocturia approximately 3-5 times per night. In office urinalysis results reviewed with the patient today. PVR 0 mL. When asked she does report noting issues with fecal incontinence and plans to follow-up with GI regarding this issue. Discussed at length potential causes of GI issues in relation to recurrent urinary tract infections. Discussed obtaining retroperitoneal ultrasound for further assessment evaluation. Discussed at length potential causes of nocturia as well as correlation of sleep apnea with nocturia. She otherwise denies hematuria, dysuria, foul smelling urine, changes to urinary stream, flank pain, fever, and or chills. She is happy with her current voiding parameters. She otherwise offers no other issues or concerns at this time. [facility] Medical History Obstructive sleep apnea Essential hypertension Morbid exogenous obesity Physical exam Morbid obesity GERD with apnea Depression Family history of high cholesterol UTI (urinary tract infection) Surgical History History of esophagogastroduodenoscopy (EGD) Hx of colonoscopy History of bladder suspension procedure History of appendectomy Family History Mother Pulmonary edema Father Diabetes HTN (hypertension) Heart disease Social History Household Members: Spouse Housing: Apartment Do you presently have visiting nurse or other home services: No Alcohol intake: never Patient Tobacco Use Status: Never used Tobacco e-Cigarette/Vaping Use: Never Used Second Hand Smoke Exposure: No service: No Current occupational status: employed Current occupation: [employer] Sexual orientation: Straight/Heterosexual Gender identity: Female Cognitive needs: No Hearing needs: No Vision needs: Yes (glasses) Review of Systems Eyes Reports no additional complaints ENT Reports no additional complaints Card Reports as per HPI Resp Reports as per HPI GI Reports as per HPI Reports as per HPI Musc Reports no additional complaints Neuro Reports no additional complaints Psych Reports as per HPI Endo Reports no additional complaints Bucky/Lymph Reports no additional complaints Aller/Immun Reports no additional complaints Physical Exam Const General: cooperative, healthy appearing, comfortable, no acute distress, well developed, alert and awake Nutritional Appearance: obese Orientation/consciousness: patient oriented x3 Limitations: no limitations HEENT Head: Yes normal to inspection, Yes normocephalic and Yes atraumatic Ears: hearing grossly normal bilaterally Eyes General: appearance normal, both eyes and all related structures Neck Neck: Yes normal visual inspection and Yes trachea midline Chest Chest palpation & inspection: normal inspection of the chest Resp Effort & Inspection: normal respiratory effort and able to speak in complete sentences Cardio Rate: regular rate GI Inspection: Yes normal to inspection General: Yes no CVA tenderness Back/Spine/Pelvis Back: no CVA tenderness Skin General skin exam: no rashes or lesions noted Neuro General: patient oriented x3 Extrem General: Yes normal to inspection Psych Appearance: grossly normal and well kempt Mental Status: mental status grossly normal Speech and movement: Normal speech and movement present and Clear speech present Affect: normal affect Attitude: cooperative Thought process: Normal thought process present Thought content: Normal thought content present Insight: Fair insight present (Psych) Judgement: Fair judgement present (Psych) Office Procedures Post Void Residual Post Residual Void Post Void Residual (PVR): 0 42920-[place]uxy Void Residual by ultrasound Results AMB Urinalysis, Automated UA Leukoctes 0 Kirill/uL Last Edit by Brandyce Bress on 01/21/24 09:39 UA Nitrite Last Edit by [employer] B[employer] on 01/21/24 09:39 UA Urobilinogen 0.2 mg/dL Last Edit by [employer] Software[employer] Bress on 01/21/24 09:39 UA Protein 0 mg/dL Last Edit by [employer] on 01/21/24 09:39 UA pH 6.0 Last Edit by [employer] on 01/21/24 09:39 UA Blood 0 Wilber/uL Last Edit by [employer] on 01/21/24 09:39 UA Specific [place] 1.015 Last Edit by [employer] on 01/21/24 09:39 UA Ketone Last Edit by [employer] on 01/21/24 09:39 UA Bilirubin 0 mg/dL Last Edit by [employer] on 01/21/24 09:39 UA Glucose 0 mg/dL Last Edit by [employer] on 01/21/24 09:39 Quality Reporting (2019) Adult ([facility] 138/07/19/68) Smoking risk assessment performed?: Yes Patient Tobacco Use Status: Never used Tobacco Results Reviewed Results Reviewed: Laboratory Last Values Urine pH (Auto) 6.0 01/21/24 09:38 Specific [place] (Auto) 1.015 01/21/24 09:38 Urine Protein (Auto) 0 mg/dL 01/21/24 09:38 Glucose (UA)(Auto) 0 mg/dL 01/21/24 09:38 Urine Blood (Auto) 0 Wilber/uL 01/21/24 09:38 Urine Bilirubin (Auto) 0 mg/dL 01/21/24 09:38 Urine Urobilinogen (Auto) 0.2 mg/dL 01/21/24 09:38 Leukocyte Esterase (Auto) 0 Kirill/uL 01/21/24 09:38 Assessment & Plan Assessment & Plan (1) Recurrent UTI: Code(s): N39.0 - Urinary tract infection, site not specified Category: Medical Plan In office urinalysis results reviewed with the patient today; as noted above. Will obtain retroperitoneal ultrasound for further assessment evaluation. Discussed at length potential causes of nocturia as well as recurrent urinary tract infections. Continue to follow-up with GI regarding fecal incontinence; did discussed briefly possible InterStim Start Estrace cream as discussed and prescribed. Discussed UTI prevention with D mannose supplement, vitamin-C, increasing fluid intake, behavioral therapy with timed voiding, perineal hygiene and postcoital voiding, and management of constipation with stool softeners and increased fiber intake. Discussed correlation of nocturia with sleep apnea Discussed lifestyle modifications to assist with nocturia such as compliance with CPAP machine, elevating bilateral lower extremities in the late evening due to bilateral lower leg edema, and limiting fluids 2-3 hours prior to bed to decrease episodes of nocturia. Discussed possible near future in office cystoscopy if symptoms persist and/or worsen. Follow-up in 1-3 months with imaging to be completed prior; or sooner with any issues, concerns, and or questions. Orders: Orders US retroperitoneal comp Today N39.0 - Urinary tract infection, site not specified AMB Urinalysis Automated Today Z13.9 - Encounter for screening, unspecified AMB Post Void Residual by ultrasound Today N39.0 - Urinary tract infection, site not specified Medications: New estradiol 0.01%(0.1mg/gram) pea sized amount to urethra daily times one months and 3 times a week thereafter. 42.5 grams 1RF 30 days Patient Instructions: The patient had an opportunity to ask questions regarding the treatment plan. All questions were answered. Physical exam, labs, and imaging were discussed and reviewed in detail. As well as risks, benefits, and discussion of treatment choices. No major barriers to understanding were identified. The patient expressed understanding and agreement with the above treatment plan. The patient was made aware they should contact our office by phone for worsening of their current condition, the appearance of new symptoms, or with any questions or concerns. Compliance is encouraged with any medications and follow up testing that is ordered. It is a privilege to be allowed the opportunity to participate in? your urological care.? Again, if you have any questions or concerns If you have any questions or concerns please do not hesitate to contact me. The office is [phone]. This note is constructed using voice recognition software. While every effort has been made to ensure accuracy deli/bakery associate errors may have been included. Yours sincerely, KARINA Phelps Coding Level of Care Code New Pt Level 4 (24417) Diagnoses Recurrent UTI N39.0 CPT Codes Post Residual Void - PVR CPT Code: 70822-Xdwh Void Residual by ultrasound ([id number])
== END 2024-01-21 09:49 | disposition home or self-care (01) ==
PROVIDERS: PCP Internal Medicine; Visit Provider Nurse Practitioner Family
DX: N39.0 Urinary tract infection, site not specified (principal); Z13.9 Encounter for screening, unspecified
CPT/HCPCS: 99204

== ENCOUNTER → 2024-01-21 09:13 | Outpatient (BNVA) | payer OTHER, SELFPAY | PROVIDERS: PCP Internal Medicine; Visit Provider Nurse Practitioner Family | DX: N39.0 Urinary tract infection, site not specified (principal) | CPT/HCPCS: 51798; 81003 ==

== ENCOUNTER 2024-02-01 09:21 | Outpatient (REF) | payer OTHER, SELFPAY ==
[2024-02-01 10:12] LABS: Appearance Urine Cloudy; Color Urine Yellow; Glucose Urine UA Negative (Negative); Leukocyte Esterase Urine Small (1+) (Negative); Nitrite Urine Positive (Negative); UMIC TRIGGER UACC YES; Urine Blood Trace (Negative); Urine Ketones Negative (Negative); Urine Protein Negative (Neg-Trace)
[2024-02-01 10:18] LABS: Bacteria Urine 4+ (None Seen); Hyaline Casts Urine 0-2 /LPF (0-2); RBC Urine 0-2 /HPF (0-2); UACC Culture Trigger YES
== END 2024-02-01 09:22 | disposition home or self-care (01) ==
LOC: HO.LAB 09:21
PROVIDERS: PCP Internal Medicine; Visit Provider Surgery Vascular Surgery
DX: I83.12 Varicose veins of left lower extremity with inflammation (principal)
CPT/HCPCS: 36475; 81001; 87086

== ENCOUNTER 2024-02-01 12:23 | Outpatient (AMB) | payer OTHER, SELFPAY ==
[2024-02-01 13:27] VITALS: BMI 54.2
--- NOTE | 2024-02-01 13:27 | A.OFFVIS_ITS ---
Vital Signs 02/01/24 13:27 Height 5 ft 5 in Weight 326 lb BMI 54.2 Intake Visit Reasons: Left SSV RFA Financial Services Associate Required: No Accompanied by: Self / Same As Patient Allergies doxycycline Allergy (Intermediate, Verified 02/01/24 13:27) Rash [facility] Medical History Obstructive sleep apnea Essential hypertension Morbid exogenous obesity Physical exam Morbid obesity GERD with apnea Depression Family history of high cholesterol UTI (urinary tract infection) Surgical History History of esophagogastroduodenoscopy (EGD) Hx of colonoscopy History of bladder suspension procedure History of appendectomy Family History Mother Pulmonary edema Father Diabetes HTN (hypertension) Heart disease Social History Household Members: Spouse Housing: Apartment Do you presently have visiting nurse or other home services: No Alcohol intake: never Patient Tobacco Use Status: Never used Tobacco e-Cigarette/Vaping Use: Never Used Second Hand Smoke Exposure: No service: No Current occupational status: employed 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 Estimated Blood Loss: Minimal The patient was transferred to the procedure suite and the insufficient small saphenous vein was mapped by ultrasound and diagrammed on the overlying skin. The depth and diameter of the vein(s) to be treated was documented. The varicose tributary veins and suitable access sites were identified and mapped as well. The patient was then positioned prone on the procedure table. The affected limb was prepped and draped in the usual sterile fashion. The RF catheter was placed on the sterile field, flushed and wiped down, prepared, and connected by a sterile cable. The patient was placed in a prone position and local anesthesia was instilled in the skin overlying the access site. A skin incision was made overlying the identified and mapped small saphenous vein entry site. Several attempts were made to access the small saphenous vein. It was small in caliber and appeared to go into spasm. We waited and the spasm did not resolve. At this point the procedure was terminated. Sterile Band-Aids were applied Discharge instructions were given to the patient inclusive of follow-up ultrasound and recommended follow-up with us All charges added?: Additional procedure code (CPT) needed Quality Reporting (2019) Adult ([facility] 138/07/19/68) Smoking risk assessment performed?: Yes Patient Tobacco Use Status: Never used Tobacco Assessment & Plan Assessment & Plan (1) Varicose veins of left lower extremity with inflammation: Comment: 02/01/2024 - attempted left small saphenous vein ablation Code(s): I83.12 - Varicose veins of left lower extremity with inflammation Category: Medical Plan: See op note Coding Level of Care Code Procedure Only Diagnoses Varicose veins of left lower extremity with inflammation I83.12
== END 2024-02-01 14:16 | disposition home or self-care (01) ==
PROVIDERS: PCP Internal Medicine; Visit Provider Surgery Vascular Surgery
DX: I83.12 Varicose veins of left lower extremity with inflammation (principal)
CPT/HCPCS: 36475

== ENCOUNTER 2024-03-04 13:29 | Outpatient (AMB) | payer OTHER, SELFPAY ==
--- NOTE | 2024-03-04 13:37 | A.OFFVIS_ITS ---
Intake Visit Reasons: 2 week follow up left SSV RFA Intake Note: Patient presents for 2 week follow up left ssv rfa. Patient states she has pain in her left leg. She has a circular dark spot on her leg that she states is getting larger. Allergies doxycycline Allergy (Intermediate, Verified 03/04/24 13:38) Rash HPI HPI 2 week follow up left SSV RFA: Details: Very pleasant 59-year-old female presents for follow-up regarding attempted small saphenous vein ablation. At the current time she appears to be doing relatively well. Her only complaint is foot pain. She does have swelling in general. She is morbidly obese. She now presents for routine postprocedure follow-up. [facility] Medical History Obstructive sleep apnea Essential hypertension Morbid exogenous obesity Physical exam Morbid obesity GERD with apnea Depression Family history of high cholesterol UTI (urinary tract infection) Surgical History History of esophagogastroduodenoscopy (EGD) Hx of colonoscopy History of bladder suspension procedure History of appendectomy Family History Mother Pulmonary edema Father Diabetes HTN (hypertension) Heart disease Social History Household Members: Spouse Housing: Apartment Do you presently have visiting nurse or other home services: No Alcohol intake: never Patient Tobacco Use Status: Never used Tobacco e-Cigarette/Vaping Use: Never Used Second Hand Smoke Exposure: No service: No Current occupational status: employed 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 Sexual orientation: Straight/Heterosexual Gender identity: Female Cognitive needs: No Hearing needs: No Vision needs: Yes (glasses) Review of Systems Const All systems reviewed & are unremarkable except as noted in HPI and below Reports no additional complaints ENT Reports Normal hearing present Card Denies chest pain, Denies chest pain at rest, Denies chest pain with activity and Denies pedal edema Resp Denies cough GI Denies abdominal pain Musc Denies abnormal gait, Denies muscle cramps and Denies radiating pain into limb Skin/Breast Denies skin ulcer and Denies wounds Neuro Reports Normal hearing present and Denies abnormal gait Psych Reports no additional complaints Physical Exam Const General: cooperative, healthy appearing and comfortable Orientation/consciousness: oriented to person, oriented to place and oriented to time HEENT Head: Yes normal to inspection Neck Neck: Yes normal visual inspection Carotids: no bruits Chest Chest palpation & inspection: normal inspection of the chest Resp Effort & Inspection: normal respiratory effort and able to speak in complete sentences Auscultation: clear to auscultation bilaterally, no crackles, no rales, no rhonchi and no wheezes Cardio Rate: regular rate Rhythm: regular rhythm Heart sounds: S1 normal heart sound present and S2 normal heart sound present Bruits: no carotid bruits Peripheral pulses: Peripheral pulses 2+ throughout GI Inspection: Yes normal to inspection Skin Wounds: no wounds Hair: normal Neuro General: oriented to person, oriented to place and oriented to time Cranial nerves: Yes CN's II-XII intact bilaterally and Yes Normal hearing present Cognition (Neuro): normal cognition Motor exam (neuro): 5/5 motor strength present throughout Extrem Other: venous exam: +2 edema General: No clubbing, No cyanosis and No edema Psych Appearance: grossly normal Mental Status: mental status grossly normal Speech and movement: Normal speech and movement present Quality Reporting (2019) Adult ([facility] 138/07/19/68) Smoking risk assessment performed?: Yes Patient Tobacco Use Status: Never used T obacco Assessment & Plan Assessment & Plan (1) Varicose veins of left lower extremity with inflammation: Comment: 02/01/2024 - attempted left small saphenous vein ablation Code(s): I83.12 - Varicose veins of left lower extremity with inflammation Category: Medical Plan: In short patient has done well with all her venous procedures. Unfortunately the rest of her varicosities appear to be small in size. Would not attempt any further treatments. We did discuss routine conservative measures including compression elevation and exercise. In addition weight loss for her would be beneficial. She will follow up with us on an as-needed basis. Thank you for allowing us to assist in her care. If there are any questions or concerns please do not hesitate to contact us (2) Varicose veins of right lower extremity with inflammation: Comment: 01/09/2020 - right great saphenous vein Cyanoacralate ablation Code(s): I83.11 - Varicose veins of right lower extremity with inflammation Category: Medical Plan: See above Coding Level of Care Code Est Pt Level 3 (70189) Diagnoses Varicose veins of left lower extremity with inflammation I83.12 Varicose veins of right lower extremity with inflammation I83.11
== END 2024-03-04 13:46 | disposition home or self-care (01) ==
PROVIDERS: PCP Internal Medicine; Visit Provider Surgery Vascular Surgery
DX: I83.12 Varicose veins of left lower extremity with inflammation (principal); I83.11 Varicose veins of right lower extremity with inflammation
CPT/HCPCS: 99213

== ENCOUNTER → 2024-03-04 13:29 | Outpatient (BNVA) | payer OTHER, SELFPAY | PROVIDERS: PCP Internal Medicine; Visit Provider Surgery Vascular Surgery ==

== ENCOUNTER 2024-04-01 12:59 | Outpatient (REF) | payer OTHER, SELFPAY ==
--- NOTE | ~2024-04-01 | US_ITS ---
EXAMINATION: US RETROPERITONEAL COMPLETE (RENAL) CLINICAL INFORMATION: Urinary tract infection, site not specified. COMPARISON: Ultrasound complete abdomen with liver elastography 04/26/2023 and 08/23/2022. TECHNIQUE: Real-time imaging of the kidneys and bladder using grayscale and color Doppler technique. FINDINGS: RIGHT KIDNEY: 12 x 4 x 5 cm (SAG x AP x TRV). The kidney is normal in size, contour, and echogenicity. Renal cortical thickness is normal. No calculi or focal parenchymal lesions. No hydronephrosis. There is flow on color Doppler interrogation of the renal hilum. LEFT KIDNEY: 10 x 5 x 4 cm (SAG x AP x TRV).. There is a questionable 2.6 cm hypoechoic abnormality in the midportion without flow on color Doppler interrogation. The kidney is normal in size, contour, and echogenicity. Renal cortical thickness is normal. No renal calculi or hydronephrosis. There is flow on color Doppler interrogation of the renal hilum BLADDER: Well distended. Bilateral ureteral jets are demonstrated. Prevoid bladder volume is 150 mL. Postvoid bladder volume is 42 mL. US/US retroperitoneal comp IMPRESSION: No hydronephrosis. Urinary retention, 42 cc. Artifact versus a 2.6 cm lesion, left kidney. Recommend dedicated CT.. Electronically signed by: Callum Ace MD 05/08/2024 12:22 PM YANELIS
[2024-04-01 14:56] LABS: Appearance Urine Clear; Color Urine Yellow; Glucose Urine UA Negative (Negative); Leukocyte Esterase Urine Trace (Negative); Nitrite Urine Positive (Negative); Specific Gravity - Urine 1.015 (1.005-1.025); UMIC TRIGGER UACC YES; Urine Blood Negative (Negative); Urine Ketones Negative (Negative); Urine Protein Negative (Neg-Trace)
[2024-04-01 15:04] LABS: Bacteria Urine 4+ (None Seen); Hyaline Casts Urine 0-2 /LPF (0-2); RBC Urine 0-2 /HPF (0-2); UACC Culture Trigger YES
== END 2024-04-01 13:00 | disposition home or self-care (01) ==
LOC: HO.US 12:59
PROVIDERS: Absent Provider Internal Medicine; PCP Internal Medicine; Visit Provider Nurse Practitioner Family
DX: N39.0 Urinary tract infection, site not specified (principal); R30.0 Dysuria; B96.20 Unspecified Escherichia coli [E. coli] as the cause of diseases classified elsewhere
CPT/HCPCS: 76770; 81001; 87086; 87088; 87186

== ENCOUNTER → 2024-04-01 13:01 | Outpatient (BNV) | payer OTHER, SELFPAY | PROVIDERS: Absent Provider Internal Medicine; PCP Internal Medicine; Visit Provider Radiology Diagnostic Radiology | DX: R33.9 Retention of urine, unspecified (principal) | CPT/HCPCS: 76770 ==

== ENCOUNTER 2024-04-14 13:33 | Outpatient (AMB) | payer OTHER, SELFPAY ==
--- NOTE | 2024-04-14 13:36 | A.OFFVIS_ITS ---
Intake Visit Reasons: 3 month follow up/ US(set) Intake Note: Patient presents today for follow up on: recurrent uti Urology Medications: estrace cream Blood Thinner: none PVR: 0ml's Opthalmic Tech Required: Yes Opthalmic Tech Services: Opthalmic Tech Present Opthalmic Tech Name: [id number] Accompanied by: Self / Same As Patient Allergies doxycycline Allergy (Intermediate, Verified 04/14/24 13:54) Rash Medication List - Last Reconciled 04/14/24 by Asia Fowler [facility] blood pressure kit-extra large As directed cholecalciferol (vitamin D3) 50 mcg PO DAILY 90 days cyanocobalamin (vitamin B-12) 250 mcg PO DAILY escitalopram oxalate 10 mg PO BEDTIME 90 days estradiol 0.01%(0.1mg/gram) pea sized amount to urethra daily times one months and 3 times a week thereafter. 30 days furosemide 20 mg PO DAILY 30 days lisinopril 20 mg PO DAILY 90 days thiamine HCl (vitamin B1) 100 mg PO DAILY HPI Comments Details: Evon is a 59-year-old Malagasy-speaking female patient of Dr. Ugo Perez. She has a past medical history of?obstructive sleep apnea, hypertension, morbid obesity, GERD, depression, and recurrent urinary tract infections. She presents to the office today for follow-up of her recurrent urinary tract infection. Of note, patient was seen approximately 3 months ago at which time a retroperitoneal ultrasound was ordered for further assessment evaluation. These results were reviewed with the patient today. Bilateral kidneys are normal in size, contour, and echogenicity. Bilateral kidneys with no calculi or hydronephrosis. Left kidney with 2.6 cm hypoechoic abnormality in the midportion without flow on color doppler interrogation. Recommend dedicated CT per radiology report. In discussion with the patient today she reports having completed antibiotic therapy as prescribed. Urine culture results reviewed with the patient today 04/20, 01/17, 02/17, 07/21 urine cultures positive for E coli and 12/18 noted Klebsiella pneumoniae and group B. When asked she currently denies any UTI like symptoms. In office urinalysis results reviewed with the patient today. PVR 0 mL. When asked she does report noting issues with fecal incontinence and plans to follow-up with GI regarding this issue. Discussed at length potential causes of GI issues in relation to recurrent urinary tract infections. She otherwise denies hematuria, dysuria, foul smelling urine, changes to urinary stream, flank pain, fever, and or chills. She reports compliance with Estrace cream as prescribed however has recently ran out of her prescription and is requesting refill. She is happy with her current voiding parameters. She otherwise offers no other issues or concerns at this time. [facility] Medical History Obstructive sleep apnea Essential hypertension Morbid exogenous obesity Physical exam Morbid obesity GERD with apnea Depression Family history of high cholesterol UTI (urinary tract infection) Surgical History History of esophagogastroduodenoscopy (EGD) Hx of colonoscopy History of bladder suspension procedure History of appendectomy Family History Mother Pulmonary edema Father Diabetes HTN (hypertension) Heart disease Social History Household Members: Spouse Housing: Apartment Do you presently have visiting nurse or other home services: No Alcohol intake: never Patient Tobacco Use Status: Never used Tobacco e-Cigarette/Vaping Use: Never Used Second Hand Smoke Exposure: No service: No Current occupational status: employed 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 Sexual orientation: Straight/Heterosexual Gender identity: Female Cognitive needs: No Hearing needs: No Vision needs: Yes (glasses) Review of Systems Eyes Reports no additional complaints ENT Reports no additional complaints Card Reports as per HPI Resp Reports as per HPI GI Reports as per HPI Reports as per HPI Musc Reports no additional complaints Neuro Reports no additional complaints Psych Reports as per HPI Endo Reports no additional complaints Bucky/Lymph Reports no additional complaints Aller/Immun Reports no additional complaints Physical Exam Const General: cooperative, healthy appearing, comfortable, no acute distress, well developed, alert and awake Nutritional Appearance: obese Orientation/consciousness: patient oriented x3 Limitations: no limitations HEENT Head: Yes normal to inspection, Yes normocephalic and Yes atraumatic Ears: hearing grossly normal bilaterally Eyes General: appearance normal, both eyes and all related structures Neck Neck: Yes normal visual inspection and Yes trachea midline Chest Chest palpation & inspection: normal inspection of the chest Resp Effort & Inspection: normal respiratory effort and able to speak in complete sentences Cardio Rate: regular rate GI Inspection: Yes normal to inspection General: Yes no CVA tenderness Back/Spine/Pelvis Back: no CVA tenderness Skin General skin exam: no rashes or lesions noted Neuro General: patient oriented x3 Extrem General: Yes normal to inspection Psych Appearance: grossly normal and well kempt Mental Status: mental status grossly normal Speech and movement: Normal speech and movement present and Clear speech present Affect: normal affect Attitude: cooperative Thought process: Normal thought process present Thought content: Normal thought content present Insight: Fair insight present (Psych) Judgement: Fair judgement present (Psych) Results AMB Urinalysis, Automated UA Leukoctes 0 Kirill/uL Last Edit by [employer] on 04/14/24 13:51 UA Nitrite Negative Last Edit by [employer] on 04/14/24 13:51 UA Urobilinogen 0.2 mg/dL Last Edit by [employer] on 04/14/24 13:51 UA Protein 15 mg/dL Last Edit by [employer] on 04/14/24 13:51 UA pH 6.0 Last Edit by [employer] on 04/14/24 13:51 UA Blood 10 Wilber/uL Last Edit by [employer] on 04/14/24 13:51 UA Specific Dorr 1.025 Last Edit by [employer] on 04/14/24 13:51 UA Ketone Negative Last Edit by [employer] on 04/14/24 13:51 UA Bilirubin 0 mg/dL Last Edit by [employer] on 04/14/24 13:51 UA Glucose 0 mg/dL Last Edit by [employer] on 04/14/24 13:51 Quality Reporting (2019) Adult ([facility] [address]807/19/68) Smoking risk assessment performed?: Yes Patient Tobacco Use Status: Never used Tobacco Results Reviewed Results Reviewed: Laboratory Last Values Urine pH (Auto) 6.0 04/14/24 13:50 Specific Dorr (Auto) 1.025 04/14/24 13:50 Urine Protein (Auto) 15 mg/dL 04/14/24 13:50 Glucose (UA)(Auto) 0 mg/dL 04/14/24 13:50 Urine Ketones (Auto) Negative 04/14/24 13:50 Urine Blood (Auto) 10 Wilber/uL 04/14/24 13:50 Urine Nitrite (Auto) Negative 04/14/24 13:50 Urine Bilirubin (Auto) 0 mg/dL 04/14/24 13:50 Urine Urobilinogen (Auto) 0.2 mg/dL 04/14/24 13:50 Leukocyte Esterase (Auto) 0 Kirill/uL 04/14/24 13:50 Date of Service: 04/01/24 EXAMINATION: US RETROPERITONEAL COMPLETE (RENAL) FINDINGS: RIGHT KIDNEY: 12 x 4 x 5 cm (SAG x AP x TRV). The kidney is normal in size, contour, and echogenicity. Renal cortical thickness is normal. No calculi or focal parenchymal lesions. No hydronephrosis. There is flow on color Doppler interrogation of the renal hilum. LEFT KIDNEY: 10 x 5 x 4 cm (SAG x AP x TRV).. There is a questionable 2.6 cm hypoechoic abnormality in the midportion without flow on color Doppler interrogation. The kidney is normal in size, contour, and echogenicity. Renal cortical thickness is normal. No renal calculi or hydronephrosis. There is flow on color Doppler interrogation of the renal hilum BLADDER: Well distended. Bilateral ureteral jets are demonstrated. Prevoid bladder volume is 150 mL. Postvoid bladder volume is 42 mL. IMPRESSION: No hydronephrosis. Urinary retention, 42 cc. Artifact versus a 2.6 cm lesion, left kidney. Recommend dedicated CT. Assessment & Plan Assessment & Plan (1) Recurrent UTI: Code(s): N39.0 - Urinary tract infection, site not specified Category: Medical (2) Renal cyst: Code(s): N28.1 - Cyst of kidney, acquired Category: Medical Plan In office urinalysis results reviewed with the patient today; as noted above. PVR 0 mL. Continue Estrace cream; refill provided. Discussed possible near future microgen if symptoms arise. Discussed possible near future in office cystoscopy for further assessment evaluation. Recent retroperitoneal ultrasound results reviewed with the patient today; as noted above. Will obtain CT renal mass protocol as discussed. BUN and creatinine ordered for imaging Discussed UTI prevention with D mannose supplement, vitamin-C, increasing fluid intake, behavioral therapy with timed voiding, perineal hygiene and postcoital voiding, and management of constipation with stool softeners and increased fiber intake. Follow-up in 3 months with imaging, labs, and PVR; or sooner with any issues, concerns, and or questions. Orders: Orders AMB Post Void Residual by ultrasound 04/14/24 N39.0 - Urinary tract infection, site not specified AMB Urinalysis Automated 04/14/24 Z13.9 - Encounter for screening, unspecified Medications: Changed From estradiol 0.01%(0.1mg/gram) pea sized amount to urethra daily times one months and 3 times a week thereafter. 30 days 42.5 grams 1RF To estradiol 0.01%(0.1mg/gram) pea sized amount to urethra 3 times per week 42.5 grams 3RF 90 days Patient Instructions: The patient had an opportunity to ask questions regarding the treatment plan. All questions were answered. Physical exam, labs, and imaging were discussed and reviewed in detail. As well as risks, benefits, and discussion of treatment choices. No major barriers to understanding were identified. The patient expressed understanding and agreement with the above treatment plan. The patient was made aware they should contact our office by phone for worsening of their current condition, the appearance of new symptoms, or with any questions or concerns. Compliance is encouraged with any medications and follow up testing that is ordered. It is a privilege to be allowed the opportunity to participate in? your urological care.? Again, if you have any questions or concerns If you have any questions or concerns please do not hesitate to contact me. The office is [phone]. This note is constructed using voice recognition software. While every effort lopez s been made to ensure accuracy business project analyst errors may have been included. Yours sincerely, KARINA Phelps Coding Level of Care Code Est Pt Level 3 (08438) Complex EM visit Add On G2211 Diagnoses Recurrent UTI N39.0 Renal cyst N28.1
== END 2024-04-14 14:06 | disposition home or self-care (01) ==
PROVIDERS: PCP Internal Medicine; Visit Provider Nurse Practitioner Family
DX: N39.0 Urinary tract infection, site not specified (principal); N28.1 Cyst of kidney, acquired
CPT/HCPCS: 99213

== ENCOUNTER → 2024-04-14 13:33 | Outpatient (BNVA) | payer OTHER, SELFPAY | PROVIDERS: PCP Internal Medicine; Visit Provider Nurse Practitioner Family | DX: N39.0 Urinary tract infection, site not specified (principal); N28.1 Cyst of kidney, acquired | CPT/HCPCS: 81003 ==

== ENCOUNTER → 2024-05-05 23:59 | Outpatient (BNV) | payer OTHER, SELFPAY | PROVIDERS: PCP Internal Medicine; Visit Provider Internal Medicine | DX: I21.4 Non-ST elevation (NSTEMI) myocardial infarction (principal) | CPT/HCPCS: 99223 ==

== ENCOUNTER 2024-05-12 15:53 | Outpatient (AMB) | payer OTHER, SELFPAY ==
--- OUTSIDE RECORDS SUMMARY | 2024-05-12 15:55 | XMS_ITS | Continuity of Care Document ---
Author Organization [facility] ter Address [address] [place] [address]- Care Team Providers Care Warehouse Coordinator Name Role Phone Ugo Perez MD, Maria Luisa Decker Primary Care Physician Encounter [facility] [id number] Date(s): 05/05/24 - 05/10/24 [facility] [address] [place] [id number] Discharge Disposition: A-D/C Home Attending Physician: Justice Mendoza MD Admitting Physician: Awais Young MD Referring Physician: Not on Staff, Referring MD Encounter Type: Disch IP Allergies, Adverse Reactions, Alerts No Known Allergies Medications aspirin 81 mg oral delayed release tablet 81 mg, By Mouth, Daily, # 90 tablet, Refills 0, Tot. Refills 0, Maintenance, 05/10/24 9:52:00 AM EST, Route to Pharmacy Electronically, [facility]- [facility], Partial fill upon patient request if the prescription is for a schedule II opioid drug., 165.1, cm, 05/10/24 4:28:00 EST, Height, 145, kg, 05/06/24 3:59:00 EST, Dry Weight Start Date: 05/10/24 Stop Date: 08/08/24 Status: Ordered Quantity: 90.0 Unit: tablet Repeat number: 1 atorvastatin 80 mg oral tablet = 80 mg, By Mouth, Daily at bedtime, # 90 tablet, 0 Refills, Maintenance, 05/10/24 9:53:00 AM EST, Tablet, [facility], Partial fill upon patient request if the prescription is for a schedule II opioid drug., 165.1, cm, 05/10/24 4:28:00 EST, Height, 145, kg, 05/06/24 3:59:00 EST, Dry Weight Start Date: 05/10/24 Stop Date: 08/08/24 Status: Ordered Quantity: 90.0 Unit: tablet Repeat number: 1 carvedilol 12.5 mg oral tablet 12.5 mg, By Mouth, 2 times a day, # 180 tablet, Refills 0, Tot. Refills 0, Maintenance, 05/10/24 9:53:00 AM EST, Route to Pharmacy Electronically, [facility], Partial fill upon patient request if the prescription is for a schedule II opioid drug., 165.1, cm, 05/10/24 4:28:00 EST, Height, 145, kg, 05/06/24 3:59:00 EST, Dry Weight Start Date: 05/10/24 Stop Date: 08/08/24 Status: Ordered Quantity: 180.0 Unit: tablet Repeat number: 1 Lasix 20 mg oral tablet 20 mg, By Mouth, Daily, # 90 tablet, Refills 0, Tot. Refills 0, Maintenance, 05/10/24 9:53:00 AM EST, Route to Pharmacy Electronically, [facility]- [facility], Partial fill upon patient request if the prescription is for a schedule II opioid drug., 165.1, cm, 05/10/24 4:28:00 EST, Height, 145, kg, 05/06/24 3:59:00 EST, Dry Weight Start Date: 05/10/24 Stop Date: 08/08/24 Status: Ordered Quantity: 90.0 Unit: tablet Repeat number: 1 lisinopril 5 mg oral tablet 5 mg, By Mouth, Daily, # 90 tablet, Refills 0, Tot. Refills 0, Maintenance, 05/10/24 9:56:00 AM EST, Route to Pharmacy Electronically, [facility]- [facility], Partial fill upon patient request if the prescription is for a schedule II opioid drug., 165.1, cm, 05/10/24 4:28:00 EST, Height, 145, kg,05/06/24 3:59:00 EST, Dry Weight Start Date: 05/10/24 Stop Date: 08/08/24 Status: Ordered Quantity: 90.0 Unit: tablet Repeat number: 1 Problem List Condition Confirmation Course Effective Dates Status Health St atus Informant Severe obesity Confirmed Active Results Orders for Microbiology Reports Name Date Group A Strep Screen and Culture 05/05/24 Microbiology Reports TEST:Group A Strep Screen and Culture STATUS:Auth (Verified) BODY SITE: SOURCE:THROAT COLLECTED DATE/TIME:05/05/24 7:58 AM Group A Strep Screen and Culture SPECIMEN DESCRIPTION : THROAT SWAB SPECIAL REQUESTS : NONE DIRECT EXAM : RAPID GROUP A ANTIGEN RESULT IS NEGATIVE, CULTURE SENT TO REFERENCE LAB CULTURE : RAPID GROUP A ANTIGEN RESULT IS NEGATIVE, CULTURE SENT TO REFERENCE LAB REPORT STATUS : FINAL 05/05/2024 Radiology Reports * Exam Date Time Procedure Performing Provider Status 05/05/24 7:49 AM Chest 2 Views Frontal and Lat Franklin Whaley; Auth (Verified) Notes: (Chest 2 Views Frontal and Lat) Reason For Exam: Shortness of Breath, Fever;Other: RESULT: Chest 2 Views Frontal and Lat Examination: Chest performed on 05/05/2024. History: Chest pain. Cough. Findings: Frontal and lateral views of the chest are submitted without comparison. The cardiac and mediastinal silhouettes are within normal limits. Pulmonary vascular congestion is noted. The osseous and soft tissue structures are unremarkable. Impression: Pulmonary vascular congestion. WSN: [id number] Ordering Physician: Casa Driver Dictated By: Abbey Gardner MD Dictated Date/Time: 05/05/24 7:55 am Reviewed By: Abbey Gardner MD Signed By: Abbey Gardner MD Signed Date/Time: 05/05/24 7:55 am Transcribed By: JULIANNE Transcribed Date/Time: 05/05/24 7:53 am Vital Signs Most recent to oldest [Reference Range]: 1 2 3 Height 165.1 cm (05/10/24 10:18 AM) 165.1 cm (05/10/24 4:28 AM) 165.1 cm (05/09/24 9:13 PM) Weight 151.2 kg (05/10/24 4:28 AM) 152.3 kg (05/09/24 4:20 AM) 154.9 kg (05/07/24 4:55 AM) Oxygen Saturation [94-100 %] 99 % (05/10/24 10:18 AM) 98 % (05/10/24:28 AM) 96 % (05/09/24 9:13 PM) Pulse Rate [55-90 bpm] 68 bpm (05/10/24 10:18 AM) 63 bpm (05/10/24:28 AM) 65 bpm (05/09/24 9:13 PM) Body Mass Index [18.5-24.99 kg/m2] 55.47 kg/m2 *>HHI* (05/10/24 4:28 AM) 55.87 kg/m2 *>HHI* (05/09/24 4:20 AM) 56.72 kg/m2 *>HHI* (05/06/24 4:28 AM) Blood Pressure [90-138/55-84 mm Hg] 115/66mm Hg (05/10/24 10:18 AM) 119/62mm Hg (05/10/24:28 AM) 117/66mm Hg (05/09/24 9:13 PM) Respiratory Rate [16-30 br/min] 17 br/min (05/10/24:28 AM) 18 br/min (05/09/24 9:13 PM) 18 br/min (05/09/24 6:23 PM) Temperature [96.8-100.4 DegF] 97.9 DegF (05/10/24 10:18 AM) 97.7 DegF (05/10/24: AM) 98.0 DegF (05/09/24 9:13 PM) Liters per Minute 1 L/min (05/08/24 10:24 AM) 2 L/min (05/08/24 6:24 AM) 2 L/min (05/06/24 9:47 AM) Mode of Delivery (Oxygen) Room air (05/10/24 10:18 AM) Room air (05/10/24 4:28 AM) Room air (05/09/24 9:13 PM) Blood pressure sites Arm, right (05/10/24 10:18 AM) Arm, right (05/10/24 4:28 AM) Arm, right (05/09/24 9:13 PM) Temperature Route Oral (05/10/24 10:18 AM) Axillary (05/10/24 4:28 AM) Oral (05/09/24 9:13 PM) Dry Weight 145 kg (05/06/24 3:59 AM) 156.4 kg (05/05/24 5:50 PM) 145 kg (05/05/24 12:46 PM) Weight Obtained Via Bed scale (05/09/24 4:20 AM) Bed scale (05/07/24 4:55 AM) Bed scale (05/06/24 4:28 AM) Note * Brandy Howell RN: PERFORM Event Display: Discharge/Transfer Note Hospital Authored Date: Nursing Discharge Note Entered On: 05/10/2024 17:20 EST Performed On: 05/10/2024 17:20 EST by Brandy Howell RN Nursing Discharge Note 2 Discharge Time : 05/10/2024 15:00 EST Discharge Level of Care at Discharge : Homehealth/VNA Discharge VNA/Hospice/Home Care(v001) : [facility] [phone] Patient Left Unit Via : Wheelchair Patient Accompanied Off Unit with : Responsible adult DC Instructions Provided & Signed by Pt : Yes Patient Understands D/C Instructions : Yes Patient Instructions Discharge Signed : Yes Did Pt have Specialty Bed or Wound Vac : No Brandy Howell RN - 05/10/2024 17:20 EST * Justice Mendoza MD: PERFORM Event Display: Discharge/Transfer Note Hospital Authored Date: Patient: ??ATIF STAHL ? Age:??59 Years?Sex:??Female?:??1965?? Patient Information Discharge Location: Primary Care Physician: Ugo Perez MD , Maria Luisa Decker Admit Date/Time: 05/05/2024 12:44 Discharge Disposition Discharge Disposition: Home with Home Health Discharge Diagnosis Cough ([id number]) NSTEMI, initial episode of care (I21.4) HTN (hypertension) (I10) _ Discharge Medications Aspirin (aspirin 81 mg oral delayed release tablet)?81?Milligram?By Mouth?Daily?for 90?Days Atorvastatin (atorvastatin 80 mg oral tablet)?80?Milligram?By Mouth?Daily at bedtime?for 90?Days Carvedilol (carvedilol 12.5 mg oral tablet)?12.5?Milligram?By Mouth?2 times a day?for 90?Days Furosemide (Lasix 20 mg oral tablet)?20?Milligram?By Mouth?Daily?for 90?Days Lisinopril (lisinopril 5 mg oral tablet)?5?Milligram?By Mouth?Daily?for 90?Days ? Durable Medical Equipment Name of Agency #1: [facility] (05/10/24) Service Categories #1: Physical Therapy, [place] (05/10/24) Service Comments #1: [facility] will call ??you to set up services. If you do Not hear from them,please call and thank you. (05/10/24) Ambulatory devices needed: Walker (05/09/24) ? Medications Started New medicine Aspirin 81 mg daily Lipitor 80 mg daily Coreg 12.5 mg 2 times a day Furosemide 20 mg daily Lisinopril 5 mg daily ?? Follow-up Follow-up with your primary care provider in about 1 week of discharge. ??Call office for appointment. Follow-up with??[facility] with??Jhoana Rodriguez on 06/03/2023 Follow-up with cardiac rehab in 06/04/2023 Medications Discontinued none Doses Changed none Allergies Allergies ?(Active and Proposed Allergies Only) NKA? (Severity: Unknown severity, Onset: Unknown) ? Future Appointments Sunday 9:15 AM EST ?? With: Jeanette ISAAC, Jhoana Esquivel Where: [facility] [address] [place] [address]- Status: Pending Hospital Course ?? Diagnoses HTN (hypertension) ??(I10) NSTEMI, initial episode of care ??(I21.4) ?? This is a 59-year-old female with history of hypertension presenting to the emergency room with complaints of shortness of breath some throat discomfort.?? Also noted to have some fevers prior to presentation.?? In the emergency room was concerned of EKG changes, troponin was at 66, subsequent wentup to 118, patient was started on heparin drip and was admitted for ACS rule out. ??Patient??LVEF was down to 35-40%.?? Patient underwent coronary angiography??which did not show any significant coronary artery disease.?? Patient's troponin elevation was thought to be in the setting of acute myoperi carditis from RSV infection.?? LVEDP was elevated at 28.?? Patient was started on goal-directed medical therapy with aspirin, Coreg, Lipitor, was diuresed with IV Lasix with improvement in oxygenation.?? Patient's diuretics were transitioned to??Lasix 20 mg daily on discharge.?? Outpatient follow-up with cardiology??for further management of??nonischemic cardiomyopathy secondary to acute myopericarditis. ?? Problem based management during hospital stay as follows: ?? 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 NSTEMI-most likely secondary to acute myopericarditis RSV infection Upper respiratory symptoms, RSV came back positive Her symptoms could be secondary to the viral illness however with mild EKG changes, and elevated troponin.?? Chest x-ray also concern for mild vascular congestion. Was kept on heparin drip, echo was completed which showed LVEF of 35-40% with??wall motion abnormalities Underwent coronary angiography on 05/07??which showed clean coronaries Most likely acute??viral myopericarditis??from RSV infection Continue aspirin, Coreg, Lipitor, will status with IV Lasix, transition to Lasix 20 mg daily Outpatient follow-up with cardiology ?? Hypertension- continue coreg??12.5 mg twice daily ? CODE STATUS is full Disposition-discharge home with services??for PT/nursing ?? Electronically signed: ?? Justice Mendoza MD. ? Order Date/Time Order Action Order Name Order Detail 05/09/2024 08:44 Modify Comprehensive Metabolic Panel TA, 05/09/24 8:44:00 EST, C ? Objective as mentioned above ? Measurements?? Height: 165.1 cm (05/10/24) Weight: 151.2 kg (05/10/24) Dry Weight: 145 kg (05/06/24) Body Mass Index:??55.47 kg/m2??Critical (05/10/24) ? Vital Signs?? Temperature: 97.7 DegF (05/10/24 04:28:00) Temperature Route: Axillary (05/10/24 04:28:00) Pulse Rate: 63 bpm (05/10/24 04:28:00) Respiratory Rate: 17 br/min (05/10/24 04:28:00) Systolic Blood Pressure: 119 mm Hg (05/10/24 04:28:00) Diastolic Blood Pressure: 62 mm Hg (05/10/24 04:28:00) Blood pressure sites: Arm, right (05/10/24 04:28:00) Mean Arterial Pressure: 81 mm Hg (05/10/24 04:28:00) Pulse Pressure: 57 mm Hg (05/10/24 04:28:00) Oxygen Saturation: 98 % (05/10/24 04:28:00) Mode of Delivery (Oxygen): Room air (05/10/24 04:28:00) Early Warning Score: 2 (05/10/24 08:46:01) ? Perfusion Assessment Cardiac Rhythm: Normal sinus rhythm (05/09/24 21:00:00) Cardiovascular: WNL except (05/09/24 21:00:00) Cardiovascular Assessment Status: Unchanged from recorder's assessment (05/10/24 03:00:00) Dorsalis Pedis Pulse, Left: Normal (05/09/24 21:00:00) Dorsalis Pedis Pulse, Right: Normal (05/09/24 21:00:00) Nail Bed Color, Fingers: [place] (05/09/24 21:00:00) Nail Bed Color, Toes: [place] (05/09/24 21:00:00) Radial Pulse, Left: Normal (05/09/24 21:00:00) Radial Pulse, Right: Normal (05/09/24 21:00:00) Skin Temperature Lower Extremities: Warm (05/09/24 21:00:00) Skin Temperature Upper Extremities: Warm (05/09/24 21:00:00) ? Basic ADLs Activity Assistance: Independent (05/09/24) Ambulatory devices needed: Walker (05/09/24) Assistance w bathing/eating/dressing: No (05/05/24) Feeding Assistance: NPO (05/09/24) Hygiene: Self, Other: PCT assisted with towels and linen chamge (05/09/24) Need for Assist w/ Walk/Transfer: Yes (05/05/24) ? . Physical Exam Constitutional: Alert, in no acute distress. Head EENT: Extraocular muscle movement intact.??Moist mucous membranes.?? Neck: Supple. No JVD. Respiratory: Clear to auscultation. No wheezing or crackles. No use of accessory muscles. Cardiovascular: S1S2 regular. No murmurs, rubs or gallops. Gastrointestinal: Abdomen soft, non-tender, non-distended. Normal bowel sounds. Genitourinary: No CVA tenderness. Extremities: No lower extremity pitting??edema. No cyanosis or clubbing. Neurologic: AAOx3, Speech normal. No focal neurological deficits. Skin: No rash. Psychiatric: Normal mood and affect Follow-Up Appointments Added Follow Up ?Time Frame ?Comments Ugo Perez MD , Elsie?1 week: call to discuss follow up visit?Follow-up with your primary care provider in about 1 week of discharge. ??Call office for appointment. [facility]?06/04/2024 08:00 Patient Instructions New medicine Aspirin 81 mg daily Lipitor 80 mg daily Coreg 12.5 mg 2 times a day Furosemide 20 mg daily Lisinopril 5 mg daily ?? Follow-up Follow-up with your primary care provider in about 1 week of discharge. ??Call office for appointment. Follow-up with??[facility] with??Jhoana Rodriguez on 06/03/2023 Follow-up with cardiac rehab in 06/04/2023 ? Post Discharge Care Diet: ??Cardiac diet ?? Activity: ??as tolerated ?? Wound Care: ??none ?? Code Status: ??full code ?? Condition: ??stable ?? Prognosis: ??Fair ?? Discharge ?home with services, 05/10/24 9:59:00 EST ?Order Comment:?? Discharge Prescriptions ?ePrescribed, 05/10/24 9:59:00 EST ?Order Comment:?? Home Health Face to Face *Denotes mandatory rubio ?? *I certify that this patient is under my care and that I or an allowed non- physician working with me had a face to face encounter with the patient on this date:??05/10/2024 10:04 ?? *The encounter with the patient was in whole, or in part, for the following medical condition, which is the primary diagnosis(es) for home health care:??Cough ([id number]) NSTEMI, initial episode of care (I21.4) HTN (hypertension) (I10) ?? *Select the indications for the discipline/s that are being arranged for this patient. Nursing (select all that apply): [_] None [X_] Medication management (reconciliation, teaching)?? [X_] Chronic disease management?? [_] Wound care and treatment?? [X_] Home safety evaluation [_] Administer SQ/IM/IV medications?? [_] Cath care?? [_] Drain care?? [_] Trach or GT care?? Other _ Occupation Therapy (select all that apply): [_] None [_] ADL Management [_] Fall prevention training [_] Energy conservation [_] Cognitive training Other _ Physical Therapy (select all that apply): [_] None [X_] Functional mobility training [X_] Home exercise program to strengthen [X_] Increase ROM?? [_] Falls prevention training [X_] Home maintenance program for chronic disease Other _ Speech Therapy (select all that apply): [_] None [_] Swallow evaluation and training [_] Speech and language training [_] Cognitive training to process, organize, and/or recall information Other _ ? *Homebound due to (select all that apply): [_] Inability to leave home without assistance/supervision [_] Inability to ambulate without assistance [_] Pain [X_] Decreased strength and endurance [_] Unsteady gait [_] Severe SOB and fatigue [_] Impaired transfers [_] Inability to negotiate stairs [_] Limited weight bearing [_] Mental status change? *Physician Signature:? Electronically signed: ?? Justice Mendoza MD. ? *By signing this, I certify that I have personally evaluated the patient and agree with the findings and recommendations as documented above. ? thFTF Results Discharge Labs BACTERIOLOGY Beta Strep Gp A Specimen Source THROAT SWAB ()?? 05/05/2024 07:58 Beta Strep Gp A Culture NEGATIVE ()?? 05/05/2024 07:58 ?? BLOOD COUNT & DIFF WBC 9.1 k/mm3 ()?? 05/10/2024 07:55 RBC 4.09 m/mm3 (Low)?? 05/10/2024 07:55 Hgb 12.5 Gm/dL ()?? 05/10/2024 07:55 Hct 37.5 % ()?? 05/10/2024 07:55 MCV 91.7 femtoliters ()?? 05/10/2024 07:55 MCH 30.6 pg ()?? 05/10/2024 07:55 MCHC 33.3 Gm/dL ()?? 05/10/2024 07:55 Platelet Count 228 k/mm3 ()?? 05/10/2024 07:55 RDW-SD 44.4 femtoliters ()?? 05/10/2024 07:55 MPV 11.0 femtoliters ()?? 05/10/2024 07:55 Nucleated RBC (Automated) 0.0 #/100 WBC'S ()?? 05/10/2024 07:55 Abs. NRBC 0.0 k/mm3 ()?? 05/10/2024 07:55 Abs. Neut 4.9 k/mm3 ()?? 05/10/2024 07:55 Abs. Lymph 3.2 k/mm3 (High)?? 05/10/2024 07:55 Abs. Terrell 0.7 k/mm3 ()?? 05/10/2024 07:55 Abs. Eo 0.4 k/mm3 ()?? 05/10/2024 07:55 Abs. Baso 0.0 k/mm3 ()?? 05/10/2024 07:55 Neut % 53.6 % ()?? 05/10/2024 07:55 Lymph % 34.9 % ()?? 05/10/2024 07:55 Terrell % 7.1 % ()?? 05/10/2024 07:55 Eos % 3.8 % ()?? 05/10/2024 07:55 Baso % 0.3 % ()?? 05/10/2024 07:55 Imm Gran 0.3 % ()?? 05/10/2024 07:55 Abs. Imm Gran 0.0 k/mm3 ()?? 05/10/2024 07:55 ?? CARDIAC Nt-Probnp 211 pg/mL (High)?? 05/05/2024 07:57 High Sensitivity Troponin (HSTnT) 111 ng/L (Critical)?? 05/06/2024 02:45 ?? CHEM GENERAL Sodium 141 mmol/L ()?? 05/10/2024 07:55 Potassium 3.5 mmol/L (Low)?? 05/10/2024 07:55 Chloride 102 mmol/L ()?? 05/10/2024 07:55 Bicarbonate Level 27 mmol/L ()?? 05/10/2024 07:55 Anion Gap 12 ()?? 05/10/2024 07:55 Glucose Level 98 mg/dL ()?? 05/10/2024 07:55 BUN 22 mg/dL ()?? 05/10/2024 07:55 Creatinine-Blood 0.69 mg/dL ()?? 05/10/2024 07:55 Estimated GFR Creatinine 99 ML/MIN/1.73 M2 ()?? 05/10/2024 07:55 Calcium 9.0 mg/dL ()?? 05/10/2024 07:55 Protein, Total 7.2 Gm/dL ()?? 05/10/2024 07:55 Albumin 3.7 Gm/dL ()?? 05/10/2024 07:55 AG Ratio 1.1 ()?? 05/10/2024 07:55 Alkaline Phosphatase 75 units/L ()?? 05/10/2024 07:55 AST (SGOT) 22 units/L ()?? 05/10/2024 07:55 ALT (SGPT) 16 units/L ()?? 05/10/2024 07:55 Bilirubin, Total 0.7 mg/dL ()?? 05/10/2024 07:55 ? COAG APTT 53.2 seconds (High)?? 05/07/2024 13:16 ? MISC. CHEMISTRY Hold Green Top SPECIMEN DISCARDED AFTER 1 WEEK ()?? 05/07/2024 07:07 ? URINE OTHER Est Creatinine Clearance 77.04 mL/min ()?? 05/10/2024 08:46 ? VIROLOGY Influenza A PCR NEGATIVE ()?? 05/05/2024 07:55 Influenza B PCR NEGATIVE ()?? 05/05/2024 07:55 RSV PCR POSITIVE (Abnormal)?? 05/05/2024 07:55 COVID-19 PCR Specimen Source NASAL ()?? 05/05/2024 07:55 COVID-19 PCR Result NEGATIVE ()?? 05/05/2024 07:55 ? Microbiology ?? Throat Culture Grp A Strep?? Completed?? Source: THRT Body Site: ?? Collected Dt/Tm: 05/05/2024 07:58 Last Updated Dt/Tm: 05/07/2024 09:08 ?? Group A Strep Screen and Culture?? Completed?? Source: Throat Swab Body Site: ?? Collected Dt/Tm: 05/05/2024 07:39 Last Updated Dt/Tm: 05/05/2024 07:58 ?SPECIMEN DESCRIPTION : THROAT SWABSPECIAL REQUESTS : NONEDIRECT EXAM : RAPID GROUP A ANTIGEN RESULT IS NEGATIVE, CULTURE SENT TO REFERENCE LABCULTURE : RAPID GROUP A ANTIGEN RESULT IS NEGATIVE, CULTURE SENT TO REFERENCE LABREPORT STATUS : FINAL 05/05/2024 ?? COVID-19, RSV, and Flu A/B, Rapid PCR?? Completed?? Source: Nasal Body Site: Nose Collected Dt/Tm: 05/05/2024 07:36 Last Updated Dt/Tm: 05/05/2024 09:28 ? 40??minutes spent on discharge * Dante RN, Brandy: PERFORM Event Display: Patient Education/Instruction Authored Date: [id number] Inpatient Adult Discharge Instructions. [place] [id number] Name: ATIF STAHL : 1965?? Visit: 05/05/2024 12:44?? Current Date: 05/10/2024 13:32 ?? Account: [id number]?? Inpatient Adult Discharge Instructions We would like to thank you for allowing us to assist you with your healthcare needs. The following includes patient education materials and information regarding your injury/illness. Our entire staffstrives to provide an excellent experience for our patients and their families. PLEASE ENSURE YOU FOLLOW-UP PER THE INSTRUCTIONS BELOW! ?? YOUR OPINION IS IMPORTANT TO US! Please complete the survey you may receive by mail or email. Your feedback will be used to make improvements to the healthcare experiences of our patients and their families. Surveys are administered by [employer] ?? If further treatment with your primary care physician or another doctor is recommended, it is important for you to keep the appointment. Call your primary care physician or return to the Emergency Department immediately if your condition worsens, fails to improve, or new symptoms develop. If you need to find a doctor, you can call [facility] Link for a referral at [phone] or toll free at [phone] ([phone]) or log in to [email or web address].. ?? [facility], in keeping with [facility] guidance, no longer requires face masks for staff, patientsor visitors in most situations. Similiar to time spent indoors at other locations, there is the chance that you were exposed to repiratory viruses during your time with us (such as flu or COVID-19). If you develop symptoms concerning for a viral respiratory infection, please seek testing (and treatment if indicated) from your medical provider or home test kit. ?? You can view and manage your care through the patient portal or by using a health care karen of your choosing. [employer] is a website that allows you to securely view your medical information including your hospital discharge summary, office visit summaries, medications and follow-up visits. You can also request appointments, renew medications, and request access to your medical information using a health care karen of your choosing, or just ask a question. You can enroll at [email or web address] or register during your next office visit. You have been discharged from [facility], Patient Care Unit: M5??. If you have any questions regarding these instructions, including results of studies pending, afteryou leave, please call us and we will be happy to assist you 18/12. [facility] Your Care Team Attending Physician Justice Mendoza MD?? Consulting Providers Justice Mendoza MD?? Discharging Providers Justice Mendoza MD Reason for Your Visit NSTEMI, RSV?? Your Diagnosis Cough HTN (hypertension) NSTEMI, initial episode of care Tests Performed Below is a partial list of the tests performed during your hospitalization. You may have had other tests and procedures not included in this list. Please discuss all test results with your provider. Basic Metabolic Panel Beta Strep Gp A Culture CBC CBC w/ Differential Comprehensive Metabolic Panel COVID-19, RSV, and Flu A/B, Rapid PCR High??Sensitivity??Troponin T HOLD GREEN TUBE ProBNP PTT Troponin T, High Sensitivity XR Chest 2 Views Frontal and Lat B Type Natriuretic Peptide (ProBNP)?? Basic Metabolic Panel?? CBC?? CBC w/ Differential?? COVID-19, RSV, and Flu A/B, Rapid PCR?? Comprehensive Metabolic Panel?? Group A Strep Screen and Culture?? High??Sensitivity??Troponin T (Troponin T, High Sensitivity)?? Hold Green Top Tube (HOLD GREEN TUBE)?? PTT?? Throat Culture Grp A Strep (Beta Strep Gp A Culture)?? Chest 2 Views Frontal and Lat (XR Chest 2 Views Frontal and Lat)?? Primary Care Provider Ugo Perez MD , Maria Luisa Decker? Advance Directive Health Care Proxy on File No Patient refuses to discuss Discharge Vitals Temperature: 97.9 DegF Height: 165.1 cm Pulse Rate: 68 bpm Weight: 151.2 kg Respiratory Rate: 17 br/min Body Mass Index:??55.47 kg/m2??Critical Systolic Blood Pressure: 115 mm Hg Body surface area: 2.63 Diastolic Blood Pressure: 66 mm Hg ?? Oxygen Saturation: 99 % ?? Studies Pending All studies ordered during this hospital stay have been completed unless listed below. Please discuss all pending results with your provider listed above in these instructions. ?? No incomplete studies found?? What to do next Instructions From Your Doctor New medicine Aspirin 81 mg daily Lipitor 80 mg daily Coreg 12.5 mg 2 times a day Furosemide 20 mg daily Lisinopril 5 mg daily ?? Follow-up Follow-up with your primary care provider in about 1 week of discharge. ??Call office for appointment. Follow-up with??[facility] with??Jhoana Rodriguez on 06/03/2023 Follow-up with cardiac rehab in 06/04/2023 ? Orders??:Cardiac diet :as tolerated Care:none Status:full code :stable :Fair?? with services, ??05/10/24 9:59:00 EST?? Prescriptions??, ??05/10/24 9:59:00 EST?? Scheduled Follow-Up Appointments Sunday 9:15 AM EST ?? With: Jeanette ISAAC, Jhoana Esquivel Where: [facility] [address] [place] [address] [place] [address]- Status: Pending You Need to Schedule the Following Appointments Follow Up with??[facility] When:??06/04/2024 08:00 AM EST Where: [address] [place] [address], [facility] [[email or web address]] [address] [place] [address]- [phone] Follow Up with??Ugo Perez MD , Elsie When:??Within 1 week: call to discuss follow up visit Why: Follow-up with your primary care provider in about 1 week of discharge. ??Call office for appointment. Where: [address] [place] [address]- Discharge Medications STAHLATIF SEWELL :1965 Visit Date:05/05/2024 Medications: Please continue your medications until treatment is completed or stopped by your provider. Medications not listed below should be discontinued. Discuss any questions related to medications with your provider. What How Much When Instructions Next Dose New Aspirin (aspirin 81 mg oral delayed release tablet) 81 Milligram Oral Daily Duration: 90 Days Pickup at [place] [address] 05/11 8am New Atorvastatin (atorvastatin 80 mg oral tablet) 80 Milligram Oral Daily at Bedtime Duration: 90 Days Pickup at [place] [address] 05/10 8pm New Carvedilol (carvedilol 12.5 mg oral tablet) 12.5 Milligram Oral Twice a day Duration: 90 Days Pickup at [place] [address] 05/10 8pm New Furosemide (Lasix 20 mg oral tablet) 20 Milligram Oral Daily Duration: 90 Days Pickup at [place] [address] 05/11 8am Changed Lisinopril (lisinopril 5 mg oral tablet) 5 Milligram Oral Daily Duration: 90 Days Pickup at [place] [address] 05/11 8am Pharmacy Information [facility] 3: [address] [place], [place] [id number] [phone] Prescription Given During Visit Aspirin (aspirin 81 mg oral delayed release tablet) - 81 mg, By Mouth, Daily, # 90 tablet, 0 Refills, [facility], [address] [place] [address] [phone]?? Atorvastatin (atorvastatin 80 mg oral tablet) - 80 mg, By Mouth, Daily at bedtime, # 90 tablet, 0 Refills, [place] [address] [phone]?? Carvedilol (carvedilol 12.5 mg oral tablet) - 12.5 mg, By Mouth, 2 times a day, # 180 tablet, 0 Refills, [place] [address] [phone]?? Furosemide (Lasix 20 mg oral tablet) - 20 mg, By Mouth, Daily, # 90 tablet, 0 Refills, [place] [address] [phone]?? Lisinopril (lisinopril 5 mg oral tablet) - 5 mg, By Mouth, Daily, # 90 tablet, 0 Refills, [place] [address] [phone]?? Laboratory Results Below is a partial list of the most recent Laboratory test results done prior to this discharge. You may have had other tests and procedures not included in this list. Please discuss all test resultswith your provider. Est Creatinine Clearance - 77.04 mL/min (05/10/2024) Basic Metabolic Panel (05/05/2024) ???Sodium - 141 mmol/L???Potassium - 3.8 mmol/L???Chloride - 105 mmol/L???Bicarbonate Level - 24 mmol/L???Anion Gap - 12???Glucose Level - 111 mg/dL???BUN - 13 mg/dL???Creatinine-Blood - 0.71 mg/dL???Estimated GFR Creatinine - 97 ML/MIN/1.73 M2???Calcium - 9.0 mg/dL Beta Strep Gp A Culture (05/05/2024) ???Beta Strep Gp A Specimen Source - THROAT SWAB???Beta Strep Gp A Culture - NEGATIVE CBC (05/07/2024) ???WBC - 8.9 k/mm3???RBC - 4.11 m/mm3???Hgb - 12.5 Gm/dL???Hct - 37.3 %???MCV - 90.8 femtoliters???MCH - 30.4 pg???MCHC - 33.5 Gm/dL???Platelet Count - 193 k/mm3???RDW-SD - 44.6 femtoliters???MPV - 11.3 femtoliters???Nucleated RBC (Automated) - 0.0 #/100 WBC'S???Abs. NRBC - 0.0 k/mm3 CBC w/ Differential (05/10/2024) ???WBC - 9.1 k/mm3???RBC - 4.09 m/mm3???Hgb - 12.5 Gm/dL???Hct - 37.5 %???MCV - 91.7 femtoliters???MCH - 30.6 pg???MCHC - 33.3 Gm/dL???Platelet Count - 228 k/mm3???RDW-SD - 44.4 femtoliters???MPV - 11.0 femtoliters???Nucleated RBC (Automated) - 0.0 #/100 WBC'S???Abs. NRBC - 0.0 k/mm3???Abs. Neut - 4.9 k/mm3???Abs. Lymph - 3.2 k/mm3???Abs. Terrell - 0.7 k/mm3???Abs. Eo - 0.4 k/mm3???Abs. Baso - 0.0 k/mm3???Neut % - 53.6 %???Lymph % - 34.9 %???Terrell % - 7.1 %???Eos % - 3.8 %???Baso % - 0.3 %???Imm Gran - 0.3 %???Abs. Imm Gran - 0.0 k/mm3 Comprehensive Metabolic Panel (05/10/2024) ???Sodium - 141 mmol/L???Potassium - 3.5 mmol/L???Chloride - 102 mmol/L???Bicarbonate Level - 27 mmol/L???Anion Gap - 12???Glucose Level - 98 mg/dL???BUN - 22 mg/dL???Creatinine-Blood - 0.69 mg/dL???Estimated GFR Creatinine - 99 ML/MIN/1.73 M2???Calcium - 9.0 mg/dL???Protein, Total - 7.2 Gm/dL???Albumin - 3.7 Gm/dL???AG Ratio - 1.1???Alkaline Phosphatase - 75 units/L???AST (SGOT) - 22 units/L???ALT (SGPT) - 16 units/L???Bilirubin, Total - 0.7 mg/dL COVID-19, RSV, and Flu A/B, Rapid PCR (05/05/2024) ???Influenza A PCR - NEGATIVE???Influenza B PCR - NEGATIVE???RSV PCR - POSITIVE???COVID-19 PCR Specimen Source - NASAL???COVID-19 PCR Result - NEGATIVE High??Sensitivity??Troponin T (05/05/2024) ???High Sensitivity Troponin (HSTnT) - HEMOLYZED HOLD GREEN TUBE (05/07/2024) ???Hold Green Top - SPECIMEN DISCARDED AFTER 1 WEEK ProBNP (05/05/2024) ???Nt-Probnp - 211 pg/mL PTT (05/07/2024) ???APTT - 53.2 seconds Troponin T, High Sensitivity (05/06/2024) ???High Sensitivity Troponin (HSTnT) - 111 ng/L You will be contacted within 72 hours with your results. Allergies (NKA means No Known Allergies) NKA Problems Active Problems??(1) Severe obesity?? Education Materials Below is the list of Educational Leaflet Providered with your Discharge Instructions. WebMD Ignite Patient Education - Preventing Common Respiratory Infections?? WebMD Ignite Patient Education - RSV VIS?? WebMD Ignite Patient Education - Furosemide?? WebMD Ignite Patient Education - Carvedilol?? WebMD Ignite Patient Education - Atorvastatin?? WebMD Ignite Patient Education - Aspirin?? WebMD Ignite Patient Education - Surgery Radial Cath Approach Discharge Instructions?? WebMD Ignite Patient Education - Heart Failure Discharge Instructions for Heart Failure?? WebMD Ignite Patient Education - Chest Pain, Uncertain Cause?? Valuables and Belongings I fully understand and agree that [facility] accepts no responsibility for all my personal property including clothing, toilet articles, radios, jewelry, dentures, hearing aids, rings, money, or any other property that is in my possession or is brought to me after admission. I understand certain valuables may be placed in a hospital safe for a short period of time. I understand that the hospital is not liable for loss or damage due to accident, fire, or other natural occurrence while said property is in the safe. I accept full responsibility for any personal property that I keep with me, and will not hold the hospital responsible in case of loss or disappearance. I acknowledge that i have been encouraged to send valuables and belongings home. ?? No Valuables/Belongings: No valuables/belongings present Date for Pt to Sign Valuables/Belongings: 05/05/24 12:46:00 ?? Other Discharge Information ? Case Management Discharge Plan?? Discharge Plan?? Discharge Agency Information?? Discharge Level of Care at Discharge: Homehealth/VNA Name of Agency #1: [facility] Discharge Transportation Arranged: Family Service Categories #1: Physical Therapy, [place] Discharge VNA/Hospice/Home Care: [facility] [phone] Service Comments #1: [facility] will call ??you to set up services. If you do Not hear from them,please call and thank you. ?? Pulmonary Rehab Status?? Pulmonary Rehab Discharge Status?? Respiratory Rate: 17 br/min ? Cardiac Rehab Assessment?? Cardiac Rehab Inpatient Assessment?? Comments-Education: s/p cardiac cath, home activity and post procedure guidelines, f/u with cardiology Comments-Smoking Cessation: na Comments-Exercise Activity: progressive activity as tolerated Comments-Nutrition: perRD Comments-Stress Management: healthy coping techniques Comments-Lipids: diet, exercise, medication per MD Comments-Other plan of care: Encourage Phase 2 Common Emergency Awareness Tips IS IT A STROKE? Act FAST and Check for these signs: FACE Does the face look uneven? ARM Does one arm drift down? SPEECH Does their speech sound strange? TIME Call at any sign of stroke ?? Heart Attack Signs Chest discomfort: Most heart attacks involve discomfort in the center of the chest and lasts more than a few minutes, or goes away and comes back. It can feel like uncomfortable pressure, squeezing, fullness or pain. Discomfort in upper body: Symptoms can include pain or discomfort in one or both arms, back, neck, jaw or stomach. Shortness of breath: With or without discomfort. Other signs: Breaking out in a cold sweat, nausea, or lightheaded. Remember, MINUTES DO MATTER. If you experience any of these heart attack warning signs, call to get immediate medical attention! ?? Smoking can increase your chances of developing chronic health problems and can cause harmful effects to other family members in your house. If you smoke, you are strongly encouraged to quit. Please call [facility] Link at [phone] or [phone] Communications ([phone]) or log in to [email or web address] for referrals to smoking cessation programs. ?? 836 Suicide & Crisis Lifeline is available 18/12 if you or someone you know needs to find a reason to keep living. By calling 416 you'll be connected to a skilled, trained counselor at a crisis center in your area. INPATIENT DISCHARGE INSTRUCTIONS SIGNATURE PAGE ATIF STAHL Location:[facility] Registration Date and Time:05/05/2024 12:44 EST Primary Care Physician: Ugo Perez MD , Elsie, Attending Physician: Justcie Mendoza MD, I ATIF STAHL, have received the above patient education materials/instructions and have verbalized understanding. If ambulance or transport services are being used I further acknowledge being given a choice of service. ?? If you need to contact me, please call me at this number: . Patient/Code Enforcement Inspector Name: Patient/Code Enforcement Inspector Signature: Relationship to Patient: Witness Name/Signature: Date: * MinicuccBrandy levi RN: PERFORM Event Display: Patient Education Leaflets Authored Date: [id number] Preventing Common Respiratory Infections ?? [address] Prevenci??n de las infecciones respiratorias frecuentes Las infecciones respiratorias herminio los resfriados y la gripe??(influenza) son muy frecuentes. A menudo, las infecciones respiratorias son causadas por virus. Pueden presentar varios s??ntomas comunes. No todas las infecciones respiratorias son iguales. Algunas son enfermedades m??s graves que otras. Usted puede veronica medidas para prevenir las infecciones respiratorias frecuentes. Y si llega a enfermarse, puede cuidarse a s?? mismo para impedir que paiz infecci??n empeore. ??Qu?? es un resfriado? Los s??ntomas pueden incluir goteo y congesti??n nasal, tos, estornudosy dolor de garganta. Los s??ntomas del resfriado suelen ser m??s leves que los de la gripe. ??? Loss??ntomas tienden a manifestarse lentamente. Pueden durar entre varios d??as y andreina semana. ??? Con un resfriado, es probable que se sienta capaz de seguir con paiz rutina habitual. ??? Los resfriados pueden transmitirse de andreina persona a otra. Siga las sugerencias que se muestran a continuaci??n para evitar la transmisi??n de los g??rmenes. ?Qu?? es la gripe? Los s??ntomas de la gripe son fiebre, escalofr??os, dolor de suzi, cansancio extremo (fatiga), tos, dolor de garganta, goteo y congesti??n nasal, y sammi musculares. Los ni??os pueden tener malestar estomacal y v??mitos, fede esto no es muy com??n en los adultos. ??? Los s??ntomas tienden a presentarse r??pidamente. Algunos, herminio la fatiga y la tos, pueden durar variassemanas. ??? La gripe causa agotamiento y a veces impide realizar las actividades normales. ??? La gripe puede transmitirse de andreina persona a otra. Siga las sugerencias que se muestran a continuaci??npara evitar la transmisi??n de los g??rmenes. ??? Si un adulto tiene v??mitos o diarrea por aniyah o dos d??as, lo m??s probable es que no se trate de andreina gripe. Probablemente, sea andreina infecci??n gastrointestinal, tambi??n llamada gripe estomacal . ?? Cuando la infecci??n empeora Sin los cuidados adecuados, andreina infecci??n respiratoria puede empeorar y volverse grave. Puede derivar en complicaciones serias o muerte. Llame a paiz proveedor de atenci??n m??dica si no se siente mejor o si los s??ntomas empeoran. Algunas de las complicaciones son las siguientes: ??? Bronquitis (inf ecci??n de las v??as respiratorias que provoca falta de aire, sibilancias y expectoraci??n de mucosidad espesa de color amarillo o adrianna) ??? Neumon??a (infecci??n de los pulmones caracterizada por acumulaci??n de l??quido y mucosidad en los pulmones, lo que dificulta la respiraci??n). ??? Empeoramiento de afecciones cr??nicas herminio insuficiencia card??jen, enfermedad pulmonar cr??elina, asma o diabetes ??? Deshidrataci??n (p??rdida de l??quidos) grave ??? Problemas de los senos paranasales ??? Infecciones de los o??dos ?? Reciba las vacunas recomendadas Consulte con el proveedor de atenci??n m??dica qu?? vacunas son las adecuadas para usted y cu??ndo debe recibirlas. Las vacunas recomendadas pueden ser las siguientes: ??? Vacuna contra la influenza. Esta suele llamarse vacuna antigripal. Esta vacuna le estee protecci??n contra la influenza. Vac??nese todos los a??os en el joseline??o, antes de que comience la temporada de la gripe. La gripe es m??s com??n en los [place] timothy el joseline??o y el invierno. Puede vacunarse en un centro de consultas externas, el consultorio de un proveedor de atenci??n m??dica, la farmacia, un centro para la tercera edad o ciertos lugares de trabajo. ??? Vacuna antineumoc??cica. Hay 2 vacunas contra la neumon??a neumoc??cica que protegen contra muchos tipos de neumon??a bacteriana. Hable con paiz proveedor de atenci??n m??dica acerca de estas vacunas prasad importantes. ??? Vacuna contra la COVID-19. Hay diferentes tipos de vacuna contra la COVID-19. Estas lo protegen de la COVID-19, especialmente formas graves y mortales de la enfermedad. Hable con paiz proveedor de atenci??nm??dica para obtener m??s informaci??n sobre la vacuna contra la COVID-19. ??? La vacuna contra el VRS. Desde los Centros para el Control y la Prevenci??n de Enfermedades (CDC, por paiz sigla en ingl??s) se recomienda que los adultos mayores de 60??a??os consulten al proveedor de atenci??n m??dica sobre recibir la vacuna del VRS (virus respiratorio sincitial). El VRS es andreina infecci??n respiratoria com??n que puede convertirse en andreina enfermedad grave en adultos mayores. ?? Evite la transmisi??n de los g??rmenes A nadie le gusta enfermarse. Los virus que causan los resfriados, la gripe y otras infecciones pueden transmitirse de andreina persona a otra. Para protegerse y proteger a los dem??s de los g??rmenes sigalas estas recomendaciones: ??? Utilice andreina mascarilla en los espacios p??blicos. ??? C??brase la nariz y la boca al toser o estornudar. Use un pa??uelo de papel o el pliegue del codo. No use las catrachita. Deseche el pa??uelo. L??vese las catrachita despu??s de toser, estornudar o soplarse la nariz. ??? L??vese las catrachita a menudo con agua corriente limpia y jab??n. L??vese por lo menos timothy 20??segundos. Cuando no tenga acceso al agua y el jab??n, use desinfectante para catrachita a base de alcohol. ??? No se toque los ojos, la nariz ni la boca. [place] puede ayudar a mantener los g??rmenes fuera de paiz cuerpo. ??? Evite estar cerca de personas con infecciones respiratorias. Mientras est?? enfermo, limiteel contacto estrecho con otras personas. Evite los lugares muy concurridos timothy la temporada de g ripe. ??? No fume y no permita que las personas fumen en paiz casa o autom??david. ?? C??mo lavarse las catrachita ??? Use agua corriente limpia y mucho jab??n. Andreea andreina buena cantidad de espuma. ??? L??vese toda la mano, debajo de las u??as, entre los dedos y hasta la mu??eca. L??vese timothy, al menos, 20 segundos. No se limite a un lavado superficial; fr??tese bushra la piel. Para medirel tiempo, jude la canci??n del grover cumplea??os dos veces. ??? Enju??guese. Deje que el agua le corra de los dedos hacia abajo y no hacia las mu??ecas. ??? Si est?? en un cuarto de ba??o p??blico,use andreina toalla de papel para cerrar el grifo y abrir la owen. ??? Cuando no tenga agua y jab??n, use un desinfectante para catrachita que contenga al menos un 60??% de alcohol. ?? Last Reviewed Date: 2023 ?? [id number] [employer] Todos los derechos reservados. Esta informaci??n no pretende sustituir la atenci??n m??dica profesional. S??lo paiz m??dico puede diagnosticar y tratar un problema de darrell. ?? * Dante RASMUSSEN, Brandy: PERFORM Event Display: Patient Education Leaflets Authored Date: [id number] RSV VIS ?? VISRSV_es Vacuna contra el VRS (virus respiratorio sincicial): lo que debe saber Esta es la declaraci??n de informaci??n sobre vacunas de los [facility]. Muchas declaraciones de informaci??n sobre vacunas est??n disponibles en espa??ol y en otros idiomas. Visite www.immunize.org/vis Hojas de informaci??n sobre vacunas est??n disponibles en espa??ol y en muchos otros idiomas. Visite www.immunize.org/vis 1. ??Por qu?? hay que vacunarse? La vacuna contra el VRS puede prevenir la enfermedad del tracto respiratorio inferior que causa el virus respiratorio sincicial (VRS). El VRS es un virus respiratorio com??n que, por lo general, causa s??ntomas leves parecidos a los de un resfriado. El VRS puede causar enfermedades en personas de todas las edades, fede puede ser especialmente grave en beb??s y adultos mayores. ??? Los beb??s de hasta 12??meses de edad (sobre todo los de 6??meses o menos) y los prematuros, o que tienen enfermedades pulmonares, enfermedades del coraz??n cr??nicas o un sistema inmunitario debilitado, tienen un mayor riesgo de sufrir andreina enfermedad grave por el VRS. ??? Los adultos con mayorriesgo de sufrir andreina enfermedad grave por VRS son los adultos mayores, adultos con afecciones m??dic as cr??nicas, herminio enfermedades del coraz??n o pulmonares, sistemas inmunitarios debilitados u otras afecciones m??dicas subyacentes, o que viven en residencias de ancianos o centros de atenci??n a salvador plazo. El VRS se transmite a dony??s del contacto directo con el virus, herminio cuando las gotas de la tos o el estornudo de otra persona entran en contacto con los ojos, la nariz o la boca. Adem??s, se puede transmitir si despu??s de tocar andreina superficie con el virus, herminio el picaporte de andreina owen, nos tocamos la rony sin lavarnos las catrachita. Algunos s??ntomas de la infecci??n por VRS incluyen goteo nasal, disminuci??n del apetito, tos, estornudos, fiebre o sibilancias. En beb??s muy david??os, los s??ntomas del VRS tambi??n pueden incluir irritabilidad (molestia), disminuci??n de la actividad o apnea (pausas en la respiraci??n timothy m??s de 10??segundos). La mayor??a de las personas se recuperan en andreina o dos semanas, fede el VRS puede ser grave y provocar falta de aire y niveles bajos de ox??jordon. El VRS puede causar bronquiolitis (inflamaci??n de lasv??as respiratorias david??as del pulm??n) y neumon??a (infecci??n de los pulmones). A veces, el VRS puede provocar un empeoramiento de otras afecciones m??dicas, herminio asma, enfermedad pulmonar obstructiva cr??elina (andreina enfermedad cr??elina de los pulmones que dificulta la respiraci??n) o insuficiencia card??jen congestiva (cuando el coraz??n no puede bombear suficiente dane y ox??jordon a todo elcuerpo). Es posible que los adultos mayores y los beb??s que se enferman gravemente a causa del VRS deban ser hospitalizados. Algunos incluso pueden morir. 2. La vacuna contra el VRS Los [facility] recomiendan que los adultos de 60??a??os o m??s tengan la opci??n de recibir andreina chi dosisde la vacuna contra el VRS, en funci??n de lo que decidan el paciente y el proveedor de atenci??n m??dica. Hay dos opciones para proteger a los beb??s contra el VRS: la vacuna materna para la persona embarazada y la administraci??n de anticuerpos preventivos al beb??. Solo se necesita andreina de estas opciones para que la mayor??a de los beb??s est??n protegidos. Los [facility] recomiendan andreina dosis ??elina de la vacuna contra el VRS para personas embarazadas desde la semana??32 hasta la semana??36 de embarazo con el objetivo de prevenir la enfermedad por VRS en beb??s menores de 6??meses. Se recomienda administrar esta vacuna de septiembre a enero en la mayor parte de los [place]. Sin embargo, en algunos lugares (los territorios, [place], [place] y partes de [place]), el momento de la vacunaci??n puede variar ya que el VRS que circula en estos lugares difiere del momento de la temporada del VRS en el [place] de los [place] Puede recibir la vacuna contra el VRS junto con otras vacunas. ?? 3. Hable con el proveedor de atenci??n m??dica Informe al proveedor de vacunaci??n si la persona que recibe la vacuna presenta lo siguiente: ??? Tuvo andreina reacci??n al??rgica tras andreina dosis previa de la vacuna contra el VRSo tiene alguna alergia grave o potencialmente mortal En algunos casos, el proveedor de atenci??n m??dica puede decidir posponer la vacunaci??n contra elVRS hasta andreina visita futura. Las personas con enfermedades leves, herminio un resfriado, pueden vacunarse. Por lo general, las personas moderada o gravemente enfermas deben esperar a recuperarse antes de recibir la vacuna contra el VRS. El proveedor de atenci??n m??dica puede brindarle m??s informaci??n. ?? 4. Riesgos de andreina reacci??n a la vacuna ??? Luego de la vacuna contra el VRS, puede aparecer dolor, enrojecimiento e hinchaz??n en el lugardonde se aplica la inyecci??n, fatiga (sensaci??n de cansancio), fiebre, dolor de suzi, n??useas,diarrea y dolor muscular o articular. Se informaron afecciones neurol??gicas graves, incluido el s??ndrome de Guillain-Holguin?? (SGB, por paiz sigla en ingl??s), despu??s de la vacunaci??n contra el VRS en ensayos cl??nicos en adultos mayores. No est?? varun si esto lo caus?? la vacuna. Timothy los ensayos cl??nicos, se notificaron partos prematuros y presi??n arterial amparo timothy elembarazo, incluida preeclampsia, entre personas embarazadas que recibieron la vacuna contra el VRS.No est?? varun si esto lo caus?? la vacuna. En ocasiones, las personas se desmayan despu??s de un procedimiento m??dico, incluida la vacunaci??n. Informe al proveedor si siente mareos o tiene cambios en la visi??n o zumbido en los o??dos. [place] ocurre con cualquier medicamento, existe andreina posibilidad muy remota de que andreina vacuna provoqueuna reacci??n al??rgica grave, otra lesi??n grave o la muerte. ?? 5. ??Qu?? ocurre si hay un problema grave? Podr??a producirse andreina reacci??n al??rgica despu??s de que la persona vacunada se retire de la cl??elina. Si observa signos de andreina reacci??n al??rgica grave (urticaria, hinchaz??n de la rony y la garganta, dificultad para respirar, ritmo card??aco acelerado, mareos o debilidad), llame al y lleve a la persona al hospital ??s cercano. Si presenta otros signos que le causen preocupaci??n, consulte con el proveedor de atenci??n m??dica. Las reacciones adversas deben notificarse al Sistema de Notificaci??n de Reacciones Adversas a las Vacunas (VAERS, por paiz sigla en ingl??s). Por lo general, el proveedor de atenci??n m??dica es el encargado de presentar pina informe, fede tambi??n puede hacerlo usted mismo. Visite el sitio web del S istema de Notificaci??n de Reacciones Adversas a las Vacunas (VAERS, por paiz sigla en ingl??s) en www.vaers.hhs.gov o llame al . El VAERS solo sirve para notificar reacciones. Los miembros del personal de VAERS no brindan atenci??n m??dica. ?? 6. ??D??nde puedo obtener m??s informaci??n? Consulte con el proveedor de atenci??n m??dica. ??? Llame al departamento de darrell local o estatal. ??? Visite el sitio web de la Administraci??n de Alimentos y Medicamentos de los [place] (FDA,por paiz sigla en ingl??s) para consultar los prospectos de las vacunas e informaci??n adicional en ww w.fda.gov/plvewmjc-yufrr-odlfxjfgn/vaccines ??? Comun??quese con los Centros para el Control y la Prevenci??n de Enfermedades (CDC, por paiz sigla en ingl??s) de las siguientes formas: ??? Llame al ( [id number]) o visite el sitio web de los CDC en www.cdc.gov/vaccines . 03/15/2023 Declaraci??n de informaci??n sobre vacunas La vacuna contra el VRS ? [id number] [employer]. All rights reserved. This information is not intended as a substitute for professional medical care. Always follow your healthcare professional's instructions. ?? * Brandy Howell RN: PERFORM Event Display: Patient Education Leaflets Authored Date: [id number] Furosemide ?? [id number] Furosemida Nombres comercial(es): Lasix??; tambi??n disponibles gen??ricamente ?? ADVERTENCIA: La furosemida es un diur??paul cristiane ('p??ldora de agua') y puede ocasionar deshidrataci??n y desequilibrio electrol??paul. Es importante que la tome exactamente herminio le indic?? el m??dico. Si experimenta alguno de los s??ntomas siguientes, llame a paiz m??dico inmediatamente: micci??n menos frecuente, boca seca, sed, n??usea, v??mitos, debilidad, mareos, confusi??n, dolor muscular o c??licos o ritmo card??aco r??pido o palpitaciones. ??PARA CU? LES condiciones o enfermedades se prescribe pina medicamento? La furosemida se usa chi o en combinaci??n con otros medicamentos para tratar la presi??n arterialalta. La furosemida se usa para tratar el edema (retenci??n de l??quidos; exceso de l??quido retenido en los tejidos corporales) causado por diversos problemas m??dicos, herminio enfermedades card??jen, renal y hep??charles. La furosemida pertenece a andreina clase de medicamentos llamados diur??ticos ( p??ldor as que provocan la eliminaci??n de agua a dony??s de la orina ). Paiz acci??n consiste en hacer que los ri??ones eliminen el agua y la kelly innecesarios del cuerpo a dony??s de la orina. La presi??n arterial amparo es andreina afecci??n com??n, y cuando no se trata puede causar da??o al cerebro, coraz??n, vasos sangu??neos, ri??ones y otras partes del cuerpo. El da??o a estos ??rganos puedecausar enfermedad card??jen, un ataque card??aco, insuficiencia card??jen, accidente cerebrovascular, insuficiencia renal, p??rdida de la visi??n y otros problemas. Adem??s de la medicaci??n, los cambios en el estilo de eneida tambi??n ayudan a controlar la presi??n arterial. Estos cambios incluyen seguir andreina dieta baja en grasas y kelly, mantener un peso saludable, hacer ejercicio al menos 30 minutos la mayor??a de los d??as, no fumar y consumir alcohol con moderaci??n. ??C??MO se debe usar pina medicamento? La presentaci??n de la furosemida es en tableta y soluci??n (l??quido) para veronica por v??a oral. Por lo general, se yoon andreina o dos veces al d??a. Cuando se usa para tratar el edema, la furosemida puede tomarse a diario o solo determinados d??as de la semana. Cuando se utiliza para tratar la hipertensi??n, tome furosemida aproximadamente a la misma hora todos los d??as. Siga cuidadosamente las instrucciones en la etiqueta del medicamento y preg??ntele a paiz m??dico o farmac??utico cualquier cosa que no comprenda. [place] el medicamento exactamente herminio se lo indicaron. No tome andreina cantidad mayor ni gopi del medicamento ni lo tome con m??s frecuencia de lo que indica la receta de paiz m??dico. La furosemida controla la hipertensi??n arterial y el edema, fede no braden estas afecciones. Contin??e tomandola furosemida incluso si se siente bushra. No deje de veronica el medicamento sin consultarlo antes con paiz m??dico. ??Qu?? OTRO USO se le da a pina medicamento? A veces se receta pina medicamento para otros usos; p??venancio m??s informaci??n a paiz m??dico o a paiz farmac??utico. ??Cu??les son las PRECAUCIONES ESPECIALES que gt seguir? Antes de veronica furosemida, ??? informe a paiz m??dico y farmac??utico si es al??rgico a la furosemida, a los medicamentos de sulfonamida, a cualquier otro medicamento o a alguno de los ingredientes que contienen las tabletas o la soluci??n de furosemida. Consulte con paiz farmac??utico o revise la informaci??n para el paciente para obtener andreina lista de los ingredientes. ??? informe a paiz m??dico y farmac??utico qu?? medicamentos con y sin receta m??dica, vitaminas, suplementos nutricionales y productos a base de plantas yoon o tiene planeado veronica mientras est?? en tratamiento con furosemida. Es posible que paiz m??dico deba cambiar la dosis de halina medicamentos o mantenerlo bajo andreina cuidadosa supervisi??n en francisco de que presente efectos secundarios. ??? si est?? tomando sucralfato (Carafate), h??torri 2 horas antes o despu??s de veronica furosemida. ??? los siguientes productos de venta eugenio pueden interactuar con la furosemida: aspirina y antiinflamatorios no esteroideos (HELIO) herminio ibuprofeno (Advil, Motrin, otros) y naproxeno (Aleve). Aseg??rese de informar a paiz m??dico y farmac??utico que est?? tomando estos medicamentos antes de empezar a veronica furosemida. No empiece a veronica ninguno de estos medicamentos mientras est?? tomando furosemida sin consultarlo antes con paiz m??dico. ??? informe a paiz m??dico si tiene alguna enfermedad renal. Paiz m??dico podr??a indicarle que no tome furosemida. ??? informe a paiz m??dico si tiene o alguna vez lopez tenido alguna afecci??n que impida que paiz vejiga se vac??e por completo, diabetes, gota, lupus eritematoso sist??maria ines (SLE, andreina afecci??n inflamatoria cr??elina) o enfermedadhep??charles. ??? informe a paiz m??dico si est?? embarazada planea quedar embarazada o est?? amamantando. No amamante mientras est?? tomando pina medicamento. Llame a paiz m??dico si queda embarazada mientras yoon furosemida. ??? si se someter?? a andreina cirug??a, informe a paiz m??dico o dentista que est?? usando la furosemida. ??? evite la exposici??n innecesaria o prolongada a la giacomo solar y use ropa quecubra paiz piel, gafas de carlota y protector solar. La furosemida podr??a hacer que paiz piel sea sensiblea la giacomo solar. ??? debe saber que la furosemida puede ocasionar mareo, aturdimiento y desmayo cuando se levanta muy r??pido despu??s de estar acostado. [place] es m??s com??n al empezar a veronica furosemida por primera vez. Para evitarlo, lev??ntese de la cama despacio, apoyando halina pies en el suelo por unos minutos antes de ponerse de pie. El alcohol puede empeorar estos efectos secundarios. ??Qu?? DIETA ESPECIAL gt seguir mientras yael pina medicamento? Si paiz m??dico le receta andreina dieta baja en kelly o baja en sodio o le indica que coma o anuel mayores cantidades de alimentos ricos en potasio (p. ej., bananas, ciruelas, pasas y jugo de naranja) en paiz dieta, siga estas instrucciones atentamente. ??Qu?? tengo que hacer SI ME OLVIDO de veronica andreina dosis? [place] la dosis que omiti?? prasad pronto herminio lo recuerde. Sin embargo, si se acerca la hora de paiz pr??xima dosis, omita la dosis que olvid?? y contin??e con paiz dosis normal. No duplique la dosis para compensar la que omiti??. ??Cu??les son los EFECTOS SECUNDARIOS que podr??a provocar pina medicamento? Informe a paiz m??dico si cualquiera de estos s??ntomas se vuelve suzie o no desaparece: ??? micci??n frecuente ??? visi??n borrosa ??? dolor de suzi ??? estre??imiento ??? diarrea Algunos efectos secundarios pueden ser graves. Si tiene alguno de estos s??ntomas o los que se incluyen en la secci??n ADVERTENCIA IMPORTANTE, llame a paiz m??dico de inmediato o busque tratamiento m??dico de emergencia: ??? fiebre ??? zumbido en los o??dos ??? p??rdida de la audici??n ??? sarpullido ??? urticaria ??? ampollas o descamaci??n de la piel ??? picaz??n ??? dificultad para respirar o tragar ??? coloraci??n amarillenta en la piel y los ojos Si desarrolla un efecto secundario grave, usted o paiz doctor puede enviar un informe al programa de divulgaci??n de efectos adversos 'MedWatch' de la Administraci??n de Alimentos y Medicamentos (FDA, por paiz sigla en ingl??s) en la p??popeye de Internet (https://www.fda.gov/Safety/MedWatch) o por tel??fono al . ??C??mo gt ALMACENAR o DISPONER de pina medicamento? Mantenga pina medicamento en paiz empaque original, bushra cerrado y fuera del alcance de los ni??os. Gu??rdelo a temperatura ambiente y lejos del calor excesivo y la humedad (no en el cuarto de ba??o). Deseche la soluci??n de furosemida no utilizada despu??s de 90 d??as. Es importante que mantenga todos los medicamentos fuera de la vista y el alcance de los ni??os, debido a que muchos envases (tales herminio los pastilleros de uso semanal, y aquellos que contienen gotas oft??lmicas, cremas, parches e inhaladores) no son a prueba de ni??os david??os, quienes pueden abrirlos f??cilmente. Con el fin de protegerlos de andreina intoxicaci??n, siempre use tapaderas de seguridade inmediatamente coloque los medicamentos en un lugar seguro, aniyah que se encuentre arriba y lejos de paiz vista y alcance. [email or web address].I GotchundEtalia.org/es/ Los medicamentos que ya no son necesarios se deben desechar de andreina manera apropiada para asegurarsede que las mascotas, los ni??os y otras personas no puedan consumirlos. Sin embargo, no debe desechar estos medicamentos por el inodoro. En paiz lugar, la mejor manera de deshacerse de halina medicamentoses a dony??s de un programa de devoluci??n de medicamentos. Hable con paiz farmac??utico o p??ngase en contacto con paiz departamento de basura/reciclaje local para conocer acerca de los programas de devoluci??n de medicamentos de paiz comunidad. Consulte el sitio web de la Administraci??n de Medicamentos y Alimentos (FDA), (https://goo.gl/xRXbPn) para obtener m??s informaci??n de c??mo desechar de forma grimaldo los medicamentos, si no tiene acceso al programa de devoluci??n de medicamentos. ??Qu?? gt hacer en francisco de andreina SOBREDOSIS? En francisco de sobredosis, llame a la l??saadia de ayuda de control de envenenamiento al . La informaci??n tambi??n est?? disponible en l??saadia en https://www.poisonhelp.org/help. Si la v??ctima se lopez derrumbado, lopez tenido andreina convulsi??n, tiene dificultad para respirar, o no puede despertarse, llame inmediamente a los servicios de emergencia al 911. Los s??ntomas de la sobredosis pueden incluir: ??? sed intensa ??? boca seca ??? mareos ??? confusi??n ??? cansancio extremo ??? v??mitos ??? espasmos estomacales ??Qu?? OTRA INFORMACI??N de importancia deber??a saber? Asista a todas las citas con paiz m??dico y a las de laboratorio. Es importante que se andreea revisar paiz presi??n arterial con regularidad y hacerse an??lisis de dane ocasionalmente. Antes de realizarse alguna prueba de laboratorio, informe a paiz m??dico y al personal del laboratorio que yoon furosemida. No deje que nadie m??s tome paiz medicamento. Preg??ntele a paiz farmac??utico cualquier didi que tengasobre c??mo volver a surtir paiz receta m??dica. Es importante que Ud. mantenga andreina lista escrita de todas las medicinas que Ud. est?? tomando, incluyendo las que recibi?? con receta m??dica y las que Ud. compr?? sin receta, incluyendo vitaminas y suplementos de dieta. Ud. debe tener la lista cada vez que visita paiz m??dico o cuando es admitido a un hospital. Tambi??n es andreina informaci??n importante en casos de emergencia. Pina informe sobre medicamentos es solo para paiz informaci??n, y no se considera herminio un consejo para el paciente. Debido a la naturaleza de informaci??n sobre drogas, por favor consulte paiz medico o farmac??utico sobre el uso cl??hanny espec??fico. La Sociedad Americana de Farmac??uticos Instit[employer]ionales SA., afirma que la informaci??n proporcionada a continuaci??n fue formulada con razonable est??ndar de asistencia, y en conformidad con el da profesional. La Sociedad Americana de Farmac??uticos Institucionales, SA. no provee representaciones o garant??as, expresas o implicadas, incluyendo, fede no limitado a, cualquiera garant??a de comercializaci??n y/o apropiado para andreina funci??n particular, con respecto a abhi informaci??n y niega espec??ficamente tales garant??as. Se avisa a los usuarios que las decisiones con respecto a terapia de drogas son decisiones m??dicas complejas requiriendo decisiones independientes e informadas de un profesional de darrell y que la informaci??n se da para prop??sitos de informaci??n solamente. La entera monograf??a de andreina droga debe ser revisada considerando un comprensivo entendimiento de las acciones, usos, y efectos secundarios de la droga. La Sociedad Americana de Farmac[employer]uticos [employer]ionales, [place]. no endosa o recomienda el uso de ninguna medicina. La informaci??n no es un sustituto de asistencia m??dica. AHFS?? Patient Medication Information???. ?? Derechos reservados, 2023. Documento actualizado Dic2022, [employer] Society of Health-System Pharmacists?? [address], [address], [place], [place] [address]. Todos los derechos reservados. La duplicaci??n de pina documento para paiz uso comercial, deber?? ser autorizada por ASHP. FS?? Patient Medication Information???. ?? Copyright, 2023 ?? * Ant Bloom RN: PERFORM, SIGN, VERIFY Event Display: Cardiac Rehab Note Authored Date: [id number] Patient: ATIF STAHL Age: 59 years Sex: Female : 1965 Associated Diagnoses: None Author: Ant Bloom RN Diagnosis Cardiac Rehab Diagnosis: NSTEMI - stress induced cardiomyopathy. Pre-exercise Vitals Vital Signs Comment: Reviewed in CIS. Pre-exercise Physical Examination Neurologic: alert & oriented, oriented to (time, person, place). Cardiovascular: heart rate regular. Lungs: Cough yes. Activity Symptoms with Cardiac Rehab Symptoms: No exertional symptoms. Activity Ambulate: independent, independently ambulating in room without symptoms, utilizing wheeled walker,steady on feet. continues with contact precautions for + RSV . Assistive Devices Assistive Device: Wheeled walker. Patient Education Education: Family present, Medicaid Business Analyst present, Written material included, Post procedure guidelines. Education topic Teachback comprehension 75% Topic: Medication education, Role of exercise, Home activity guidelines/limits, cardiology and phase 2 follow up. Reinforcement needed: Medication education. Recommendation and Plan Patient may benefit from: All education with family present. 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 Cardiac Rehab: Will sign off at this time. * Ant Bloom RN: PERFORM, SIGN, VERIFY Event Display: Patient Education Handout Authored Date: [id number] * Ant Bloom RN: PERFORM, SIGN, VERIFY Event Display: Cardiac Rehab Note Authored Date: [id number] Patient: ATIF STAHL Age: 59 years Sex: Female : 1965 Associated Diagnoses: None Author: Ant Bloom RN Patient s/p NSTEMI with cardiac cath showing non obstructive CAD. Per cardiology presentation likely Stress Cardiomyopathy in setting of RSV. Currently on precautions, receiving IV diuretics, and visiting with family. Patient agreeable to visit with Cardiac Rehab tomorrow, will f/u with ultrasonic welding machine operator for education and ambulation. Please page [phone] with any questions. * Event Display: Hemodynamic Procedure Report Authored Date: Admission evaluation note * Raymond Bui MD: PERFORM Event Display: Admission Note Authored Date: Patient: ??ATIF STAHL ? Age:??59 Years?Sex:??Female?:??1965?? History of Present Illness 59 year old woman with hypertension presents with shortness of breath. ?? The history was obtained with a ultrasonic welding machine operator. ?? She reports a family member has a sore throat. She states that 2 days ago she started to have throat pain with swallowing.??She had fevers to 104 yesterday??as well as some shortness of breath yesterday that is worse with exertion as well as while lying flat. She usually doesn't have shortness of breath, she sometimes gets leg swelling but has not had swelling recently. ?? She had some chest pain with inspiration. She hasn't had this before. She reports never having a heart attack before. ?? She does not smoke. ?? In the ED: T 98.4 BP 158/124 HR 102 RR 18 O2 98%RA WBC 10.6 HGB 13.1 PLT 225 Na 141 K 3.8 Cr 0.7 BNP 211 Trop 66 -> [address] elevation in V2 CXR with pulm vasc congestion A heparin gtt was started and she was given asa, tylenol, and Ativan. She reports her chest pain is improving. ?? ROS: As above, rest of full review negative. Objective Temperature?98.6 ?(13:58) Systolic Blood Pressure?127 ?(12:47) Diastolic Blood Pressure?72 ?(12:47) Pulse?94 ?(12:34) SpO2?97 ?(12:34) Respiratory Rate?26 ?(12:34) ?? Physical Exam GEN: Comfortable in bed HEENT: Moist membranes HEART: Warm extremities LUNGS: Breathing comfortably room air ABD: Soft, nontender : No harden EXT: Warm, no edema NEURO: Alert, oriented x3 PSYCH: Calm and cooperative Assessment/Plan Assessment:??59 year old woman with hypertension presents with shortness of breath. ?? NSTEMI, initial episode of care (I21.4):??d Risk factors seem to be obesity, HTN, likely triggered by viral infection. She doesn't appear to have volume overload/CHF, at least in her lower extremities, though she has some pulm vasc congestion. - heparin gtt - asa 81 daily - start atorva - start??carvedilol 12.5mg bid - morphine for pain - f/u cards consult - hold off on echo for now, will likely need after cath decision ?? HTN (hypertension) (I10):?? Initially diastolic 124, now within normal limits without treatment. - stop lisinopril for now - start carvedilol as above ?? DVT??- heparin gtt DIET - regular CODE - full ? Histories Past Medical History/Problem List HTN ? Medications Home Medications Lisinopril (lisinopril 20 mg oral tablet)?20?Milligram?1?tablet?By Mouth?Daily ? Inpatient Medications Medications (10) Active SCHEDULED: (1) NaCl 0.9% Flush 3ml (NaCL 0.9% Flush) ??3 mL, IV Push, Every 8 hours CONTINUOUS: (1) Heparin 25,000 units / 250 mL D5W premix 25,000 units [6.5 units/kg/hr] + D5%W Premixed IV 250 mL (Heparin 25,000 units in 250 mL Premix 25,000 units [6.5 units/kg/hr] + D5%W Premixed IV 250 mL) ??250 mL, IV Infusion, 9.43 mL/hr PRN: (8) Acetaminophen 325 mg Tablet (Acetaminophen Tablet) ??650 mg, By Mouth, Every 4 hours Heparin 5000 units/mL Inj (1 mL) (Heparin Inj) ??8,500 units 1.7 mL, IV Push, Every 6 hours Heparin 5000 units/mL Inj (1 mL) (Heparin Inj) ??4,500 units 0.9 mL, IV Push, Every 6 hours Melatonin 3 mg Tablet (Melatonin Tablet) ??3 mg, By Mouth, Daily at bedtime NaCl 0.9% Flush 3ml (NaCL 0.9% Flush) ??3 mL, IV Push, Every 8 hours Nitroglycerin 0.4 mg Sublingual Tablet (Nitroglycerin 0.4mg Sublingual Tablet) ??0.4 mg, Sublingual, Every 5 minutes Polyethylene Glycol 17 Gm Powder (MiraLax Powder) ??17 Gm 1 pack/packet, By Mouth, Daily Senna Tablet ??8.6 mg 1 tablet, By Mouth, 2 times a day ? EKG study * Event Display: ECG 12-Lead Authored Date: Please click on pdf link to open report * Event Display: ECG 12-Lead Authored Date: Ventricular Rate: 102 BPM Atrial Rate: 102 BPM P-R Interval: 152 ms QRS Duration: 80 ms Q-T Interval: 350 ms QTC Calculation(Bazett): 456 ms P [place]: 61 degrees R [place]: 56 degrees T [place]: 60 degrees Sinus tachycardia Septal infarct , age undetermined Abnormal ECG When compared with ECG of 05-May-2024 12:19, Premature supraventricular complexes are no longer Present Confirmed by ANTOINE VERGARA MD ([id number]) on 05/06/2024 3:03:21 PM [place]: ANTOINE VERGARA MD * Event Display: ECG 12-Lead Authored Date: Please click on pdf link to open report * Event Display: ECG 12-Lead Authored Date: Ventricular Rate: 96 BPM Atrial Rate: 96 BPM P-R Interval: 138 ms QRS Duration: 74 ms Q-T Interval: 358 ms QTC Calculation(Bazett): 452 ms P [place]: 60 degrees R [place]: 28 degrees T [place]: 56 degrees Sinus rhythm with Premature supraventricular complexes Nonspecific ST and T wave abnormality Abnormal ECG Confirmed by LUCAS MORALES ([id number]) on 05/05/2024 1:21:58 PM [place]: LUCAS MORALES * Event Display: ECG 12-Lead Authored Date: Please click on pdf link to open report * Event Display: ECG 12-Lead Authored Date: Ventricular Rate: 94 BPM Atrial Rate: 94 BPM P-R Interval: 150 ms QRS Duration: 76 ms Q-T Interval: 352 ms QTC Calculation(Bazett): 440 ms P [place]: 55 degrees R [place]: 37 degrees T [place]: 39 degrees Normal sinus rhythm Nonspecific ST abnormality Abnormal ECG No previous ECGs available Confirmed by Abdulkadir Ramos ([id number]) on 05/06/2024 6:45:16 AM [place]: Abdulkadir Ramos Heart * Event Display: Echocardiogram - Complete Authored Date: Transthoracic Echocardiography Report (TTE) Patient Demographics Patient Name ATIF STAHL Date of Study 05/06/2024 Corporate Gender Female Facility Race .[id number] Ethnicity or Date of 1965 Height: 64.96 inches Age 59 year(s) Weight: 340.84 pounds Accession Number [id number] BSA: 2.48 m2 Room Number [id number] BMI: 56.79 kg/m2 Referring Balaji Lanier MD Interpreting Jon Nur MD Physician Physician Manuscripts Archivist Jaci Alvarez Indications NSTEMI. Clinical History nstemi HTN Study Data Type of Study TTE procedure:Echo Complete-Doppler, Colorflow, M-Mode. Study Date05/06/2024 Start Time: 10:17 AM [place] [facility] [place] Status: Bedside Patient Status: Routine Technical Quality: Fair Blood Pressure:145/80 mmHg EKG: Within normal limits Allergies - No known allergies. 2D Measurements AO Root Dimension: 2.8 cm LVOT Stroke Volume: 69.43 ml LA ESV (BP):70.4 ml Stroke Volume Index28 ml/m2 LA ESV Index: 28 ml/m2 LVOT: 1.8 cm Doppler Measurements AV Peak Velocity: 185 cm/s MV Peak E-Wave: 102 cm/s AV Peak Gradient: 13.69 mmHg MV Peak A-Wave: 81.2 cm/s AV Mean Gradient: 8 mmHg MV E/A Ratio: 1.26 AV VTI:38.4 cm LVOT Peak Velocity: 138 cm/s LVOT VTI27.3 cm MV Deceleration Time: 261 msec AV Area (Continuity):1.81 cm2 TR Velocity:246 cm/s TR Gradient:24.21 mmHg E' Septal Velocity: 10.8 cm/s E' Lateral Velocity: 9.03 cm/s E/Med E':[id number] E/Lat E':[id number] Cardiac Anatomy Left Ventricle/Interventricular Septum The left ventricular size is normal. Left ventricular wall thickness is normal. The LV systolic function is moderately reduced . The left ventricular ejection fraction is 35-40 %. The basal to mid anterior wall is hypokinetic . 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 The basal to mid inferoseptal wall is akinetic . The basal to mid anteroseptal wall is hypokinetic . The basal to mid inferolateral wall is hypokinetic . Left Atrium/Interatrial Septum The left atrium is normal in size. Aortic Valve The aortic valve leaflet opening is normal . There is no aortic stenosis. There is no significant aortic regurgitation. Mitral Valve The mitral valve appears mildly thickened. There is mild apical tethering of the both leaflets of the mitral valve. There is mild mitral regurgitation. Aorta The aortic root is normal in size. Right Ventricle The right ventricular size and function appears grossly normal. Right Atrium The right atrium is normal in size. Pulmonic Valve The pulmonic valve velocity is normal. Tricuspid Valve There is trace tricuspid valve regurgitation. Pumonary Artery An accurate pulmonary artery pressure could not be obtained. Venous Structures The inferior vena cava appears grossly normal. Inferior vena cava inspiratory collapse is normal . Pericardium/Extracardiac There is no significant pericardial effusion. Summary The left ventricular size is normal. Left ventricular wall thickness is normal. The LV systolic function is moderately reduced . The left ventricular ejection fraction is 35-40 %. The basal to mid anterior wall is hypokinetic . 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 The basal to mid inferoseptal wall is akinetic . The basal to mid anteroseptal wall is hypokinetic . The basal to mid inferolateral wall is hypokinetic . The mitral valve appears mildly thickened. There is mild apical tethering of the both leaflets of the mitral valve. There is mild mitral regurgitation. The right ventricular size and function appears grossly normal. Comparison No prior study available for comparison. Signature * Event Display: Echocardiogram - Complete Authored Date: Cardiology * Event Display: Cardiac Rhythm Strips Authored Date: * Event Display: Cardiac Rhythm Strips Authored Date: * Event Display: Cardiac Rhythm Strips Authored Date: Hospital Progress note * Brandy Howell RN: PERFORM, SIGN, VERIFY Event Display: Progress Note Hospital Authored Date: Patient: ATIF STAHL Age: 59 years Sex: Female : 1965 Associated Diagnoses: None Author: Brandy Howell RN Findings Nursing Data Vital Signs : VITAL SIGNS SECTION 05/10/2024 10:18 EST Temperature 97.9 DegF Temperature Route Oral Pulse Rate 68 bpm Systolic Blood Pressure 115 mm Hg Diastolic Blood Pressure 66 mm Hg Blood pressure sites Arm, right Mean Arterial Pressure 82 mm Hg Pulse Pressure 49 mm Hg Oxygen Saturation 99 % Mode of Delivery (Oxygen) Room air . Evaluation pt alert oriented , denies angina, sob , nausea, lightheadedness, dizziness, tele sr samuel independent in room voiding good amts , see biophys and flow sheet , continue to monitor hemodynamics, plan discharge today. * Mima Churchill RN: PERFORM, SIGN, VERIFY Event Display: Progress Note Hospital Authored Date: [id number] Patient: ATIF STAHL Age: 59 years Sex: Female : 1965 Associated Diagnoses: None Author: Mima Churchill RN Findings Problem Related to Alteration in Cardiac Function (new) : Alteration in Cardiac Function/new 05/10/2024 0:00 EST Alteration in Cardiac Status Related to ACS, Cardiac Procedure, Other: RSV Goals & Outcomes, Cardiac Status Pt will resume/maintain adequate cardiac output, Pt will resume/maintain adequate hemodynamic status, Pt will resume/maintain adequate respiratory function, Pt will resume/maintain intact neuro function, Pt will maintain adequate GI/ function appropriate for pt, Pt will maintain adequate nutrition status Cardiac Interventions Implemented Assess/monitor cardiac status, Assess/monitor neuro status, Assess/monitor respiratory status, Assess for tolerance of IV infusions; verify rate & dose, Call/Report variances in ECG to provider, Document & Monitor O2 Sats; Administer O2 as ordered, Ensure adequate caloric intake, If no bowel movement in 3 days activate bowel regime, Monitor & document daily weight, Obtain 12 Lead ECG and CXR as ordered, Teach/encourage deep breath & cough exercises, Use adjunctive therapies per Standards of Practice Goals/Interventions, Cardiac Yes Cardiac, Problem Start 05/05/2024 18:09 Reviewed Plan with, Cardiac Status Patient Patient Progression, Cardiac Status Patient progressing according to plan . Nursing Data Vital Signs : VITAL SIGNS SECTION 05/09/2024 21:13 EST Temperature 98.0 DegF Temperature Route Oral Pulse Rate 65 bpm Respiratory Rate 18 br/min Systolic Blood Pressure 117 mm Hg Diastolic Blood Pressure 66 mm Hg Blood pressure sites Arm, right Mean Arterial Pressure 83 mm Hg Pulse Pressure 51 mm Hg Oxygen Saturation 96 % Mode of Delivery (Oxygen) Room air . Evaluation (Pt. is A&Ox4. NSR on tele. Denies CP, SOB, dizziness, lightheadedness and palpitations. Trace BLE edema present. Lungs dim on room air. Last BM 05/08. Pt. independently ambulating. Skin is intact. Bed is in lowest position with call light in reach. ) * Aubrey RASMUSSEN, Lois: PERFORM, SIGN, VERIFY Event Display: Progress Note Hospital Authored Date: [id number] Patient: ATIF STAHL Age: 59 years Sex: Female : 1965 Associated Diagnoses: None Author: Aubrey RASMUSSEN, Lois Findings Evaluation Patient A&Ox4, pleasant and cooperative with care. Sudanese Macedonian speaking able to make needs known in Macedonian. Continue on IV lasix, maintains O2 sats on RA. NSR on telemetry, HR 60's. OOB to BR with RW, slow steady gait. R radial JANETTE. . Consult note * Elian SHIPMAN, Vasiliy Leal: PERFORM Event Display: Consultation Note Authored Date: Patient: ??ATIF STAHL ? Age:??59 Years?Sex:??Female?:??1965?? Indication for Consult Reason for consult: NSTEMI Consult requested by: Dr. Driver Consulted physician:??Dr. Rodriges History of Present Illness/Interval History 59 year old female with past medical history of hypertension who presented to the emergency department with shortness of breath and chest pain.?? 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 She mentioned that 2 days ago she started to have sore throat and pain with swallowing.?? She had fever as well and 1/4 and shortness of breath.?? Yesterday she was walking out anxiety developed substernal chest pain radiating to the both shoulders and to the neck.?? Pain is worse with inspiration andwhen she is laying flat and improves with sitting.?? Pain is not reproducible.?? She did not have similar symptoms before.?? She does not have any cardiac disease.?? Has history of hypertension and obesity.?? Otherwise no medical conditions. ?? In the ED: T 98.4 BP 158/124 HR 102 RR 18 O2 98%RA WBC 10.6 HGB 13.1 PLT 225 Na 141 K 3.8 Cr 0.7 BNP 211 Trop 66 -> [address] elevation in V2 CXR with pulm vasc congestion A heparin gtt was started and she was given asa, tylenol, and Ativan. She reports her chest pain is improving. ? Social history Denies any smoking or drug abuse Alcohol use ?? Family history No significant family history of heart disease Review of Systems Pertinent positives as per the HPI. All other systems were reviewed and were negative ? Physical Exam Vitals & Measurements T:??98.6?F?? HR:??78??(Peripheral)?? RR:??22?? BP:??158/100?? SpO2:??97%?? General: In no acute distress HEENT: Sclerae anicteric Cardiovascular: Regular rhythm, normal first and second heart sounds. No Murmur . No JVP Respiratory: Clear to auscultation all lung rubio GI: Normoactive bowel sounds, soft Extremities: Warm, no edema Neuro: Nonfocal? Assessment/Plan 59 year old female with past medical history of hypertension who presented to the emergency department with shortness of breath and chest pain. ?? Diagnosis List NSTEMI Hypertension RSV infection ?? Assessment Patient is presenting with chest pain that has??some atypical features. ??She she had RSV infectionand??now has??chest pain that is pleuritic and positional which could be myocarditis.?? However shehad some??ST changes in the inferior leads and??troponin is uptrending??and given her age, gender and risk factors we will??rule out coronary artery disease ?? Recommendations?? Continue heparin per ACS protocol Aspirin 81 mg daily Atorvastatin 80 mg daily Continue cefepime 2.5 mg twice daily Check hemoglobin A1c, lipid panel, CRP and ESR Repeat EKG Trend troponin to peak Obtain formal echocardiogram Keep n.p.o. for cardiac cath today ?? Thank you for allowing us to participate in the care of your patient. Please feel free to page the cardiology consult pager [phone] with questions. ?? Patient discussed with attending physician ?Antelmo Allergies NKA Home Medications Lisinopril: 20 mg = 1 tablet, By Mouth, Daily Hospital Medications Medications (14) Active SCHEDULED: (4) Aspirin 81 mg EC Tablet (aspirin 81 mg oral delayed release tablet) ??81 mg, By Mouth, Daily Atorvastatin 80 mg Tablet (atorvastatin 80 mg oral tablet) ??80 mg, By Mouth, Daily at bedtime Carvedilol 12.5 mg Tablet (carvedilol 12.5 mg oral tablet) ??12.5 mg, By Mouth, 2 times a day NaCl 0.9% Flush 3ml (NaCL 0.9% Flush) ??3 mL, IV Push, Every 8 hours CONTINUOUS: (1) Heparin 25,000 units / 250 mL D5W premix 25,000 units [6.5 units/kg/hr] + D5%W Premixed IV 250 mL (Heparin 25,000 units in 250 mL Premix 25,000 units [6.5 units/kg/hr] + D5%W Premixed IV 250 mL) ??250 mL, IV Infusion, 9.43 mL/hr PRN: (9) Acetaminophen 325 mg Tablet (Acetaminophen Tablet) ??650 mg, By Mouth, Every 4 hours Heparin 5000 units/mL Inj (1 mL) (Heparin Inj) ??8,500 units 1.7 mL, IV Push, Every 6 hours Heparin 5000 units/mL Inj (1 mL) (Heparin Inj) ??4,500 units 0.9 mL, IV Push, Every 6 hours Melatonin 3 mg Tablet (Melatonin Tablet) ??3 mg, By Mouth, Daily at bedtime MorPHINE 2 mg Inj Syringe (MorPHINE Inj) ??1 mg, IV Push Slowly, Every 30 minutes NaCl 0.9% Flush 3ml (NaCL 0.9% Flush) ??3 mL, IV Push, Every 8 hours Nitroglycerin 0.4 mg Sublingual Tablet (Nitroglycerin 0.4mg Sublingual Tablet) ??0.4 mg, Sublingual, Every 5 minutes Polyethylene Glycol 17 Gm Powder (MiraLax Powder) ??17 Gm 1 pack/packet, By Mouth, Daily Senna Tablet ??8.6 mg 1 tablet, By Mouth, 2 times a day Lab Results Cardiology Labs WBC: 10.6 k/mm3 (05/05/24) RBC: 4.32 m/mm3 (05/05/24) Hgb: 13.1 Gm/dL (05/05/24) Hct: 40 % (05/05/24) MCV: 92.6 femtoliters (05/05/24) MCH: 30.3 pg (05/05/24) MCHC:??32.8 Gm/dL??Low (05/05/24) Platelet Count: 225 k/mm3 (05/05/24) RDW-SD: 44.9 femtoliters (05/05/24) Nucleated RBC (Automated): 0 #/100 WBC'S (05/05/24) Abs. Neut:??8 k/mm3??High (05/05/24) Abs. Lymph: 1.6 k/mm3 (05/05/24) Abs. Terrell: 0.8 k/mm3 (05/05/24) Abs. Eo: 0.2 k/mm3 (05/05/24) Abs. Baso: 0 k/mm3 (05/05/24) Neut %: 75.3 % (05/05/24) Terrell %: 7.1 % (05/05/24) Eos %: 2.1 % (05/05/24) Baso %: 0.3 % (05/05/24) Imm Gran: 0.5 % (05/05/24) Abs. Imm Gran: 0.1 k/mm3 (05/05/24) Sodium: 141 mmol/L (05/05/24) Potassium: 3.8 mmol/L (05/05/24) Chloride: 105 mmol/L (05/05/24) Bicarbonate Level: 24 mmol/L (05/05/24) Glucose Level:??111 mg/dL??High (05/05/24) BUN: 13 mg/dL (05/05/24) Creatinine-Blood: 0.71 mg/dL (05/05/24) Calcium: 9 mg/dL (05/05/24) Nt-Probnp:??211 pg/mL??High (05/05/24) Diagnostic Impression ECG ECG 12-Lead ?? 12:19:36 Please click on pdf link to open report ?? Signed By: Katie SHIPMAN, Lucas Decker ?? ECG 12-Lead ?? 12:19:36 Ventricular Rate: 96 BPM Atrial Rate: 96 BPM P-R Interval: 138 ms QRS Duration: 74 ms Q-T Interval: 358 ms QTC Calculation(Bazett): 452 ms P [place]: 60 degrees R [place]: 28 degrees T [place]: 56 degrees Sinus rhythm with Premature supraventricular complexes Nonspecific ST and T wave abnormality Abnormal ECG Confirmed by LUCAS MORALES ([id number]) on 05/05/2024 1:21:58 PM ?? [place]: LUCAS MORALES ?? Signed By: Lucas Morales MD Problem List/Past Medical History Ongoing No qualifying data Procedure/Surgical History No qualifying data available. Family History No family history recorded. * Antelmo SHIPMAN, [facility]: PERFORM Event Display: Consultation Note Authored Date: seen 05/05; I performed a history and physical examination of the patient and discussed management with the fellow. I reviewed the fellow's note and agree with the documented findings and plan of care.?? Essentially,??patient with acute viral symptoms??and this contacts also having chest discomfort.?? Difficult to say??if it is cardiac or??pleuritic as there is also??variation with respiration. In the EKG, there is??slight ST depression in the inferior leads.?? T inversions??aVL.?? Otherwise,nonspecific changes. Elevated troponins??with values being 66, 118??and peak at 167.?? Currently 111. Obtain echocardiogram.?? Evaluate for wall motion maladies. Not entirely clear if it is an NSTEMI or myocarditis. Treat as NSTEMI for now. ??Recommend??aspirin, beta-blockers, statins, IV heparin drip.?? Nitrates. Ideally, diagnostic catheterization. ??If that is not feasible, can also consider coronary CTA. Discussed with daughter.?? She agrees with plan. ? Patient Care team information Care Team Personnel Name: Lois Burgos RN Position: S RN Member Role: Primary Care Nurse Name: Shaneka Gonzalez RN Position: CARLOS ALBERTOS RN Member Role: Primary Care Nurse Name: Maria Luisa Henderson MD Position: Reference Physician Member Role: PCP Address: [address] [place] [address]- Telecom: Care Team Related Persons Name: IRLANDA TOTH Name: SEBASTIÁN TOTH Insurance Providers Guarantor name: CHEY Health Plan Information #: 1 Payer: [facility] Member Number: [id number] Policy Number: CHEY Group Number: [id number] Health Plan Information #: 2 Payer: [facility] Member Number: [id number] Policy Number: NA Group Number: [id number]
--- NOTE | 2024-05-12 16:15 | MHC.PC.OV ---
Vital Signs 05/12/24 16:18 Height 5 ft 5 in Weight 333 lb BMI 55.4 BP 132/72 Blood Pressure Location Lt brachial Position Sitting Intake Visit Reasons: [facility] 05/10 RSV Secured Entrance Monitor Required: No Accompanied by: Self / Same As Patient Allergies doxycycline Allergy (Intermediate, Verified 05/12/24 16:44) Rash Medication List - Last Reconciled 05/12/24 by Maria Luisa Perez MD atorvastatin 80 mg PO DAILY blood pressure kit-extra large As directed carvedilol 12.5 mg PO BID cholecalciferol (vitamin D3) 50 mcg PO DAILY 90 days cyanocobalamin (vitamin B-12) 250 mcg PO DAILY escitalopram oxalate 10 mg PO BEDTIME 90 days estradiol 0.01%(0.1mg/gram) pea sized amount to urethra 3 times per week 90 days furosemide 20 mg PO DAILY 30 days lisinopril 5 mg PO DAILY thiamine HCl (vitamin B1) 100 mg PO DAILY Tobacco use date assessed: 05/30/23 Dental Screening Dental Screen Date: 05/12/24 Did you have a dental visit in the last 12 months?: No Did you have a dental problem in the last 6 months where you did not have access to dental care?: No Was dental information given to patient?: Patient has dentist HPI HPI Comments History of Present Illness Details The patient is a 59-year-old female presenting with recent hospitalization due to Respiratory Syncytial Virus (RSV) infection. She was admitted to [facility] on May 05 due to difficulty breathing and chest pain. During her stay, she experienced low oxygen saturation and was discharged on May 10. Post-discharge, she reports feeling better but occasionally fatigued. The patient is allergic to doxycycline, which causes a rash. She is currently managing essential hypertension with lisinopril 5 mg. No new medications were recalled from the hospital discharge. Her peripheral vascular status is monitored by Dr. Castillo, and she reports the condition of her legs is stable. [facility] Medical History Obstructive sleep apnea Essential hypertension Morbid exogenous obesity Physical exam Morbid obesity GERD with apnea Depression Family history of high cholesterol UTI (urinary tract infection) Surgical History History of esophagogastroduodenoscopy (EGD) Hx of colonoscopy History of bladder suspension procedure History of appendectomy Family History Mother Pulmonary edema Father Diabetes HTN (hypertension) Heart disease Social History Household Members: Spouse Housing: Apartment Do you presently have visiting nurse or other home services: No Alcohol intake: never Patient Tobacco Use Status: Never used Tobacco e-Cigarette/Vaping Use: Never Used Second Hand Smoke Exposure: No service: No Current occupational status: employed 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 Agus Herbert, Mera Loving, Vernon Carmona and colleagues, with an educational santino from [employer]. Review of Systems Const Details: - Respiratory: Reports occasional fatigue. Physical exam (Primary Care) Vital Signs: Last Vital Signs BP 132/72 05/12/24 16:18 BMI result Body Mass Index 55.4 BMI Assessment/Plan discussion: High BMI High, discussed plan: lifestyle, weight reduction, dietary and physical activity Tobacco/Smoking Status: Tobacco use Status Tobacco use date assessed 05/30/23 05/12/24 16:17 Patient Tobacco Use Status Never used Tobacco 05/12/24 16:17 Tobacco use type 05/30/22 08:59 e-Cigarette/Vaping Use Never Used 05/12/24 16:17 Thrive Assessment: Date of Thrive Assessment Date Thrive assessed 05/30/23 05/12/24 16:17 Const Other: General: No confusion Respiratory: Normal respiratory effort, right base expiratory wheezes Cardiovascular: No jugular venous distension, regular rate, regular rhythm, S1 normal heart sound present and S2 normal heart sound present GI: Normal to inspection, Soft to palpation and nontender, normal bowel sounds Office Procedures Flu Questionnaire Does the patient have a severe egg allergy?: No Immunizations Fluarix Triv [id number] (PF) 45 mcg (15 mcg x 3)/0.5 mL IM syringe Performing Provider: Maria Luisa Perez MD Performing Location: [facility] – [place] [facility] Documented (not given) by: CHLOE Dee on 05/12/24 16:41 Reason Not Given: Patient Refused Coding Level of Care Code Est Pt Level 4 (84452) Complex EM visit Add On G2211 Diagnoses RSV bronchitis J20.5 Mild recurrent major depression F33.0 PVD (peripheral vascular disease) I73.9 Essential hypertension I10 BMI 50.0-59.9, adult Z68.43 Time Spent (min) 22 Assessment & Plan Assessment & Plan (1) RSV bronchitis: Code(s): J20.5 - Acute bronchitis due to respiratory syncytial virus Category: Medical (2) Mild recurrent major depression: Code(s): F33.0 - Major depressive disorder, recurrent, mild Category: Medical (3) PVD (peripheral vascular disease): Code(s): I73.9 - Peripheral vascular disease, unspecified Category: Medical (4) Essential hypertension: Code(s): I10 - Essential (primary) hypertension Category: Medical (5) BMI 50.0-59.9, adult: Code(s): Z68.43 - Body mass index [BMI] 50.0-59.9, adult Category: Medical Plan - Continue lisinopril 5 mg for hypertension management. - Monitor recovery from RSV infection. - Follow up with Dr. Castillo for peripheral vascular status. Patient was informed and verbally consented to the use of an ambient scribe for clinic note documentation during this visit. I discussed with the patient her recent hospitalization for RSV infection and progress since discharge. We reviewed the management plan for her essential hypertension with continued use of lisinopril. I inquired about her allergic reaction to doxycycline and reinforced the importance of avoiding this medication. The patient's peripheral vascular condition is stable under Dr. Castillo's care, and we agreed on continuing this follow-up. We discussed the importance of monitoring her respiratory status during recovery. Orders: Orders IRON PROFILE Today D64.9 - Anemia, unspecified Comprehensive [place]. Panel Fast Today Z68.43 - Body mass index [BMI] 50.0-59.9, adult Influenza [id number] Immunization Today Z23 - Encounter for immunization Lipid Panel Today E78.5 - Hyperlipidemia, unspecified Vitamin D 25-OH Total Today E55.9 - Vitamin D deficiency, unspecified Complete Blood Count Auto Diff Today D64.9 - Anemia, unspecified Patient Instructions: - Continue taking lisinopril as prescribed. - Monitor for any recurrence of respiratory symptoms and seek medical advice if symptoms worsen. - Follow up with Dr. Castillo for vascular health as scheduled.
[2024-05-12 16:18] VITALS: BP 132/72; BMI 55.4
== END 2024-05-12 16:51 | disposition home or self-care (01) ==
PROVIDERS: PCP Internal Medicine; Visit Provider Internal Medicine
DX: I73.9 Peripheral vascular disease, unspecified (principal); F33.0 Major depressive disorder, recurrent, mild; Z68.43 Body mass index [BMI] 50.0-59.9, adult; J20.5 Acute bronchitis due to respiratory syncytial virus; I10 Essential (primary) hypertension; Z23 Encounter for immunization

== ENCOUNTER → 2024-05-12 15:53 | Outpatient (BNVA) | payer OTHER, SELFPAY | PROVIDERS: PCP Internal Medicine; Visit Provider Internal Medicine ==

== ENCOUNTER 2024-06-03 09:25 | Outpatient (AMB) | payer OTHER, SELFPAY ==
--- NOTE | 2024-06-03 09:41 | MHC.PC.OV ---
Vital Signs 06/03/24 09:42 Height 5 ft 5 in Weight 345 lb BMI 57.4 BP 120/72 Blood Pressure Location Lt brachial Position Sitting Intake Visit Reasons: Annual exam Intake Note: Patient here for a physical exam Insurance Claims Processor Required: No Accompanied by: Self / Same As Patient Allergies doxycycline Allergy (Intermediate, Verified 06/03/24 09:57) Rash Medication List - Last Reconciled 06/03/24 by Maria Luisa Perez MD aspirin (Adult Low Dose Aspirin) 81 mg PO DAILY atorvastatin 80 mg PO DAILY blood pressure kit-extra large As directed carvedilol 12.5 mg PO BID cholecalciferol (vitamin D3) 50 mcg PO DAILY 90 days cyanocobalamin (vitamin B-12) 250 mcg PO DAILY estradiol 0.01%(0.1mg/gram) pea sized amount to urethra 3 times per week 90 days furosemide 20 mg PO DAILY 30 days lisinopril 5 mg PO DAILY thiamine HCl (vitamin B1) 100 mg PO DAILY Tobacco use date assessed: 06/03/24 Dental Screening Dental Screen Date: 06/03/24 Did you have a dental visit in the last 12 months?: No Did you have a dental problem in the last 6 months where you did not have access to dental care?: No Was dental information given to patient?: Patient has dentist HPI HPI Comments History of Present Illness Details Patient is Citizen Of [place] speaking and I translate. The patient is a 59-year-old female presenting for her physical exam. She has morbid obesity, hypertension, hypercholesterolemia, and depression with anxiety. She reports having a BMI of 57.4, indicative of morbid obesity. The patient has a history of hypertension, which is well-controlled with her current medication regimen. She also has hypercholesterolemia, for which she is taking atorvastatin. The patient experiences anxiety, particularly at night, but does not suffer from depression. She has a documented allergy to doxycycline, resulting in a rash upon administration. Her surgical history includes appendectomy and bladder suspension. The patient denies tobacco or alcohol use and is currently on a regimen that includes aspirin, atorvastatin, carvedilol, vitamin D, B12, B1, estradiol cream, furosemide, and lisinopril. - Tdap vaccine last administered in 2015; next due in 2025. - Pap smear completed in 2022. - Colonoscopy conducted in 2017; next due in 2027. - Referral for mammography and bone densitometry to assess for osteoporosis risk. - Discussion of weight management given obesity with high BMI. - Current control of hypertension through medication. [facility] Medical History Obstructive sleep apnea Essential hypertension Morbid exogenous obesity Physical exam Morbid obesity GERD with apnea Depression Family history of high cholesterol UTI (urinary tract infection) Surgical History History of esophagogastroduodenoscopy (EGD) Hx of colonoscopy History of bladder suspension procedure History of appendectomy Family History Mother Pulmonary edema Father Diabetes HTN (hypertension) Heart disease Social History Household Members: Spouse Housing: Apartment Do you presently have visiting nurse or other home services: No Alcohol intake: never Patient Tobacco Use Status: Never used Tobacco e-Cigarette/Vaping Use: Never Used Second Hand Smoke Exposure: No service: No Current occupational status: employed 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 1. Little interest or pleasure in doing things: not at all 2. Feeling down, depressed, or hopeless: not at all 3. Trouble falling or staying asleep, or sleeping too much: not at all 4. Feeling tired or having little energy: not at all 5. Poor appetite or overeating: not at all 6. Feeling bad about yourself - or that you are a failure or have let yourself or your family down: not at all 7. Trouble concentrating on things, such as reading the newspaper or watching television: not at all 8. Moving or speaking so slowly that other people could have noticed. Or the opposite - being so fidgety or restless that you have been moving around a lot more than usual: not at all 9. Thoughts that you would be better off or of hurting yourself in some way: not at all Total score: 0 Depression Screening Interpretation: Negative Depression Screening Done: Yes 17333 - PHQ-9 Billing: Yes Source: Developed by Drs. Agus Herbert, Vernon Middleton and colleagues, with an educational santino from [employer]. Thrive Questionnaire Date Thrive assessed: 06/03/24 I am a: Patient What is your living situation today?: I choose not to answer this question Within the past 12 months, did the food you bought not last and you didn't have the money to get more?: I choose not to answer this question Within the past 12 months, did you worry whether your food would run out before you got money to buy more?: I choose not to answer this question Do you have trouble paying for medicines?: No Do you have trouble getting transportation to medical appointments?: No Do you have trouble paying your heating and electricity bill?: No Do you have trouble taking care of your child, family member or friend?: No Do you have trouble with day-to-day activities such as bathing, preparing meals, shopping, managing finances, etc.?: No Are you currently unemployed and looking for a job?: No Are you interested in more education?: No Please select the resources that you would like help with: None Currently or been in a relationship where the following occur: No concerns reported THRIVE Score: 0 AUDIT C Alcohol Use Questionnaire (AUDIT-C) 1. How often do you have a drink containing alcohol?: Never Total Score: 0 LOBITO-7 AMB Questionnaire LOBITO-7 Date LOBITO - 7 assessed: 06/03/24 Feeling nervous, anxious, or on edge: 1 = Several days Not being able to stop or control worryin = Not at all Worrying too much about different things: 0 = Not at all Trouble relaxin = Not at all Being so restless that it is hard to sit still: 0 = Not at all Becoming easily annoyed or irritable: 0 = Not at all Feeling afraid as if something awful might happen: 1 = Several days Total LOBITO-7 score (0-4 normal; 5-9 mild; 10-14 moderate; 15-21 severe): 2 Source: Developed by Drs. gAus Herbert, Vernon Middleton and colleagues, with an educational santino from [employer]. LOBITO-7 Assessment Billing LOBITO-7 Assessment Tool: LOBITO-7 Assessment 45671 Review of Systems Const All systems reviewed & are unremarkable except as noted in HPI and below Card Denies chest pain at rest, Denies chest pain with activity, Denies edema, Denies irregular heart rhythm, Denies claudication, Denies dyspnea, Denies dyspnea on exertion, Denies orthopnea, Denies paroxysmal nocturnal dyspnea and Denies slow heart rate Resp Denies cough, Denies dyspnea and Denies dyspnea on exertion GI Denies abdominal pain, Denies change in bowel habits, Denies excessive flatus, Denies nausea and Denies vomiting Physical exam (Primary Care) Vital Signs: Last Vital Signs BP 120/72 06/03/24 09:42 BMI result Body Mass Index 57.4 BMI Assessment/Plan discussion: High BMI High, discussed plan: lifestyle, weight reduction, dietary and physical activity Tobacco/Smoking Status: Tobacco use Status Tobacco use date assessed 06/03/24 06/03/24 09:47 Patient Tobacco Use Status Never used Tobacco 06/03/24 09:47 Tobacco use type 05/30/22 08:59 e-Cigarette/Vaping Use Never Used 06/03/24 09:47 PHQ-9: PHQ-9 Score PHQ-9: Total score 0 06/03/24 10:01 Depression Screening Interpretation: Negative Thrive Assessment: Date of Thrive Assessment Date Thrive assessed 06/03/24 06/03/24 09:47 Currently or been in a relationship where the following occur: No concerns reported [facility] Head: Yes normal to inspection, Yes normocephalic and Yes atraumatic Ears: external ears normal Eyes General: appearance normal, both eyes and all related structures Eyelids: Yes eyelids normal Conjunctivae: conjunctivae normal Neck Neck: Yes normal visual inspection and Yes supple Resp Effort & Inspection: normal respiratory effort Auscultation: clear to auscultation bilaterally Cardio Jugular venous distension: no JVD Rate: regular rate Rhythm: regular rhythm Heart sounds: S1 normal heart sound present and S2 normal heart sound present GI Inspection: Yes normal to inspection Palpation (GI): Soft to palpation and nontender Auscultation: normal bowel sounds Skin General skin exam: no rashes or lesions noted Neuro General: no focal motor deficits Extrem General: Yes full ROM Psych Appearance: grossly normal Coding Level of Care Code Est Pt Prev Care 40-64y(32906) Diagnoses Physical exam Z00.00 Mild recurrent major depression F33.0 BMI 50.0-59.9, adult Z68.43 Peripheral arterial disease I73.9 Additional Codes LOBITO-7 Assessment Billing - LOBITO-7 Assessment Tool: LOBITO-7 Assessment 39559 ([id number]) PHQ-9 - 95498 - PHQ-9 Billing: Yes ([id number]) Time Spent (min) 32 Assessment & Plan Assessment & Plan (1) Physical exam: Code(s): Z00.00 - Encounter for general adult medical examination without abnormal findings Category: Medical (2) Mild recurrent major depression: Code(s): F33.0 - Major depressive disorder, recurrent, mild Category: Medical (3) BMI 50.0-59.9, adult: Code(s): Z68.43 - Body mass index [BMI] 50.0-59.9, adult Category: Medical (4) Peripheral arterial disease: Code(s): I73.9 - Peripheral vascular disease, unspecified Category: Medical Plan - Continue current antihypertensive and lipid-lowering therapies. - Mammogram and bone densitometry to be scheduled for evaluation of breast health and osteoporosis screening. - Explore approval for weekly obesity management injections through insurance. - Monitor anxiety symptoms; consider behavioral interventions if persistent. Patient was informed and verbally consented to the use of an ambient scribe for clinic note documentation during this visit. I discussed with the patient an overall management plan for her obesity, hypertension, hypercholesterolemia, and anxiety. We agreed on continuing her current medications for blood pressure and cholesterol as they are effective. I emphasized the importance of mammography and bone densitometry, for which referrals have been made. We talked about her night-time anxiety, and I recommended monitoring, with an option for further intervention if required. To address her obesity, we considered an injectable medication, pending approval from her health plan. I also advised on lifestyle modifications, including diet and exercise, to support her weight management goals. Orders: Orders Lipid Panel Today E78.5 - Hyperlipidemia, unspecified Vitamin D 25-OH Total Today E55.9 - Vitamin D deficiency, unspecified MM tomosynthesis screening BI Today Z12.31 - Encounter for screening mammogram for malignant neoplasm of breast XR DEXA axial skeleton Today Z78.0 - Asymptomatic menopausal state Vitamin B12 and Folate Today E53.8 - Deficiency of other specified B group vitamins Comprehensive [place]. Panel Fast Today Z68.43 - Body mass index [BMI] 50.0-59.9, adult Medications: New semaglutide (weight loss) (Wegovy) administer weeks 1 through 4 of therapy 0.25 mg (0.5 mL) subcut QWEEK 2 mL 0RF 4 weeks E78.5 - Hyperlipidemia, unspecified, I10 - Essential (primary) hypertension, Z68.43 - Body mass index [BMI] 50.0-59.9, adult Patient Instructions: - Schedule and attend mammography and bone densitometry appointments. - Continue taking medications as prescribed. - Monitor anxiety symptoms and report severe changes. - Follow up for the insurance decision regarding obesity medication. - Maintain a healthy diet and consider increasing physical activity levels to aid weight management.
[2024-06-03 09:42] VITALS: BP 120/72; BMI 57.4
== END 2024-06-03 10:12 | disposition home or self-care (01) ==
PROVIDERS: PCP Internal Medicine; Visit Provider Internal Medicine
DX: Z00.00 Encounter for general adult medical examination without abnormal findings (principal); F33.0 Major depressive disorder, recurrent, mild; Z68.43 Body mass index [BMI] 50.0-59.9, adult; I73.9 Peripheral vascular disease, unspecified

== ENCOUNTER → 2024-06-03 09:25 | Outpatient (BNVA) | payer OTHER, SELFPAY | PROVIDERS: PCP Internal Medicine; Visit Provider Internal Medicine | DX: Z00.00 Encounter for general adult medical examination without abnormal findings (principal); F33.0 Major depressive disorder, recurrent, mild; E66.01 Morbid (severe) obesity due to excess calories; Z68.43 Body mass index [BMI] 50.0-59.9, adult; I73.9 Peripheral vascular disease, unspecified; I10 Essential (primary) hypertension; E78.00 Pure hypercholesterolemia, unspecified; Z79.899 Other long term (current) drug therapy | CPT/HCPCS: 96127 ==

== ENCOUNTER 2024-06-18 10:51 | Outpatient (REF) | payer OTHER, SELFPAY ==
[2024-06-18 11:19] LABS: MANUAL DIFF FLAG NO
--- OUTSIDE RECORDS SUMMARY | 2024-06-18 12:18 | XMS_ITS | Encounter Summary ---
Author Organization [facility] Address [address] [place] [address] Care Team Providers Care Applied Researcher Name Role Phone Unavailable Primary Care Provider Unavailabl e Reason for Visit * Reason Onset Date Comments new patient visit 03/31/2024 Encounter Details Date Type Department Care Team (Late st Contact Info) Description 03/31/2024 Telephone [facility] [address] [place] [address] Otoniel Jose MD [address] [place], [place] [phone] new patient visit Social History Tobacco Use Types Packs/Day Years Used Date Smoking Tobacco: Never Assessed Comments Unknown Sex and Gender Information Value Date Recorded Sex Assigned at Female 03/31/2024 10:47 AM EST Legal Sex Female 10:46 AM EST Gender Identity Not on file Sexual Orientation Not on file documented as of this encounter Miscellaneous Notes * Telephone Encounter - Iron Monreal - 03/31/2024 10:52 AM EST TC placed to patient for scheduling of new patient visit. Agreed to 05/[address] Cho ( in person) Medical Conditions: HTN Frequent UTI Dryness on both legs ..looking for derm referrals [place] [facility] [place] [facility] Apptmnt reminder and release form sent via mail . documented in this encounter Plan of Treatment Not on file documented as of this encounter Visit Diagnoses Not on filedocumented in this encounter
--- OUTSIDE RECORDS SUMMARY | 2024-06-18 12:18 | XMS_ITS | Continuity of Care Document ---
Author Organization [facility] ter Address [address] [place] [address]- Care Team Providers Care Tuna Purse Seiner Name Role Phone Not on Staff, PCP Primary Care Physician Unavail able Encounter [facility] Date(s): 05/09/24 - 06/08/[address] [address]- Attending Physician: Not on Staff, Attending MD Admitting Physician: Not on Staff, Admitting MD Referring Physician: Not on Staff, Referring MD Encounter Type: Pre-Outpt Allergies, Adverse Reactions, Alerts No Known Allergies Medications aspirin 81 mg oral delayed release tablet 81 mg, By Mouth, Daily, # 90 tablet, Refills 0, Tot. Refills 0, Maintenance, 05/10/24 9:52:00 AM EST, Route to Pharmacy Electronically, [facility], Partial fill upon patient [...] Refills, Maintenance, 05/10/24 9:53:00 AM EST, Tablet, [facility], Partial fill upon patient request [...] 9:53:00 AM EST, Route to Pharmacy Electronically, [facility], Partial fill upon patient request if [...] 9:53:00 AM EST, Route to Pharmacy Electronically, [facility], Partial fill upon patient [...] 9:56:00 AM EST, [facility] Partial fill upon patient request if the prescription is for a schedule II opioid drug., 165.1, cm, 05/10/24 4:28:00 EST, Height, 145, kg,05/06/24 3:59:00 EST, Dry Weight Start Date: 05/10/24 Stop Date: 08/08/24 Status: Ordered Quantity: 90.0 Unit: tablet Repeat number: 1 Problem List Condition Confirmation Course Effective Dates Status Health St [facility] Informant Severe obesity Confirmed Active Patient Care team information Care Team Personnel Name: Lois Burgos RN Position: [facility] RN Member Role: Primary Care Nurse Name: Shaneka Gonzalez RN Position: [facility] RN Member Role: Primary Care Nurse Name: Jim Bergeron RN Position: [facility] RN Member Role: Primary Care Nurse Name: Not on Staff, PCP Position: [facility] Physician (General Medicine) Member Role: PCP Care Team Related Persons Name: IRLANDA TOTH Name: SEBASTIÁN TOTH Insurance Providers Guarantor name: CHEY Health Plan Information #: 1 Payer: [facility] Member Number: NA Policy Number: NA Group Number: NA
--- OUTSIDE RECORDS SUMMARY | 2024-06-18 12:18 | XMS_ITS | Clinical Summary ---
Author Organization [employer] Address [address] [facility] [address] [place] [address] Care Team Providers Care Weaver Needle Loom Name Role Phone Unavailable Primary Care Provider Unavailabl e Encounters Date Type Department Care Team Description 04/28/2024 Patient Outreach [facility] [address] [place] [address] Otoniel Jose MD Pre-visit Planning ([facility] unable to reach [facility]) 03/31/2024 Telephone [facility] [address] [place] [address] Otoniel Jose MD new patient visit from Last 3 Months Social History Tobacco Use Types Packs/Day Years Used Date Smoking Tobacco: Never Assessed Comments Unknown Sex and Gender Information Value Date Recorded Sex Assigned at Female 03/31/2024 10:47 AM EST Legal Sex Female 10:46 AM EST Gender Identity Not on file Sexual Orientation Not on file Plan of Treatment Health Maintenance Due Date Last Done Comments CT Colonography 1963 Colonoscopy 1963 Colorectal Cancer Screening 1963 Depression Screening 1963 FIT DNA/Cologuard 1963 FIT 1963 FOBT 1963 HIV Screening 1963 SDOH Screening 1963 Sigmoidoscopy 1963 Alcohol/Substance Use Screening 1975 Tobacco Screening 1975 Hepatitis C Screening 1981 DTaP/Tdap/Td Vaccines (1 - Tdap) 1982 Pap Smear 01/07/1984 Cervical Cancer Screening 1993 HPV/Cotest 1993 Mammogram 2003 Zoster Vaccines (1 of 2) 2013 COVID-19 Vaccine ( - 2023-2 5 season) 2024 Influenza Vaccine (#1) 2024 RSV Patients and Pa tients Aged 60 years or older (1 - 1-dose 75+ series) 2038 HIB Vaccines Aged Out No longer eligi ble based on patient's age to complete this topic HPV Vaccines Aged Out No longer eligi ble based on patient's age to complete this topic Hepatitis A Vaccines Aged Out No long er eligible based on patient's age to complete this topic Hepatitis B Vaccines Aged Out No long er eligible based on patient's age to complete this topic IPV Vaccines Aged Out No longer eligi ble based on patient's age to complete this topic Meningococcal Vaccine Aged Out No farooq elizabeth eligible based on patient's age to complete this topic Pneumococcal Vaccine: Pediat rics (0 to 5 Years) and At-Risk Patients (6 to 64 Years) Aged Out No longer eligible b ased on patient's age to complete this topic RSV under 20 months Aged Out No longe r eligible based on patient's age to complete this topic Rotavirus Vaccines Aged Out No longer eligible based on patient's age to complete this topic Insurance [address] [place] [address] , [address] [place] [id number]
--- OUTSIDE RECORDS SUMMARY | 2024-06-18 12:18 | XMS_ITS | Clinical Summary ---
Author Organization [facility] Address [address] [place] [address] Care Team Providers Care Apron Man Name Role Phone Maria Luisa Henderson MD Primary Care Provider [phone] Allergies No known active allergies Medications calcium carbonate 1500 (600 Ca) MG tablet Take 1,500 mg by mouth 09/09/2022 Active D3 Super Strength 50 MCG (2000 UT) capsule Take 1 tablet by mouth 1 (one) time each day 10/02/2022 Active cyancobalamine (VITAMIN B-12) 250 MCG tablet Take 250 mcg by mouth 1 (one) time each day 10/10/2022 Active Vitron-C 65-125 MG tablet Take 1 tablet by mouth at bed time 10/19/2022 Active nystatin (MYCOSTATIN) 022591 UNIT/ML suspension TAKE 4ML BUCCALLY 4 TIMES A DAY FOR 2 DAYS 09/18/2022 Active thiamine (VITAMIN B-1) 100 MG tablet Take 100 mg by mouth 1 (one) time each day 10/02/2022 Active lisinopril 10 MG tablet Take 10 mg by mouth 1 (one) time each day Active Active Problems No known active problems Social History Tobacco Use Types Packs/Day Years Used Date Smoking Tobacco: Never Assessed Comments Unknown Sex and Gender Information Value Date Recorded Sex Assigned at Not on file Legal Sex Female 10:33 AM EDT Gender Identity Not on file Sexual Orientation Not on file Last Filed Vital Signs Vital Sign Reading Time Taken Comments Blood Pressure 126/70 11/01/2022 2:10 PM EDT Pulse 75 11/01/2022 2:10 PM EDT Temperature - - Respiratory Rate - - Oxygen Saturation 98% 11/01/2022 2:10 PM EDT Inhaled Oxygen Concentration - - Weight 138 kg (303 lb 12.8 oz) 11/01/2022 2:10 P M EDT Height - - Body Mass Index - - Plan of Treatment Health Maintenance Due Date Last Done Comments Breast Cancer Screening 1963 Pneumococcal Vaccine: Pediat rics (0 to 5 Years) and At-Risk Patients (6 to 64 Years) (1 of 2 - PCV) 1969 Colorectal Cancer Screening: Annual FOBT 01/07/2012 Colorectal Cancer Screening: Colonoscopy 01/07/2012 Colorectal Cancer Screening: Sigmoidoscopy 01/07/2012 Influenza Vaccine (#1) 2024 Hepatitis B Vaccine Aged Out No longe r eligible based on patient's age to complete this topic Insurance Care Teams Apron Man Relationship Specialty Start Date End Date Maria Luisa Henderson MD [address] [place], [place] PCP - General Internal Medicine 09/25/22
[2024-06-18 12:26] LABS: Basophils Percent Auto 0.2 % (0-2); Eosinophils Absolute Auto 0.2 X10*3/uL (0.0-0.4); Eosinophils Percent Auto 2.5 % (0-4); Hemoglobin 12.7 g/dl (12.0-16.0); Imm Gran Abs Auto 0.02 X10*3/uL (0.00-0.03); Imm Gran Pct Auto 0.2 % (0.0-0.4); Lymphocytes Absolute Auto 2.5 X10*3/uL (1.2-4.9); Mean Corpuscular HGB Conc 33.4 g/dl (31.0-35.0); Mean Corpuscular Hemoglobin 30.5 pg (27.0-33.0); Mean Corpuscular Volume 91.3 fL (80.0-98.0); Mean Platelet Volume 11.1 fL (9.4-12.3); Monocytes Absolute Auto 0.6 X10*3/uL (0.1-1.2); Monocytes Percent Auto 7.1 % (2-11); Neutrophils Absolute Auto 4.7 x10*3/uL (2.0-8.3); Platelet Count 248 X10*3/uL (160-400); Red Blood Count 4.16 X10*6/uL (4.20-5.50); Red Cell Distribution Width 13.2 % (11.0-16.0)
[2024-06-18 12:38] LABS: Appearance Urine Cloudy; Color Urine Yellow; Glucose Urine UA Negative (Negative); Leukocyte Esterase Urine Small (1+) (Negative); Nitrite Urine Positive (Negative); PH 5.5 (5.0-9.0); Specific Gravity - Urine 1.025 (1.005-1.025); UMIC TRIGGER UACC YES; Urine Blood Trace (Negative); Urine Ketones Negative (Negative); Urine Protein Negative (Neg-Trace)
[2024-06-18 12:42] LABS: Bacteria Urine 4+ (None Seen); Hyaline Casts Urine 0-2 /LPF (0-2); RBC Urine 0-2 /HPF (0-2); UACC Culture Trigger YES; WBC Urine 21-50 /HPF (0-5)
[2024-06-18 13:20] LABS: Alanine Aminotransferase 12 U/L (0-31); Alkaline Phosphatase 84 U/L (39-117); Anion Gap 8 (12-20); Aspartate Amino Transferase 18 U/L (5-31); Bilirubin Total 0.8 mg/dL (0.0-1.0); Blood Urea Nitrogen 15 mg/dL (9-16); Calcium 9.2 mg/dL (8.4-10.2); Carbon Dioxide 26 mmol/L (22-29); Chloride 111 mmol/L (96-108); Cholesterol 146 mg/dL (<200); Estimated Glomerular Filt Rate > 60; Glucose Fasting 84 mg/dL (60-99); HDL Cholesterol 52 mg/dL (>40); Iron 96 mcg/dL (30-160); LDL Cholesterol Calculated 80 mg/dL (<100); Percent Iron Saturation 33 % (15-50); Potassium 3.9 mmol/L (3.3-5.1); Sodium 141 mmol/L (135-145); Total Iron Binding Capacity 290 mcg/dL (228-428); Total Protein 7.4 g/dL (6.5-8.0); Triglycerides 71 mg/dL (<150); Unsaturated Iron Binding 194 ug/dL
[2024-06-18 13:47] LABS: Vitamin D 25-OH Total 16.5 ng/mL (>30)
[2024-06-18 13:56] LABS: Vitamin B12 390 pg/mL (200-900)
[2024-06-18 14:56] LABS: Folate 6.5 ng/mL (> or = 4.0)
== END 2024-06-18 10:52 | disposition home or self-care (01) ==
LOC: HO.LAB 10:51
PROVIDERS: Nurse Practitioner Family; PCP Internal Medicine; Visit Provider Internal Medicine
DX: D64.9 Anemia, unspecified (principal); Z68.43 Body mass index [BMI] 50.0-59.9, adult; E78.5 Hyperlipidemia, unspecified; E55.9 Vitamin D deficiency, unspecified; E53.8 Deficiency of other specified B group vitamins; R30.0 Dysuria
CPT/HCPCS: 36415; 80053; 80061; 81001; 82306; 82607; 82746; 83540; 85025; 87086; 87088; 87186

== ENCOUNTER 2024-07-09 11:22 | Outpatient (AMB) | payer OTHER, SELFPAY ==
--- NOTE | 2024-07-09 11:26 | MHC.OFFVIS ---
Intake Visit Reasons: 3m/PVR Intake Note: Patient is present for PVR Follow up Urology Med: Estradiol Antibiotic Allergy: Doxycycline Blood Thinner: Aspirin Last PVR:0ml Todays PVR:0ml Last Culture 06/18/24 was treated by PCP with Bactrim Patient states that she has no current uti symptoms Unable to provide a urine sample Home Theater Experience Expert Services: Home Theater Experience Expert Present Home Theater Experience Expert Name: [id number] Accompanied by: Self / Same As Patient Allergies doxycycline Allergy (Intermediate, Verified 07/09/24 11:54) Rash Medication List - Last Reconciled 07/09/24 by JAI Phelps- aspirin (Adult Low Dose Aspirin) 81 mg PO DAILY atorvastatin 80 mg PO DAILY blood pressure kit-extra large As directed carvedilol 12.5 mg PO BID cholecalciferol (vitamin D3) 50 mcg PO DAILY 90 days cyanocobalamin (vitamin B-12) 250 mcg PO DAILY estradiol 0.01%(0.1mg/gram) pea sized amount to urethra 3 times per week 90 days furosemide 20 mg PO DAILY 30 days lisinopril 5 mg PO DAILY semaglutide (weight loss) (Wegovy) 0.25 mg (0.5 mL) subcut QWEEK 4 weeks thiamine HCl (vitamin B1) 100 mg PO DAILY HPI Comments Details: Evon is a 59-year-old Vietnamese-speaking female patient of Dr. Ugo Perez. She has a past medical history of?obstructive sleep apnea, hypertension, morbid obesity, GERD, depression, and recurrent urinary tract infections. She presents to the office today for follow-up of her recurrent urinary tract infection. In discussion with the patient today she reports to be doing and feeling well. She reports having followed up with her PCP for routine visit at which time urinalysis was sent for urine culture despite patient not having any UTI like symptoms. She reports having been treated with Bactrim by PCP. She currently denies any lower urinary tract symptoms and or UTI like symptoms. She was unable to provide a urine at today's office visit. PVR 0 mL. She reports compliance with Estrace cream as prescribed. Previous workup has included a retroperitoneal ultrasound 04/20 noting bilateral kidneys are normal in size, contour, and echogenicity. Bilateral kidneys with no calculi or hydronephrosis. Left kidney with 2.6 cm hypoechoic abnormality in the midportion without flow on color doppler interrogation. Urine culture results reviewed with the patient today 04/20, 01/17, 02/17, 07/21 urine cultures positive for E coli and 12/18 noted Klebsiella pneumoniae and group B. most recent urine culture with PCP 06/21 E coli and Enterococcus faecalis. She denies hematuria, dysuria, foul smelling urine, changes to urinary stream, flank pain, fever, and or chills. She otherwise offers no other issues or concerns at this time. [facility] Medical History Obstructive sleep apnea Essential hypertension Morbid exogenous obesity Physical exam Morbid obesity GERD with apnea Depression Family history of high cholesterol UTI (urinary tract infection) Surgical History History of esophagogastroduodenoscopy (EGD) Hx of colonoscopy History of bladder suspension procedure History of appendectomy Family History Mother Pulmonary edema Father Diabetes HTN (hypertension) Heart disease Social History Household Members: Spouse Housing: Apartment Do you presently have visiting nurse or other home services: No Alcohol intake: never Patient Tobacco Use Status: Never used Tobacco e-Cigarette/Vaping Use: Never Used Second Hand Smoke Exposure: No service: No Current occupational status: employed 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 Sexual orientation: Straight/Heterosexual Gender identity: Female Cognitive needs: No Hearing needs: No Vision needs: Yes (glasses) Review of Systems Eyes Reports no additional complaints ENT Reports no additional complaints Card Reports as per HPI Resp Reports as per HPI GI Reports as per HPI Reports as per HPI Musc Reports no additional complaints Neuro Reports no additional complaints Psych Reports as per HPI Endo Reports no additional complaints Bucky/Lymph Reports no additional complaints Aller/Immun Reports no additional complaints Physical Exam Const General: cooperative, healthy appearing, comfortable, no acute distress, well developed, alert and awake Nutritional Appearance: obese Orientation/consciousness: patient oriented x3 Limitations: no limitations HEENT Head: Yes normal to inspection, Yes normocephalic and Yes atraumatic Ears: hearing grossly normal bilaterally Eyes General: appearance normal, both eyes and all related structures Neck Neck: Yes normal visual inspection and Yes trachea midline Chest Chest palpation & inspection: normal inspection of the chest Resp Effort & Inspection: normal respiratory effort and able to speak in complete sentences Cardio Rate: regular rate GI Inspection: Yes normal to inspection General: Yes no CVA tenderness Back/Spine/Pelvis Back: no CVA tenderness Skin General skin exam: no rashes or lesions noted Neuro General: patient oriented x3 Extrem General: Yes normal to inspection Psych Appearance: grossly normal and well kempt Mental Status: mental status grossly normal Speech and movement: Normal speech and movement present and Clear speech present Affect: normal affect Attitude: cooperative Thought process: Normal thought process present Thought content: Normal thought content present Insight: Fair insight present (Psych) Judgement: Fair judgement present (Psych) Office Procedures Post Void Residual Post Residual Void Post Void Residual (PVR): 0 78888-Wewh Void Residual by ultrasound Quality Reporting (2019) Adult ([facility] 13807/19/68) Smoking risk assessment performed?: Yes Patient Tobacco Use Status: Never used Tobacco Assessment & Plan Assessment & Plan (1) Renal cyst: Code(s): N28.1 - Cyst of kidney, acquired Category: Medical Plan Unable to obtain urine for urinalysis however PVR 0 mL. Patient currently denies any bothersome urinary issues or concerns. She reports be happy with current voiding parameters. Continue Estrace cream as discussed and prescribed. Will obtain CT renal mass protocol for further assessment evaluation. BUN and creatinine ordered for imaging. Discussed UTI prevention with D mannose supplement, vitamin-C, increasing fluid intake, behavioral therapy with timed voiding, perineal hygiene and postcoital voiding, and management of constipation with stool softeners and increased fiber intake. Follow-up in 3 months with imaging, labs, and PVR; or sooner with any issues, concerns, and or questions. Orders: Orders Blood Urea Nitrogen Today N28.1 - Cyst of kidney, acquired Creatinine Today N28.1 - Cyst of kidney, acquired AMB Urinalysis Automated Today Z13.9 - Encounter for screening, unspecified AMB Post Void Residual by ultrasound Today N39.0 - Urinary tract infection, site not specified CT abdomen pelvis wo/w IV con Today N28.1 - Cyst of kidney, acquired Patient Instructions: The patient had an opportunity to ask questions regarding the treatment plan. All questions were answered. Physical exam, labs, and imaging were discussed and reviewed in detail. As well as risks, benefits, and discussion of treatment choices. No major barriers to understanding were identified. The patient expressed understanding and agreement with the above treatment plan. The patient was made aware they should contact our office by phone for worsening of their current condition, the appearance of new symptoms, or with any questions or concerns. Compliance is encouraged with any medications and follow up testing that is ordered. It is a privilege to be allowed the opportunity to participate in? your urological care.? Again, if you have any questions or concerns If you have any questions or concerns please do not hesitate to contact me. The office is [phone]. This note is constructed using voice recognition software. While every effort has been made to ensure accuracy inspector weights and measures errors may have been included. Yours sincerely, KARINA Phelps Coding Level of Care Code Est Pt Level 3 (32681) Complex EM visit Add On G2211 Diagnoses Renal cyst N28.1 CPT Codes Post Residual Void - PVR CPT Code: 29908-Fucu Void Residual by ultrasound ([id number])
--- OUTSIDE RECORDS SUMMARY | 2024-07-09 13:18 | XMS_ITS | Encounter Summary ---
Author Organization [employer] Address [address] [facility] 7 [place] [address] Care Team Providers Care Retail Pricing Coordinator Name Role Phone Unavailable Primary Care Provider Unavailabl e Reason for Visit * Reason Onset Date Comments new patient visit 03/31/2024 Encounter Details Date Type Department Care Team (Late st Contact Info) Description 03/31/2024 Telephone [facility] [address] [place] [address] Otoniel Jose MD [address], [place] [phone] new patient visit Social History Tobacco Use [...] ..looking for derm referrals Gets seen at [facility] but [facility] to be seen at [facility] Apptmnt reminder and release form sent via mail . documented in this encounter Plan of Treatment Not on file documented as of this encounter Visit Diagnoses Not on filedocumented in this encounter
--- OUTSIDE RECORDS SUMMARY | 2024-07-09 13:18 | XMS_ITS | Continuity of Care Document ---
Author Organization [facility] Address [address] [place] [address]- Care Team Providers Care Deck Mechanic Name Role Phone Not on Staff, PCP Primary Care Physician Unavail able Encounter [facility] Date(s): 05/09/24 - 07/03/24 [facility] [address] [place] [address]- Attending Physician: Jhoana Reid NP Admitting Physician: Jhoana Reid NP Referring Physician: Nicole Velasquez Encounter Type: Pre-OutPatient One Time Allergies, Adverse Reactions, Alerts No Known Allergies Medications aspirin 81 mg oral delayed release tablet 81 mg, By Mouth, Daily, # 90 tablet, Refills 0, Tot. Refills 0, Maintenance, 05/10/24 9:52:00 AM EST, Route to Pharmacy Electronically, [facility], Partial fill upon [...] Refills, Maintenance, 05/10/24 9:53:00 AM EST, Tablet, [facility], Partial fill upon patient [...] 9:53:00 AM EST, Route to Pharmacy Electronically, [facility] 3, Partial fill upon patient request if [...] 9:53:00 AM EST, Route to Pharmacy Electronically, [facility] 3, Partial fill upon patient request if [...] 9:56:00 AM EST, Route to Pharmacy Electronically, [facility] 3, Partial fill upon patient request if [...] Team Personnel Name: Lois Burgos RN Position: [facility] RN Member Role: Primary Care Nurse Name: Shaneka Gonzalez RN Position: [facility] RN Member Role: Primary Care Nurse Name: Jim Bergeron RN Position: [facility] RN Member Role: Primary Care Nurse Name: Not on Staff, PCP Position: [facility] Physician (General Medicine) Member Role: PCP Care Team Related Persons Name: IRLANDA TOTH Name: SEBASTIÁN TOTH Insurance Providers Guarantor name: CHEY Health Plan Information #: 1 Payer: [facility] [employer] Member Number: [id number] Policy Number: NA Group Number: [id number] Health Plan Information #: 2 Payer: [facility] Member Number: [id number] Policy Number: NA Group Number: NA
--- OUTSIDE RECORDS SUMMARY | 2024-07-09 13:18 | XMS_ITS | Continuity of Care Document ---
Author Organization [facility] Address [address] [place] [address]- Care Team Providers Care Licensed Psychologist Manager Name Role Phone Not on Staff, PCP Primary Care Physician Unavail able Encounter [facility] Date(s): 05/26/24 - 07/04/[address] [address]- Attending Physician: Brodie Arguello MD Admitting Physician: Brodie Arguello MD Referring Physician: Brodie Arguello MD Encounter Type: Pre-Outpt Allergies, Adverse Reactions, Alerts No Known Allergies Medications aspirin 81 mg oral delayed release tablet 81 mg, By Mouth, Daily, # 90 tablet, Refills 0, Tot. Refills 0, Maintenance, 05/10/24 9:52:00 AM EST, Route to Pharmacy Electronically, [facility], Partial fill [...] Refills, Maintenance, 05/10/24 9:53:00 AM EST, Tablet, [facility], Partial fill upon [...] 9:53:00 AM EST, Route to Pharmacy Electronically, [facility], Partial fill upon patient request [...] 9:53:00 AM EST, Route to Pharmacy Electronically, [facility], Partial fill upon patient [...] 9:56:00 AM EST, [facility] Partial fill upon patient request if the prescription is for a schedule II opioid drug., 165.1, cm, 05/10/24 4:28:00 EST, Height, 145, kg,05/06/24 3:59:00 EST, Dry Weight Start Date: 05/10/24 Stop Date: 08/08/24 Status: Ordered Quantity: 90.0 Unit: tablet Repeat number: 1 Problem List Condition Confirmation Course Effective Dates Status Health [facility] Informant Severe obesity Confirmed Active Note * Leila Agustin: PERFORM, SIGN, VERIFY Event Display: Cardiac Rehab Note Authored Date: [id number] Patient: ATIF STAHL Age: 59 years Sex: Female : 1965 Associated Diagnoses: None Author: Leila Agustin Chart reviewed. Patient had a Cardiac Rehab orientation scheduled for 06/04/2024 at 8a.m Patient did not show for her appointment. I called the patient and left a voice mail message to see is she wouldlike to reschedule. Thank you Patient Care team information Care Team Personnel Name: Lois Burgos RN Position: [facility] RN Member Role: Primary Care Nurse Name: Shaneka Gonzalez RN Position: S RN Member Role: Primary Care Nurse Name: Jim Bergeron RN Position: S RN Member Role: Primary Care Nurse Name: Not on Staff, PCP Position: [facility] Physician (General Medicine) Member Role: PCP Care Team Related Persons Name: IRLANDA TOTH Name: SEBASTIÁN TOTH Insurance Providers Guarantor name: CHEY Health Plan Information #: 1 Payer: [facility] [employer] Member Number: [id number] Policy Number: NA Group Number: [id number] Health Plan Information #: 2 Payer: [facility] [employer] Member Number: [id number] Policy Number: NA Group Number: NA
--- OUTSIDE RECORDS SUMMARY | 2024-07-09 13:18 | XMS_ITS | Clinical Summary ---
Author Organization [employer] Address [address] [facility] 7t [place] [address] Care Team Providers Care Lode Miner Name Role Phone Unavailable Primary Care Provider Unavailabl e Encounters Date Type Department Care Team Description 04/28/2024 Patient Outreach [facility] [address] [place] [address] Otoniel Jose MD Pre-visit Planning (SDOH unable to reach [facility]) from Last 3 Months Social History Tobacco [...] Cancer Screening 1993 HPV/Cotest 1993 Mammogram 2003 Pneumococcal Vaccine: 50+ Ye ars (1 of 1 - PCV) 2013 Zoster Vaccines (1 of 2) 2013 COVID-19 [...] patient's age to complete this topic Insurance , [address] [place] [id number]
--- OUTSIDE RECORDS SUMMARY | 2024-07-09 13:18 | XMS_ITS | Continuity of Care Document ---
Author Organization [facility] Address [address] [place] [address]- Care Team Providers Care Plate Preparer Name Role Phone Not on Staff, PCP Primary Care Physician Unavail able Encounter [facility] Date(s): 05/09/24 - 07/03/24 [facility] [address] [place] [address]- Attending Physician: Jhoana Reid NP Admitting Physician: Jhoana Reid NP Referring Physician: Nicole Velasquez Encounter Type: Pre-OutPatient One Time Allergies, Adverse Reactions, Alerts No Known Allergies Medications aspirin 81 mg oral delayed release tablet 81 mg, By Mouth, Daily, # 90 tablet, Refills 0, Tot. Refills 0, Maintenance, 05/10/24 9:52:00 AM EST, Route to Pharmacy Electronically, [facility], Partial fill upon [...] Refills, Maintenance, 05/10/24 9:53:00 AM EST, Tablet, [facility], Partial fill upon patient [...] 9:53:00 AM EST, Route to Pharmacy Electronically, [facility] 3, Partial fill upon patient request if [...] 9:53:00 AM EST, Route to Pharmacy Electronically, [facility] 3, Partial fill upon patient request [...] 9:56:00 AM EST, Route to Pharmacy Electronically, [facility] 3, Partial fill upon patient request [...] Team Personnel Name: Lois Burgos RN Position: [facility] RN Member Role: Primary Care Nurse Name: Shaneka Gonzalez RN Position: [facility] RN Member Role: Primary Care Nurse Name: Jim Bergeron RN Position: [facility] RN Member Role: Primary Care Nurse Name: Not on Staff, PCP Position: [facility] Physician (General Medicine) Member Role: PCP Care Team Related Persons Name: IRLANDA TOTH Name: SEBASTIÁN TOTH Insurance Providers Guarantor name: CHEY Health Plan Information #: 1 Payer: [facility] [employer] Member Number: [id number] Policy Number: NA Group Number: [id number] Health Plan Information #: 2 Payer: [facility] Member Number: [id number] Policy Number: NA Group Number: NA
--- OUTSIDE RECORDS SUMMARY | 2024-07-09 13:18 | XMS_ITS | Clinical Summary ---
Author Organization [facility] Address [address] [place] [address] Care Team Providers Care Cdl Bulk Driver Name Role Phone Maria Luisa Henderson MD Primary Care Provider [phone] Allergies No known active allergies Medications calcium [...] at bed time 10/19/2022 Active nystatin (MYCOSTATIN) 774976 UNIT/ML suspension TAKE 4ML BUCCALLY 4 TIMES [...] to complete this topic Insurance Care Teams Cdl Bulk Driver Relationship Specialty Start Date End Date Maria Luisa Henderson MD [address] [place], [place] PCP - General Internal Medicine 09/25/22
== END 2024-07-09 11:55 | disposition home or self-care (01) ==
PROVIDERS: PCP Internal Medicine; Visit Provider Nurse Practitioner Family
DX: N28.1 Cyst of kidney, acquired (principal)
CPT/HCPCS: 99213

== ENCOUNTER → 2024-07-09 11:22 | Outpatient (BNVA) | payer OTHER, SELFPAY | PROVIDERS: PCP Internal Medicine; Visit Provider Nurse Practitioner Family | DX: N28.1 Cyst of kidney, acquired (principal); Z87.440 Personal history of urinary (tract) infections | CPT/HCPCS: 51798 ==

== ENCOUNTER 2024-09-02 08:26 | Outpatient (REF) | payer OTHER, SELFPAY ==
--- NOTE | ~2024-09-02 | CT_ITS ---
CLINICAL HISTORY: N28.1 - Cyst of kidney, acquired CT abdomen and pelvis with and without contrast Comparison: [place] - US ABDOMEN COMP W ELASTOGRAPHY - 04/26/23 10:23 EST Findings: The lung bases are clear. Small fat containing posterior right-sided diaphragmatic hernia containing fat. There is a 2 cm ovoid left renal cyst which demonstrates no meaningful enhancement or definite septations. Beam hardening artifact somewhat limits interpretation. The liver, spleen, adrenal glands, gallbladder and pancreas are unremarkable. The uterus and adnexa are within normal limits. No bowel obstruction or free air. No acute osseous finding. Minimal atherosclerotic disease. Impression: Benign-appearing left renal cyst exhibiting no meaningful postcontrast enhancement. Beam hardening artifact somewhat limits interpretation. No definite acute or suspicious abnormality. This document has been electronically signed by: Jerad Martínez MD on 09/03/2024 10:22:06
--- OUTSIDE RECORDS SUMMARY | 2024-09-02 08:47 | XMS_ITS | Clinical Summary ---
Author Organization [facility] Address [address] [place] [address] Care Team Providers Care Trailer Rental Clerk Name Role Phone Maria Luisa Henderson MD Primary Care Provider [phone] Allergies No known active allergies Medications calcium [...] at bed time 10/19/2022 Active nystatin (MYCOSTATIN) 945351 UNIT/ML suspension TAKE 4ML BUCCALLY 4 TIMES [...] Colorectal Cancer Screening: Sigmoidoscopy 01/07/2012 Influenza Vaccine (Season Ended) 2025 Hepatitis B Vaccine Aged Out No longe r eligible based on patient's age to complete this topic Insurance Care Teams Trailer Rental Clerk Relationship Specialty Start Date End Date Maria Luisa Henderson MD [address] [place], [place] PCP - General Internal Medicine 09/25/22
[2024-09-02] MEDS: iohexoL 350 MG/ML 75 ML INFUS..BTL 85 ML IV (10:22)
[2024-09-02 13:16] LABS: Creatinine POC 0.8 mg/dL (0.5-1.4); GFR POC > 60
== END 2024-09-02 08:27 | disposition home or self-care (01) ==
LOC: HO.CT 08:26
PROVIDERS: PCP Internal Medicine; Visit Provider Nurse Practitioner Family
DX: N28.1 Cyst of kidney, acquired (principal)
CPT/HCPCS: 74178; 82565; Q9967

== ENCOUNTER → 2024-09-02 08:29 | Outpatient (BNV) | payer OTHER, SELFPAY | PROVIDERS: PCP Internal Medicine; Visit Provider Radiology Vascular & Interventional Radiology | DX: N28.1 Cyst of kidney, acquired (principal) | CPT/HCPCS: 74178 ==

== ENCOUNTER 2024-09-16 11:56 | Outpatient (REF) | payer OTHER, SELFPAY ==
[2024-09-16 12:49] LABS: Appearance Urine Cloudy; Color Urine Yellow; Glucose Urine UA Negative (Negative); Leukocyte Esterase Urine Trace (Negative); Nitrite Urine Positive (Negative); PH 5.5 (5.0-9.0); UMIC TRIGGER UACC YES; Urine Blood Trace (Negative); Urine Ketones Negative (Negative); Urine Protein Negative (Neg-Trace)
[2024-09-16 12:53] LABS: Bacteria Urine 4+ (None Seen); Hyaline Casts Urine 0-2 /LPF (0-2); RBC Urine 0-2 /HPF (0-2); UACC Culture Trigger YES
[2024-09-16 13:09] LABS: Blood Urea Nitrogen 18 mg/dL (9-16); Estimated Glomerular Filt Rate > 60
--- OUTSIDE RECORDS SUMMARY | 2024-09-16 14:21 | XMS_ITS | Clinical Summary ---
Author Organization [facility] Address [address] [place] [address] Care Team Providers Care Animal Park Code Enforcement Officer Name Role Phone Maria Luisa Henderson MD Primary Care Provider [phone] Allergies No known active allergies Medications calcium [...] at bed time 10/19/2022 Active nystatin (MYCOSTATIN) 734861 UNIT/ML suspension TAKE 4ML BUCCALLY 4 TIMES [...] Comments Breast Cancer Screening 1965 Pneumococcal Vaccine: 50+ Ye ars (1 of 2 - PCV) 1982 Colorectal Cancer Screening: Annual FOBT 01/07/2012 Colorectal Cancer Screening: Colonoscopy 01/07/2012 Colorectal Cancer Screening: Sigmoidoscopy 01/07/2012 Influenza Vaccine (Season Ended) 2025 Hepatitis B Vaccine Aged Out No longe r eligible based on patient's age to complete this topic Insurance Care Teams Animal Park Code Enforcement Officer Relationship Specialty Start Date End Date Maria Luisa Henderson MD [address] [place] [address] PCP - General Internal Medicine 09/25/22
--- OUTSIDE RECORDS SUMMARY | 2024-09-16 14:21 | XMS_ITS | Encounter Summary ---
Author Organization [employer] Address [address] [place] [address] Care Team Providers Care Parliamentary Counsel Name Role Phone Unavailable Primary Care Provider Unavailabl e Reason for Visit * Reason Onset Date Comments new patient visit 03/31/2024 Encounter Details Date Type Department Care Team ([facility] Contact Info) Description 03/31/2024 Telephone [facility] [address] [place] [address] [phone] Otoniel Jose MD [address] [place] [address] new patient visit Social History Tobacco Use [...] ..looking for derm referrals [place] [facility] [place] [facility] Apptmnt reminder and release form sent via mail . documented in this encounter Plan of Treatment Upcoming Encounters Date Type Department Care Team (Late Contact Info) Description 10/21/2024 10:15 AM EDT Office Visit [facility] [address] [place] [address] [phone] Name, MD [address] [place] [address] documented as of this encounter Visit Diagnoses Not on filedocumented in this encounter
--- OUTSIDE RECORDS SUMMARY | 2024-09-16 14:21 | XMS_ITS | Clinical Summary ---
Author Organization [employer] Address [address] [facility] 7 [place] [address] Care Team Providers Care Author Name Role Phone Unavailable Primary Care Provider Unavailabl e Social History Tobacco Use Types Packs/Day Years Used Date Smoking Tobacco: Never Assessed Comments Unknown Sex and Gender Information Value Date Recorded Sex Assigned at Female 03/31/2024 10:47 AM EST Legal Sex Female 10:46 AM EST Gender Identity Not on file Sexual Orientation Not on file Plan of Treatment Upcoming Encounters Date Type Department Care Team ([facility] st Contact Info) Description 10/21/2024 10:15 AM EDT Office Visit [facility] [address] [place] [address] Name, MD [address] [place] [address] Health Maintenance Due Date Last Done Comments [...] to complete this topic Insurance , [address] [place] [id number]
== END 2024-09-16 11:57 | disposition home or self-care (01) ==
LOC: HO.LAB 11:56
PROVIDERS: Nurse Practitioner Family; PCP Internal Medicine; Visit Provider Internal Medicine
DX: R39.15 Urgency of urination (principal); N28.1 Cyst of kidney, acquired
CPT/HCPCS: 36415; 81001; 82565; 84520; 87086; 87088; 87186

== ENCOUNTER 2024-10-09 10:52 | Outpatient (AMB) | payer OTHER, SELFPAY ==
--- NOTE | 2024-10-09 11:24 | A.OFFVIS_ITS ---
Intake Visit Reasons: 3m/PVR Intake Note: Patient presents today for follow up on: renal cyst Urology Med: Estrace Cream Antibiotic Allergy: Doxycycline Blood Thinner: Aspirin PVR: 0ml's Pick Pulling Machine Operator Required: Yes Pick Pulling Machine Operator Services: Pick Pulling Machine Operator Present Pick Pulling Machine Operator Name: Ramez Camacho Accompanied by: Self / Same As Patient Allergies doxycycline Allergy (Intermediate, Verified 10/10/24 21:21) Rash Medication List - Last Reconciled 10/10/24 by JAI Phelps- aspirin (Adult Low Dose Aspirin) 81 mg PO DAILY atorvastatin 80 mg PO DAILY blood pressure kit-extra large As directed carvedilol 12.5 mg PO BID cholecalciferol (vitamin D3) 50 mcg PO DAILY 90 days cyanocobalamin (vitamin B-12) 250 mcg PO DAILY estradiol 0.01%(0.1mg/gram) pea sized amount to urethra 3 times per week 90 days furosemide 20 mg PO DAILY 30 days lisinopril 5 mg PO DAILY semaglutide (weight loss) (Wegovy) 0.25 mg (0.5 mL) subcut QWEEK 4 weeks thiamine HCl (vitamin B1) 100 mg PO DAILY HPI Comments Details: Evon is a 59-year-old Maltese-speaking female patient of Dr. Ugo Perez. She has a past medical history of?obstructive sleep apnea, hypertension, morbid obesity, GERD, depression, and recurrent urinary tract infections. She presents to the office today for follow-up of her recurrent urinary tract infection. In discussion with the patient today she reports to be doing and feeling well. She reports having followed up with her PCP as she had been experiencing UTI like symptoms and has since completed antibiotic therapy. In review of patient's chart it appears urine cultures are as follows: 09/15 E coli, 5-21 E coli, 8-21 E coli, 3-22 E coli, 10-22 E coli, 423 E coli, 8- 23 E coli, 9-23 E coli, 2-24 E coli, 7-24 Klebsiella pneumoniae and group B strep, 11-24 E coli, 1-25 E coli and Enterococcus faecalis, 4-25 E coli and Enterococcus faecalis She reports compliance with Estrace cream as prescribed. Recent CT renal mass protocol results were reviewed with the patient today. 09/19 benign-appearing left renal cysts exhibiting no meaningful post-contrast enhancement. No definite acute or suspicious abnormality. In office urinalysis results reviewed with the patient today. PVR 0 mL. We discussed at length potential causes of recurrent urinary tract infections as well as further treatment options and risks and benefits of these treatment options. We did discussed trial of methenamine and vitamin-C for suppression. Previous workup has also included a retroperitoneal ultrasound 04/20 noting bilateral kidneys are normal in size, contour, and echogenicity. Bilateral kidneys with no calculi or hydronephrosis. Left kidney with 2.6 cm hypoechoic abnormality in the midportion without flow on color doppler interrogation. She currently denies any UTI like symptoms. She denies hematuria, dysuria, foul smelling urine, changes to urinary stream, flank pain, fever, and or chills. She otherwise offers no other issues or concerns at this time. [facility] Medical History Obstructive sleep apnea Essential hypertension Morbid exogenous obesity Physical exam Morbid obesity GERD with apnea Depression Family history of high cholesterol UTI (urinary tract infection) Surgical History History of esophagogastroduodenoscopy (EGD) Hx of colonoscopy History of bladder suspension procedure History of appendectomy Family History Mother Pulmonary edema Father Diabetes HTN (hypertension) Heart disease Social History Household Members: Spouse Housing: Apartment Do you presently have visiting nurse or other home services: No Alcohol intake: never Patient Tobacco Use Status: Never used Tobacco e-Cigarette/Vaping Use: Never Used Second Hand Smoke Exposure: No service: No Current occupational status: employed 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 Sexual orientation: Straight/Heterosexual Gender identity: Female Cognitive needs: No Hearing needs: No Vision needs: Yes (glasses) Review of Systems Eyes Reports no additional complaints ENT Reports no additional complaints Card Reports as per HPI Resp Reports as per HPI GI Reports as per HPI Reports as per HPI Musc Reports no additional complaints Neuro Reports no additional complaints Psych Reports as per HPI Endo Reports no additional complaints Bucky/Lymph Reports no additional complaints Aller/Immun Reports no additional complaints Physical Exam Const General: cooperative, healthy appearing, comfortable, no acute distress, well developed, alert and awake Nutritional Appearance: obese Orientation/consciousness: patient oriented x3 Limitations: no limitations HEENT Head: Yes normal to inspection, Yes normocephalic and Yes atraumatic Ears: hearing grossly normal bilaterally Eyes General: appearance normal, both eyes and all related structures Neck Neck: Yes normal visual inspection and Yes trachea midline Chest Chest palpation & inspection: normal inspection of the chest Resp Effort & Inspection: normal respiratory effort and able to speak in complete sentences Cardio Rate: regular rate GI Inspection: Yes normal to inspection General: Yes no CVA tenderness Back/Spine/Pelvis Back: no CVA tenderness Skin General skin exam: no rashes or lesions noted Neuro General: patient oriented x3 Extrem General: Yes normal to inspection Psych Appearance: grossly normal and well kempt Mental Status: mental status grossly normal Speech and movement: Normal speech and movement present and Clear speech present Affect: normal affect Attitude: cooperative Thought process: Normal thought process present Thought content: Normal thought content present Insight: Fair insight present (Psych) Judgement: Fair judgement present (Psych) Office Procedures Post Void Residual Post Residual Void Post Void Residual (PVR): 0 72920-Ptss Void Residual by ultrasound Results AMB Urinalysis, Automated UA Leukoctes 0 Kirill/uL Last Edit by [employer] on 10/09/24 12:01 UA Nitrite Last Edit by [employer] on 10/09/24 12:01 UA Urobilinogen 0.2 mg/dL Last Edit by [employer] on 10/09/24 12:01 UA Protein 0 mg/dL Last Edit by [employer] on 10/09/24 12:01 UA pH 6.0 Last Edit by [employer] on 10/09/24 12:01 UA Blood 10 Wilber/uL Last Edit by [employer] on 10/09/24 12:01 UA Specific [place] 1.020 Last Edit by [employer] on 10/09/24 12:01 UA Ketone Last Edit by [employer] on 10/09/24 12:01 UA Bilirubin 0 mg/dL Last Edit by [employer] on 10/09/24 12:01 UA Glucose 0 mg/dL Last Edit by [employer] on 10/09/24 12:01 Results Reviewed Results Reviewed: Laboratory Last Values Urine pH (Auto) 6.0 10/09/24 12:00 Specific [place] (Auto) 1.020 10/09/24 12:00 Urine Protein (Auto) 0 mg/dL 10/09/24 12:00 Glucose (UA)(Auto) 0 mg/dL 10/09/24 12:00 Urine Blood (Auto) 10 Wilber/uL 10/09/24 12:00 Urine Bilirubin (Auto) 0 mg/dL 10/09/24 12:00 Urine Urobilinogen (Auto) 0.2 mg/dL 10/09/24 12:00 Leukocyte Esterase (Auto) 0 Kirill/uL 10/09/24 12:00 Date of Service: 09/02/24 Procedure(s): CT abdomen pelvis wo/w IV con Findings: The lung bases are clear. Small fat containing posterior right-sided diaphragmatic hernia containing fat. There is a 2 cm ovoid left renal cyst which demonstrates no meaningful enhancement or definite septations. Beam hardening artifact somewhat limits interpretation. The liver, spleen, adrenal glands, gallbladder and pancreas are unremarkable. The uterus and adnexa are within normal limits. No bowel obstruction or free air. No acute osseous finding. Minimal atherosclerotic disease. Impression: Benign-appearing left renal cyst exhibiting no meaningful postcontrast enhancement. Beam hardening artifact somewhat limits interpretation. No definite acute or suspicious abnormality. Assessment & Plan Assessment & Plan (1) Renal cyst: Code(s): N28.1 - Cyst of kidney, acquired Category: Medical (2) Recurrent UTI: Code(s): N39.0 - Urinary tract infection, site not specified Category: Medical Plan In office urinalysis results reviewed with the patient today; as noted above. PVR 0 mL. We discussed further prevention of recurrent urinary tract infections with methenamine and vitamin-C. Continue Estrace cream. We discussed potential causes of recurrent urinary tract infections. She currently denies any UTI like symptoms and or bothersome urinary issues. Recent CT results were reviewed with the patient today; as noted above. Discussed UTI prevention with D mannose supplement, vitamin-C, increasing fluid intake, behavioral therapy with timed voiding, perineal hygiene and postcoital voiding, and management of constipation with stool softeners and increased fiber intake. Will continue with surveillance monitoring at this time. Follow-up in 3 months with PVR; or sooner with any issues, concerns, and or questions Orders: Orders AMB Urinalysis Automated 10/09/24 Z13.9 - Encounter for screening, unspecified AMB Post Void Residual by ultrasound 10/09/24 N39.0 - Urinary tract infection, site not specified Urine Cytology 10/09/24 R31.29 - Other microscopic hematuria Medications: Refilled estradiol 0.01%(0.1mg/gram) pea sized amount to urethra 3 times per week 90 days 42.5 grams 3RF Patient Instructions: The patient had an opportunity to ask questions regarding the treatment plan. All questions were answered. Physical exam, labs, and imaging were discussed and reviewed in detail. As well as risks, benefits, and discussion of treatment choices. No major barriers to understanding were identified. The patient expressed understanding and agreement with the above treatment plan. The patient was made aware they should contact our office by phone for worsening of their current condition, the appearance of new symptoms, or with any questions or concerns. Compliance is encouraged with any medications and follow up testing that is ordered. It is a privilege to be allowed the opportunity to participate in? your urological care.? Again, if you have any questions or concerns If you have any questions or concerns please do not hesitate to contact me. The office is [phone]. This note is constructed using voice recognition software. While every effort has been made to ensure accuracy corporate associate errors may have been included. Yours sincerely, KARINA Phelps Coding Level of Care Code Est Pt Level 3 (96813) Complex EM visit Add On G2211 Diagnoses Renal cyst N28.1 Recurrent UTI N39.0 CPT Codes Post Residual Void - PVR CPT Code: 36166-Hkcm Void Residual by ultrasound ([id number])
--- OUTSIDE RECORDS SUMMARY | 2024-10-09 12:03 | XMS_ITS | Clinical Summary ---
Author Organization [facility] Facility Address [address] [place] [id number] Care Team Providers Care Director Of Patient Safety Name Role Phone Maria Luisa Henderson MD Primary Care Provider [phone] Allergies No known active allergies Medications calcium [...] at bed time 10/19/2022 Active nystatin (MYCOSTATIN) 427699 UNIT/ML suspension TAKE 4ML BUCCALLY 4 TIMES [...] kg (303 lb 12.8 oz) 11/01/2022 2:10 PM EDT Height - - Body Mass Index [...] to complete this topic Insurance Care Teams Director Of Patient Safety Relationship Specialty Start Date End Date Maria Luisa Henderson MD [address] [place] [phone] (Work) PCP - General Internal Medicine 09/25/22
--- OUTSIDE RECORDS SUMMARY | 2024-10-09 12:03 | XMS_ITS | Encounter Summary ---
Author Organization [employer] Address [address] [place] [address] Care Team Providers Care Alterations Supervisor Name Role Phone Unavailable Primary Care Provider Unavailabl e Reason for Visit * Reason Onset Date Comments new patient visit 03/31/2024 Encounter Details Date Type Department Care Team ([facility] Contact Info) Description 03/31/2024 Telephone [facility] [address] [place] [address] [phone] Otoniel Jose MD [address] [place] [phone] new patient visit Social History Tobacco Use [...] ..looking for derm referrals Gets seen at [facility] but wanted to be seen at [facility] [employer] reminder and release form sent via mail . documented in this encounter Plan of Treatment Upcoming Encounters Date Type Department Care Team (Late Contact Info) Description 10/21/2024 10:15 AM EDT Office Visit [facility] [address] [place] [address] [phone] Name, MD [address] [place] [address] documented as of this encounter Visit Diagnoses Not on filedocumented in this encounter
--- OUTSIDE RECORDS SUMMARY | 2024-10-09 12:03 | XMS_ITS | Clinical Summary ---
Author Organization [employer] Address [address] [facility] 7 [place] [address] Care Team Providers Care Head Piece Assembler Name Role Phone Unavailable Primary Care Provider [...] Upcoming Encounters Date Type Department Care Team ([facility] st Contact Info) Description 10/21/2024 10:15 AM EDT Office Visit [facility] [address] [place] [phone] Name, MD [address] [place] [address] Health Maintenance Due Date Last Done Comments [...] to complete this topic Insurance , [address] [place] [phone]
== END 2024-10-09 11:56 | disposition home or self-care (01) ==
LOC: HO.HUSH 10:53
PROVIDERS: PCP Internal Medicine; Visit Provider Nurse Practitioner Family
DX: Z13.9 Encounter for screening, unspecified (principal)

== ENCOUNTER 2024-10-09 10:52 | Outpatient (REF) | payer OTHER, SELFPAY ==
--- OUTSIDE RECORDS SUMMARY | 2024-10-09 13:00 | XMS_ITS | Clinical Summary ---
Author Organization [email or web address] Address [address] [facility] 7 [place] [address] Care Team Providers Care Byproducts Pump Operator Name Role Phone Unavailable Primary Care Provider [...] Upcoming Encounters Date Type Department Care Team ([facility] st Contact Info) Description 10/21/2024 10:15 AM EDT Office Visit [facility] [address] [place] [phone] Name, MD [address] [place] [address] Health Maintenance Due Date Last Done Comments [...] to complete this topic Insurance , [address] [place] [phone]
--- OUTSIDE RECORDS SUMMARY | 2024-10-09 13:00 | XMS_ITS | Clinical Summary ---
Author Organization [facility] Facility Address [address] [place] [address] Care Team Providers Care Retention Specialist Name Role Phone Maria Luisa Henderson MD Primary Care Provider [phone] Allergies No known active allergies Medications calcium [...] at bed time 10/19/2022 Active nystatin (MYCOSTATIN) 192893 UNIT/ML suspension TAKE 4ML BUCCALLY 4 TIMES [...] to complete this topic Insurance Care Teams Retention Specialist Relationship Specialty Start Date End Date Maria Luisa Henderson MD [address] [place] [phone] (Work) PCP - General Internal Medicine 09/25/22
--- OUTSIDE RECORDS SUMMARY | 2024-10-09 13:00 | XMS_ITS | Encounter Summary ---
Author Organization [employer] Address [address] [place] [address] Care Team Providers Care Inspector Rough Castings Name Role Phone Unavailable Primary Care Provider Unavailabl e Reason for Visit * Reason Onset Date Comments new patient visit 03/31/2024 Encounter Details Date Type Department Care Team ([facility] Contact Info) Description 03/31/[address] [facility] [address] [place] [address] [phone] Otoniel Jose MD [address] [place] [phone] new patient visit Social History Tobacco Use [...] ..looking for derm referrals Gets seen at [facility] but wanted to be seen at [facility] [employer] reminder and release form sent via mail . documented in this encounter Plan of Treatment Upcoming Encounters Date Type Department Care Team (Late Contact Info) Description 10/21/2024 10:15 AM EDT Office Visit [facility] [address] [place] [address] [phone] Name, MD [address] [place] [address] documented as of this encounter Visit Diagnoses Not on filedocumented in this encounter
[2024-10-09 17:01] LABS: Urine Cytology See Pathology rpt
== END 2024-10-09 10:53 | disposition home or self-care (01) ==
LOC: HO.LNP 10:52
PROVIDERS: PCP Internal Medicine; Visit Provider Nurse Practitioner Family
DX: R31.29 Other microscopic hematuria (principal); N28.1 Cyst of kidney, acquired; N39.0 Urinary tract infection, site not specified; Z13.9 Encounter for screening, unspecified
CPT/HCPCS: 51798; 81003; 88112

== ENCOUNTER 2024-12-03 17:57 | Outpatient (REF) | payer OTHER, SELFPAY ==
--- OUTSIDE RECORDS SUMMARY | 2024-12-03 17:59 | XMS_ITS | Clinical Summary ---
Author Organization [facility] Address [address] [place] [address] Care Team Providers Care Bus Transportation Manager Name Role Phone Maria Luisa Henderson MD Primary Care Provider [phone] Allergies No known active allergies Medications calcium [...] at bed time 10/19/2022 Active nystatin (MYCOSTATIN) 874609 UNIT/ML suspension TAKE 4ML BUCCALLY 4 TIMES [...] Cancer Screening: Sigmoidoscopy 01/07/2012 Influenza Vaccine (#1) 2025 Hepatitis B Vaccine Aged Out No longe r eligible based on patient's age to complete this topic Insurance Care Teams Bus Transportation Manager Relationship Specialty Start Date End Date Maria Luisa Henderson MD [address] [place] [address] PCP - General Internal Medicine 09/25/22
--- OUTSIDE RECORDS SUMMARY | 2024-12-03 17:59 | XMS_ITS | Clinical Summary ---
Author Organization [employer] Address [address] [facility] [address] [place] [address] Care Team Providers Care Vice President Business & Corporate Development Name Role Phone Name, Ludin SHIPMAN Primary Care Provider [phone] Allergies Active Allergy Reactions Criticality Noted Date Comments Sulfamethoxazole-Trimethoprim Rash Low 2024 Doxycycline Hives 10/21/2024 Medications atorvastatin (Lipitor) 80 MG tablet Take 1 tablet (80 mg) by mouth at bedtime. 90 tablet 3 10/21/2024 Active carvedilol (Coreg) 12.5 MG tablet Take 1 tablet (12.5 mg) by mouth 2 times daily. 180 tablet 3 10/21/2024 Active cholecalciferol VITAMIN D (Vitamin D-3) 50 MCG (1999 UT) capsule Take 1 capsule (50 mcg) by mouth Once per day. 90 capsule 3 10/21/2024 Active furosemide (Lasix) 20 MG tablet Take 1 tablet (20 mg) by mouth Once per day. 30 tablet 2 10/21/2024 Active lisinopril 5 MG tablet Take 1 tablet (5 mg) by mouth Once per day. 90 tablet 3 10/21/2024 Active nitrofurantoin, macrocrystal-mo nohydrate, (Macrobid) 100 MG capsule Take 1 capsule (100 mg) by mouth 2 times daily for 5 days. 10 capsule 12/03/2024 Active Active Problems Problem Noted Date Diagnosed Date Morbid obesity 10/21/2024 Hypertension 10/21/2024 High cholesterol 10/21/2024 Venous insufficiency of both lower extremities 0 10/21/2024 Encounters Date Type Department Care Team Description 12/03/2024 11:00 AM EDT Office Visit [address] [address] Ludin Leyva MD Palpitations (Primary Dx); Dizziness, nonspecific; Systolic murmur; Urinary tract infection with hematuria, site unspecified; Dysuria 12/03/2024 Travel 12/02/[address] [address] Ludin Leyva MD CHART PREP 12/01/[address] [address] Jeri Daniel RN 11/03/[address] [place] august recalls 10/21/2024 10:15 AM EDT Office Visit [address] [address] Ludin Leyva MD Morbid obesity (CMS/HCC) (Primary Dx); Hypertension, unspecified type; High cholesterol; Venous insufficiency of both lower extremities; ASHLEIGH (obstructive sleep apnea) 10/21/2024 Travel 10/17/[address] [address] Jabari Smith [place] Chartprep 10/13/2024 Patient Outreach [facility] [address] [place] [address] Ludin Leyva MD Pre-visit Planning (SDOH unable to reach [facility]) from Last 3 Months Social History Tobacco Use Types Packs/Day Years Used Date Smoking Tobacco: Never Smokeless Tobacco: Never Tobacco Cessation:Counseling Given: Not Answered Alcohol Use Standard Drinks/Week Comments Never 0 (1 standard drink = 0.6 oz pur e alcohol) Depression Answer Date Recorded Patient Health Questionnaire-9 Score 4 10/21/2024 Patient Health Questionnaire-9 Score 4 10/21/2024 Last PHQ-9: Questionnaire Data Not on file 0 10/21/2024 Housing Stability Answer Date Recorded What is your housing situation today? I have ju barker 10/21/[address] you li ve. Do you have problems with any of the following? None of the above 10/21/2024 Food Insecurity Answer Date Recorded Within the past 12 months, y ou worried that your food would run out before you got money to buy more: Never True 10/21/2024 Within the past 12 months,th e food you bought just didn't last and you didn't have enough money to get more: Never True Transportation Answer Date Recorded In the past 12 months, has l ack of transportation kept you from medical appts, meetings, work or from getting things needed for daily living? No 10/21/2024 Utilities Answer Date Recorded In the past 12 months, has t he electric, gas, oil or water company threatened to shut off services in your home? No 10/21/2024 Depression Answer Date Recorded Patient Health Questionnaire-2 Score 1 10/21/2024 Internet Access Answer Date Recorded Internet Access Q1 Yes 10/21/2024 Internet Access Q2 Not on file 10/21/2024 Comments Unknown Sex and Gender Information Value Date Recorded Sex Assigned at Female 03/31/2024 10:47 AM EST Legal Sex Female 10:46 AM EST Gender Identity Female 10/17/2024 9:03 AM EDT Sexual Orientation Straight 10/17/2024 9: 03 AM EDT Last Filed Vital Signs Vital Sign Reading Time Taken Comments Blood Pressure 144/84 12/03/2024 11:57 AM EDT Pulse 71 12/03/2024 11:57 AM EDT Temperature 36.2 C (97.2 F) 12/03/2024 11:57 AM EDT Respiratory Rate 12 12/03/2024 11:57 AM EDT Oxygen Saturation 99% 12/03/2024 11:57 AM EDT Inhaled Oxygen Concentration - - Weight 162 kg (356 lb 3.2 oz) 12/03/2024 11:57 A M EDT Height 165.1 cm (5' 5 ) 12/03/2024 11:57 AM EDT Body Mass Index 59.27 12/03/2024 11:57 AM EDT Plan of Treatment Upcoming Encounters Date Type Department Care Team (Late st Contact Info) Description 02/10/2025 10:00 AM EDT Office Visit [facility] [address] [place] [address] Name, MD Ludin [address] [place] [address] Health Maintenance Due Date Last Done Comments CT Colonography 1963 Colonoscopy 1963 Colorectal Cancer Screening 1963 FIT DNA/Cologuard 1963 FIT 1963 FOBT 1963 HIV Screening 1963 Lipid Panel 1963 Sigmoidoscopy 1963 Hepatitis C Screening 1981 DTaP/Tdap/Td Vaccines (1 - Tdap) 1982 Pap Smear 01/07/1984 Cervical Cancer Screening 1993 HPV/Cotest 1993 Mammogram 2003 Pneumococcal Vaccine: 50+ Years (1 of 1 - PCV) 2013 Zoster Vaccines (1 of 2) 2013 RSV Patients and Patients Aged 60 years or older (1 - Risk 60-74 years 1-dose series) 2023 COVID-19 Vaccine (1 - 2023-2 5 season) 2024 Influenza Vaccine (#1) 2025 Alcohol/Substance Use Screening 10/21/2025 10/21/2024 Depression Screening 10/21/2025 10/21/2024, 10/21/2024 Disability Screening 10/21/2025 10/21/2024 SDOH Screening 10/21/2025 10/21/2024 Tobacco Screening 12/03/2025 12/03/2024 HIB Vaccines Aged Out No longer eligi [...] patient's age to complete this topic Meningococcal B Vaccine Aged Out No l onger eligible based on patient's age to complete this topic Meningococcal Vaccine Aged Out No farooq elizabeth eligible based on patient's age to complete this topic RSV under 20 months Aged Out No longe r eligible based on patient's age to complete this topic Rotavirus Vaccines Aged Out No longer eligible based on patient's age to complete this topic Procedures Procedure Name Priority Date/Time Associated Diagnosis Comments ECG 12-LEAD Routine 12/03/2024 1:51 PM EDT Palpitations POCT URINALYSIS DIPSTICK Routine 12/03/2024 11:59 AM EDT Dysuria from Last 3 Months Results * ECG 12 lead (12/03/2024 1:51 PM EDT) Narrative Name, MD Ludin - 12/03/2024 1:51 PM EDT NSR, HR 65, No ST-T changes. Normal EKG us Ludin Leyva MD ECG ORDERABLES Final Result * (ABNORMAL) POCT Urinalysis (12/03/2024 11:59 AM EDT) Color, UA Dark Blanca Clarity, UA Cloudy Glucose, UA Negative Bilirubin, UA Negative Ketones, UA Negative Spec Grav, UA 1.020 Blood, UA Positive(A) Negative, None Detected Comment:trace-intact pH, UA 6.0 Protein, UA Negative Urobilinogen, UA 0.2 Leukocytes, UA Trace Negative, Rare, Trace Nitrite, UA Positive(A) Negative, None Detected Appearance, UA dark yellow QC Media Lot # [id number] Lot# Expiration Date [id number] Urine 12/03/2024 11:5 9 AM EDT us Ludin Leyva MD POINT OF CARE TEST ENTER/EDIT OR DERABLES Final Result from Last 3 Months Insurance [facility] , [address] [place] [address] Care Teams Vice President Business & Corporate Development Relationship Specialty Start Date End Date Name, MD Ludin [address] [place] [address] PCP - General Internal Medicine 10/21/24
[2024-12-03 18:11] LABS: Appearance Urine Cloudy; Glucose Urine UA Negative (Negative); PH 6.5 (5.0-9.0); Specific Gravity - Urine 1.020 (1.005-1.025); UMIC TRIGGER UACC YES
[2024-12-03 18:16] LABS: UACC Culture Trigger YES
== END 2024-12-03 17:58 | disposition home or self-care (01) ==
LOC: HO.LNP 17:57
PROVIDERS: Visit Provider Internal Medicine Geriatric Medicine
DX: R39.0 Extravasation of urine (principal); R31.9 Hematuria, unspecified; N39.0 Urinary tract infection, site not specified; R30.0 Dysuria
CPT/HCPCS: 81001; 87086; 87088; 87186

== ENCOUNTER 2025-01-12 10:17 | Outpatient (AMB) | payer OTHER, SELFPAY ==
--- NOTE | 2025-01-12 10:29 | A.OFFVIS_ITS ---
Intake Visit Reasons: 3m/PVR Intake Note: Patient presents today for follow up on: 3MO FOLLOW UP Urology Med: ESTRADIOL, VIT-B1, VIT-B12 Blood Thinner: Aspirin PVR: 0ml's Emergency Communications Operator Required: Yes Emergency Communications Operator Services: Emergency Communications Operator Present Emergency Communications Operator Name: Jazz Accompanied by: Self / Same As Patient Allergies doxycycline Allergy (Intermediate, Verified 01/12/25 11:04) Rash Medication List - Last Reconciled 01/12/25 by JAI Phelps-ERASMO aspirin (Adult Low Dose Aspirin) 81 mg PO DAILY atorvastatin 80 mg PO DAILY blood pressure kit-extra large As directed carvedilol 12.5 mg PO BID cholecalciferol (vitamin D3) 50 mcg PO DAILY 90 days cyanocobalamin (vitamin B-12) 250 mcg PO DAILY estradiol 0.01%(0.1mg/gram) pea sized amount to urethra 3 times per week 90 days furosemide 20 mg PO DAILY 30 days lisinopril 5 mg PO DAILY semaglutide (weight loss) (Wegovy) 0.25 mg (0.5 mL) subcut QWEEK 4 weeks thiamine HCl (vitamin B1) 100 mg PO DAILY HPI Comments Details: Evon is a 60-year-old Mongolian-speaking female patient of Dr. Ugo Perez. She has a past medical history of?obstructive sleep apnea, hypertension, morbid obesity, GERD, depression, and recurrent urinary tract infections. She presents to the office today for follow-up of her recurrent urinary tract infection. In discussion with the patient today she reports to be doing and feeling well. She denies having had any UTI like symptoms since her last treated urinary tract infection in August. She reports compliance with Estrace cream as prescribed. Urine cultures are as follows: 09/15 E coli, 10/15 E coli, 01-15 E coli, 08/16 E coli, 03/18 E coli, 09/17 E coli, 01/17 E coli, 02/17 E coli, 2/ E coli, / Klebsiella pneumoniae and group B strep, 11 E coli, / E coli and Enterococcus faecalis, 4/ E coli and Enterococcus faecalis, 7/ E coli Urine cytology:10/19 Negative for high-grade urothelial carcinoma. In office urinalysis results reviewed with the patient today negative leukocytes positive nitrates however patient denies any UTI like symptoms. We did discuss colonization. We also discussed potential causes of recurrent urinary tract infections as well as further treatment options and risks and benefits of these treatment options. Previous workup has included CT renal mass protocol 09/19 benign-appearing left renal cysts exhibiting no meaningful post-contrast enhancement. No definite acute or suspicious abnormality. PVR 0 mL. We did discussed trial of methenamine and vitamin-C for suppression. Previous workup has also included a retroperitoneal ultrasound 04/20 noting bilateral kidneys are normal in size, contour, and echogenicity. Bilateral kidneys with no calculi or hydronephrosis. Left kidney with 2.6 cm hypoechoic abnormality in the midportion without flow on color doppler interrogation. She currently denies any UTI like symptoms. She denies hematuria, dysuria, foul smelling urine, changes to urinary stream, flank pain, fever, and or chills. She otherwise offers no other issues or concerns at this time. [facility] Medical History Obstructive sleep apnea Essential hypertension Morbid exogenous obesity Physical exam Morbid obesity GERD with apnea Depression Family history of high cholesterol UTI (urinary tract infection) Surgical History History of esophagogastroduodenoscopy (EGD) Hx of colonoscopy History of bladder suspension procedure History of appendectomy Family History Mother Pulmonary edema Father Diabetes HTN (hypertension) Heart disease Social History Household Members: Spouse Housing: Apartment Do you presently have visiting nurse or other home services: No Alcohol intake: never Patient Tobacco Use Status: Never used Tobacco e-Cigarette/Vaping Use: Never Used Second Hand Smoke Exposure: No service: No Current occupational status: employed 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 Sexual orientation: Straight/Heterosexual Gender identity: Female Cognitive needs: No Hearing needs: No Vision needs: Yes (glasses) Review of Systems Eyes Reports no additional complaints ENT Reports no additional complaints Card Reports as per HPI Resp Reports as per HPI GI Reports as per HPI Reports as per HPI Musc Reports no additional complaints Neuro Reports no additional complaints Psych Reports as per HPI Endo Reports no additional complaints Bucky/Lymph Reports no additional complaints Aller/Immun Reports no additional complaints Physical Exam Const General: cooperative, healthy appearing, comfortable, no acute distress, well developed, alert and awake Nutritional Appearance: obese Orientation/consciousness: patient oriented x3 Limitations: language barrier and ambulation with cane HEENT Head: Yes normal to inspection, Yes normocephalic and Yes atraumatic Ears: hearing grossly normal bilaterally Eyes General: appearance normal, both eyes and all related structures Neck Neck: Yes normal visual inspection and Yes trachea midline Chest Chest palpation & inspection: normal inspection of the chest Resp Effort & Inspection: normal respiratory effort and able to speak in complete sentences Cardio Rate: regular rate GI Inspection: Yes normal to inspection General: Yes no CVA tenderness Back/Spine/Pelvis Back: no CVA tenderness Skin General skin exam: no rashes or lesions noted Neuro General: patient oriented x3 Extrem General: Yes normal to inspection Psych Appearance: grossly normal and well kempt Mental Status: mental status grossly normal Speech and movement: Normal speech and movement present and Clear speech present Affect: normal affect Attitude: cooperative Thought process: Normal thought process present Thought content: Normal thought content present Insight: Fair insight present (Psych) Judgement: Fair judgement present (Psych) Office Procedures Post Void Residual Post Residual Void Post Void Residual (PVR): 0 [id number] Void Residual by ultrasound Results AMB Urinalysis, Automated UA Leukoctes 0 Kirill/uL Last Edit by CHERISE Plummer on 01/12/25 10:48 UA Nitrite Positive Last Edit by CHERISE Plummer on 01/12/25 10:48 UA Urobilinogen 3.5 mg/dL Last Edit by CHERISE Plummer on 01/12/25 10:4 8 UA Protein 0 mg/dL Last Edit by CHERISE Plummer on 01/12/25 10:48 UA pH 6.5 Last Edit by CHERISE Plummer on 01/12/25 10:48 UA Blood 10 Wilber/uL Last Edit by CHERISE Plummer on 01/12/25 10:[address] [place] 1.015 Last Edit by CHERISE Plummer on 01/12/25 10: 48 UA Ketone Negative Last Edit by CHERISE Plummer on 01/12/25 10:48 UA Bilirubin 0 mg/dL Last Edit by CHERISE Plummer on 01/12/25 10:48 UA Glucose 0 mg/dL Last Edit by CHERISE Plummer on 01/12/25 10:48 Results Reviewed Results Reviewed: Laboratory Last Values Urine pH (Auto) 6.5 01/12/25 10:[address] [place] (Auto) 1.015 01/12/25 10:47 Urine Protein (Auto) 0 mg/dL 01/12/25 10:47 Glucose (UA)(Auto) 0 mg/dL 01/12/25 10:47 Urine Ketones (Auto) Negative 01/12/25 10:47 Urine Blood (Auto) 10 Wilber/uL 01/12/25 10:47 Urine Nitrite (Auto) Positive 01/12/25 10:47 Urine Bilirubin (Auto) 0 mg/dL 01/12/25 10:47 Urine Urobilinogen (Auto) 3.5 mg/dL 01/12/25 10:47 Leukocyte Esterase (Auto) 0 Kirill/uL 01/12/25 10:47 Assessment & Plan Assessment & Plan (1) Renal cyst: Code(s): N28.1 - Cyst of kidney, acquired Category: Medical (2) Recurrent UTI: Code(s): N39.0 - Urinary tract infection, site not specified Category: Medical Plan In office urinalysis results reviewed with the patient today; as noted above. PVR 0 mL We did discuss colonization and recurrent urinary tract infections; we discussed further treatment options and risks and benefits of these treatment options. Continue Estrace cream as discussed and prescribed. Patient currently denies any UTI like symptoms. She reports be happy with current voiding parameters. Will continue with surveillance monitoring. Discussed UTI prevention with D mannose supplement, vitamin-C, increasing fluid intake, behavioral therapy with timed voiding, perineal hygiene and postcoital voiding, and management of constipation with stool softeners and increased fiber intake. Follow-up in 4-6 months with PVR; or sooner with any issues, concerns, and or questions. Orders: Orders AMB Post Void Residual by ultrasound Today R30.0 - Dysuria AMB Urinalysis Automated Today Z13.9 - Encounter for screening, unspecified Medications: Refilled estradiol 0.01%(0.1mg/gram) pea sized amount to urethra 3 times per week 42.5 grams 3RF 90 days Patient Instructions: The patient had an opportunity to ask questions regarding the treatment plan. All questions were answered. Physical exam, labs, and imaging were discussed and reviewed in detail. As well as risks, benefits, and discussion of treatment choices. No major barriers to understanding were identified. The patient expressed understanding and agreement with the above treatment plan. The patient was made aware they should contact our office by phone for worsening of their current condition, the appearance of new symptoms, or with any questions or concerns. Compliance is encouraged with any medications and follow up testing that is ordered. It is a privilege to be allowed the opportunity to participate in? your urological care.? Again, if you have any questions or concerns If you have any questions or concerns please do not hesitate to contact me. The office is [phone]. This note is constructed using voice recognition software. While every effort has been made to ensure accuracy comfort filler errors may have been included. Yours sincerely, KARINA Phelps Coding Level of Care Code Est Pt Level 3 (50883) Complex EM visit Add On G2211 Diagnoses Renal cyst N28.1 Recurrent UTI N39.0 CPT Codes Post Residual Void - PVR CPT Code: 15215-Rkiw Void Residual by ultrasound ([id number])
--- OUTSIDE RECORDS SUMMARY | 2025-01-12 11:18 | XMS_ITS | Clinical Summary ---
Author Organization [facility] Facility Address [address] [place] [address] Care Team Providers Care Wind Turbine Design Engineer Name Role Phone Maria Luisa Henderson MD Primary Care Provider [phone] Allergies No known active allergies Medications calcium [...] at bed time 10/19/2022 Active nystatin (MYCOSTATIN) 954339 UNIT/ML suspension TAKE 4ML BUCCALLY 4 TIMES [...] to complete this topic Insurance Care Teams Wind Turbine Design Engineer Relationship Specialty Start Date End Date Maria Luisa Henderson MD [address] [place] [address] PCP - General Internal Medicine 09/25/22
--- OUTSIDE RECORDS SUMMARY | 2025-01-12 11:18 | XMS_ITS | Clinical Summary ---
Author Organization [employer] Address [address] [facility] [address] [place] [address] Care Team Providers Care Environmental Systems Coordinator Name Role Phone Name, Ludin SHIPMAN Primary Care Provider [phone] Allergies Active Allergy Reactions Criticality Noted Date [...] per day. 90 tablet 3 10/21/2024 Active Active Problems Problem Noted Date Diagnosed Date Morbid obesity 10/21/2024 Hypertension 10/21/2024 High cholesterol 10/21/2024 Venous insufficiency of both lower extremities 0 10/21/2024 Encounters Date Type Department Care Team Description 12/03/2024 11:00 AM EDT Office Visit [facility] [address] [place] [address] Name, MD Ludin Palpitations (Primary Dx); Dizziness, nonspecific; Systolic murmur; Urinary tract infection with hematuria, site unspecified; Dysuria 12/03/2024 Orders Only [address] [address] Ludin Leyva MD 12/03/2024 Travel 12/02/[address] [address] Ludin Leyva MD CHART PREP 12/01/[address] [address] Jeri Daniel RN 11/03/[address] [place] december recalls 10/21/2024 10:15 AM EDT Office Visit [address] [address] Ludin Leyva MD Morbid obesity (CMS/HCC) (Primary Dx); Hypertension, unspecified type; High cholesterol; Venous insufficiency of both lower extremities; ASHLEIGH (obstructive sleep apnea) 10/21/2024 Travel 10/17/[address] [address] Jabari Smith [place] Chartprep 10/13/2024 Patient Outreach [facility] [address] [place], [place] [id number] Ludin Leyva MD Pre-visit Planning (SDOH unable to reach [facility]) from Last 3 Months Social History Tobacco [...] Description 02/10/2025 10:00 AM EDT Office Visit [facility] [address] [place] [address] Name, MD Ludin [address] [place] [address] Health Maintenance Due Date Last Done Comments [...] DIPSTICK Routine 12/03/2024 11:59 AM EDT Dysuria URINALYSIS, COMPLETE, WITH REFLEX TO CULTURE Routine 12/03/2024 12:00 AM EDT Dysuria Urinary tract infection with hematuria, site unspecified CULTURE, URINE, ROUTINE Routine 12/03/2024 12:00 AM EDT from Last 3 Months Results * ECG [...] Media Lot # [id number] Lot# Expiration Date 33 Urine 12/03/2024 11:5 9 AM EDT us Ludin Leyva MD POINT OF CARE TEST ENTER/EDIT OR DERABLES Final Result * (ABNORMAL) Urinalysis, Complete, with Reflex to Culture (12/03/2024 12:00 AM EDT) Color Urine Yellow [facility] Appearance Urine Cloudy [facility] PH 6.5 5.0 - 9.0 [facility] Glucose Urine UA Negative Negative mg/dL [facility] Urine Blood Negative Negative [facility] Specific [place] - Urine 1.020 1.005 - 1.025 [facility] Urine Protein Negative Neg-Trace mg/dL [facility] Urine Ketones Negative Negative mg/dL [facility] Nitrite Urine Positive(A) Negative [facility] Leukocyte Esterase Urine Small (1+)(A) Negative [facility] RBC Urine 0-2 0 - 2 /HPF [facility] Urine WBC 21-50(A) 0 - 5 /HPF [facility] Urine Squamous Epithelial Cell 0-2 0 - 2 /HPF [facility] Urine Bacteria 4+ None Seen [facility] Hyaline Casts, Urine 0-2 0 - 2 /LPF [facility] Urine 12/03/2024 12/03/2024 Narrative [facility] - 12/03/2024 6:24 PM EDT Urine, Clean Catch us Ludin Leyva MD LAB URINE ORDERABLES Final Resul t [facility] [address] [place] [phone] * Culture, Urine, Routine (12/03/2024 12:00 AM EDT) Urine Urine specimen obtained by clean catch procedure / Unknown 12/03/2024 12/03/2024 Comment:UA Narrative [facility] - 12/06/2024 7:29 AM EDT Escherichia coli Quant > 100,000 cfu/mL Escherichia coli: Ampicillin <=2(S) Escherichia coli: Cefazolin (Urine) 4(S) Escherichia coli: Cefepime <=0.12(S) Escherichia coli: Ceftriaxone <=0.25(S) Escherichia coli: Ciprofloxacin <=0.06(S) Escherichia coli: Gentamicin <=1(S) Escherichia coli: Nitrofurantoin <=16(S) Escherichia coli: Trimethoprim/Sulfamethoxazole <=20(S) Specimen Source: Urine clean catch us Ludin MOHAN MICROBIOLOGY - GENERAL ORDER OLIVIA Final Result [facility] [address] [place] [address] [phone] from Last [address] [facility] , [address] [place] [address] Care Teams Environmental Systems Coordinator Relationship Specialty Start Date End Date Name, MD Ludin [address] [place] [phone] PCP - General Internal Medicine 10/21/24
== END 2025-01-12 11:05 | disposition home or self-care (01) ==
LOC: HO.HUSH 10:18
PROVIDERS: PCP Internal Medicine; Visit Provider Nurse Practitioner Family
DX: N28.1 Cyst of kidney, acquired (principal); N39.0 Urinary tract infection, site not specified; Z13.9 Encounter for screening, unspecified
CPT/HCPCS: 99213; G2211

== ENCOUNTER → 2025-01-12 10:17 | Outpatient (BNVA) | payer OTHER, SELFPAY | PROVIDERS: PCP Internal Medicine; Visit Provider Nurse Practitioner Family | DX: N28.1 Cyst of kidney, acquired (principal); N39.0 Urinary tract infection, site not specified | CPT/HCPCS: 51798; 81003 ==

== ENCOUNTER → 2025-01-16 09:32 | Outpatient (REF) | payer OTHER, SELFPAY ==
--- NOTE | 2025-01-16 09:36 | CA_ITS ---
Transthoracic Echocardiogram Patient (Last, First, Middle): Evon Yin, Gender: F Date of : 1965 Age: 60 Procedure Date: 01/16/2025 Procedure Type: Transthoracic Echocardiogram Location: OP Height: 165.1 cm Weight: 156.95 kg BSA: 2.50 m2 Heart Rate: bpm BP: 130 / 90 mmHg Member Service Specialist: MACIE Referring MD: Ludin Leyva MD Brick Siding Applicator: Iván Watts MD Symptoms: R00.2 PALPITATIONS, R01.1 SYSTOLIC MURMUR Study Quality: Adequate ECG Rhythm: Sinus Conclusions: - 1. Normal LV ejection fraction 55-60% with impaired relaxation filling pattern 2. Early mild aortic stenosis 3. Mild mitral regurgitation 4. Normal calculated RV systolic pressure 5. No gross pericardial effusion Findings Left Ventricle Normal left ventricular size, thickness, and systolic function. The visually estimated ejection fraction is between 55-60%. Spectral Doppler is indicative of an impaired relaxation filling pattern. E/E prime ratio is between 8 and 15 consistent with indeterminate filling pressures. Right Ventricle Normal right ventricular cavity size and systolic function. Atria Both atria are normal in size. There is no evidence of interatrial shunt. Aortic Valve The aortic valve was not well visualized. The peak aortic velocity is 1.88 m/s with a calculated peak gradient of 14 mmHg. The mean gradient is 7 mmHg. There is no aortic valve regurgitation. mildly increased gradient across aortic valve. Early aortic stenosis can not be ruled out Mitral Valve Normal mitral valve structure and function. There is mild mitral valve regurgitation. There is no mitral valve stenosis. Pulmonic Valve The pulmonic valve is likely normal. Tricuspid Valve Normal tricuspid valve structure. There is mild tricuspid valve regurgitation. The right ventricular systolic pressure is normal. The right ventricular systolic pressure is 33 mmHg. Normal right atrial pressure. There is no evidence of pulmonary hypertension. Great Vessels All visible segments of the aorta are normal in size. The pulmonary artery was not well visualized. There is no dilatation of the ascending aorta measuring 2.90 cm. Venous The inferior vena cava is normal in size and collapses greater than 50% with inspiration. Pericardium/Pleural There is no evidence of pericardial effusion. Prior Study Comparison Changes noted compared to prior study dated: 07/15/2019. increased gradient across aortic valve which may suggest early mild aortic stenosis. RV systolic pressure is within normal limits Measurements 2D Linear Measurements IVSd: 1.03 0.6-0.9/0.6-1.0 cm LVIDd: 4.72 3.9-5.3/4.2-5.9 cm LVIDd Index: 1.89 2.4-3.2/2.2-3.1 cm/m2 LVIDs: 3.03 2.0-3.6 cm LVPWd: 1.04 0.7-1.1 cm Ao Root: 2.70 2.1-3.5 cm LA Diam: 3.80 2.7-3.8/3.0-4.0 cm LAIDs Index: 1.52 1.5-2.3 cm/m2 LV Mass: 216.21 67-162/88-224 g LV Mass Index: 86.48 43-95/49-115 g/m2 LVOT Diam: 2.00 3.0+(-)1.3 cm 2D Systolic Function EF 4C: 57.80 >55% EF 2C: 59.80 >55% EF BiP: 58.70 >55% Mitral Valve MV Pk E: 1.08 MV PK A: 1.02 MV Decel Time: 273.00 E/A: 1.10 E'Lateral: 10.30 E'Medial: 7.29 E/E' Med: 14.80 E/E' Lat: 10.50 PHT: 80.00 MVA PHT: 2.75 Decel Tarrant: 3.94 Aortic Valve AoV Pk Moreno: 1.88 AoV Mn Moreno: 1.22 AoV VTI: 0.52 AoV Pk Grad: 14.00 Aov Mn Grad: 7.00 DWIGHT Cont.VTI: 1.96 LVOT LVOT Pk Moreno: 1.13 LVOT Mn Moreno: 0.74 LVOT VTI: 0.32 LVOT Pk Grad: 5.00 LVOT Mn Grad: 3.00 LVOT Diam: 2.00 LVOT Area: 3.14 Diastolic Function MV Pk E: 1.08 MV Pk A: 1.02 E/A: 1.10 E'Medial: 7.29 E/E' Med: 14.80 E' Laterial: 10.30 E/E' Lat: 10.50 Right Ventricle TAPSE (mm): 31.00 TVS' Moreno: 11.00 Tricuspid Valve TR Pk Moreno: 2.73 TR Pk Grad: 30.00 RA Press: 3.00 RVSP: 33.00 Great Vessels Aorta Ao Root-2D: 2.70 2.0-3.7 cm Ao Asc: 2.90 2.1-3.4 cm Pulmonary Veins Pulm Vein S/D 1.30 Pulmonary Valve PV Pk Moreno: 1.34 Peak PV Grad: 7.00 Updated in Other Vendor System with Status of Final Iván Watts MD electronically signed on 01/17/2025 11:54:39 AM with status of Final
--- OUTSIDE RECORDS SUMMARY | 2025-01-16 09:37 | XMS_ITS | Clinical Summary ---
Author Organization [employer] Address [address] [facility] 7t [place] [address] Care Team Providers Care Barge Hand Name Role Phone Name, Ludin SHIPMAN Primary Care Provider [phone] Allergies Active Allergy Reactions Criticality Noted Date [...] Description 12/03/2024 11:00 AM EDT Office Visit [facility] [address] [place] [address] Name, MD Ludin Palpitations (Primary Dx); Dizziness, nonspecific; Systolic murmur; Urinary tract infection with hematuria, site unspecified; Dysuria 12/03/2024 Orders Only [address] [address] Ludin Leyva MD 12/03/2024 Travel 12/02/[address] [address] Ludin Leyva MD CHART PREP 12/01/[address] [address] Jeri Daniel RN 11/03/[address] [place] december recalls 10/21/2024 10:15 AM EDT Office Visit [address] [address] Ludin Leyva MD Morbid obesity (CMS/HCC) (Primary Dx); Hypertension, unspecified type; High cholesterol; Venous insufficiency of both lower extremities; ASHLEIGH (obstructive sleep apnea) 10/21/2024 Travel 10/17/[address] [address] Jabari Smith [place] Chartprep from Last 3 Months Social History Tobacco [...] Care Team (Late st Contact Info) Description 02/05/2025 11:30 AM EDT Office Visit [facility] [address] [place] [address] Name, MD Ludin [address] [place] [address] Health Maintenance Due Date Last Done Comments [...] (12/03/2024 12:00 AM EDT) Color Urine Yellow [facility] Appearance Urine Cloudy [facility] PH 6.5 5.0 - 9.0 [facility] Glucose Urine UA Negative Negative mg/dL [facility] Urine Blood Negative Negative [facility] Specific [place] - Urine 1.020 1.005 - 1.025 [facility] Urine Protein Negative Neg-Trace mg/dL [facility] Urine Ketones Negative Negative mg/dL [facility] Nitrite Urine Positive(A) Negative [facility] Leukocyte Esterase Urine Small (1+)(A) Negative [facility] RBC Urine 0-2 0 - 2 /HPF [facility] Urine WBC 21-50(A) 0 - 5 /HPF [facility] Urine Squamous Epithelial Cell 0-2 0 - 2 /HPF [facility] Urine Bacteria 4+ None Seen [facility] Hyaline Casts, Urine 0-2 0 - 2 /LPF [facility] Urine 12/03/2024 12/03/2024 Narrative [facility] - 12/03/2024 6:24 PM EDT Urine, Clean Catch Ludin MOHAN URINE ORDERABLES Final Resul t Performing Organization Address [facility] de Phone Number [facility] [address] [place] [phone] * Culture, Urine, Routine (12/03/2024 12:00 AM EDT) Urine Urine specimen obtained by clean catch procedure / Unknown 12/03/2024 12/03/2024 Comment:[facility] - 12/06/2024 7:29 AM EDT Escherichia coli Quant > 100,000 cfu/mL Escherichia coli: Ampicillin <=2(S) Escherichia coli: Cefazolin (Urine) 4(S) Escherichia coli: Cefepime <=0.12(S) Escherichia coli: Ceftriaxone <=0.25(S) Escherichia coli: Ciprofloxacin <=0.06(S) Escherichia coli: Gentamicin <=1(S) Escherichia coli: Nitrofurantoin <=16(S) Escherichia coli: Trimethoprim/Sulfamethoxazole <=20(S) Specimen Source: Urine clean catch Ludin MOHAN MICROBIOLOGY - GENERAL ORDER OLIVIA Final Result Performing Organization Address [facility] de Phone Number [facility] [address] [place] [phone] from Last 3 Months Insurance [facility] , [address] [place] [address] Care Teams Barge Hand Relationship Specialty Start Date End Date Name, MD Ludin [address] [place] [phone] PCP - General Internal Medicine 10/21/24
--- OUTSIDE RECORDS SUMMARY | 2025-01-16 09:37 | XMS_ITS | Clinical Summary ---
Author Organization [facility] Facility Address [address] [place] [address] Care Team Providers Care Supervisor Special Effects Name Role Phone Maria Luisa Henderson MD Primary Care Provider [phone] Allergies No known active allergies Medications calcium [...] at bed time 10/19/2022 Active nystatin (MYCOSTATIN) 921132 UNIT/ML suspension TAKE 4ML BUCCALLY 4 TIMES [...] to complete this topic Insurance Care Teams Supervisor Special Effects Relationship Specialty Start Date End Date Maria Luisa Henderson MD [address] [place] [address] PCP - General Internal Medicine 09/25/22
== END ==
LOC: HO.CARD 09:32
PROVIDERS: PCP Internal Medicine Geriatric Medicine; Visit Provider Internal Medicine Geriatric Medicine
DX: R00.2 Palpitations (principal); R01.1 Cardiac murmur, unspecified
CPT/HCPCS: 93306

== ENCOUNTER → 2025-01-16 09:36 | Outpatient (BNV) | payer OTHER, SELFPAY | PROVIDERS: PCP Internal Medicine Geriatric Medicine; Visit Provider Internal Medicine Cardiovascular Disease | DX: I35.0 Nonrheumatic aortic (valve) stenosis (principal); I34.0 Nonrheumatic mitral (valve) insufficiency; I36.1 Nonrheumatic tricuspid (valve) insufficiency; R01.1 Cardiac murmur, unspecified | CPT/HCPCS: 93306 ==

== ENCOUNTER → 2025-02-24 13:15 | Outpatient (REF) | payer OTHER, SELFPAY ==
--- OUTSIDE RECORDS SUMMARY | 2025-02-20 10:30 | XMS_ITS | Encounter Summary ---
Author Organization [employer] Address [address] [facility] 7t [place] [address] Care Team Providers Care Developer Designer Name Role Phone Name, Ludin SHIPMAN Primary Care Provider [phone] Reason for Visit * Reason Comments Blood Pressure Check Encounter Details Date Type Department Care Team (Latest Contact Info) Description 02/20/2025 10:30 AM EDT Clinical Support [facility] [address] [place] [address] Jeri Daniel RN Hypertension, unspecified type [I10] Social History Tobacco Use Types Packs/Day Years Used Date Smoking Tobacco: Never Smokeless Tobacco: Never Alcohol Use Standard Drinks/Week Comments Never 0 [...] Orientation Straight 10/17/2024 9: 03 AM EDT documented as of this encounter Last Filed Vital Signs Vital Sign Reading Time Taken Comments Blood Pressure 130/74 02/20/2025 10:31 AM EDT Pulse 80 02/20/2025 10:30 AM EDT Temperature 37.1 C (98.8 F) 02/20/2025 10:30 AM EDT Respiratory Rate - - Oxygen Saturation 97% 02/20/2025 10:30 AM EDT Inhaled Oxygen Concentration - - Weight 161 kg (355 lb 12.8 oz) 02/20/2025 10:30 AM EDT Height 165.1 cm (5' 5 ) 02/20/2025 10:30 AM EDT Body Mass Index 59.21 02/20/2025 10:30 AM EDT documented in this encounter Progress Notes * Jeri Daniel, GRADY - 02/20/2025 10:30 AM EDT SUBJECTIVE: Evon Yin is a 60 y.o. year old female who presents for Blood Pressure Check. At the last OV noted 144/82 and recommendations made on that day per PCP I will double her dose of lisinopril. Continue checking BP at home. Recheck BMP next week. Follow-up with team nurses in 10 days . Pt denies chest pian, sob, headaches, blurry vision, dizziness, smoking and drinking alcohol. Pt reports taking their BP medications this morning and everyday as prescribed. Pt reports they did have fever and chills last week when they had the infection on their lower left leg but denies it today. Pt reports they finished the antibiotics and denies any side effects. Pt states they do not exercise but their diet consist of chicken, vegetables, eggs, coffee, juice , rice and water. Pt reports they do not eat fruits. Pt report they have an appointment with at wound clinic on 03/05/25 at 2:45 pm. Pt reports they check their BP daily nd document their readings but forgot their BP log at home Current Medications[1] Patient Active Problem List Diagnosis Date Noted Morbid obesity (CMS/HCC) 10/21/2024 Hypertension 10/21/2024 High cholesterol 10/21/2024 Venous insufficiency of both lower extremities 10/21/2024 Doxycycline and Bactrim [sulfamethoxazole-trimethoprim] BP Readings from Last 4 Encounters: 02/05/25 (!) 144/82 12/03/24 (!) 144/84 10/21/24 138/86 Pulse Readings from Last 4 Encounters: 02/05/25 82 12/03/24 71 10/21/24 78 OBJECTIVE: Pt rx metoprolol tartrate (Lopressor) 25 MG tablet (Take 1 tablet (25 mg) by mouth 2 times daily. )and lisinopril 10 MG tablet ( Take 1 tablet (10 mg) by mouth Once per day.) WT: 355.8lbs, HR: 80, O2: 97%, LBP: 126/74, RBP 130/74, T_ 98.8 F ASSESSMENT: Pt is alert, oriented and primarily emirati speak. S ID: [id number] assisted with emirati translation. Pt has an venous ulcer located on their lower left leg with scatter dry patches and serous drainage ( pale yellow thin fluid) weeping. Site was cleansed with normal saline and patted dry witha 4x4 gauze. Gauze was added on the sites with serous drainage and leg wrapped with a sterile conforming stretch gauze. Pt provided with wound supplies until their appointment with the wound clinic on 03/05/25 at 2:45 pm. Pt reports 4/10 pain at the site and denies taking any pain medications. Achieve goal blood pressure of <140/90 or <130/80 PLAN: Pt advised to continue taking medications as directed and reinforcement of lifestyle modifications including low sodium diet and exercise were reviewed. Pt advised to continue to check their BP dailyand document their readings. Pt advised to keep their wound clean and dry. Pt advised if they notice any purulent drainage, foul odor, fever, chills and the site to becomes warm to touch they should return to the clinic to be evaluated. Pt verbalized understanding and agrees with plan. Message sentto PCP for review. Madonnasophy Humphrey agreeable to plan discussed at today's visit. Future Appointments Date Time Provider Department Center 03/05/2025 11:15 AM Ludin Leyva MD MEDICINE [facility] Jeri Daniel RN [1] Current Outpatient Medications Medication Sig Dispense Refill atorvastatin (Lipitor) 80 MG tablet Take 1 tablet (80 mg) by mouth at bedtime. 90 tablet 3 cholecalciferol VITAMIN D (Vitamin D-3) 50 MCG (2000 UT) capsule Take 1 capsule (50 mcg) by mouth Once per day. 90 capsule 3 furosemide (Lasix) 20 MG tablet TAKE 1 TABLET (20 MG) BY MOUTH ONCE PER DAY. 90 tablet 1 lisinopril 10 MG tablet Take 1 tablet (10 mg) by mouth Once per day. 30 tablet 11 metoprolol tartrate (Lopressor) 25 MG tablet Take 1 tablet (25 mg) by mouth 2 times daily. 60 tablet 11 naproxen (Naprosyn) 500 MG tablet Take 1 tablet (500 mg) by mouth if needed in the morning and at bedtime for headaches or moderate pain. 60 tablet 0 No current facility-administered medications for this visit. documented in this encounter Plan of Treatment Upcoming Encounters Date Type Department Care Team (Late st Contact Info) Description 03/05/2025 11:15 AM EDT Telemedicine [facility] [address] [place] [address] Ludin Leyva MD [address] [place] [phone] documented as of this encounter Visit Diagnoses Diagnosis Hypertension, unspecified type [I10] documented in this encounter Additional Health Concerns Assessment Noted Time PHQ-9 Depression Total Score: 4 10/22/19 11:11 AM EDT documented as of this encounter Care Teams Developer Designer Relationship Specialty Start Date End Date Ludin Leyva MD [address] [place] [address] PCP - General Internal Medicine 10/21/24 documented as of this encounter
--- NOTE | 2025-02-24 13:18 | HM_ITS ---
Conclusion: 1. Patient was monitored for total period of 2 days 2. Baseline was normal sinus rhythm with average heart of 71 beats per minute 3. Rare PACs and PVCs noted 4. No significant pauses noted 5. Patient marked the counter 1 time with symptoms of palpitation correlating with sinus rhythm MTDD
--- OUTSIDE RECORDS SUMMARY | 2025-02-24 14:33 | XMS_ITS | Encounter Summary ---
Author Organization [employer] Address [address] [facility] 7t [place] [address] Care Team Providers Care Finance Professional Name Role Phone Name, Ludin SHIPMAN Primary Care Provider [phone] Encounter Details Date Type Department Care Team (Latest Contact Info) Description 02/20/2025 Travel Social History Tobacco Use Types Packs/Day Years [...] AM EDT documented as of this encounter Plan of Treatment Upcoming Encounters Date Type Department Care Team (Late st Contact Info) Description 03/05/2025 11:15 AM EDT Telemedicine [facility] [address] [place] [address] Name, MD Ludin [address] [place] [address] documented as of this encounter Visit Diagnoses Not on filedocumented in this encounter Additional Health Concerns Assessment Noted Time PHQ-9 Depression Total Score: 4 10/22/19 11:11 AM EDT documented as of this encounter Care Teams Finance Professional Relationship Specialty Start Date End Date Name, MD Ludin [address] [place] [phone] PCP - General Internal Medicine 10/21/24 documented as of this encounter
--- OUTSIDE RECORDS SUMMARY | 2025-02-24 14:33 | XMS_ITS | Clinical Summary ---
Author Organization [employer] Address [address] [facility] 7t [place] [address] Care Team Providers Care Import/Export Freight Forwarder Name Role Phone Name, Ludin SHIPMAN Primary Care Provider [phone] Allergies Active Allergy Reactions Criticality Noted Date Comments Sulfamethoxazole-Trimethoprim Rash Low 2024 Doxycycline Hives 10/21/2024 Medications atorvastatin (Lipitor) 80 MG tablet Take 1 tablet (80 mg) by mouth at bedtime. 90 tablet 3 5 10/22/19 26 Active cholecalciferol VITAMIN D (Vitamin D-3) 50 MCG (1999) capsule Take 1 capsule (50 mcg) by mouth Once per day. 90 capsule 3 5 Active furosemide (Lasix) 20 MG tablet TAKE 1 TABLET (20 MG) BY MOUTH ONCE PER DAY. 90 tablet 1 5 Active metoprolol tartrate (Lopressor) 25 MG tablet Take 1 tablet (25 mg) by mouth 2 times daily. 60 tablet 5 02/06/20 26 Active lisinopril 10 MG tabletIndicatio ns:Hypertension , unspecified type Take 1 tablet (10 mg) by mouth Once per day. 30 tablet 11 5 02/06/20 26 Active naproxen (Naprosyn) 500 MG tablet Take 1 tablet (500 mg) by mouth if needed in the morning and at bedtime for headaches or moderate pain. 60 tablet 5 03/07/20 25 Active carvedilol (Coreg) 12.5 MG tablet Take 1 tablet (12.5 mg) by mouth 2 times daily. 180 tablet 3 5 02/06/20 25 Discontinu ed(Therapy completed) lisinopril 5 MG tablet Take 1 tablet (5 mg) by mouth Once per day. 90 tablet 3 5 02/06/20 25 Discontinu ed(Dose adjustment ) cephalexin (Keflex) 500 MG capsuleIndicati ons:Cellulitis of left lower extremity Take 1 capsule (500 mg) by mouth 3 times daily for 10 days. 30 capsule 5 02/16/20 25 Active Problems Problem Noted Date Diagnosed Date Morbid obesity ([facility]) 10/21/2024 Hypertension 10/21/2024 High cholesterol 10/21/2024 Venous insufficiency of both lower extremities 0 10/21/2024 Encounters Date Type Department Care Team Description 02/20/2025 10:30 AM EDT Clinical Support [address] [address] Jeri Daniel RN Hypertension, unspecified type [I10] 02/20/2025 Travel 02/15/2025 Travel 02/05/2025 11:30 AM EDT Office Visit [address] [address] Ludin Leyva MD Hypertension, unspecified type (Primary Dx); Migraine without status migrainosus, not intractable, unspecified migraine type; Mild aortic stenosis; Palpitations; Venous insufficiency of both lower extremities; Venous ulcer ([facility]); Cellulitis of left lower extremity; Morbid obesity ([facility]) 02/05/2025 Travel 02/02/2025 Telephone [facility] [address] [place], [place] [phone] Ludin Leyva MD Chart Prep 01/29/2025 Travel 01/21/[address] [address] Ludin Leyva MD 12/03/2024 11:00 AM EDT Office Visit [address] [address] Ludin Leyva MD Palpitations (Primary Dx); Dizziness, nonspecific; Systolic murmur; Urinary tract infection with hematuria, site unspecified; Dysuria 12/03/2024 Orders Only [address] [address] Ludin Leyva MD 12/03/2024 Travel 12/02/2024 Telephone [facility] [address] [place] [address] Name, MD Ludin CHART PREP 12/01/2024 Telephone [facility] [address] [facility] [place] [address] Jeri Daniel RN from Last 3 Months Social History Tobacco [...] F) 02/20/2025 10:30 AM EDT Respiratory Rate 16 02/05/2025 11:04 AM EDT Oxygen Saturation 97% 02/20/2025 10:30 AM EDT Inhaled Oxygen Concentration - - Weight 161 kg (355 lb 12.8 oz) 02/20/2025 10:30 AM EDT Height 165.1 cm (5' 5 ) 02/20/2025 10:30 AM EDT Body Mass Index 59.21 02/20/2025 10:30 AM EDT Plan of Treatment Upcoming Encounters Date Type Department Care Team (Late st Contact Info) Description 03/05/2025 11:15 AM EDT Telemedicine [facility] [address] [place], [place] [phone] Name, MD Ludin [address] [place] [address] Health Maintenance Due Date Last Done Comments CT Colonography 1965 Colonoscopy 1965 Colorectal Cancer Screening 1965 FIT DNA/Cologuard 1965 FIT 1965 FOBT 1965 HIV Screening 1965 Lipid Panel 1965 Sigmoidoscopy 1965 Hepatitis C Screening 1981 DTaP/Tdap/Td Vaccines (1 - Tdap) 1982 Pneumococcal Vaccine: 50+ Years (1 of 2 - PCV) 1982 Pap Smear 01/07/1984 Cervical Cancer Screening 1993 HPV/Cotest 1993 Mammogram 2003 Zoster Vaccines (1 of 2) 2013 RSV Patients and Patients Aged 60 years or older (1 - Risk 60-74 years 1-dose series) 2023 COVID-19 Vaccine (1 - 2023-2 5 season) 2025 Influenza Vaccine (#1) 2025 Alcohol/Substance Use Screening 10/21/2025 10/21/2024 Depression Screening 10/21/2025 10/21/2024, 10/21/2024 SDOH Screening 10/21/2025 10/21/2024 Disability Screening 01/29/2026 01/29/2025 Tobacco Screening 02/05/2026 02/05/2025 HIB Vaccines Aged Out No longer eligi [...] HR 65, No ST-T changes. Normal EKG Ludin Name ECG ORDERABLES Final Result * (ABNORMAL) POCT [...] (12/03/2024 12:00 AM EDT) Color Urine Yellow [facility] Appearance Urine Cloudy [facility] PH 6.5 5.0 - 9.0 [facility] Glucose Urine UA Negative Negative mg/dL [facility] Urine Blood Negative Negative [facility] Specific [place] - Urine 1.020 1.005 - 1.025 [facility] Urine Protein Negative Neg-Trace mg/dL [facility] Urine Ketones Negative Negative mg/dL [facility] Nitrite Urine Positive(A) Negative [facility] Leukocyte Esterase Urine Small (1+)(A) Negative [facility] RBC Urine 0-2 0 - 2 /HPF [facility] Urine WBC 21-50(A) 0 - 5 /HPF [facility] Urine Squamous Epithelial Cell 0-2 0 - 2 /HPF [facility] Urine Bacteria 4+ None Seen [facility] Hyaline Casts, Urine 0-2 0 - 2 /LPF [facility] Urine 12/03/2024 12/03/2024 Narrative [facility] - 12/03/2024 6:24 PM EDT Urine, Clean Catch us Ludin Leyva MD LAB URINE ORDERABLES Final Resul t [facility] [address] [place] [address] [phone] * Culture, Urine, Routine (12/03/2024 12:00 AM EDT) Urine Urine specimen obtained by clean catch procedure / Unknown 12/03/2024 12/03/2024 Comment:[facility]ACC Narrative [facility] - 12/06/2024 7:29 AM EDT Escherichia coli Quant > 100,000 cfu/mL Escherichia coli: Ampicillin <=2(S) Escherichia coli: Cefazolin (Urine) 4(S) Escherichia coli: Cefepime <=0.12(S) Escherichia coli: Ceftriaxone <=0.25(S) Escherichia coli: Ciprofloxacin <=0.06(S) Escherichia coli: Gentamicin <=1(S) Escherichia coli: Nitrofurantoin <=16(S) Escherichia coli: Trimethoprim/Sulfamethoxazole <=20(S) Specimen Source: Urine clean catch Ludin Leyva MD LAB MICROBIOLOGY - GENERAL ORDER OLIVIA Final Result Performing Organization Address [facility] Co de Phone Number [facility] [address] [place] [address] [phone] from Last 3 Months Insurance [facility] , [address] [place] [phone] Care Teams Import/Export Freight Forwarder Relationship Specialty Start Date End Date Name, MD Ludin [address] [place] [phone] PCP - General Internal Medicine 10/21/24
--- OUTSIDE RECORDS SUMMARY | 2025-02-24 14:33 | XMS_ITS | Clinical Summary ---
Author Organization [facility] Facility Address [address] [place] [id number] Care Team Providers Care Welder/Installer Name Role Phone Maria Luisa Henderson MD Primary Care Provider [phone] Allergies No known active allergies Medications calcium [...] at bed time 10/19/2022 Active nystatin (MYCOSTATIN) 932289 UNIT/ML suspension TAKE 4ML BUCCALLY 4 TIMES [...] to complete this topic Insurance Care Teams Welder/Installer Relationship Specialty Start Date End Date Maria Luisa Henderson MD [address] [place] [address] PCP - General Internal Medicine 09/25/22
== END ==
LOC: HO.CARD 13:15
PROVIDERS: Visit Provider Internal Medicine Geriatric Medicine
DX: R00.2 Palpitations (principal)
CPT/HCPCS: 93225

== ENCOUNTER → 2025-02-24 13:18 | Outpatient (BNV) | payer OTHER, SELFPAY | PROVIDERS: Visit Provider Internal Medicine Cardiovascular Disease | DX: I49.1 Atrial premature depolarization (principal); I49.3 Ventricular premature depolarization | CPT/HCPCS: 93227 ==